=== PATIENT | male | born 1945 | race Caucasian/White ===

== ENCOUNTER 2016-07-28 17:03 | Inpatient (IN) | payer MEDICARE ==
[~2016-07-28] VITALS: Ht 193 cm; Wt 73.4 kg
[~2016-07-28 17:03] MED LIST: ALFU10TA3 PO; APIX5TAB PO; ARIP1TAB12 PO; CALCCHW9 CHEW; CYAN1000P SQ; FINA1TAB16 PO; MEGE40TA PO; TAMS5CAP PO; TRAZ50TA12 PO; ZOLO100T PO
[2016-07-28 17:34] VITALS: BP 136/70; PULSE 100; RESP 20; TEMP 97.6; O2SAT 97
[2016-07-28 22:20] VITALS: BP 127/81; PULSE 94; RESP 18; O2SAT 99
--- NOTE | 2016-07-28 23:01 | RADRPT ---
EXAM DATE/TIME: 07/28/2016 22:39 [facility] COMPARISON: No previous studies available for comparison. INDICATIONS : Right hip pain post fall 4 days ago MEDICAL HISTORY : Right proximal femur fracture SURGICAL HISTORY : ORIF right femur ENCOUNTER: Initial ACUITY: 4 - 6 days PAIN SCORE: 6/10 LOCATION: Right hip FINDINGS: No fractures are seen. There is degenerative disc disease of the lower lumbar spine and decreased bon e density. Postsurgical changes to the right proximal femur are noted with intramedullary femoral nec k pin and plate and screw fixation. CONCLUSION: No acute disease. Tej Stafford MD on July 28, 2016 at 22:59 Board Certified Radiologist. This report was verified electronically.
--- NOTE | 2016-07-28 23:09 | PD ---
HPI Chief Complaint: Back/ Neck Pain or Injury Time Seen by Provider: 22:59 Travel History International Travel<30 days: No Contact w/Intl Traveler<30days: No Traveled to known affect area: No History of Present Illness HPI 71-year-old male presents to the emergency room via ambulance for evaluation of low back pain and right hip pain after reportedly falling in the hospital. Patient has poor historian and cannot give exact date of fall. States he believes it was yesterday or the day before. Patient states he fell while admitted to the psychiatric unit at this hospital's. States he slipped on water in the bathroom and fell backwards landing on his buttocks. Denies hitting his head or loss of consciousness. He did not report the fall. States he had no pain at the time of fall but woke up the next day feeling "crippled." He had difficulty even standing. Denies saddle anesthesia, loss of bowel or bladder control, and lower extremity paresthesias. Patient lives with his daughter who takes care of him. States she has been giving him medication for pain but he does not know what it is. Pain is localized to the lower lumbar spine with some radiation to the right hip. No radiation down the right lower extremity. Pain is severely worsened with range of motion and ambulation. Improves when he is lying still or sitting. PFSH Past Medical History Anxiety: Yes Depression: Yes Diminished Hearing: Yes (bilateral hearing aids) Genitourinary: Yes (BPH, CHRONIC INCONTINENCE UNABLE TO CONTROL BLADDER MUSCLES ) Neurologic: Yes (Multiple Sclerosis) Psychiatric: Yes (mood disorder) Immunizations Current: Yes Tetanus Vaccination: Unknown Influenza Vaccination: No Past Surgical History Other Surgery: Yes (hx of back surgery) Social History Alcohol Use: No Tobacco Use: Yes (1/2 ppd) Substance Use: No Allergies-Medications (Allergen,Severity, Reaction): Coded Allergies: No Known Allergies (Unverified , 07/20/16) Reported Meds & Prescriptions Reported Meds & Active Scripts Active Trazodone (Trazodone HCl) 50 Mg Tab 50 Mg PO HS Flomax (Tamsulosin HCl) 0.4 Mg Cap 0.4 Mg PO DAILY Zoloft (Sertraline HCl) 100 Mg Tab 100 Mg PO DAILY Megestrol (Megestrol Acetate) 40 Mg Tab 20 Mg PO 1/2 PO BID Aripiprazole 10 Mg Tab 10 Mg PO DAILY Eliquis (Apixaban) 5 Mg Tab 5 Mg PO BID Eliquis (Apixaban) 5 Mg Tab 5 Mg PO BID follow up with PCP for refill and duration Reported Finasteride (Finasteride (Alopecia)) 1 Mg Tab 5 Mg PO DAILY Alfuzosin HCl ER (Alfuzosin HCl) 10 Mg Tab 10 Mg PO DAILY Calcium 1200 (Calcium Carbonate-Vitamin D W/Minerals) 1,200-1,000 Mg-Unit Chew 1 Tab CHEW DAILY Cyanocobalamin Inj (Cyanocobalamin) 1,000 Mcg/Ml Inj 1,000 Mcg SQ Q30D Review of Systems Except as stated in HPI: all other systems reviewed are Neg Physical Exam Narrative GENERAL: Well-nourished, well-developed male in no acute distress. Afebrile. SKIN: Warm and dry. No obvious erythema or ecchymosis. HEAD: Normocephalic. EYES: No scleral icterus. No injection or drainage. NECK: Supple, trachea midline. No JVD or lymphadenopathy. CARDIOVASCULAR: Regular rate and rhythm without murmurs, gallops, or rubs. RESPIRATORY: Breath sounds equal bilaterally. No accessory muscle use. BACK: No CVA tenderness. No rash. Mild to moderate tenderness on palpation of the lumbar spine. Data Data Last Documented VS Vital Signs Date Time Temp Pulse Resp B/P Pulse Ox O2 Delivery O2 Flow Rate FiO2 07/28/16 23:43 81 18 164/77 93 07/28/16 22:20 Room Air 07/28/16 17:[address] Lumb Spine W/O Contrast (07/28/16 ) Hip, Uni(Ap&Lat) W Ap Pelvis (07/28/16 ) Iv Access Insert/Monitor (07/28/16 23:35) Ecg Monitoring (07/28/16 23:35) Oximetry (07/28/16 23:35) Ondansetron Inj (Zofran Inj) (07/28/16 23:45) Hydromorphone Pf Inj (Dilaudid Pf Inj) (07/28/16 23:45) Consult Neurosurgery (07/28/16 ) Admit Order (Ed Use Only) (07/29/16 00:03) Ct Brain W/O Iv Contrast(Rout) (07/29/16 ) Place In Observation (07/29/16 ) Vital Signs (Adult) Q4H (07/29/16 00:01) Neuro Checks Q4H (07/29/16 00:01) Activity Bed Rest (07/29/16 00:01) ^ Network Technology Instructor / Telemetry .CONTINUOUS (07/29/16 00:01) Diet Heart Healthy (07/29/16 Breakfast) Sodium Chloride 0.9% Flush (Ns Flush) (07/29/16 00:15) Sodium Chloride 0.9% Flush (Ns Flush) (07/29/16 09:00) Basic Metabolic Panel (Bmp) (07/30/16 06:00) Complete Blood Count With Diff (07/30/16 06:00) Prothrombin Time / Inr (Pt) (07/30/16 06:00) Pt Request For Service (07/29/16 00:01) Case Management Consult (07/29/16 00:01) Naloxone Inj (Narcan Inj) (07/29/16 00:15) Complete Blood Count With Diff (07/29/16 00:01) Comprehensive Metabolic Panel (07/29/16 00:01) Act Partial Throm Time (Ptt) (07/29/16 00:01) Prothrombin Time / Inr (Pt) (07/29/16 00:01) Mri L Spine W&W/O Contrast (07/29/16 23:35) MDM Medical Decision Making Medical Screen Exam Complete: Yes Emergency Medical Condition: Yes Medical Record Reviewed: Yes Differential Diagnosis Fracture versus sciatica versus degenerative disc disease Narrative Course 71-year-old male presents to the emergency room for evaluation of low back pain for the past several days. Patient states he slipped on water in the hospital bathroom after showering but cannot give a specific date of injury. He denies hitting his head or loss of consciousness. Fell straight back and landed on his buttocks. Since then he has had progressively worsening pain. No focal neurological deficits. There is midline tenderness in the lumbar spine with radiation to the right hip. Vital signs stable. Lumbar spine CT and right hip x-ray ordered and pending. Patient signed out to the nighttime physician, Dr. López, for further evaluation and disposition. Condition: Stable Marina Joya Jul 28, 2016 23:08
--- NOTE | 2016-07-28 23:19 | RADRPT ---
EXAM DATE/TIME: 07/28/2016 22:48 [facility] COMPARISON: No previous studies available for comparison. INDICATIONS : Fall with back pain and trauma. RADIATION DOSE: 36.18 CTDIvol (mGy) MEDICAL HISTORY : Hypertension. SURGICAL HISTORY : Back surgery. ENCOUNTER: Initial ACUITY: 1 day PAIN SCALE: 6/10 LOCATION: [facility] TECHNIQUE: Volumetric scanning of the lumbar spine was performed. Multiplanar reconstructions in the sagittal, coronal and oblique axial planes were performed. Using automated exposure control and adjustment of the mA and/or kV according to patient size, radiation dose was kept as low as reasonably achievable t o obtain optimal diagnostic quality images. FINDINGS: There is a moderate to severe compression fracture of the L4 vertebral body with invagination of the superior and inferior endplates. Centrally there is loss of approximately 70% of the vertical height. There is sclerosis and irregularity. There are subtle fracture lines through the anterior upper kym ex. There is mild retropulsion of the posterior superior aspect of the vertebral body on the sagittal images measuring up to approximately 3 mm. There are mild compression fracture deformities of the T1 2 and L1 vertebral body which appear chronic. Degenerative joint changes are present at the L5-S1 le candace with disc space narrowing and hypertrophic change as well as vacuum disc phenomena. Vacuum phenom kathleen is also noted at the L3-4 level. The axial images demonstrate mild scoliosis. The compression fracture from the L3 vertebral body is a gain noted with mild retropulsion of the posterior superior aspect of the vertebral body measuring up to 3-4 mm with mass effect on the anterior thecal sac. There is an annular disc bulge at L3-4 with flattening of the anterior thecal sac and narrowing of th e neural foramina. There are degenerative change involving the facet joints with moderate to severe c entral canal stenosis. There is an annular disc bulge with flattening of the anterior thecal sac at L4-5 with narrowing of t he neural foramina bilaterally. Degenerative changes are noted involving the facet joints with hypert rophy of the ligamentum flavum. There is moderate to severe central canal stenosis at this level as w ell. There is lateral recess stenosis as well. At the L5-S1 level there is a mild annular disc bulge with flattening of the anterior thecal sac and narrowing of the neural foramina bilaterally. There are apparent remote postsurgical changes. Degener ative changes are noted involving the facet joints. CONCLUSION: 1. Moderate to severe compression fracture deformity L4 vertebral body which is of indeterminate age secondary to sclerosis however there are apparent fracture lines on the anterior superior aspect jodi cating that at least a portion of this is acute. There is mild retropulsion of the posterior superior aspect of the vertebral body. 2. Mild chronic compression fracture deformities of the T12 and L1 vertebral bodies. 3. Moderate to severe central canal stenosis at the L3-4 and L4-5 levels. This is secondary to disc b ulges and degenerative changes involving the facets. Anatoliy Nava MD on July 28, 2016 at 23:09 Board Certified Radiologist. This report was verified electronically.
--- NOTE | 2016-07-28 23:40 | PD ---
Data Data Last Documented VS Vital Signs Date Time Temp Pulse Resp B/P Pulse Ox O2 Delivery O2 Flow Rate FiO2 07/28/16 22:20 94 18 127/81 99 Room Air 07/28/16 17:[address] Lumb Spine W/O Contrast (07/28/16 ) Hip, Uni(Ap&Lat) W Ap Pelvis (07/28/16 ) Iv Access Insert/Monitor (07/28/16 23:35) Ecg Monitoring (07/28/16 23:35) Oximetry (07/28/16 23:35) Ondansetron Inj (Zofran Inj) (07/28/16 23:45) Sodium Chloride 0.9% Flush (Ns Flush) (07/28/16 23:45) Hydromorphone Pf Inj (Dilaudid Pf Inj) (07/28/16 23:45) Mri L Spine W/O Contrast (07/28/16 23:35) Consult Neurosurgery (07/28/16 ) MDM Medical Record Reviewed: Yes Supervised Visit with ARNOLDO: Yes Narrative Course I, Dr. Das, have reviewed the advance practice practitioner's documentation and am in agreement, met with the patient face to face, made the diagnosis, and the medical decision making was done by me. *My assessment and Findings: This patient experienced a fall while in the [facility] according to him. Evidently he slipped on some water in the bathroom. He fell backwards landing in the region of the lower lumbar back and sacral back. Since then he has had increasing difficulty with ambulation. Multiple assistance are required for him to ambulate. He describes a constant severe pain in the lower midline back as well as in the region of the hips. Workup here included a CT of the lumbar spine. Possible acute fracture of the L4 vertebral body was discussed with Dr. Oconnor for neurosurgery. Observation for pain control and MRI of the lumbar spine is recommended. Last [address] 07/28/16 0000 Signed Impressions: Service Date/Time: Thursday, July 28, 2016 22:48 - CONCLUSION: 1. Moderate to severe compression fracture deformity L4 vertebral body which is of indeterminate age secondary to sclerosis however there are apparent fracture lines on the anterior superior aspect indicating that at least a portion of this is acute. There is mild retropulsion of the posterior superior aspect of the vertebral body. 2. Mild chronic compression fracture deformities of the T12 and L1 vertebral bodies. 3. Moderate to severe central canal stenosis at the L3-4 and L4-5 levels. This is secondary to disc bulges and degenerative changes involving the facets. Anatoliy Nava MD Hip and Pelvis X-Ray 07/28/16 0000 Signed Impressions: Service Date/Time: Thursday, July 28, 2016 22:39 - CONCLUSION: No acute disease. Tej Stafford MD Diagnosis Primary Impression: Fall Qualified Code: W19.XXXA - Fall, initial encounter Additional Impression: Compression fracture of L4 lumbar vertebra Qualified Code: S32.040A - Compression fracture of L4 lumbar vertebra, closed , initial encounter Admitting Information Admitting Physician Requests: Observation Condition: Stable Avery Das MD Jul 28, 2016 23:40
[2016-07-28 23:43] VITALS: BP 164/77; PULSE 81; RESP 18; O2SAT 93
[2016-07-28] MEDS ORDERED: HYDROmorphone HCL PF 1 MG/ML VIAL IVS ONE (23:45)
[2016-07-28] MEDS ORDERED: SODIUM CHLORIDE 0.9% FLUSH 5 ML FLUSH IVF PRN (23:45)
[2016-07-28] MEDS ORDERED: ONDANSETRON HCL 4 MG/2 ML VIAL IVP ONE (23:45)
[2016-07-29] VITALS (11 sets, daily range): BP systolic 108–162; BP diastolic 55–104; PULSE 70–104; RESP 14–20; TEMP 96.2–98.4; O2SAT 93–97
[2016-07-29] MEDS: SODIUM CHLOR 0.9% 1000 ML INJ 1,000 ML IV SCH (00:01)
[2016-07-29] MEDS ORDERED: NALOXONE HCL 0.4 MG/ML AMP IV PRN (00:15)
[2016-07-29] MEDS ORDERED: SODIUM CHLORIDE 0.9% FLUSH 5 ML FLUSH FLUSH PRN (00:15)
[2016-07-29 00:37] LABS: AUTOMATED NEUTROPHIL # 10.9 TH/MM3 (1.8-7.7); BASOPHIL # 0.1 TH/MM3 (0-0.2); BASOPHIL % 0.6 % (0.0-2.0); EOSINOPHIL # 0.5 TH/MM3 (0-0.4); EOSINOPHIL % 3.3 % (0.0-4.0); HEMATOCRIT 40.8 % (39.0-51.0); HEMO FLAGS DIFF FINAL; LYMPH % 9.9 % (9.0-44.0); LYMPHOCYTE # 1.4 TH/MM3 (1.0-4.8); MEAN CORPUSCULAR HEMOGLOBIN 33.4 PG (27.0-34.0); MEAN CORPUSCULAR HGB CONC 34.5 % (32.0-36.0); MONO % 11.2 % (0.0-8.0); PLATELET COUNT 239 TH/MM3 (150-450); RED BLOOD COUNT 4.21 MIL/MM3 (4.50-5.90); RED CELL DISTRIBUTION WIDTH 13.4 % (11.6-17.2); WHITE BLOOD COUNT 14.5 TH/MM3 (4.0-11.0)
[2016-07-29 00:47] LABS: APTT (PATIENT) 24.5 SEC (24.3-30.1); PROTHROMBIN TIME - PATIENT 11.4 SEC (9.8-11.6)
[2016-07-29 00:51] LABS: ALT (GPT) 31 U/L (12-78); ANION GAP 8 MEQ/L (5-15); AST (GOT) 14 U/L (15-37); BICARBONATE 25.4 MEQ/L (21.0-32.0); BLOOD UREA NITROGEN 16 MG/DL (7-18); CHLORIDE 104 MEQ/L (98-107); GLOMERULAR FILTRATION RATE 97 ML/MIN (>89); POTASSIUM 3.9 MEQ/L (3.5-5.1); SODIUM (NA) 137 MEQ/L (136-145)
[2016-07-29 00:53] LABS: ALKALINE PHOSPHATASE 64 U/L (45-117); TOTAL BILIRUBIN ADULT 0.4 MG/DL (0.2-1.0)
--- NOTE | 2016-07-29 00:57 | RADRPT ---
EXAM DATE/TIME: 07/29/2016 00:41 [facility] COMPARISON: No previous studies available for comparison. INDICATIONS : Status post fall a few days ago. RADIATION DOSE: 48.20 CTDIvol (mGy) MEDICAL HISTORY : Multiple sclerosis SURGICAL HISTORY : None. ENCOUNTER: Initial ACUITY: 2 days PAIN SCALE: 0/10 LOCATION: cranial TECHNIQUE: Multiple contiguous axial images were obtained of the head. Using automated exposure control and adj ustment of the mA and/or kV according to patient size, radiation dose was kept as low as reasonably a chievable to obtain optimal diagnostic quality images. FINDINGS: CEREBRUM: The ventricles are normal for age with moderate atrophic change with sulcal and ventricular prominenc e. Periventricular white matter lucencies are noted consistent with chronic small vessel ischemic lucy nge. No evidence of midline shift, mass lesion, hemorrhage or acute infarction. No extra-axial fluid collections are seen. POSTERIOR FOSSA: The cerebellum and brainstem are intact. The 4th ventricle is midline. The cerebellopontine angle i s unremarkable. EXTRACRANIAL: The visualized portion of the orbits is intact. SKULL: The calvaria is intact. No evidence of skull fracture. CONCLUSION: 1. No acute hemorrhage, mass or infarction. 2. Moderate atrophic change and chronic small vessel ischemic changes. Anatoliy Nava MD on July 29, 2016 at 0:54 Board Certified Radiologist. This report was verified electronically.
--- NOTE | 2016-07-29 08:20 | PD.CONS ---
[facility] Service Neurosurg Consult Requested By Sujatha Reason for Consult Fracture Primary Care Physician [facility] History of Present Illness This is a 71-year-old male brought to the emergency room via ambulance for evaluation of low back pain and right hip pain after reportedly falling in the hospital. He is a very poor historian and cannot give exact date of fall. He states he fell while admitted to the psychiatric unit at this hospital 1 or 2 days ago. Apparently he slipped on the water in the bathroom and fell backwards , landing on his buttocks. He denies hitting his head or loss of consciousness. He did not report the fall. No sezire activity. No tongue bitting. No incontinence of stool or urine. He had no pain at the time of fall, but woke up the next morning on pain. He had difficulty even standing. Denies saddle anesthesia, loss of bowel or bladder control, and lower extremity paresthesias. He denies focal weakness. Patient lives with his daughter who takes care of him. States she has been giving him medication for pain but he does not know what it is. Pain is localized to the lower lumbar spine with some radiation to the right hip. No radiation down the right lower extremity. Pain is severely worsened with motion and ambulation. The pain is so severe that he reports inability to ambulate. Rates the pain as 10/10. Pain Improves to 8/10 when he is lying still or sitting. His CT showed a L4 fracture. Neurosurgical consultation was requested. Physical Exam Physical Exam Narrative GENERAL: Well-nourished, well-developed male in no acute distress. Afebrile. SKIN: Warm and dry. No obvious erythema or ecchymosis. HEAD: Normocephalic. EYES: No scleral icterus. No injection or drainage. NECK: Supple, trachea midline. No JVD or lymphadenopathy. CARDIOVASCULAR: Regular rate and rhythm without murmurs, gallops, or rubs. RESPIRATORY: Breath sounds equal bilaterally. No accessory muscle use. BACK: No CVA tenderness. No rash. Mild to moderate tenderness on palpation of the lumbar spine. Review of Systems Constitutional: COMPLAINS OF: Diaphoretic episodes, Fatigue, Fever, Weight gain , Weight loss, Chills, Dizziness, Change in appetite, Night Sweats Endocrine: DENIES: Heat/cold intolerance, Polydipsia, Polyuria, Polyphagia Ears, nose, mouth, throat: COMPLAINS OF: Hearing loss, DENIES: Tinnitus, Vertigo, Nasal discharge, Oral lesions, Throat pain, Hoarseness, Ear Pain, Running Nose, Epistaxis, Sinus Pain, Toothache, Odynophagia Respiratory: DENIES: Apneas, Cough, Snoring, Wheezing, Hemoptysis, Sputum production, Shortness of breath Cardiovascular: DENIES: Chest pain, Palpitations, Syncope, Dyspnea on Exertion , PND, Lower Extremity Edema, Orthopnea, Claudication Gastrointestinal: DENIES: Abdominal pain, Black stools, Bloody stools, Constipation, Diarrhea, Nausea, Vomiting, Difficulty Swallowing, Anorexia Genitourinary: COMPLAINS OF: Urinary frequency, Urinary incontinence, Dysuria, Nocturia, DENIES: Sexual dysfunction, Urgency, Hematuria, Penile Discharge, Testicular Pain, Testicular Swelling Musculoskeletal: COMPLAINS OF: Back pain, DENIES: Joint pain, Muscle aches, Stiffness, Joint Swelling, Neck pain Integumentary: DENIES: Abnormal pigmentation, Nail changes, Pruritus, Rash Hematologic/lymphatic: COMPLAINS OF: Bruising, DENIES: Lymphadenopathy Immunologic/allergic: DENIES: Eczema, Urticaria Neurologic: DENIES: Abnormal gait, Headache, Localized weakness, Paresthesias, Seizures, Speech Problems, Tremor, Poor Balance Psychiatric: COMPLAINS OF: Anxiety, Mood changes, Depression, DENIES: Confusion, Hallucinations, Agitation, Suicidal Ideation, Homicidal Ideation, Delusions Past Family Social History Allergies: Coded Allergies: No Known Allergies (Unverified , 07/20/16) Past Medical History Anxiety: Yes Depression: Yes Diminished Hearing: Yes (bilateral hearing aids) BPH, CHRONIC INCONTINENCE Neurologic: Yes (Multiple Sclerosis) Psychiatric: Yes (mood disorder) Immunizations Current: Yes Past Surgical History Lumbar laminectomy Reported Medications Finasteride (Finasteride (Alopecia)) 1 Mg Tab 5 Mg PO DAILY Alfuzosin HCl ER (Alfuzosin HCl) 10 Mg Tab 10 Mg PO DAILY Calcium 1200 (Calcium Carbonate-Vitamin D W/Minerals) 1,200-1,000 Mg-Unit Chew 1 Tab CHEW DAILY Cyanocobalamin Inj (Cyanocobalamin) 1,000 Mcg/Ml Inj 1,000 Mcg SQ Q30D Active Ordered Medications Current Medications Ondansetron HCl (Zofran Inj) 4 mg ONCE ONCE IVP Last administered on at 00:25; Start 07/28/16 at 23:45; Stop 07/28/16 at 23:46; Status DC IV Flush (NS Flush) 2 ml UNSCH PRN IVF FLUSH AFTER USING IV ACCESS; Start at 23:45; Status Cancel Hydromorphone HCl (Dilaudid Pf Inj) 0.5 mg ONCE ONCE IVS Last administered on 07/29/16at 00:26; Start 07/28/16 at 23:45; Stop 07/28/16 at 23:46; Status DC IV Flush (NS Flush) 2 ml UNSCH PRN FLUSH FLUSH AFTER USING IV ACCESS; Start at 00:15 IV Flush (NS Flush) 2 ml BID FLUSH ; Start 07/29/16 at 09:00 Naloxone HCl (Narcan Inj) 0.4 mg UNSCH PRN IV SEE LABEL COMMENTS; Start at 00:15 Influenza Virus Vaccine (Flu (Quadrivalent) Vaccine Inj) 0.5 ml ONCE ONCE IM ; Start 07/30/16 at 09:00; Stop 07/30/16 at 09:01 Aripiprazole (Abilify) 10 mg DAILY PO ; Start 07/29/16 at 09:00 Sertraline HCl (Zoloft) 100 mg DAILY PO ; Start 07/29/16 at 09:00 Trazodone HCl (Desyrel) 50 mg HS PO ; Start 07/29/16 at 21:00 Finasteride (Proscar) 5 mg DAILY PO ; Start 07/29/16 at 09:00 Family History Non contributory Social History Alcohol Use: No Tobacco Use: Yes (1/2 ppd) Substance Use: No Physical Exam Vital Signs Vital Signs Date Time Temp Pulse Resp B/P Pulse Ox O2 Delivery O2 Flow Rate FiO2 07/29/16 07:30 98.4 104 20 155/72 93 07/29/16 04:27 98.4 86 14 133/68 95 07/29/16 01:54 98.1 83 18 139/78 96 07/29/16 01:05 80 16 128/58 94 07/28/16 23:43 81 18 164/77 93 07/28/16 22:20 94 18 127/81 99 Room Air 07/28/16 17:34 97.6 100 20 136/70 97 Room Air Physical Exam The patient is alert, awake and oriented to time, place and person. Speech is fluent. Higher cognitive functions are normal. Cranial nerve examination demonstrates the pupils to be equal, round, and reactive to light. Extra-ocular movements are intact. Facial motor and sensory function are normal and symmetrical. Gross hearing is intact, bilaterally. The uvula is midline and elevates symmetrically with the soft palate. Sternocleidomastoid and trapezius muscles have normal and symmetrical strength. Other cranial nerves are intact. Neck is soft and supple. Cervical spine has a full range of motion in anterior flexion, extension, lateral bending, and rotation without pain. There is no tenderness to palpation to the spinous processes or paraspinal muscles. Muscle testing reveals normal bulk and tone overall without rigidity, spasticity , fasciculations, or atrophy. Muscle strength is 5/5 in all muscle groups of both upper extremities including deltoid, biceps, triceps, brachioradialis, wrist extension and secure software assessor. In the lower extremities, strength is 3/5 in both iliopsoas, quadriceps, 4/5 hamstrings, plantar flexion, dorsiflexion, and extensor hallicus longus. Sensory examination is intact to light touch and sharp/dull discrimination in both the upper extremities, and decreased diffusely in his lower extremities Deep tendon reflexes are 2+ and symmetrical in the biceps, triceps, and brachioradialis, bilaterally, in the upper extremities. In the lower extremities , the patellar and Achilles are trace, bilaterally. There is a bilateral plantar flexion response. Hoffmanns sign is negative. There is no clonus or other abnormal reflexes noted. Cerebellar examination is intact to [id number] test, rapid rhythmic alternating motion. There is no dysmetria, dysdiadochokinesia, truncal ataxia, or tremor. Laboratory Laboratory Tests Test 07/29/16 00:24 White Blood Count 14.5 Red Blood Count 4.21 Hemoglobin 14.1 Hematocrit 40.8 Mean Corpuscular Volume 97.0 Mean Corpuscular Hemoglobin 33.4 Mean Corpuscular Hemoglobin 34.5 Concent Red Cell Distribution Width 13.4 Platelet Count 239 Mean Platelet Volume 8.1 Neutrophils (%) (Auto) 75.0 Lymphocytes (%) (Auto) 9.9 Monocytes (%) (Auto) 11.2 Eosinophils (%) (Auto) 3.3 Basophils (%) (Auto) 0.6 Neutrophils # (Auto) 10.9 Lymphocytes # (Auto) 1.4 Monocytes # (Auto) 1.6 Eosinophils # (Auto) 0.5 Basophils # (Auto) 0.1 CBC Comment DIFF FINAL Differential Comment Prothrombin Time 11.4 Prothromb Time International 1.0 Ratio Activated Partial 24.5 Thromboplast Time Sodium Level 137 Potassium Level 3.9 Chloride Level 104 Carbon Dioxide Level 25.4 Anion Gap 8 Blood Urea Nitrogen 16 Creatinine 0.79 Estimat Glomerular Filtration 97 Rate Random Glucose 107 Calcium Level 8.7 Total Bilirubin 0.4 Aspartate Amino Transf 14 (AST/SGOT) Alanine Aminotransferase 31 (ALT/SGPT) Alkaline Phosphatase 64 Total Protein 7.6 Albumin 3.6 Result Diagram: 07/29/16 0024 07/29/16 0024 Imaging Last Impressions Head CT 07/29/16 0000 Signed Impressions: Service Date/Time: July 00:41 - CONCLUSION: 1. No acute hemorrhage, mass or infarction. 2. Moderate atrophic change and chronic small vessel ischemic changes. Anatoliy Nava MD Lumbar Spine CT 07/28/16 0000 Signed Impressions: Service Date/Time: Thursday, July 28, 2016 22:48 - CONCLUSION: 1. Moderate to severe compression fracture deformity L4 vertebral body which is of indeterminate age secondary to sclerosis however there are apparent fracture lines on the anterior superior aspect indicating that at least a portion of this is acute. There is mild retropulsion of the posterior superior aspect of the vertebral body. 2. Mild chronic compression fracture deformities of the T12 and L1 vertebral bodies. 3. Moderate to severe central canal stenosis at the L3-4 and L4-5 levels. This is secondary to disc bulges and degenerative changes involving the facets. Anatoliy Nava MD Hip and Pelvis X-Ray 07/28/16 0000 Signed Impressions: Service Date/Time: Thursday, July 28, 2016 22:39 - CONCLUSION: No acute disease. Tej Stafford MD Attending Statement Neuro. I have reviewed his clinical and radiological findings. Start neuro checks in a serial fashion. Recommend MRI L spine TLSO brace Respiratory. Aggressive pulmonary toilette, nasotracheal suction, and breathing treatments with nebulizers. PT and OT evaluation Nutrition. NPO Renal. monitor closely urine output, BUN and creatinine Endocrine. Monitor serial Acu checks and SSI as needed in detail ID monitor for signs of infection Protonix for stress ulcer prophylaxis Mookie montez and SCD's for DVT prophylaxis Addendum: I reviewed his MRI of the lumbar spine. July 08:32 - CONCLUSION: 1. There is an acute compression fracture of the L4 vertebral body with approximately 70%% height loss centrally. Secondary to posterior convexity of the L4 vertebral body cortex and facet hypertrophy there is moderate to severe canal stenosis at L3-L4. 2. There is an acute mild superior endplate fracture at L3 with less than 10%% height loss. 3. There are old compression fractures of the superior endplates of T12 and L1. 4. There is also moderate spinal canal stenosis at L4-L5 secondary to disc bulge and facet and ligamentum flavum hypertrophy. He suffers from intractable pain, with moderate to severe spinal stenosis and 70 % compression of L4. I have discussed his condition, radiological findings, and alternative treatment with the patient and his including the possibility of continuing conservative treatment with physical therapy, exercises, antiinflammatories and muscle relaxants, epidural steroid injections by an interventional pain specialist, versus a surgical procedure with an open reduction and internal fixation of the L4 fracture, L2 to S1 instrumented fixation with transpedicular screws, rods and a posterolateral fusion. Mr Price understands that a surgical procedure should be considered as a last resort. Unfortunately, her symptoms are getting worse and continue to affect her activities of daily living. He is not interested on 8 temporarily fix such as pain management. He understands that given his age and friable condition is at increased surgical risk. I have discussed the details of the surgical procedure including the step-by- step procedure, its indications, alternatives, risks, and potential complications. Risks and potential complications include, but are not limited to , infection, blood loss, CSF leak, partial or complete loss of sight in one or both eyes, paresis, paralysis, permanent pain, hoarseness or difficulty swallowing, loss of bowel or bladder function, complications from anesthesia, blood clot, stroke, myocardial infarction, or even . I adviced Mr Price that before reaching a decision in regards to surgery, he should consider the alternatives, including the possibility of no treatment. he and his daughter fully understand. All questions have been answered, no guaranties were given. Dennis Oconnor MD Jul 29, 2016 08:20
[2016-07-29] MEDS ORDERED: GADODIAMIDE PF 287 MG/ML 5 ML VIAL (for RAD MRI) IV ONE (08:57)
--- NOTE | 2016-07-29 10:03 | RADRPT ---
EXAM DATE/TIME: 07/29/2016 08:32 [facility] COMPARISON: CT LUMBAR SPINE W/O CONTRAST, July 28, 2016, 22:48. INDICATIONS : Back pain with inability to ambulate. CONTRAST: 14 cc Omniscan (gadodiamide) IV MEDICAL HISTORY : Multiple sclerosis. SURGICAL HISTORY : Lumbar surgery. ENCOUNTER: Subsequent ACUITY: 2 day PAIN SCORE: 5/10 LOCATION: Left back TECHNIQUE: Multiplanar multisequence MRI of the lumbar spine was performed with and without contrast. FINDINGS: The most caudal appearing lumbar vertebra is numbered as L5. VERTEBRAE: There is a compression fracture of the L4 vertebral body with approximately 70% height loss centrally . There is edema within the vertebral body indicating that it is acute. There is also a right superio r endplate edema at the L5 endplate no associated height loss. At the superior endplate of L3 there i s linearly oriented bone marrow edema indicating acute compression fracture with less than 10% height loss. There are old compression fractures involving the superior endplates of T12 and L1. No anterol isthesis or retrolisthesis is present. CONUS: Normal level and configuration. POST CONTRAST: No abnormal areas of contrast enhancement are seen. T12-L1: There is mild posterior convexity of the posterior superior cortex of L1. No disc herniation, canal s tenosis, or neural foraminal stenosis is present. L1-L2: There is facet hypertrophy. No disc herniation, canal stenosis, or neural foraminal stenosis is prese nt. L2-L3: There is moderate facet and ligamentum flavum hypertrophy. Lateral recesses are mildly effaced. There is no spinal canal stenosis or significant neural foraminal narrowing. L3-L4: There is posterior convexity at the posterior superior margin of L4 secondary to the compression frac ture. This protrudes into the spinal canal by a few millimeters. There is also moderate to severe fac et and ligamentum flavum hypertrophy. Collectively these changes cause moderate to severe spinal michel l stenosis with near complete loss of CSF signal around the nerve roots. AP thecal sac diameter is 6 mm. There is mild narrowing of the neural foramina. L4-L5: There is a moderate diffuse disc bulge with severe facet and ligamentum flavum hypertrophy. There is edema in the right facet joint. These changes cause moderate spinal canal stenosis with near complete loss of CSF signal around the nerve roots. There is also moderate right neural foraminal narrowing. L5-S1: There has been laminectomy previously at this level and there is facet hypertrophy. No disc herniatio n is present and there is no canal stenosis. There is mild neural foraminal narrowing bilaterally. CONCLUSION: 1. There is an acute compression fracture of the L4 vertebral body with approximately 70% height loss centrally. Secondary to posterior convexity of the L4 vertebral body cortex and facet hypertrophy th ere is moderate to severe canal stenosis at L3-L4. 2. There is an acute mild superior endplate fracture at L3 with less than 10% height loss. 3. There are old compression fractures of the superior endplates of T12 and L1. 4. There is also moderate spinal canal stenosis at L4-L5 secondary to disc bulge and facet and ligame ntum flavum hypertrophy. Moe Galvan MD on July 29, 2016 at 9:52 Board Certified Radiologist. This report was verified electronically.
[2016-07-29] MEDS: SODIUM CHLORIDE 0.9% FLUSH 5 ML FLUSH FLUSH SCH ×2 (10:05→22:08)
[2016-07-29] MEDS: ARIPiprazole 10 MG TAB PO SCH (10:05)
[2016-07-29] MEDS: SERTRALINE HCL 100 MG TAB PO SCH (10:05)
[2016-07-29] MEDS: FINASTERIDE 5 MG TAB PO SCH (10:05)
--- NOTE | 2016-07-29 18:24 | HHI.HP ---
[facility] Primary Care Physician [facility] Admission Diagnosis Poss L4 Fx, Fall Diagnoses: Travel History International Travel<30 Days: No Contact w/Intl Traveler <30 Da: No Traveled to Known Affected Are: No History of Present Illness Patient seen this morning around 11 AM. 71-year-old male with a history of depression, mood disorder, BPH, osteoporosis, DVT left lower extremity diagnosed approximately 3 months ago, multiple sclerosis. Recent admission to inpatient psychiatric center. He was discharged on 07/27. He does report a mechanical fall during admission to inpatient psychiatry, with injury to his lower back. He reports constant stabbing pain to the lower back since a fall during recent admission. He denies any change in bowel or bladder habits. Denies any chest pain, shortness of breath, nausea, vomiting. Review of Systems Other performed and negative except for history of present illness and past medical history. Past Family Social History Past Medical History Depression Mood disorder Benign prostatic hyperplasia Osteoporosis DVT left lower extremity diagnosed approximately 3 months ago. Multiple sclerosis diagnosed in his late 20s Urinary and stool incontinence. Chronic. Past Surgical History History of back surgery Reported Medications Reported Meds & Active Scripts Active Trazodone (Trazodone HCl) 50 Mg Tab 50 Mg PO HS Flomax (Tamsulosin HCl) 0.4 Mg Cap 0.4 Mg PO DAILY Zoloft (Sertraline HCl) 100 Mg Tab 100 Mg PO DAILY Megestrol (Megestrol Acetate) 40 Mg Tab 20 Mg PO 1/2 PO BID Aripiprazole 10 Mg Tab 10 Mg PO DAILY Eliquis (Apixaban) 5 Mg Tab 5 Mg PO BID Eliquis (Apixaban) 5 Mg Tab 5 Mg PO BID follow up with PCP for refill and duration Reported Finasteride (Finasteride (Alopecia)) 1 Mg Tab 5 Mg PO DAILY Alfuzosin HCl ER (Alfuzosin HCl) 10 Mg Tab 10 Mg PO DAILY Calcium 1200 (Calcium Carbonate-Vitamin D W/Minerals) 1,200-1,000 Mg-Unit Chew 1 Tab CHEW DAILY Cyanocobalamin Inj (Cyanocobalamin) 1,000 Mcg/Ml Inj 1,000 Mcg SQ Q30D Allergies: Coded Allergies: No Known Allergies (Unverified , 07/20/16) Family History Mother with diabetes. Father secondary to unknown cancer. Social History Tobacco use. Smokes one half to 2 packs per day for many years Physical Exam Vital Signs Vital Signs Date Time Temp Pulse Resp B/P Pulse Ox O2 Delivery O2 Flow Rate FiO2 07/29/16 15:56 96.6 84 20 162/80 95 07/29/16 14:45 81 07/29/16 11:41 96.2 77 17 152/70 96 07/29/16 07:30 98.4 104 20 155/72 93 07/29/16 04:27 98.4 86 14 133/68 95 07/29/16 01:54 98.1 83 18 139/78 96 07/29/16 01:05 80 16 128/58 94 07/28/16 23:43 81 18 164/77 93 07/28/16 22:20 94 18 127/81 99 Room Air Physical Exam GENERAL: This is a well-nourished, well-developed patient, who appears in pain. SKIN: No rashes, ecchymoses or lesions. Cool and dry. HEAD: Atraumatic. Normocephalic. No temporal or scalp tenderness. EYES: Pupils equal round and reactive. Extraocular motions intact. No scleral icterus. No injection or drainage. ENT: Nose without bleeding, purulent drainage or septal hematoma. Throat without erythema, tonsillar hypertrophy or exudate. Uvula midline. Airway patent. NECK: Trachea midline. No JVD or lymphadenopathy. Supple, nontender, no meningeal signs. CARDIOVASCULAR: Regular rate and rhythm without murmurs, gallops, or rubs. RESPIRATORY: Clear to auscultation. Breath sounds equal bilaterally. No wheezes , rales, or rhonchi. GASTROINTESTINAL: Abdomen soft, non-tender, nondistended. No hepato-splenomegaly , or palpable masses. No guarding. MUSCULOSKELETAL: Extremities without clubbing, cyanosis, or edema. No joint tenderness, effusion, or edema noted. No calf tenderness. Negative Homans sign bilaterally. NEUROLOGICAL: Awake and alert. Cranial nerves II through XII intact. Motor and sensory grossly within normal limits. Five out of 5 muscle strength in all muscle groups. Normal speech. Laboratory Laboratory Tests Test 07/29/16 00:24 White Blood Count 14.5 Red Blood Count 4.21 Hemoglobin 14.1 Hematocrit 40.8 Mean Corpuscular Volume 97.0 Mean Corpuscular Hemoglobin 33.4 Mean Corpuscular Hemoglobin 34.5 Concent Red Cell Distribution Width 13.4 Platelet Count 239 Mean Platelet Volume 8.1 Neutrophils (%) (Auto) 75.0 Lymphocytes (%) (Auto) 9.9 Monocytes (%) (Auto) 11.2 Eosinophils (%) (Auto) 3.3 Basophils (%) (Auto) 0.6 Neutrophils # (Auto) 10.9 Lymphocytes # (Auto) 1.4 Monocytes # (Auto) 1.6 Eosinophils # (Auto) 0.5 Basophils # (Auto) 0.1 CBC Comment DIFF FINAL Differential Comment Prothrombin Time 11.4 Prothromb Time International 1.0 Ratio Activated Partial 24.5 Thromboplast Time Sodium Level 137 Potassium Level 3.9 Chloride Level 104 Carbon Dioxide Level 25.4 Anion Gap 8 Blood Urea Nitrogen 16 Creatinine 0.79 Estimat Glomerular Filtration 97 Rate Random Glucose 107 Calcium Level 8.7 Total Bilirubin 0.4 Aspartate Amino Transf 14 (AST/SGOT) Alanine Aminotransferase 31 (ALT/SGPT) Alkaline Phosphatase 64 Total Protein 7.6 Albumin 3.6 Result Diagram: 07/29/16 0024 07/29/16 0024 Imaging Last Impressions Lumbar Spine MRI 07/29/16 2335 Signed Impressions: Service Date/Time: July 08:32 - CONCLUSION: 1. There is an acute compression fracture of the L4 vertebral body with approximately 70%% height loss centrally. Secondary to posterior convexity of the L4 vertebral body cortex and facet hypertrophy there is moderate to severe canal stenosis at L3-L4. 2. There is an acute mild superior endplate fracture at L3 with less than 10%% height loss. 3. There are old compression fractures of the superior endplates of T12 and L1. 4. There is also moderate spinal canal stenosis at L4-L5 secondary to disc bulge and facet and ligamentum flavum hypertrophy. Moe Galvan MD Head CT 07/29/16 0000 Signed Impressions: Service Date/Time: July 00:41 - CONCLUSION: 1. No acute hemorrhage, mass or infarction. 2. Moderate atrophic change and chronic small vessel ischemic changes. Anatoliy Nava MD Lumbar Spine CT 07/28/16 0000 Signed Impressions: Service Date/Time: Thursday, July 28, 2016 22:48 - CONCLUSION: 1. Moderate to severe compression fracture deformity L4 vertebral body which is of indeterminate age secondary to sclerosis however there are apparent fracture lines on the anterior superior aspect indicating that at least a portion of this is acute. There is mild retropulsion of the posterior superior aspect of the vertebral body. 2. Mild chronic compression fracture deformities of the T12 and L1 vertebral bodies. 3. Moderate to severe central canal stenosis at the L3-4 and L4-5 levels. This is secondary to disc bulges and degenerative changes involving the facets. Anatoliy Nava MD Hip and Pelvis X-Ray 07/28/16 0000 Signed Impressions: Service Date/Time: Thursday, July 28, 2016 22:39 - CONCLUSION: No acute disease. Tej Stafford MD Assessment and Plan Assessment and Plan //L4 compression fracture -As seen on imaging. Neurosurgery consulted and following. Appreciate assistance. -We'll need to decide on anticoagulation for DVT. If going to surgery will need heparin drip for bridging, if not can go back on Eliquis. //DVT left lower extremity. Diagnosed 3 months ago. Will need 6 months total treatment. Repeat Doppler on most recent admission continues positive. - Less than 24 hours off of Eliquis. Will hold on anticoagulation for today pending neurosurgery evaluation. Can restart on Eliquis pending neurosurgery evaluation. if Neurosurgery is considering possible surgical intervention, may need to place on heparin drip for bridging.. //Depression. Chronic. //Mood disorder. Chronic. -Continue antidepressants and antipsychotics. //BPH. Continue Flomax. As blood pressure has been a little low, will hold on the alfuzosin for now. //Chronic urinary and stool incontinence. No change from baseline. Continue monitor. //Tobacco abuse. Cessation advised. Counseling provided. //leukocytosis. Likely secondary to stress. No signs of infection. Continue monitor. DVT prophylaxis. Patient will need to be started back on Eliquis, or heparin drip for bridging if surgery will be considered. Discussed Condition With patient, nurse, KIERRA Fischer Jeffrey D MD Jul 29, 2016 18:24
[2016-07-29] MEDS ORDERED: ceFAZolin 2 GM PREMIX 50 ML IV ONE (20:45)
[2016-07-29] MEDS ORDERED: VANCOMYCIN INJ 1,000 MG in SODIUM CHLOR 0.9% 250 ML INJ 250 ML IV ONE (20:45)
[2016-07-29] MEDS: CHLORHEXIDINE GLUCONATE 4% SOLN 120 ML BTL TOP SCH (21:00)
[2016-07-29] MEDS: traZODone HCL 50 MG TAB PO SCH (22:08)
[2016-07-30 03:39] VITALS: BP 116/61; PULSE 79; RESP 16; TEMP 98.2; O2SAT 94
[2016-07-30 06:42] LABS: AUTOMATED NEUTROPHIL # 5.8 TH/MM3 (1.8-7.7); BASOPHIL % 0.5 % (0.0-2.0); EOSINOPHIL # 0.4 TH/MM3 (0-0.4); HEMATOCRIT 36.4 % (39.0-51.0); HEMO FLAGS DIFF FINAL; LYMPH % 19.8 % (9.0-44.0); LYMPHOCYTE # 1.8 TH/MM3 (1.0-4.8); MEAN CELL VOLUME 96.5 FL (80.0-100.0); MEAN CORPUSCULAR HEMOGLOBIN 34.5 PG (27.0-34.0); MEAN CORPUSCULAR HGB CONC 35.7 % (32.0-36.0); MONO % 11.6 % (0.0-8.0); NEUT % 64.1 % (16.0-70.0); PLATELET COUNT 227 TH/MM3 (150-450); RED BLOOD COUNT 3.77 MIL/MM3 (4.50-5.90); RED CELL DISTRIBUTION WIDTH 13.5 % (11.6-17.2)
[2016-07-30 06:49] LABS: PROTHROMBIN TIME - PATIENT 11.4 SEC (9.8-11.6)
[2016-07-30 07:09] LABS: POTASSIUM 3.9 MEQ/L (3.5-5.1)
[2016-07-30 08:29] VITALS: BP 137/64; PULSE 82; RESP 18; TEMP 98.2; O2SAT 95
[2016-07-30] MEDS: SODIUM CHLORIDE 0.9% FLUSH 5 ML FLUSH FLUSH SCH ×2 (09:00→21:00)
[2016-07-30] MEDS ORDERED: INFLUENZA VIRUS VACCINE (QUADRIVALENT) 0.5 ML SYR IM ONE (09:00)
[2016-07-30] MEDS: FINASTERIDE 5 MG TAB PO SCH (09:19)
[2016-07-30] MEDS: TAMSULOSIN HCL 0.4 MG CAP PO SCH (09:19)
[2016-07-30] MEDS: ARIPiprazole 10 MG TAB PO SCH (09:19)
[2016-07-30] MEDS: SERTRALINE HCL 100 MG TAB PO SCH (09:19)
[2016-07-30] MEDS: SODIUM CHLOR 0.9% 1000 ML INJ 1,000 ML IV SCH ×2 (09:24→19:00)
--- NOTE | 2016-07-30 09:55 | HHI.PR ---
Subjective Remarks Follow-up for lumbar fracture. The patient is alert and oriented 3. He denies any chest pains, shortness of breath, nausea, vomiting. He reports his back pain is unchanged. Going for OR today. Objective Vitals Vital Signs Date Time Temp Pulse Resp B/P Pulse Ox O2 Delivery O2 Flow Rate FiO2 07/30/16 08:29 98.2 82 18 137/64 95 07/30/16 03:39 98.2 79 16 116/61 94 07/29/16 23:53 98.3 70 14 108/55 96 07/29/16 20:47 07/29/16 20:16 83 07/29/16 19:58 98.0 89 16 133/72 95 07/29/16 15:56 96.6 84 20 162/80 95 07/29/16 14:45 81 07/29/16 11:41 96.2 77 17 152/70 96 I/O 07/29/16 07/29/16 07/29/16 07/30/16 07/30/16 07/30/16 06:59 14:59 22:59 06:59 14:59 22:59 Intake Total 200 ml 800 ml Output Total 200 ml Balance 0 ml 800 ml Intake Oral 200 ml 800 ml Output Urine Total 200 ml # Voids 5 Result Diagram: 07/30/16 0610 07/30/16 0610 Imaging Last Impressions Lumbar Spine MRI 07/29/16 2335 Signed Impressions: Service Date/Time: July 08:32 - CONCLUSION: 1. There is an acute compression fracture of the L4 vertebral body with approximately 70%% height loss centrally. Secondary to posterior convexity of the L4 vertebral body cortex and facet hypertrophy there is moderate to severe canal stenosis at L3-L4. 2. There is an acute mild superior endplate fracture at L3 with less than 10%% height loss. 3. There are old compression fractures of the superior endplates of T12 and L1. 4. There is also moderate spinal canal stenosis at L4-L5 secondary to disc bulge and facet and ligamentum flavum hypertrophy. Moe Galvan MD Head CT 07/29/16 0000 Signed Impressions: Service Date/Time: July 00:41 - CONCLUSION: 1. No acute hemorrhage, mass or infarction. 2. Moderate atrophic change and chronic small vessel ischemic changes. Anatoliy Nava MD Lumbar Spine CT 07/28/16 0000 Signed Impressions: Service Date/Time: Thursday, July 28, 2016 22:48 - CONCLUSION: 1. Moderate to severe compression fracture deformity L4 vertebral body which is of indeterminate age secondary to sclerosis however there are apparent fracture lines on the anterior superior aspect indicating that at least a portion of this is acute. There is mild retropulsion of the posterior superior aspect of the vertebral body. 2. Mild chronic compression fracture deformities of the T12 and L1 vertebral bodies. 3. Moderate to severe central canal stenosis at the L3-4 and L4-5 levels. This is secondary to disc bulges and degenerative changes involving the facets. Anatoliy Nava MD Hip and Pelvis X-Ray 07/28/16 0000 Signed Impressions: Service Date/Time: Thursday, July 28, 2016 22:39 - CONCLUSION: No acute disease. Tej Stafford MD Objective Remarks GENERAL: Well-developed well-nourished. In no acute distress. Oriented 3. SKIN: Warm and dry. No lesions noted. HEENT: Normocephalic. Pupils equal and round. Mucous membranes pink and moist. CARDIOVASCULAR: Regular rate and rhythm. No murmur appreciated. RESPIRATORY: No accessory muscle use. Clear to auscultation. Breath sounds equal bilaterally. GASTROINTESTINAL: Abdomen soft, non-tender, nondistended. Bowel sounds x4. MUSCULOSKELETAL: No obvious deformities. No clubbing or cyanosis. No edema. NEUROLOGICAL: Awake and alert. No focal neurological deficits. Moves upper and lower extremities spontaneously. Normal speech. PSYCHIATRIC: Appropriate mood and affect; insight and judgment normal. A/P Problem List: (1) Compression fracture of L4 lumbar vertebra ICD Code: S32.040A Status: Acute Assessment and Plan //L4 compression fracture -As seen on imaging. Neurosurgery consulted and planning on operative intervention today. -Resume anticoagulation for DVT when okay with surgery. //DVT left lower extremity. Diagnosed 3 months ago. Will need 6 months total treatment. Repeat Doppler on most recent admission continues to be positive. - Less than ~48 hours off of Eliquis. We asked the RN to inform the OR/ surgeon. Can restart on Eliquis pending neurosurgery clearance. //Depression. Chronic. //Mood disorder. Chronic. -Continue antidepressants and antipsychotics. //BPH. Continue Flomax. As blood pressure has been a little low, will hold on the alfuzosin for now. //Chronic urinary and stool incontinence. No change from baseline. Continue monitor. //Tobacco abuse. Cessation advised. Counseling provided. //leukocytosis. Likely secondary to stress. No signs of infection. Continue monitor. DVT prophylaxis. Patient will need to be started back on Eliquis Written by Akin Stauffer, acting as scribe for Dr. Montes on 07/30/16 at 09:55. Discharge Planning Follow-up neurosurgery recommendations. Admit to inpatient for intractable back pain with fracture requiring operative intervention. Attending Statement The documentation accurately reflects the work performed [id number] by me, Dr. Montes on 07/30/16 at 09:55. Problem Qualifiers (1) Compression fracture of L4 lumbar vertebra: Qualified Code: S32.040A - Compression fracture of L4 lumbar vertebra, closed, initial encounter Akin Stauffer Jul 30, 2016 09:55 Sanchez Montes MD Jul 31, 2016 23:43
[2016-07-30 10:10] VITALS: PULSE 73
[2016-07-30] MEDS ORDERED: NEOSTIGMINE 3 MG/3 ML SYR IV ONE (10:22)
[2016-07-30] MEDS ORDERED: LACTATED RINGER'S 1000 ML INJ 2,000 ML IV ONE (10:22)
[2016-07-30] MEDS ORDERED: PROPOFOL 200 MG/20 ML AMP IV ONE (10:22)
[2016-07-30] MEDS ORDERED: PHENYLEPH/NS 1000 MCG/10 ML SYR IV ONE (10:22)
[2016-07-30] MEDS ORDERED: ePHEDrine/NS 50 MG/5 ML SYR IV ONE (10:22)
[2016-07-30] MEDS ORDERED: NORMOSOL R INJ 2,000 ML IV ONE (10:22)
[2016-07-30] MEDS ORDERED: SODIUM CHLORID 0.9% 500 ML INJ 500 ML IV ONE (10:22)
[2016-07-30] MEDS ORDERED: ONDANSETRON HCL 4 MG/2 ML VIAL IV PUSH ONE (10:22)
[2016-07-30] MEDS ORDERED: HEPARIN SODIUM - IV 10,000 UNITS/10 ML VIAL ONE (10:26)
[2016-07-30] MEDS ORDERED: LIDOCAINE HCL 1% 30 ML VIAL ONE (10:26)
[2016-07-30] MEDS ORDERED: HEPARIN SODIUM - SQ 10,000 UNITS/ML VIAL ONE (10:27)
[2016-07-30] MEDS ORDERED: ceFAZolin 2 GM PREMIX 50 ML ONE ×2 (10:42→11:43)
[2016-07-30] MEDS ORDERED: SODIUM CHLOR 0.9% 250 ML INJ 250 ML ONE ×2 (10:46→11:44)
[2016-07-30] MEDS ORDERED: VANCOMYCIN HCL 1000 MG VIAL ONE ×2 (10:46→11:43)
[2016-07-30] MEDS ORDERED: ACETAMINOPHEN 1000 MG/100 ML VIAL IV ONE (11:38)
[2016-07-30] MEDS ORDERED: THROMBIN (TOPICAL) 5,000 UNIT VIAL ONE (11:43)
[2016-07-30] MEDS ORDERED: GELFOAM SIZE 100 ONE (11:44)
[2016-07-30] MEDS ORDERED: GENTAMICIN SULFATE 80 MG/2 ML VIAL ONE (11:44)
[2016-07-30] MEDS ORDERED: BUPIVACAINE HCL PF 0.5% 30 ML VIAL ONE (12:39)
--- NOTE | 2016-07-30 13:10 | EKG ---
Date Performed: 07/30/2016 Time Performed: 03:33:39 PTAGE: 71 years EKG: Sinus rhythm POSSIBLE LEFT ATRIAL ENLARGEMENT MARKED LEFT AXIS DEVIATION POSSIBLE RIGHT VENTRICULAR CONDUCTION DE LAY SEPTAL MYOCARDIAL INFARCTION ABNORMAL ECG NO PREVIOUS TRACING DOCTOR: Korey Calle Interpretating Date/Time 07/30/2016 13:07:36
[2016-07-30] MEDS ORDERED: ceFAZolin INJ 1,000 MG VIAL IV ONE (14:49)
[2016-07-30] MEDS ORDERED: fentaNYL CITRATE 250 MCG/5 ML AMP ONE (16:50)
[2016-07-30] MEDS ORDERED: diphenhydrAMINE HCL 50 MG/ML VIAL IV PRN (17:00)
[2016-07-30] MEDS ORDERED: MORPHINE SULFATE 4 MG/ML INJ IV PUSH PRN ×2 (17:00)
[2016-07-30] MEDS ORDERED: SODIUM CHLORIDE 0.9% FLUSH 5 ML FLUSH IVF PRN (17:00)
[2016-07-30] MEDS ORDERED: NALOXONE HCL 0.4 MG/ML AMP IV PRN (17:00)
[2016-07-30] MEDS ORDERED: DO NOT ADM ANY ANTICOAGULANT DRUGS XX PRN (17:00)
[2016-07-30] MEDS ORDERED: ACETAMINOPHEN 325 MG TAB PO PRN (17:00)
--- NOTE | 2016-07-30 17:14 | RADRPT ---
EXAM DATE/TIME: 07/30/2016 16:56 [facility] COMPARISON: No previous studies available for comparison. INDICATIONS : Post left sided central line placement in OR. Evaluate for placement. MEDICAL HISTORY : None. SURGICAL HISTORY : None. ENCOUNTER: Subsequent ACUITY: 1 day PAIN SCORE: 10/10 LOCATION: chest FINDINGS: The bony structures are intact scoliosis of thoracic spine to the right and degenerative changes of t he left glenohumeral joint. Left subclavian venous catheter is in place terminating superior cava wit h no pneumothorax. Atherosclerotic changes are noted in the aorta with interstitial changes in the linda ng melton slightly more prominent in the upper lobes and blunted or parenchymal density near the left costophrenic angle. CONCLUSION: Left subclavian venous catheter terminates in superior vena cava. No evidence of pneumothorax. James Galeano MD on July 30, 2016 at 17:10 Board Certified Radiologist. This report was verified electronically.
--- NOTE | 2016-07-30 17:59 | PD.OP ---
Operative Report Date of Surgery: Jul 30, 2016 Preoperative Diagnosis: L4 fracture Postoperative Diagnosis: L4 fracture Procedure: Open reduction of L4 fracture, L2-S1 segmental instrumental fixation using transpedicular screws and rods, L3-4 decompressive laminectomy, mesiofacetectomy , foraminotomy, L2-S1 posterolateral fusion using autologous bone graft with stem cells, microsurgical dissection Anesthesia: general Surgeon: Dennis Oconnor Pulmonology Technician(s): Lilian Bright Operation and Findings: INDICATIONS FOR THE SURGICAL PROCEDURE Mr Price is a 71 year-old male who presented with severe, intracrtable mechanical back pain related to a spinal fracture following a fall. He had over 70% compression of L4 and a mild fracure of L3, with great deal of difficulty due to his severe pain. He failed medical nonsurgical management. A surgical decompression with reduction of the fracture and arthrodhesis were indicated as the most appropriate treatment. The [id number] details of the procedure, indications, alternatives, risks and potential complications were fully discussed with the patient. The patient fully understood. All questions were answered. No guarantees were given. The patient voiced requesting the procedure and provided informed consents. The patient had been offered the alternative of delaying the procedure and continuing with nonsurgical management and pain management by a pain specialist. DETAILS OF THE SURGICAL PROCEDURE Prior to the procedure,the surgical incision was marked in the preoperative surgical holding room, and the procedure, risks, and potential complications revisited with the patient. Placement of electrodes for intraoperative neurophysiological monitoring was completed. The patient was taken to the operative room, and following induction of general anesthesia, endotracheal intubation was performed. A Espinoza catheter was placed and kept throughout the procedure. The patient was carefully rolled into the prone position over a Zana table with a gel rolls. All pressure points were carefully padded with eggcrate mattress. The eyes were tapped shut after ointment was applied by the anesthesiologist to prevent corneal abrasion. A Lauren hugger was placed over the expossed lower body to maintain control of the core body temperature. The electrophysiological team placed the needles and electrodes in their proper location and baseline SSEP's and motor evoked potentials were registered. The thoracic lumbar region was prepped and draped in the usual sterile fashion. A localizing X-ray was performed with the C-arm and the fracture was localized. A medial incision was outlined from the spinous process of L2 to S1 SURGICAL APPROACH Once the patient was positioned, a localizing cross-table lateral and AP x-ray was performed with a C-arm. Two paramedian small incisions were outlined on the skin approximately 3cm from the midline. The skin incisions were made with a # 10 blade. Small bleeders were controlled with the cautery. The dissection was then carried out into deeper planes and through the thoracolumbar fascia with a Bovie. The intermuscular septum was identified and the muscles were blunted dissected along the septum. The facets and transverse process of L2, L3, L4,L5, and S1 were exposed and the proper anatomical landmarks were identified. A microsurgical self-retaining retractor was placed on the incision, and a localizing lateralizing cross-table x-ray was performed with an instrument underneath a lamina of the lumbar spine. INSTRUMENTAL FIXATION At this point in the procedure, placement of bilateral transpedicular screws was necessary for stabilization of the spine. Initially, the entry point for the screw was selected anatomically at the junction of the facet, with the transverse process, and the pars interarticularis at L3-4, L4,5. This was started with a Giamshetti needle, followed by the use of K wire. A tap was used to create the threads for the screws. Finally bilateral transpedicular screws were carefully placed bilaterally at L2, L3, right L4, and L5 under fluoroscopic visualization. An appropriate purchase was achieved with all screws. The position of each screw was assessed anatomically with an AP, lateral , oblique Xrays. An intraoperative scan view of the spine was then performed using the iso-centric c-arm. Each screw was then assessed electrophysiologically stimulating each screw with a nerve stimulator. Open reduction of the fracture Once all screws were in position, the operative microscope was draped in the usual sterile fashion and brought to the field. The rest of the surgical procedure was performed using microdissection technique with the exception of the closure. Under the operative microscope, a laminectomy was performed at L3 - L4. The superior free border of the ligamentum flavum was elevated with a ligament dissector and the ligamentum flavum was removed with a 3 and 4 mm Kerrison forceps. At the level of the prior surgery, the ligament was very adherent to the dural sac and during the dissection, a small dural tear was noted. This was closed in a water tight fashion usinf 6-0 Prolene suture. The closure was reinforced at the end of the procedure using Tisseal fibrin glue. Epidural veins were coagulated with the bipolar and incised with the microscissors. The retropulsed bones were assessed with an nerve hook. A shoe impactor was placed on the anterior epidural space and the bone fragments were impacted back into the vertebral body Posterolateral fusion Then, the lateral gutters of the spine, facets and transverse processes were carefully decorticated with a TPS drill in preparation for the posterior lateral fusion. The incision was thoroughly irrigated with antibiotic solution. The posterolateral fusion was performed at L2-S1 by carefully packing the gutters of the spine with a autologous iliac crest bone graft combined with demineralized bone matrix. Completion of the Procedure The rods were brought to the field. Sequential application of the cap was achieved. Final tightening of all screws was achieved with a torque wrench. The incision was thoroughly irrigated with several liters of antibiotic solution. The decompression was reassessed with an nerve hook and found to be appropriate. The incision was then closed in layers. 0 Vicryl with interrupted sutures were used to close the thoracolumbar fascia. The superficial fascia was closed with 0 Vicryl sutures. Three-0 Vicryl was used to close the subcutaneous tissue. The skin was closed with 2-0 running Ethylon At the end of the procedure the sponges, needles, and instrument counts were all correct. Estimated blood loss was 400 cc's or less. No complications occurred. The patient received prophylactic antibiotics. The patient was then extubated and transferred to the recovery room in stable condition. The entire procedure was performed using electrophysiological monitor of the electromyogram, evoked potential and sphincters. No intraoperative abnormalities were detected. Dennis Oconnor MD Jul 30, 2016 17:59
[2016-07-30] MEDS: NS + KCL 20 MEQ INJ 1,000 ML IV SCH (18:00)
[2016-07-30] MEDS: HYDROmorphone HCL PCA 6 MG/30 ML IV SCH (18:01)
[2016-07-30 21:00] VITALS: BP 138/68; PULSE 80; RESP 14; TEMP 97.7; O2SAT 96
[2016-07-30] MEDS: CHLORHEXIDINE GLUCONATE 4% SOLN 120 ML BTL TOP SCH (21:00)
[2016-07-30] MEDS: SODIUM CHLORIDE 0.9% FLUSH 5 ML FLUSH IVF SCH (21:00)
[2016-07-30 22:00] VITALS: PULSE 80
[2016-07-30] MEDS: PCA - TOTAL MG DILAUDID DELIVERED PER SHIFT SCH (22:00)
--- NOTE | 2016-07-30 22:20 | RADRPT ---
EXAM DATE/TIME: 07/30/2016 09:54 [facility] COMPARISON: No previous studies available for comparison. INDICATIONS : Lumbar spine L2-S1 fusion. MEDICAL HISTORY : None. SURGICAL HISTORY : None. ENCOUNTER: Initial ACUITY: 1 day PAIN SCORE: Non-responsive. LOCATION: Lumbar spine L2-S1 CONCLUSION: Fluoroscopic images during placement of fusion rods from L2-S1. Carlin cMgarry MD on July 30, 2016 at 22:18 Board Certified Radiologist. This report was verified electronically.
[2016-07-30] MEDS: traZODone HCL 50 MG TAB PO SCH (22:36)
[2016-07-30] MEDS: ceFAZolin 2 GM PREMIX 50 ML IV SCH (22:37)
[2016-07-31] VITALS (13 sets, daily range): BP systolic 110–141; BP diastolic 48–63; PULSE 77–105; RESP 14–20; TEMP 97.8–98.3; O2SAT 92–100
[2016-07-31] MEDS: NS + KCL 20 MEQ INJ 1,000 ML IV SCH ×3 (02:57→21:30)
[2016-07-31 04:21] LABS: BASOPHIL % 0.2 % (0.0-2.0); EOSINOPHIL % 0.2 % (0.0-4.0); HEMATOCRIT 29.4 % (39.0-51.0); HEMO FLAGS DIFF FINAL; LYMPH % 8.3 % (9.0-44.0); LYMPHOCYTE # 1.1 TH/MM3 (1.0-4.8); MEAN CORPUSCULAR HEMOGLOBIN 33.3 PG (27.0-34.0); MEAN CORPUSCULAR HGB CONC 34.4 % (32.0-36.0); MONO % 9.6 % (0.0-8.0); NEUT % 81.7 % (16.0-70.0); PLATELET COUNT 204 TH/MM3 (150-450); RED BLOOD COUNT 3.03 MIL/MM3 (4.50-5.90); RED CELL DISTRIBUTION WIDTH 12.9 % (11.6-17.2); WHITE BLOOD COUNT 13.4 TH/MM3 (4.0-11.0)
[2016-07-31 04:53] LABS: BICARBONATE 27.9 MEQ/L (21.0-32.0); POTASSIUM 4.4 MEQ/L (3.5-5.1)
[2016-07-31] MEDS: SODIUM CHLOR 0.9% 1000 ML INJ 1,000 ML IV SCH ×2 (05:00→19:18)
[2016-07-31] MEDS: ceFAZolin 2 GM PREMIX 50 ML IV SCH ×2 (05:20→14:00)
[2016-07-31] MEDS: PCA - TOTAL MG DILAUDID DELIVERED PER SHIFT SCH ×3 (05:31→21:25)
[2016-07-31] MEDS: SODIUM CHLORIDE 0.9% FLUSH 5 ML FLUSH IVF SCH ×2 (09:00→21:25)
--- NOTE | 2016-07-31 10:45 | HHI.NSPN ---
Subjective History POD1 after ORIF L2 to S1, stable neurologically. The wound had some drainage post op but it is dry this am. Vitals . Vital Signs Date Time Temp Pulse Resp B/P Pulse Ox O2 Delivery O2 Flow Rate FiO2 07/31/16 08:01 92 21 07/31/16 08:00 83 07/31/16 08:00 97.8 83 16 110/48 94 07/31/16 06:00 82 07/31/16 05:31 16 07/31/16 04:00 98.3 78 14 141/63 94 07/31/16 04:00 78 07/31/16 02:00 77 07/31/16 00:00 90 07/31/16 00:00 97.9 90 20 130/63 93 07/30/16 22:00 80 07/30/16 22:00 14 07/30/16 21:00 97.7 80 14 138/68 96 07/30/16 20:55 98.3 82 4 143/68 96 Nasal Cannula 2 07/30/16 20:30 82 4 143/68 96 Nasal Cannula 2 07/30/16 19:30 93 14 143/63 95 Nasal Cannula 2 07/30/16 18:30 76 14 151/82 95 Nasal Cannula 2 07/30/16 18:01 12 07/30/16 17:45 98.5 81 14 147/83 96 Nasal Cannula 2 07/30/16 17:30 93 12 151/72 95 Nasal Cannula 2 07/30/16 17:15 96 14 141/76 95 Nasal Cannula 2 07/30/16 17:00 96 10 145/71 94 Nasal Cannula 2 07/30/16 16:45 89 12 170/81 96 Nasal Cannula 2 07/30/16 16:42 98.3 94 14 165/82 97 Nasal Cannula 2 07/30/16 07/30/16 07/31/16 15:00 23:00 07:00 Intake Total 3460 ml 1240 ml Output Total 1735 ml 700 ml Balance 1725 ml 540 ml Physical Exam Eyes Eyes: Pupils Equal Neuro Mental Status: Awake, Alert, Oriented x 3 Pupils: Reactive Bilaterally [place] Coma Scale Best Eye Openin - Spontaneous Best Verbal: 5 - Oriented Best Motor: 6 - Obeys Total [place] Coma Scale (GCS): 15 Sensation: Intact Cardiac Cardiac: Regular Rate & Rhythm Respiratory Respiratory: CTA Gastrointestinal Gastrointestinal: Soft Bowel Sounds: Present Genitourinary Genitourinary: Espinoza Catheter In Place Musculoskeletal Extremities Upper Extremities Deltoid Bicep Tricep HI W. Ext Right Left Lower Extremeties Ilio Quad Plantar Dorsi EHL Right Left Musculoskeletal Remarks Moves both quads, gastroc and anterior tibialis well. Dermatologic Dermatologic: Skin Intact Extremities Edema: SCDs Extremities Remarks wound dressed dry Objective Infectious Disease Antibiotics (indicate IV PO) Laboratory Tests Test 07/30/16 07/30/16 07/30/16 07/31/16 12:36 13:13 21:15 04:00 Blood Type A POSITIVE A POSITIVE Antibody Screen NEGATIVE Crossmatch Leukocyte-Reduced Red Blood Cells Blood Bank Comment Nasal Screen MRSA (PCR) NEGATIVE White Blood Count 13.4 TH/MM3 Red Blood Count 3.03 MIL/MM3 Hemoglobin 10.1 GM/DL Hematocrit 29.4 % Mean Corpuscular Volume 97.0 FL Mean Corpuscular Hemoglobin 33.3 PG Mean Corpuscular Hemoglobin 34.4 % Concent Red Cell Distribution Width 12.9 % Platelet Count 204 TH/MM3 Mean Platelet Volume 8.2 FL Neutrophils (%) (Auto) 81.7 % Lymphocytes (%) (Auto) 8.3 % Monocytes (%) (Auto) 9.6 % Eosinophils (%) (Auto) 0.2 % Basophils (%) (Auto) 0.2 % Neutrophils # (Auto) 11.0 TH/MM3 Lymphocytes # (Auto) 1.1 TH/MM3 Monocytes # (Auto) 1.3 TH/MM3 Eosinophils # (Auto) 0.0 TH/MM3 Basophils # (Auto) 0.0 TH/MM3 CBC Comment DIFF FINAL Differential Comment Sodium Level 140 MEQ/L Potassium Level 4.4 MEQ/L Chloride Level 105 MEQ/L Carbon Dioxide Level 27.9 MEQ/L Anion Gap 7 MEQ/L Blood Urea Nitrogen 13 MG/DL Creatinine 0.72 MG/DL Estimat Glomerular Filtration 108 ML/MIN Rate Random Glucose 154 MG/DL Calcium Level 8.0 MG/DL Labs Laboratory Tests 07/31/16 04:00 Laboratory Tests Test 07/31/16 04:00 Sodium Level 140 MEQ/L Potassium Level 4.4 MEQ/L Chloride Level 105 MEQ/L Carbon Dioxide Level 27.9 MEQ/L Anion Gap 7 MEQ/L Blood Urea Nitrogen 13 MG/DL Creatinine 0.72 MG/DL Estimat Glomerular Filtration 108 ML/MIN Rate Random Glucose 154 MG/DL Calcium Level 8.0 MG/DL Assessment & Plan Diagnosis: (1) Compression fracture of L4 lumbar vertebra Plan: Stable neurologically after ORIF, on bedrest for CSF leak until Tuesday. DVT prophylaxis and pain management as well as rehab in bed ordered. Critical Care Time (minutes): 10 Level of Visit: Post Op Jony Jean Jul 31, 2016 10:45
[2016-07-31] MEDS: FINASTERIDE 5 MG TAB PO SCH (10:46)
[2016-07-31] MEDS: PANTOPRAZOLE SODIUM 40 MG VIAL IVP SCH (10:46)
[2016-07-31] MEDS: TAMSULOSIN HCL 0.4 MG CAP PO SCH (10:46)
[2016-07-31] MEDS: SERTRALINE HCL 100 MG TAB PO SCH (10:46)
[2016-07-31] MEDS: SODIUM CHLORIDE 0.9% FLUSH 5 ML FLUSH FLUSH SCH ×2 (10:47→21:25)
[2016-07-31] MEDS: ARIPiprazole 10 MG TAB PO SCH (10:47)
[2016-07-31] MEDS: METHOCARBAMOL 500 MG TAB PO SCH ×2 (14:00→21:24)
[2016-07-31] MEDS: ENOXAPARIN SODIUM 40 MG/0.4 ML SYRINGE SQ SCH (15:44)
[2016-07-31] MEDS: HYDROmorphone HCL PCA 6 MG/30 ML IV SCH (17:42)
[2016-07-31] MEDS ORDERED: DOCUSATE SODIUM 50 MG/SENNA 8.6 MG TAB PO ONE (18:30)
--- NOTE | 2016-07-31 18:35 | HHI.PR ---
Subjective Remarks patient seen today around 1 PM. He says that back pain is tolerable on [employer]. He denies any chest pain, shortness breath, nausea, vomiting. No bowel movement yet. Objective Vital Signs Date Time Temp Pulse Resp B/P Pulse Ox O2 Delivery O2 Flow Rate FiO2 07/31/16 17:42 19 07/31/16 14:00 83 07/31/16 14:00 18 07/31/16 12:00 83 07/31/16 12:00 98.2 94 19 110/56 94 07/31/16 10:00 83 07/31/16 08:01 92 21 07/31/16 08:00 83 07/31/16 08:00 97.8 83 16 110/48 94 07/31/16 06:00 82 07/31/16 05:31 16 07/31/16 04:00 98.3 78 14 141/63 94 07/31/16 04:00 78 07/31/16 02:00 77 07/31/16 00:00 90 07/31/16 00:00 97.9 90 20 130/63 93 07/30/16 22:00 80 07/30/16 22:00 14 07/30/16 21:00 97.7 80 14 138/68 96 07/30/16 20:55 98.3 82 4 143/68 96 Nasal Cannula 2 07/30/16 20:30 82 4 143/68 96 Nasal Cannula 2 07/30/16 19:30 93 14 143/63 95 Nasal Cannula 2 I/O 07/30/16 07/30/16 07/30/16 07/31/16 07/31/16 07/31/16 06:59 14:59 22:59 06:59 14:59 22:59 Intake Total 3460 ml 1240 ml 1150 ml Output Total 1735 ml 700 ml 750 ml Balance 1725 ml 540 ml 400 ml Intake Oral 0 ml 240 ml 500 ml IV Total 360 ml 1000 ml 650 ml Other 3100 ml Output Urine Total 1335 ml 700 ml 750 ml Estimated Blood Loss 400 ml # Bowel Movements 0 0 0 Result Diagram: 07/31/1639907/31/16399 Objective Remarks GENERAL: patient lying on right side in bed. Appears comfortable. He is alert and oriented x3. SKIN: Warm and dry. HEAD: Normocephalic. EYES: No scleral icterus. No injection or drainage. NECK: Supple, trachea midline. No JVD or lymphadenopathy. CARDIOVASCULAR: Regular rate and rhythm without murmurs, gallops, or rubs. RESPIRATORY: Breath sounds equal bilaterally. No accessory muscle use. GASTROINTESTINAL: Abdomen soft, non-tender, nondistended. MUSCULOSKELETAL: No cyanosis, or edema. lumbar incision dressed, not examined.peripheral perfusion and sensation grossly intact. BACK: Nontender without obvious deformity. No CVA tenderness. A/P Assessment and Plan //Postoperative day one after ORIF lumbar spine L4 compression fracture. Continues on bedrest until Tuesday. - Patient has history of DVT-Patient is on prophylactic dose of Lovenox per surgery. Recommend increased to treatment dose as soon as possible. Wait return of bowel function. //DVT left lower extremity. Diagnosed 3 months ago. Will need 6 months total treatment. Repeat Doppler on most recent admission continues to be positive. - Patient on prophylactic Lovenox. Recommend increase to full at recommendation for treatment of DVT as soon as possible. //Depression. Chronic. //Mood disorder. Chronic. -Continue antidepressants and antipsychotics. //BPH. Continue Flomax. As blood pressure has been a little low, will continue to hold on the alfuzosin for now. //Chronic urinary and stool incontinence. No change from baseline. Continue monitor. //Tobacco abuse. Cessation advised. Counseling provided. //leukocytosis. 14.5 on admission, improved to 9.0 on 07/30, however 13.4 postoperatively. No postoperative fever. Likely secondary to stress. Continue to monitor. DVT prophylaxis. As per surgical service. Patient will need to be started back on therapeutic consideration for DVT as soon as possible. Discharge Planning physical therapy assistance appreciated. Depending on clinical course, may benefit from rehabilitation placement. Sanchez Monets MD Jul 31, 2016 18:35
[2016-07-31] MEDS: traZODone HCL 50 MG TAB PO SCH (21:24)
[2016-08-01] VITALS (12 sets, daily range): BP systolic 98–141; BP diastolic 47–63; PULSE 77–96; RESP 14–22; TEMP 98.2–99.1; O2SAT 93–99
[2016-08-01 03:47] LABS: AUTOMATED NEUTROPHIL # 10.6 TH/MM3 (1.8-7.7); BASOPHIL % 0.3 % (0.0-2.0); EOSINOPHIL # 0.6 TH/MM3 (0-0.4); EOSINOPHIL % 4.2 % (0.0-4.0); HEMATOCRIT 27.4 % (39.0-51.0); HEMO FLAGS DIFF FINAL; LYMPH % 7.2 % (9.0-44.0); MEAN CELL VOLUME 97.5 FL (80.0-100.0); MEAN CORPUSCULAR HEMOGLOBIN 33.3 PG (27.0-34.0); MEAN CORPUSCULAR HGB CONC 34.2 % (32.0-36.0); NEUT % 77.3 % (16.0-70.0); PLATELET COUNT 194 TH/MM3 (150-450); RED BLOOD COUNT 2.81 MIL/MM3 (4.50-5.90); RED CELL DISTRIBUTION WIDTH 13.3 % (11.6-17.2); WHITE BLOOD COUNT 13.8 TH/MM3 (4.0-11.0)
[2016-08-01 03:56] LABS: BICARBONATE 28.5 MEQ/L (21.0-32.0)
[2016-08-01 03:57] LABS: POTASSIUM 4.9 MEQ/L (3.5-5.1)
[2016-08-01] MEDS: PCA - TOTAL MG DILAUDID DELIVERED PER SHIFT SCH ×3 (06:00→21:07)
[2016-08-01] MEDS: METHOCARBAMOL 500 MG TAB PO SCH ×3 (06:29→21:07)
[2016-08-01] MEDS: SODIUM CHLORIDE 0.9% FLUSH 5 ML FLUSH FLUSH SCH ×2 (09:00→21:08)
[2016-08-01] MEDS: SODIUM CHLORIDE 0.9% FLUSH 5 ML FLUSH IVF SCH (09:00)
[2016-08-01] MEDS: ARIPiprazole 10 MG TAB PO SCH (11:29)
[2016-08-01] MEDS: TAMSULOSIN HCL 0.4 MG CAP PO SCH (11:29)
[2016-08-01] MEDS: SERTRALINE HCL 100 MG TAB PO SCH (11:29)
[2016-08-01] MEDS: FINASTERIDE 5 MG TAB PO SCH (11:29)
[2016-08-01] MEDS: PANTOPRAZOLE SODIUM 40 MG VIAL IVP SCH (11:30)
--- NOTE | 2016-08-01 11:43 | HHI.NSPN ---
Subjective History POD1 after ORIF L2 to S1, stable neurologically. The wound had some drainage post op but it is dry this am. 08-01-16 He is doing well neurologically but the pain control is poor. He has used only 1.5 mg of Dilaudid in 24hrs. Vitals . Vital Signs Date Time Temp Pulse Resp B/P Pulse Ox O2 Delivery O2 Flow Rate FiO2 08/01/16 06:00 80 08/01/16 06:00 16 08/01/16 04:00 98.2 77 14 98/47 99 08/01/16 04:00 77 08/01/16 02:00 82 08/01/16 00:00 88 08/01/16 00:00 98.4 88 18 106/53 98 07/31/16 22:00 83 07/31/16 21:25 16 07/31/16 20:00 98.3 98 16 122/57 92 07/31/16 20:00 99 07/31/16 18:00 83 07/31/16 17:42 19 07/31/16 16:00 83 07/31/16 16:00 98.0 105 16 119/56 100 07/31/16 16:00 83 07/31/16 14:00 83 07/31/16 14:00 18 07/31/16 12:00 83 07/31/16 12:00 98.2 94 19 110/56 94 07/31/16 07/31/16 08/01/16 15:00 23:00 07:00 Intake Total 1150 ml 1610 ml 400 ml Output Total 750 ml 550 ml 425 ml Balance 400 ml 1060 ml -25 ml Physical Exam Head Head: Incision (dry, dressing changed) Eyes Eyes: Pupils Equal Neuro Mental Status: Oriented x 3 [place] Coma Scale Best Eye Openin - Spontaneous Best Verbal: 5 - Oriented Best Motor: 6 - Obeys Neuro Remarks Pain in the right knee, likely positional Gastrointestinal Gastrointestinal: Soft Genitourinary Genitourinary: Espinoza Catheter In Place Musculoskeletal Extremities Upper Extremities Deltoid Bicep Tricep HI W. Ext Right Left Lower Extremeties Ilio Quad Plantar Dorsi EHL Right Left Musculoskeletal Remarks Moves both quads, gastroc and anterior tibialis well. Extremities Extremities Remarks wound dressed dry Objective Labs Laboratory Tests 08/01/16 03:10 Laboratory Tests Test 08/01/16 03:10 Sodium Level 138 MEQ/L Potassium Level 4.9 MEQ/L Chloride Level 105 MEQ/L Carbon Dioxide Level 28.5 MEQ/L Anion Gap 5 MEQ/L Blood Urea Nitrogen 13 MG/DL Creatinine 0.67 MG/DL Estimat Glomerular Filtration 117 ML/MIN Rate Random Glucose 105 MG/DL Calcium Level 7.9 MG/DL Assessment & Plan Diagnosis: (1) Compression fracture of L4 lumbar vertebra Plan: Stable neurologically after ORIF, on bedrest for CSF leak until Tuesday. DVT prophylaxis and pain management as well as rehab in bed ordered. 08-01-16 Stable clinically, pain management changed. Critical Care Time (minutes): 10 Jony Jean Aug 01, 2016 11:43
[2016-08-01] MEDS: ACETAMINOPHEN/HYDROcodone 325 MG/7.5 MG TAB PO SCH ×2 (13:43→17:36)
--- NOTE | 2016-08-01 14:54 | HHI.PR ---
Subjective Remarks Patient seen today around noon. Sleeping, wakes up for exam. He reports pain is under control. Denies any chest pain or shortness of breath. No nausea or vomiting. Objective Vital Signs Date Time Temp Pulse Resp B/P Pulse Ox O2 Delivery O2 Flow Rate FiO2 08/01/16 06:00 80 08/01/16 06:00 16 08/01/16 04:00 98.2 77 14 98/47 99 08/01/16 04:00 77 08/01/16 02:00 82 08/01/16 00:00 88 08/01/16 00:00 98.4 88 18 106/53 98 07/31/16 22:00 83 07/31/16 21:25 16 07/31/16 20:00 98.3 98 16 122/57 92 07/31/16 20:00 99 07/31/16 18:00 83 07/31/16 17:42 19 07/31/16 16:00 83 07/31/16 16:00 98.0 105 16 119/56 100 07/31/16 16:00 83 I/O 07/31/16 07/31/16 07/31/16 08/01/16 08/01/16 08/01/16 07:00 15:00 23:00 07:00 15:00 23:00 Intake Total 1240 ml 1150 ml 1610 ml 400 ml Output Total 700 ml 750 ml 550 ml 425 ml Balance 540 ml 400 ml 1060 ml -25 ml Intake Oral 240 ml 500 ml 480 ml 0 ml IV Total 1000 ml 650 ml 1130 ml 400 ml Output Urine Total 700 ml 750 ml 550 ml 425 ml # Bowel Movements 0 0 0 0 Result Diagram: 08/01/1630908/01/16309 Objective Remarks GENERAL: patient lying on left side in bed. Sleeping, wakes up for exam. Pleasant and cooperative. SKIN: Warm and dry. HEAD: Normocephalic. EYES: No scleral icterus. No injection or drainage. NECK: Supple, trachea midline. No JVD. CARDIOVASCULAR: Regular rate and rhythm without murmurs, gallops, or rubs. RESPIRATORY: Breath sounds equal bilaterally. No accessory muscle use. GASTROINTESTINAL: Abdomen soft, non-tender, nondistended. MUSCULOSKELETAL: No cyanosis, or edema. lumbar incision dressed, not examined. peripheral perfusion and sensation grossly intact. Unchanged. BACK: Nontender without obvious deformity. No CVA tenderness. A/P Assessment and Plan //Postoperative day 2 after ORIF lumbar spine L4 compression fracture. Continues on bedrest until Tuesday. - Patient has history of DVT-Patient is on prophylactic dose of Lovenox per surgery. -Recommend increased to treatment dose of anti-coagulation for recent DVT as soon as possible. -Await return of bowel function. Scheduled Senna as per surgical team. //DVT left lower extremity. Diagnosed 3 months ago. Will need 6 months total treatment. Repeat Doppler on most recent admission continues to be positive. - Patient on prophylactic Lovenox. -Recommend increase to full anticoagulation for treatment of DVT as soon as possible. //Depression. Chronic. //Mood disorder. Chronic. -Continue antidepressants and antipsychotics. //BPH. Continue Flomax. As blood pressure has been a little low, will continue to hold on the alfuzosin for now. -Monitor for retention on pain medication. //Chronic urinary and stool incontinence. No change from baseline. Continue monitor. //Tobacco abuse. Cessation advised. Counseling provided. //leukocytosis. 14.5 on admission, improved to 9.0 on 07/30, however 13.4 postoperatively. No postoperative fever. Likely secondary to stress. -08/01. WBC 13.8. Likely secondary to stress, pain. No fevers. We'll order UA to rule out UTI Continue to monitor. DVT prophylaxis. As per surgical service. Patient will need to be started back on therapeutic consideration for DVT as soon as possible. Discharge Planning physical therapy assistance appreciated. Depending on clinical course, may benefit from rehabilitation placement. Sanchez Montes MD Aug 01, 2016 14:54
[2016-08-01] MEDS: ENOXAPARIN SODIUM 40 MG/0.4 ML SYRINGE SQ SCH (17:35)
[2016-08-01] MEDS: SODIUM CHLOR 0.9% 1000 ML INJ 1,000 ML IV SCH ×2 (18:40→18:42)
[2016-08-01] MEDS: traZODone HCL 50 MG TAB PO SCH (21:07)
[2016-08-01] MEDS: DOCUSATE SODIUM 50 MG/SENNA 8.6 MG TAB PO SCH (21:07)
[2016-08-02] VITALS (11 sets, daily range): BP systolic 108–126; BP diastolic 56–96; PULSE 80–94; RESP 13–26; TEMP 97.5–98.5; O2SAT 92–96
[2016-08-02] MEDS: ACETAMINOPHEN/HYDROcodone 325 MG/7.5 MG TAB PO SCH ×4 (00:50→18:44)
[2016-08-02 04:34] LABS: AUTOMATED NEUTROPHIL # 8.5 TH/MM3 (1.8-7.7); BASOPHIL # 0.1 TH/MM3 (0-0.2); BASOPHIL % 0.5 % (0.0-2.0); EOSINOPHIL # 0.7 TH/MM3 (0-0.4); EOSINOPHIL % 6.3 % (0.0-4.0); HEMATOCRIT 26.9 % (39.0-51.0); HEMO FLAGS DIFF FINAL; LYMPH % 9.9 % (9.0-44.0); LYMPHOCYTE # 1.2 TH/MM3 (1.0-4.8); MEAN CELL VOLUME 96.2 FL (80.0-100.0); MEAN CORPUSCULAR HEMOGLOBIN 33.3 PG (27.0-34.0); MEAN CORPUSCULAR HGB CONC 34.6 % (32.0-36.0); MONO % 10.3 % (0.0-8.0); PLATELET COUNT 201 TH/MM3 (150-450); RED CELL DISTRIBUTION WIDTH 13.3 % (11.6-17.2); WHITE BLOOD COUNT 11.6 TH/MM3 (4.0-11.0)
[2016-08-02 04:54] LABS: BICARBONATE 27.3 MEQ/L (21.0-32.0); POTASSIUM 3.7 MEQ/L (3.5-5.1)
[2016-08-02] MEDS: PCA - TOTAL MG DILAUDID DELIVERED PER SHIFT SCH ×3 (05:31→20:36)
[2016-08-02] MEDS: METHOCARBAMOL 500 MG TAB PO SCH ×3 (05:33→20:05)
--- NOTE | 2016-08-02 08:32 | HHI.NSPN ---
History Chief Complaint: [id number] back pain Interval History 71-year-old male status post ORIF with L3-S1 fusion for L4 fracture. System Review Comments No headache, dizziness, nausea or vomiting. No pain radiating to the lower extremities Exam Results Vital Signs Date Time Temp Pulse Resp B/P Pulse Ox O2 Delivery O2 Flow Rate FiO2 08/02/16 06:00 85 08/02/16 04:00 97.9 24 126/96 92 07/31/16 08:01 21 07/30/16 20:55 Nasal Cannula 2 Intake and Output 08/01/16 08/01/16 08/01/16 07:59 15:59 23:59 Intake Total 400 ml 688 ml 819 ml Output Total 425 ml 550 ml 450 ml Balance -25 ml 138 ml 369 ml Physical Examination Awake and alert Heart hearing Answers questions appropriately and follows simple commands well Speech is clear and appropriate Sensation intact by touch all extremities There is all extremities well to command Dressing dry No sign CSF leak Lab, Micro, Other Results Laboratory Tests Test 08/02/16 04:12 White Blood Count 11.6 TH/MM3 Red Blood Count 2.80 MIL/MM3 Hemoglobin 9.3 GM/DL Hematocrit 26.9 % Mean Corpuscular Volume 96.2 FL Mean Corpuscular Hemoglobin 33.3 PG Mean Corpuscular Hemoglobin 34.6 % Concent Red Cell Distribution Width 13.3 % Platelet Count 201 TH/MM3 Mean Platelet Volume 7.8 FL Neutrophils (%) (Auto) 73.0 % Lymphocytes (%) (Auto) 9.9 % Monocytes (%) (Auto) 10.3 % Eosinophils (%) (Auto) 6.3 % Basophils (%) (Auto) 0.5 % Neutrophils # (Auto) 8.5 TH/MM3 Lymphocytes # (Auto) 1.2 TH/MM3 Monocytes # (Auto) 1.2 TH/MM3 Eosinophils # (Auto) 0.7 TH/MM3 Basophils # (Auto) 0.1 TH/MM3 CBC Comment DIFF FINAL Differential Comment Sodium Level 139 MEQ/L Potassium Level 3.7 MEQ/L Chloride Level 104 MEQ/L Carbon Dioxide Level 27.3 MEQ/L Anion Gap 8 MEQ/L Blood Urea Nitrogen 15 MG/DL Creatinine 0.62 MG/DL Estimat Glomerular Filtration 128 ML/MIN Rate Random Glucose 98 MG/DL Calcium Level 8.2 MG/DL Medical Decision Making Impression and Plan Impression: 1. Stable neurologic function following ORIF for fracture. No evidence CSF leak. Plan: Findings discussed with patient Out of bed today with physical therapy Continue TLSO brace Home versus rehabilitation. Vinnie Doty MD Aug 02, 2016 08:32
[2016-08-02] MEDS: SODIUM CHLORIDE 0.9% FLUSH 5 ML FLUSH FLUSH SCH ×2 (09:56→20:05)
[2016-08-02] MEDS: TAMSULOSIN HCL 0.4 MG CAP PO SCH (09:56)
[2016-08-02] MEDS: DOCUSATE SODIUM 50 MG/SENNA 8.6 MG TAB PO SCH ×2 (09:56→20:03)
[2016-08-02] MEDS: FINASTERIDE 5 MG TAB PO SCH (09:56)
[2016-08-02] MEDS: SERTRALINE HCL 100 MG TAB PO SCH (09:56)
[2016-08-02] MEDS: ARIPiprazole 10 MG TAB PO SCH (09:57)
[2016-08-02] MEDS: SODIUM CHLOR 0.9% 1000 ML INJ 1,000 ML IV SCH (11:18)
[2016-08-02] MEDS ORDERED: MAGNESIUM HYDROXIDE SUSP 30 ML CUP PO ONE (15:30)
--- NOTE | 2016-08-02 15:30 | HHI.PR ---
Subjective Remarks Patient seen today around 1:30 PM. Patient says he is feeling well. Denies any chest pain or shortness of breath. Denies any nausea or vomiting. Says he is eating. Still no bowel movement. Objective Vital Signs Date Time Temp Pulse Resp B/P Pulse Ox O2 Delivery O2 Flow Rate FiO2 08/02/16 10:00 93 08/02/16 08:00 88 08/02/16 08:00 98.2 94 13 113/60 96 08/02/16 06:00 85 08/02/16 04:00 97.9 82 24 126/96 92 08/02/16 04:00 82 08/02/16 02:00 83 08/02/16 00:00 80 08/02/16 00:00 98.1 80 26 119/56 92 08/01/16 22:00 85 08/01/16 20:00 80 08/01/16 20:00 98.2 84 17 135/60 94 08/01/16 18:00 84 08/01/16 16:00 99.1 89 22 114/56 93 08/01/16 16:00 89 I/O 08/01/16 08/01/16 08/01/16 08/02/16 08/02/16 08/02/16 06:59 14:59 22:59 06:59 14:59 22:59 Intake Total 400 ml 688 ml 819 ml 619 ml Output Total 425 ml 550 ml 450 ml 275 ml Balance -25 ml 138 ml 369 ml 344 ml Intake Oral 0 ml 240 ml 480 ml 240 ml IV Total 400 ml 448 ml 339 ml 379 ml Output Urine Total 425 ml 550 ml 450 ml 275 ml # Bowel Movements 0 0 0 0 Result Diagram: 08/02/1641108/02/16411 Objective Remarks GENERAL: patient lying on left side in bed. Awake, alert and oriented 3.. Pleasant and cooperative. SKIN: Warm and dry. HEAD: Normocephalic. EYES: No scleral icterus. No injection or drainage. NECK: Supple, trachea midline. No JVD. CARDIOVASCULAR: Regular rate and rhythm without murmurs, gallops, or rubs. RESPIRATORY: Breath sounds equal bilaterally. No accessory muscle use. GASTROINTESTINAL: Abdomen soft, non-tender, nondistended. MUSCULOSKELETAL: No cyanosis, or edema. lumbar incision dressed, not examined. peripheral perfusion and sensation grossly intact. Again, Unchanged. BACK: Nontender without obvious deformity. No CVA tenderness. A/P Assessment and Plan ===== 08/02/16 Still with constipation. Continue scheduled senna as per surgical service. Extra MOM ordered. Rehabilitation consult, occupational therapy consult ordered. Patient will likely need rehabilitation. //Postoperative day 4 after ORIF lumbar spine L4 compression fracture. Continues on bedrest until Tuesday. - Patient has history of DVT-Patient is on prophylactic dose of Lovenox per surgery. -Recommend increased to treatment dose of anti-coagulation for recent DVT as soon as possible. =Await return of bowel function. Scheduled Senna as per surgical team. //DVT left lower extremity. Diagnosed 3 months ago. Will need 6 months total treatment. Repeat Doppler on most recent admission continues to be positive. - Patient on prophylactic Lovenox. =Recommend increase to full anticoagulation for treatment of DVT as soon as possible. //Depression. Chronic. //Mood disorder. Chronic. -Continue antidepressants and antipsychotics. //BPH. Continue Flomax. As blood pressure has been a little low, will continue to hold on the alfuzosin for now. -08/02- ordered Espinoza removal. -Monitor for retention on pain medication. //Chronic urinary and stool incontinence. No change from baseline. Continue monitor. //Tobacco abuse. Cessation advised. Counseling provided. //leukocytosis. 14.5 on admission, improved to 9.0 on 07/30, however 13.4 postoperatively. No postoperative fever. Likely secondary to stress. -08/01. WBC 13.8. Likely secondary to stress, pain. No fevers. We'll order UA to rule out UTI Continue to monitor. -08/02. Improved to 11.6. No fevers. Continue to monitor. DVT prophylaxis. As per surgical service. Patient will need to be started back on therapeutic consideration for DVT as soon as possible. Discharge Planning physical therapy assistance appreciated. -Occupational therapy ordered. Will likely benefit from rehabilitation placement. Sanchez Montes MD Aug 02, 2016 15:30
[2016-08-02] MEDS: ENOXAPARIN SODIUM 40 MG/0.4 ML SYRINGE SQ SCH (18:39)
[2016-08-02] MEDS: traZODone HCL 50 MG TAB PO SCH (20:03)
[2016-08-03] VITALS (7 sets, daily range): BP systolic 106–141; BP diastolic 54–69; PULSE 75–94; RESP 14–22; TEMP 97.8–98.2; O2SAT 94–96
[2016-08-03] MEDS: ACETAMINOPHEN/HYDROcodone 325 MG/7.5 MG TAB PO SCH ×4 (00:13→18:19)
[2016-08-03] MEDS: PCA - TOTAL MG DILAUDID DELIVERED PER SHIFT SCH (06:00)
[2016-08-03] MEDS: METHOCARBAMOL 500 MG TAB PO SCH ×3 (07:13→21:41)
[2016-08-03] MEDS: DOCUSATE SODIUM 50 MG/SENNA 8.6 MG TAB PO SCH ×2 (09:00→21:41)
[2016-08-03] MEDS: TAMSULOSIN HCL 0.4 MG CAP PO SCH (09:22)
[2016-08-03] MEDS: ARIPiprazole 10 MG TAB PO SCH (09:22)
[2016-08-03] MEDS: FINASTERIDE 5 MG TAB PO SCH (09:22)
[2016-08-03] MEDS: SODIUM CHLORIDE 0.9% FLUSH 5 ML FLUSH FLUSH SCH ×2 (09:23→21:41)
[2016-08-03] MEDS: SERTRALINE HCL 100 MG TAB PO SCH (09:34)
--- NOTE | 2016-08-03 11:57 | HHI.NSPN ---
Note Status Status: Progress Note Interval History Interval History Mr. Price is a 71 y/o male s/p ORIF L4 compression fracture, L2 to S1 posterolateral fixation on 07/30/16 1/3: reports minimal to moderate surgical pain when he moves, however has not been using [employer]. wanting to get out of bed. denies changes to sensorimotor function in LEs. On 30 bid sq lovenox. Hx recent DVT 3 months ago, medical requesting clearance for full anticoagulation. Labs, Micro, & Vital Signs Results Date Time Temp Pulse Resp B/P Pulse Ox O2 Delivery O2 Flow Rate FiO2 08/03/16 08:00 98.1 76 14 135/64 94 08/03/16 04:00 98.2 92 20 109/69 95 08/03/16 01:13 20 08/03/16 00:00 97.9 78 19 126/60 96 08/02/16 20:00 88 08/02/16 20:00 97.5 81 16 108/56 95 08/02/16 18:00 81 08/02/16 16:00 98.3 81 22 119/57 94 08/02/16 16:00 81 08/02/16 14:00 87 08/02/16 12:00 90 08/02/16 12:00 98.5 90 13 126/56 96 08/03/16 06:59 Intake Total 1943 ml Output Total 1200 ml Balance 743 ml Constitutional Vital Signs Date Time Temp Pulse Resp B/P Pulse Ox O2 Delivery O2 Flow Rate FiO2 08/03/16 08:00 98.1 76 14 135/64 94 08/03/16 04:00 98.2 92 20 109/69 95 08/03/16 01:13 20 08/03/16 00:00 97.9 78 19 126/60 96 08/02/16 20:00 88 08/02/16 20:00 97.5 81 16 108/56 95 08/02/16 18:00 81 08/02/16 16:00 98.3 81 22 119/57 94 08/02/16 16:00 81 08/02/16 14:00 87 08/02/16 12:00 90 08/02/16 12:00 98.5 90 13 126/56 96 08/03/16 06:59 Intake Total 1943 ml Output Total 1200 ml Balance 743 ml Review of Systems/Exam Exam Awake, alert, no apparent distress. Speech is fluent. Following commands. Wound is dry, sutures intact. No drainage or signs of CSF leak seen. CN: pupils equal, facial motor symmetric Motor: moves upper extremities well, in lower extremities 5-/5 bilat iliopsoas, quads, hamstrings, plantarflexion, right dorsiflexion, 3 to 4-/5 left dorsiflexion. Sensory: intact to light touch Medications Current Medications Current Medications Medications (Trade) Dose Ordered Sig/Tia Route PRN Reason Start Time Stop Time Status Last Admin Dose Admin IV Flush (NS Flush) 2 ml UNSCH PRN FLUSH FLUSH AFTER USING IV ACCESS 07/29/16 00:15 IV Flush (NS Flush) 2 ml BID FLUSH 07/29/16 09:00 08/03/16 09:23 Aripiprazole (Abilify) 10 mg DAILY PO 07/29/16 09:00 08/03/16 09:22 Sertraline HCl (Zoloft) 100 mg DAILY PO 07/29/16 09:00 08/03/16 09:34 Trazodone HCl (Desyrel) 50 mg HS PO 07/29/16 21:00 08/02/16 20:03 Finasteride (Proscar) 5 mg DAILY PO 07/29/16 09:00 08/03/16 09:22 Tamsulosin HCl (Flomax) 0.4 mg DAILY PO 07/30/16 09:00 08/03/16 09:22 Naloxone HCl (Narcan Inj) 0.4 mg UNSCH PRN IV RESPIRATORY RATE LESS THAN 10 07/30/16 17:00 Diphenhydramine HCl (Benadryl Inj) 25 mg Q6H PRN IV ITCHING 07/30/16 17:00 [employer] Dosage Infused (Pha) 1 Q8HR .XX 07/30/16 22:00 08/01/16 14:00 Enoxaparin Sodium (Lovenox Inj) 40 mg Q24H SQ 07/31/16 15:44 08/02/16 18:39 Methocarbamol (Robaxin) 500 mg Q8HR PO 07/31/16 14:00 08/03/16 07:13 Acetaminophen/ Hydrocodone Bitart ([place] 7.5-325 Mg) 1 tab Q6H PO 08/01/16 12:00 08/03/16 07:13 Senna/Docusate Sodium (Arlene-Colace) 1 tab BID PO 08/01/16 21:00 08/03/16 09:00 Medical Decision Making MDM Remarks 71 y/o s/p ORIF L4 compression fracture, L2 to S1 posterolateral fixation on , POD 4, improving surgical pain Plan Plan Remarks dc [employer] pump, cont oral pain medication as needed encourage mobilization, PT, OOB with TLSO sutures dc 08/13/16 Goldie Cheng Aug 03, 2016 11:57
[2016-08-03] MEDS: ENOXAPARIN SODIUM 40 MG/0.4 ML SYRINGE SQ SCH ×2 (15:44→21:41)
--- NOTE | 2016-08-03 19:12 | HHI.PR ---
Subjective Remarks patient seen today around 1 PM. Sleeping, wakes up for exam. Reports pain is controlled. Denies nausea. Denies chest pain shortness of breath Objective Vital Signs Date Time Temp Pulse Resp B/P Pulse Ox O2 Delivery O2 Flow Rate FiO2 08/03/16 16:00 98.1 75 17 106/54 94 08/03/16 12:00 97.9 94 22 138/62 94 08/03/16 08:00 98.1 76 14 135/64 94 08/03/16 04:00 98.2 92 20 109/69 95 08/03/16 01:13 20 08/03/16 00:00 97.9 78 19 126/60 96 08/02/16 20:00 88 08/02/16 20:00 97.5 81 16 108/56 95 I/O 08/02/16 08/02/16 08/02/16 08/03/16 08/03/16 08/03/16 06:59 14:59 22:59 06:59 14:59 22:59 Intake Total 619 ml 465 ml 861 ml 617 ml 1000 ml Output Total 275 ml 425 ml 325 ml 450 ml 900 ml Balance 344 ml 40 ml 536 ml 167 ml 100 ml Intake Oral 240 ml 240 ml 480 ml 240 ml 600 ml IV Total 379 ml 225 ml 381 ml 377 ml 400 ml Output Urine Total 275 ml 425 ml 325 ml 450 ml 900 ml # Bowel Movements 0 0 0 0 0 Result Diagram: 08/02/1641108/02/16411 Objective Remarks GENERAL: patient lying on right side in bed. Sleeping, wakes up for exam. Awake , alert and oriented 3.. Pleasant and cooperative. SKIN: Warm and dry. HEAD: Normocephalic. EYES: No scleral icterus. No injection or drainage. NECK: Supple, trachea midline. No JVD. CARDIOVASCULAR: Regular rate and rhythm without murmurs, gallops, or rubs. RESPIRATORY: Breath sounds equal bilaterally. No accessory muscle use. GASTROINTESTINAL: Abdomen soft, non-tender, nondistended. MUSCULOSKELETAL: No cyanosis, or edema. lumbar incision dressed, not examined. peripheral perfusion and sensation grossly intact. Unchanged. BACK: Nontender without obvious deformity. No CVA tenderness. A/P Assessment and Plan ===== 08/02/16 Afebrile and vital signs stable. Still with constipation. Continues on scheduled senna. Fleet enema ordered DVT. Lovenox increased to 30 mg subcutaneous twice daily as per surgical team. //Postoperative day 4 after ORIF lumbar spine L4 compression fracture. Continues on bedrest until Tuesday. - Patient has history of DVT-Patient is on prophylactic dose of Lovenox per surgery. -Recommend increased to treatment dose of anti-coagulation for recent DVT as soon as possible. =Await return of bowel function. Scheduled Senna as per surgical team. //DVT left lower extremity. Diagnosed 3 months ago. Will need 6 months total treatment. Repeat Doppler on most recent admission continues to be positive. - Patient on prophylactic Lovenox. = On Lovenox 30 mg subcutaneous twice daily. Recommend increase to full anticoagulation for treatment of DVT as soon as possible. Patient previously on Apixaban 5 mg twice daily at home. //Depression. Chronic. //Mood disorder. Chronic. -Continue antidepressants and antipsychotics. //BPH. Continue Flomax. As blood pressure has been a little low, will continue to hold on the alfuzosin for now. -08/02- ordered Espinoza removal. -Monitor for retention on pain medication. //Chronic urinary and stool incontinence. No change from baseline. Continue monitor. //Tobacco abuse. Cessation advised. Counseling provided. //leukocytosis. 14.5 on admission, improved to 9.0 on 07/30, however 13.4 postoperatively. No postoperative fever. Likely secondary to stress. -08/01. WBC 13.8. Likely secondary to stress, pain. No fevers. We'll order UA to rule out UTI Continue to monitor. -1/2. Improved to 11.6. No fevers. Continue to monitor. - 08/03. No fevers. Recheck tomorrow DVT prophylaxis. As per surgical service. Patient will need to be started back on therapeutic consideration for DVT as soon as possible. Discharge Planning physical therapy assistance appreciated. -Occupational therapy ordered. Will likely benefit from rehabilitation placement. Sanchez Montes MD Aug 03, 2016 19:12
[2016-08-03] MEDS: traZODone HCL 50 MG TAB PO SCH (21:41)
[2016-08-04] VITALS (12 sets, daily range): BP systolic 114–150; BP diastolic 57–100; PULSE 71–95; RESP 14–25; TEMP 97.4–98.4; O2SAT 92–95
[2016-08-04] MEDS: ACETAMINOPHEN/HYDROcodone 325 MG/7.5 MG TAB PO SCH ×2 (00:10→05:33)
[2016-08-04] MEDS: METHOCARBAMOL 500 MG TAB PO SCH ×3 (05:33→20:37)
[2016-08-04 06:27] LABS: AUTOMATED NEUTROPHIL # 4.7 TH/MM3 (1.8-7.7); BASOPHIL % 0.6 % (0.0-2.0); EOSINOPHIL # 0.7 TH/MM3 (0-0.4); EOSINOPHIL % 8.3 % (0.0-4.0); HEMATOCRIT 26.5 % (39.0-51.0); HEMO FLAGS DIFF FINAL; LYMPH % 18.9 % (9.0-44.0); LYMPHOCYTE # 1.5 TH/MM3 (1.0-4.8); MEAN CELL VOLUME 96.4 FL (80.0-100.0); MEAN CORPUSCULAR HEMOGLOBIN 33.9 PG (27.0-34.0); MEAN CORPUSCULAR HGB CONC 35.1 % (32.0-36.0); NEUT % 60.2 % (16.0-70.0); PLATELET COUNT 268 TH/MM3 (150-450); RED BLOOD COUNT 2.75 MIL/MM3 (4.50-5.90); RED CELL DISTRIBUTION WIDTH 13.1 % (11.6-17.2); WHITE BLOOD COUNT 7.9 TH/MM3 (4.0-11.0)
[2016-08-04 06:58] LABS: BICARBONATE 28.9 MEQ/L (21.0-32.0); POTASSIUM 3.8 MEQ/L (3.5-5.1)
[2016-08-04] MEDS: SERTRALINE HCL 100 MG TAB PO SCH (08:25)
[2016-08-04] MEDS: TAMSULOSIN HCL 0.4 MG CAP PO SCH (08:25)
[2016-08-04] MEDS: DOCUSATE SODIUM 50 MG/SENNA 8.6 MG TAB PO SCH ×2 (08:25→20:37)
[2016-08-04] MEDS: ARIPiprazole 10 MG TAB PO SCH (08:25)
[2016-08-04] MEDS: FINASTERIDE 5 MG TAB PO SCH (08:26)
[2016-08-04] MEDS: ENOXAPARIN SODIUM 40 MG/0.4 ML SYRINGE SQ SCH (08:26)
[2016-08-04] MEDS: SODIUM CHLORIDE 0.9% FLUSH 5 ML FLUSH FLUSH SCH ×2 (08:26→20:37)
[2016-08-04] MEDS ORDERED: MAGNESIUM CITRATE SOLN 300 ML BTL PO ONE (10:15)
--- NOTE | 2016-08-04 10:37 | HHI.NSPN ---
Note Status Status: Progress Note Interval History Interval History Mr. Price is a 71 y/o male s/p ORIF L4 compression fracture, L2 to S1 posterolateral fixation on 07/30/16 1/3: reports minimal surgical pain, has not been using BUNDLE WRAPPER. wanting to get out of bed. denies changes to sensorimotor function in LEs. On lovenox. Hx recent DVT 3 months ago, medical requesting clearance for full anticoagulation. 08/04: sitting up in chair with TLSO eating breakfast, c/o 8/10 pain across the upper lumbar. denies headaches, chest pain, or difficulty breathing. Labs, Micro, & Vital Signs Results Date Time Temp Pulse Resp B/P Pulse Ox O2 Delivery O2 Flow Rate FiO2 08/04/16 08:00 71 08/04/16 08:00 98.1 74 18 135/100 92 08/04/16 06:00 77 08/04/16 04:00 76 08/04/16 04:00 97.4 76 20 118/59 94 08/04/16 02:00 90 08/04/16 00:00 98.0 95 20 150/69 93 08/04/16 00:00 95 08/03/16 22:00 92 08/03/16 20:00 87 08/03/16 20:00 97.8 89 18 141/66 96 08/03/16 16:00 98.1 75 17 106/54 94 08/03/16 12:00 97.9 94 22 138/62 94 08/04/16 07:00 Intake Total 2397 ml Output Total 3300 ml Balance -903 ml Constitutional Vital Signs Date Time Temp Pulse Resp B/P Pulse Ox O2 Delivery O2 Flow Rate FiO2 08/04/16 08:00 71 08/04/16 08:00 98.1 74 18 135/100 92 08/04/16 06:00 77 08/04/16 04:00 76 08/04/16 04:00 97.4 76 20 118/59 94 08/04/16 02:00 90 08/04/16 00:00 98.0 95 20 150/69 93 08/04/16 00:00 95 08/03/16 22:00 92 08/03/16 20:00 87 08/03/16 20:00 97.8 89 18 141/66 96 08/03/16 16:00 98.1 75 17 106/54 94 08/03/16 12:00 97.9 94 22 138/62 94 08/04/16 07:00 Intake Total 2397 ml Output Total 3300 ml Balance -903 ml Review of Systems/Exam Exam Alert and oriented to name, place. Sitting up in chair eating breakfast. Speech is fluent. Following commands. both surgical incisions are dry and healing well, sutures intact. No drainage or signs of CSF leak seen. CN: pupils 4 mm equal, facial motor symmetric Motor: moves upper extremities well, in lower extremities 5-/5 bilat iliopsoas, quads, hamstrings, plantarflexion, right dorsiflexion, 4-/5 left dorsiflexion. slight increase in tone in LE's, c/o of spasms in legs Extremities: no erythema, warmth, swelling or calf pain Sensory: intact to light touch Medications Current Medications Current Medications Medications (Trade) Dose Ordered Sig/Tia Route PRN Reason Start Time Stop Time Status Last Admin Dose Admin IV Flush (NS Flush) 2 ml UNSCH PRN FLUSH FLUSH AFTER USING IV ACCESS 07/29/16 00:15 IV Flush (NS Flush) 2 ml BID FLUSH 07/29/16 09:00 08/04/16 08:26 Aripiprazole (Abilify) 10 mg DAILY PO 07/29/16 09:00 08/04/16 08:25 Sertraline HCl (Zoloft) 100 mg DAILY PO 07/29/16 09:00 08/04/16 08:25 Trazodone HCl (Desyrel) 50 mg HS PO 07/29/16 21:00 08/03/16 21:41 Finasteride (Proscar) 5 mg DAILY PO 07/29/16 09:00 08/04/16 08:26 Tamsulosin HCl (Flomax) 0.4 mg DAILY PO 07/30/16 09:00 08/04/16 08:25 Naloxone HCl (Narcan Inj) 0.4 mg UNSCH PRN IV RESPIRATORY RATE LESS THAN 10 07/30/16 17:00 Diphenhydramine HCl (Benadryl Inj) 25 mg Q6H PRN IV ITCHING 07/30/16 17:00 Methocarbamol (Robaxin) 500 mg Q8HR PO 07/31/16 14:00 08/04/16 05:33 Acetaminophen/ Hydrocodone Bitart ([place] 7.5-325 Mg) 1 tab Q6H PO 08/01/16 12:00 08/04/16 05:33 Senna/Docusate Sodium (Alrene-Colace) 1 tab BID PO 08/01/16 21:00 08/04/16 08:25 Enoxaparin Sodium (Lovenox Inj) 30 mg BID SQ 08/03/16 21:00 08/04/16 08:26 Medical Decision Making MDM Remarks 71 y/o s/p ORIF L4 compression fracture, L2 to S1 posterolateral fixation on , POD 5, moderate 8/10 surgical pain today recent dx of DVT 3 months ago, he was on Eloquis at home history of multiple sclerosis Plan Plan Remarks treatment plan per Dr. Jean covering for Dr. Oconnor today increase Gal[place] to 10 mg q 6 hours encourage mobilization, PT, OOB with TLSO obtain doppler US of LE's, increase lovenox to 80mg sq bid due to recent DVT if patient tolerates lovenox the next few days, clear to restart Eloquis clear to transfer out of unit to 6N clear to dc central line, dc ward start on Baclofen for spasms due to Goldie Petit Aug 04, 2016 10:37
[2016-08-04] MEDS ORDERED: PILL SPLITTER OTHER PRN (11:00)
[2016-08-04] MEDS ORDERED: ACETAMINOPHEN/HYDROcodone 325 MG/10 MG TAB PO SCH (11:00)
[2016-08-04 11:01] LABS: HEMATOCRIT 30.1 % (39.0-51.0); MEAN CELL VOLUME 96.4 FL (80.0-100.0); MEAN CORPUSCULAR HEMOGLOBIN 33.3 PG (27.0-34.0); MEAN CORPUSCULAR HGB CONC 34.6 % (32.0-36.0); PLATELET COUNT 308 TH/MM3 (150-450); RED BLOOD COUNT 3.12 MIL/MM3 (4.50-5.90); RED CELL DISTRIBUTION WIDTH 13.2 % (11.6-17.2); REVIEW FLAG FINAL; WHITE BLOOD COUNT 8.4 TH/MM3 (4.0-11.0)
[2016-08-04 11:08] LABS: PROTHROMBIN TIME - PATIENT 11.4 SEC (9.8-11.6)
--- NOTE | 2016-08-04 13:05 | RADRPT ---
EXAM DATE/TIME: 08/04/2016 11:43 [facility] COMPARISON: No previous studies available for comparison. INDICATIONS : Emboli. MEDICAL HISTORY : Multiple sclerosis. Benign prostatic hyperplasia, (BPH) Osteoporosis. Chronic i ncontinence. Dysuria. Urinary frequency. Excessive sweating. DVT left lower extremity. SURGICAL HISTORY : Back surgery. ENCOUNTER: Subsequent ACUITY: 1 week PAIN SCORE: 0/10 LOCATION: Bilateral leg. TECHNIQUE: Venous ultrasound of the left and right leg was performed from the inguinal ligament t o the proximal calf. Real-time, color Doppler and spectral tracing, compression and augmentation genesis hniques were used. FINDINGS: RIGHT LEG: Venous Doppler remains positive on the right for deep venous thrombosis extending to t he common femoral vein. LEFT LEG: There is normal compressibility of the deep venous system from the inguinal region to t he proximal calf. No echogenic clot is seen in the lumen of the common femoral, femoral, popliteal, and posterior tibial veins. There is a normal response of the venous system to proximal and distal a ugmentation and respiration. CONCLUSION: Venous Doppler remains positive on the right. There is no evidence of thrombosis on the left. Ruben Horvath MD FACR on August 04, 2016 at 13:01 Board Certified Radiologist. This report was verified electronically.
[2016-08-04] MEDS: BACLOFEN 10 MG TAB PO SCH ×2 (14:05→20:37)
[2016-08-04] MEDS: ACETAMINOPHEN/HYDROcodone 325 MG/10 MG TAB PO SCH (17:47)
[2016-08-04] MEDS: traZODone HCL 50 MG TAB PO SCH (20:37)
[2016-08-04] MEDS: ENOXAPARIN SODIUM 80 MG/0.8 ML SYRINGE SQ SCH (20:37)
[2016-08-04] MEDS ORDERED: HEPARIN SODIUM - IV 10,000 UNITS/10 ML VIAL IV SCH (21:00)
--- NOTE | 2016-08-04 23:26 | HHI.PR ---
Subjective Remarks pt seen around 2pm. sitting up in bed. pain controlled. no cp or sob. no bm dw nursing, laxatives given. Objective Vital Signs Date Time Temp Pulse Resp B/P Pulse Ox O2 Delivery O2 Flow Rate FiO2 08/04/16 20:00 90 08/04/16 20:00 98.4 88 21 115/68 95 08/04/16 18:47 18 08/04/16 18:00 78 08/04/16 16:00 79 08/04/16 16:00 97.4 74 25 114/65 94 08/04/16 14:00 78 08/04/16 12:00 98.2 72 14 115/57 93 08/04/16 12:00 78 08/04/16 10:00 78 08/04/16 08:00 71 08/04/16 08:00 98.1 74 18 135/100 92 08/04/16 06:00 77 08/04/16 04:00 76 08/04/16 04:00 97.4 76 20 118/59 94 08/04/16 02:00 90 08/04/16 00:00 98.0 95 20 150/69 93 08/04/16 00:00 95 I/O 08/03/16 08/03/16 08/03/16 08/04/16 08/04/16 08/04/16 07:00 15:00 23:00 07:00 15:00 23:00 Intake Total 617 ml 1000 ml 788 ml 609 ml 853 ml 250 ml Output Total 450 ml 900 ml 1000 ml 1400 ml 875 ml 650 ml Balance 167 ml 100 ml -212 ml -791 ml -22 ml -400 ml Intake Oral 240 ml 600 ml 360 ml 240 ml 720 ml 250 ml IV Total 377 ml 400 ml 428 ml 369 ml 133 ml Output Urine Total 450 ml 900 ml 1000 ml 1400 ml 875 ml 650 ml # Bowel Movements 0 0 0 0 0 Result Diagram: 08/04/16 1040 08/04/16 0545 Objective Remarks GENERAL: pt sitting up in bed. Awake, alert and oriented 3.. Pleasant and cooperative. SKIN: Warm and dry. HEAD: Normocephalic. EYES: No scleral icterus. No injection or drainage. NECK: Supple, trachea midline. No JVD. CARDIOVASCULAR: Regular rate and rhythm without murmurs, gallops, or rubs. RESPIRATORY: Breath sounds equal bilaterally. No accessory muscle use. GASTROINTESTINAL: Abdomen soft, non-tender, nondistended. MUSCULOSKELETAL: No cyanosis, or edema. lumbar incision dressed, not examined. peripheral perfusion and sensation grossly intact. Unchanged. BACK: Nontender without obvious deformity. No CVA tenderness. A/P Assessment and Plan ===== 08/04/16 Afebrile and vital signs stable. Still with constipation. dulcolax supp daily, pt refused enema DVT. Lovenox increased to80mg bid as per surgery - if stable for a few days, can do eliquis. //Postoperative day 4 after ORIF lumbar spine L4 compression fracture. Continues on bedrest until Tuesday. - Patient has history of DVT-Patient is on prophylactic dose of Lovenox per surgery. -Recommend increased to treatment dose of anti-coagulation for recent DVT as soon as possible. =Await return of bowel function. Scheduled Senna as per surgical team. //DVT left lower extremity. Diagnosed 3 months ago. Will need 6 months total treatment. Repeat Doppler on most recent admission continues to be positive. - Patient on prophylactic Lovenox. = On Lovenox 30 mg subcutaneous twice daily. Recommend increase to full anticoagulation for treatment of DVT as soon as possible. Patient previously on Apixaban 5 mg twice daily at home. //Depression. Chronic. //Mood disorder. Chronic. -Continue antidepressants and antipsychotics. //BPH. Continue Flomax. As blood pressure has been a little low, will continue to hold on the alfuzosin for now. -08/02- ordered Espinoza removal. -Monitor for retention on pain medication. //Chronic urinary and stool incontinence. No change from baseline. Continue monitor. //Tobacco abuse. Cessation advised. Counseling provided. //leukocytosis. 14.5 on admission, improved to 9.0 on 07/30, however 13.4 postoperatively. No postoperative fever. Likely secondary to stress. -08/01. WBC 13.8. Likely secondary to stress, pain. No fevers. We'll order UA to rule out UTI Continue to monitor. -1/2. Improved to 11.6. No fevers. Continue to monitor. - 08/03. No fevers. Recheck tomorrow DVT prophylaxis. As per surgical service. Patient will need to be started back on therapeutic consideration for DVT as soon as possible. Discharge Planning physical therapy assistance appreciated. -Occupational therapy ordered. Will likely benefit from rehabilitation placement. Sanchez Montes MD Aug 04, 2016 23:26
[2016-08-05 04:00] VITALS: BP 116/65; PULSE 81; RESP 18; TEMP 96.2; O2SAT 94
[2016-08-05 04:01] LABS: APTT (PATIENT) 26.9 SEC (24.3-30.1)
[2016-08-05] MEDS: BACLOFEN 10 MG TAB PO SCH ×3 (06:38→22:00)
[2016-08-05] MEDS: METHOCARBAMOL 500 MG TAB PO SCH ×3 (06:38→22:00)
[2016-08-05] MEDS: ACETAMINOPHEN/HYDROcodone 325 MG/10 MG TAB PO SCH ×4 (06:40→20:31)
[2016-08-05 07:49] VITALS: BP 118/57; PULSE 83; RESP 18; TEMP 97.4; O2SAT 94
[2016-08-05] MEDS: DOCUSATE SODIUM 50 MG/SENNA 8.6 MG TAB PO SCH ×2 (09:04→20:30)
[2016-08-05] MEDS: TAMSULOSIN HCL 0.4 MG CAP PO SCH (09:04)
[2016-08-05] MEDS: BISACODYL 10 MG SUPP RECTAL SCH (09:04)
[2016-08-05] MEDS: ARIPiprazole 10 MG TAB PO SCH (09:04)
[2016-08-05] MEDS: FINASTERIDE 5 MG TAB PO SCH (09:04)
[2016-08-05] MEDS: SODIUM CHLORIDE 0.9% FLUSH 5 ML FLUSH FLUSH SCH ×2 (09:04→20:32)
[2016-08-05] MEDS: SERTRALINE HCL 100 MG TAB PO SCH (09:04)
[2016-08-05] MEDS: ENOXAPARIN SODIUM 80 MG/0.8 ML SYRINGE SQ SCH (09:04)
--- NOTE | 2016-08-05 09:41 | HHI.NSPN ---
Note Status Status: Progress Note Interval History Interval History Mr. Price is a 71 y/o male s/p ORIF L4 compression fracture, L2 to S1 posterolateral fixation on 07/30/16 1/3: reports minimal surgical pain, has not been using [employer]EDGE [employer]NER. wanting to get out of bed. denies changes to sensorimotor function in LEs. On lovenox. Hx recent DVT 3 months ago, medical requesting clearance for full anticoagulation. 08/04: sitting up in chair with TLSO eating breakfast, c/o 8/10 pain across the upper lumbar. denies headaches, chest pain, or difficulty breathing. 08/05: lumbar pain better today, eager to be discharge from hospital, denies chest pain, SOB, wound dry, denies sensorimotor changes in LE's Labs, Micro, & Vital Signs Results Date Time Temp Pulse Resp B/P Pulse Ox O2 Delivery O2 Flow Rate FiO2 08/05/16 07:49 97.4 83 18 118/57 94 08/05/16 04:00 96.2 81 18 116/65 94 08/04/16 22:00 97.8 72 18 146/65 95 08/04/16 20:00 90 08/04/16 20:00 98.4 88 21 115/68 95 08/04/16 18:47 18 08/04/16 18:00 78 08/04/16 16:00 79 08/04/16 16:00 97.4 74 25 114/65 94 08/04/16 14:00 78 08/04/16 12:00 98.2 72 14 115/57 93 08/04/16 12:00 78 08/04/16 10:00 78 08/05/16 07:00 Intake Total 1343 ml Output Total 1525 ml Balance -182 ml Constitutional Vital Signs Date Time Temp Pulse Resp B/P Pulse Ox O2 Delivery O2 Flow Rate FiO2 08/05/16 07:49 97.4 83 18 118/57 94 08/05/16 04:00 96.2 81 18 116/65 94 08/04/16 22:00 97.8 72 18 146/65 95 08/04/16 20:00 90 1/4/17 20:00 98.4 88 21 115/68 95 08/04/16 18:47 18 08/04/16 18:00 78 08/04/16 16:00 79 08/04/16 16:00 97.4 74 25 114/65 94 08/04/16 14:00 78 08/04/16 12:00 98.2 72 14 115/57 93 08/04/16 12:00 78 08/04/16 10:00 78 08/05/16 07:00 Intake Total 1343 ml Output Total 1525 ml Balance -182 ml Review of Systems/Exam Exam Alert and oriented to name, place. Sitting up in chair eating breakfast. Speech is fluent. Following commands. both surgical incisions are dry and healing well, sutures intact. CN: pupils 4 mm equal, facial motor symmetric, hard of hearing Motor: moves upper extremities well, in lower extremities 5-/5 bilat iliopsoas, quads, hamstrings, plantarflexion, right dorsiflexion, 4-/5 left dorsiflexion. Extremities: no erythema, warmth, swelling or calf pain Sensory: intact to light touch Respiratory: clear b/l Medications Current Medications Current Medications Medications (Trade) Dose Ordered Sig/Tia Route PRN Reason Start Time Stop Time Status Last Admin Dose Admin IV Flush (NS Flush) 2 ml UNSCH PRN FLUSH FLUSH AFTER USING IV ACCESS 07/29/16 00:15 IV Flush (NS Flush) 2 ml BID FLUSH 07/29/16 09:00 08/05/16 09:04 Aripiprazole (Abilify) 10 mg DAILY PO 07/29/16 09:00 08/05/16 09:04 Sertraline HCl (Zoloft) 100 mg DAILY PO 07/29/16 09:00 08/05/16 09:04 Trazodone HCl (Desyrel) 50 mg HS PO 07/29/16 21:00 08/04/16 20:37 Finasteride (Proscar) 5 mg DAILY PO 07/29/16 09:00 08/05/16 09:04 Tamsulosin HCl (Flomax) 0.4 mg DAILY PO 07/30/16 09:00 08/05/16 09:04 Naloxone HCl (Narcan Inj) 0.4 mg UNSCH PRN IV RESPIRATORY RATE LESS THAN 10 07/30/16 17:00 Diphenhydramine HCl (Benadryl Inj) 25 mg Q6H PRN IV ITCHING 07/30/16 17:00 Methocarbamol (Robaxin) 500 mg Q8HR PO 07/31/16 14:00 08/05/16 06:38 Senna/Docusate Sodium (Arlene-Colace) 1 tab BID PO 08/01/16 21:00 08/05/16 09:04 Baclofen (Lioresal) 5 mg Q8HR PO 08/04/16 14:00 08/05/16 06:38 Enoxaparin Sodium (Lovenox Inj) 80 mg BID SQ 08/04/16 21:00 08/05/16 09:04 Miscellaneous (Pill Splitter) 1 ea UNSCH PRN OTHER SEE LABEL COMMENTS 08/04/16 11:00 Acetaminophen/ Hydrocodone Bitart ([place]ly[place] 10-325 Mg) 1 tab Q6HR PO 08/04/16 18:00 08/05/16 06:40 Bisacodyl (Dulcolax Supp) 10 mg DAILY RECTAL 08/05/16 09:00 08/05/16 09:04 Medical Decision Making MDM Remarks 71 y/o s/p ORIF L4 compression fracture, L2 to S1 posterolateral fixation on , POD 6, moderate 8/10 surgical pain today recent dx of DVT 3 months ago, he was on Eloquis at home history of multiple sclerosis Plan Plan Remarks cont current pain regimen cont PT, OOB with TLSO doppler still positive for DVT, on lovenox 80mg sq bid consult case mgt to start discharge planning to rehab dc sutures 08/13/16 Dr. Sampson to review Goldie Cheng Aug 05, 2016 09:41 Goldie Cheng Aug 05, 2016 09:41
--- NOTE | 2016-08-05 13:00 | HHI.PR ---
Subjective Remarks Patient reports that he is sore at the surgical site but has no other complaints. Discussed with his daughter at bedside. He requested to go down on a wheelchair for cigarette. He intermittently will get confused. Objective Vitals Vital Signs Date Time Temp Pulse Resp B/P Pulse Ox O2 Delivery O2 Flow Rate FiO2 08/05/16 07:49 97.4 83 18 118/57 94 08/05/16 04:00 96.2 81 18 116/65 94 08/04/16 22:00 97.8 72 18 146/65 95 08/04/16 20:00 90 08/04/16 20:00 98.4 88 21 115/68 95 08/04/16 18:47 18 08/04/16 18:00 78 08/04/16 16:00 79 08/04/16 16:00 97.4 74 25 114/65 94 08/04/16 14:00 78 I/O 08/04/16 08/04/16 08/04/16 08/05/16 08/05/16 08/05/16 07:00 15:00 23:00 07:00 15:00 23:00 Intake Total 609 ml 853 ml 250 ml 240 ml Output Total 1400 ml 875 ml 650 ml Balance -791 ml -22 ml -400 ml 240 ml Intake Oral 240 ml 720 ml 250 ml 240 ml IV Total 369 ml 133 ml Output Urine Total 1400 ml 875 ml 650 ml # Voids 2 # Bowel Movements 0 0 0 Result Diagram: 08/04/16 1040 08/04/16 0545 Imaging Last Impressions Lower Extremity Ultrasound 08/04/16 0000 Signed Impressions: Service Date/Time: Thursday, August 04, 2016 11:43 - CONCLUSION: Venous Doppler remains positive on the right. There is no evidence of thrombosis on the left. Ruben Horvath MD FACR Lumbar Spine X-Ray 07/30/16 0000 Signed Impressions: Service Date/Time: Saturday, July 30, 2016 09:54 - CONCLUSION: Fluoroscopic images during placement of fusion rods from L2-S1. Carlin Mcgarry MD Chest X-Ray 07/30/16 0000 Signed Impressions: Service Date/Time: Saturday, July 30, 2016 16:56 - CONCLUSION: Left subclavian venous catheter terminates in superior vena cava. No evidence of pneumothorax. James Galeano MD Lumbar Spine MRI 07/29/16 2335 Signed Impressions: Service Date/Time: July 08:32 - CONCLUSION: 1. There is an acute compression fracture of the L4 vertebral body with approximately 70%% height loss centrally. Secondary to posterior convexity of the L4 vertebral body cortex and facet hypertrophy there is moderate to severe canal stenosis at L3-L4. 2. There is an acute mild superior endplate fracture at L3 with less than 10%% height loss. 3. There are old compression fractures of the superior endplates of T12 and L1. 4. There is also moderate spinal canal stenosis at L4-L5 secondary to disc bulge and facet and ligamentum flavum hypertrophy. Moe Galvan MD Head CT 07/29/16 0000 Signed Impressions: Service Date/Time: July 00:41 - CONCLUSION: 1. No acute hemorrhage, mass or infarction. 2. Moderate atrophic change and chronic small vessel ischemic changes. Anatoliy Nava MD Lumbar Spine CT 07/28/16 0000 Signed Impressions: Service Date/Time: Thursday, July 28, 2016 22:48 - CONCLUSION: 1. Moderate to severe compression fracture deformity L4 vertebral body which is of indeterminate age secondary to sclerosis however there are apparent fracture lines on the anterior superior aspect indicating that at least a portion of this is acute. There is mild retropulsion of the posterior superior aspect of the vertebral body. 2. Mild chronic compression fracture deformities of the T12 and L1 vertebral bodies. 3. Moderate to severe central canal stenosis at the L3-4 and L4-5 levels. This is secondary to disc bulges and degenerative changes involving the facets. Anatoliy Nava MD Hip and Pelvis X-Ray 07/28/16 0000 Signed Impressions: Service Date/Time: Thursday, July 28, 2016 22:39 - CONCLUSION: No acute disease. Tej Stafford MD A/P Problem List: (1) Compression fracture of L4 lumbar vertebra ICD Code: S32.040A Status: Acute Assessment and Plan 71-year-old male admitted with: Compression fracture at L4. Patient is postop day #5 ORIF lumbar spine L4 compression fracture. -Routine postop care per neurosurgery. dc sutures 08/13/16 - PT, OOB with TLSO DVT left lower extremity. Diagnosed 3 months ago. Will need 6 months total treatment. Repeat Doppler on most recent admission continues to be positive. - Patient was on prophylactic Lovenox. Stop Lovenox and Switch to home dose Eliquis 5 mg twice a day Depression. Chronic. Mood disorder. Chronic. -Continue antidepressants and antipsychotics. BPH. Continue Flomax. Continue to hold on the alfuzosin for now. Chronic urinary and stool incontinence. No change from baseline. Continue monitor. Tobacco abuse. Cessation advised. Counseling provided. Patient is advised that he cannot smoke on hospital property and should really consider quitting. Discharge Planning Plan for discharge to acute rehabilitation tomorrow if all stable and arrangements are made. Problem Qualifiers (1) Compression fracture of L4 lumbar vertebra: Qualified Code: S32.040A - Compression fracture of L4 lumbar vertebra, closed, initial encounter Yenifer Hernandez MD Aug 05, 2016 13:00
[2016-08-05 16:00] VITALS: BP 114/61; PULSE 85; RESP 18; TEMP 96.6; O2SAT 94
[2016-08-05 17:41] VITALS: BP 139/60; PULSE 89; RESP 18; TEMP 96.8; O2SAT 92
[2016-08-05 20:00] VITALS: BP 123/70; PULSE 86; RESP 18; TEMP 98.7; O2SAT 95
[2016-08-05] MEDS: traZODone HCL 50 MG TAB PO SCH (20:31)
[2016-08-06] VITALS: BP 131/63; PULSE 79; RESP 18; TEMP 97.8; O2SAT 93
[2016-08-06] MEDS: BACLOFEN 10 MG TAB PO SCH ×3 (06:21→22:45)
[2016-08-06] MEDS: ACETAMINOPHEN/HYDROcodone 325 MG/10 MG TAB PO SCH ×5 (06:22→22:45)
[2016-08-06] MEDS: METHOCARBAMOL 500 MG TAB PO SCH ×3 (06:22→22:45)
[2016-08-06 07:44] VITALS: BP 108/59; PULSE 84; RESP 18; TEMP 97.2; O2SAT 97
[2016-08-06] MEDS: ARIPiprazole 10 MG TAB PO SCH (08:28)
[2016-08-06] MEDS: SODIUM CHLORIDE 0.9% FLUSH 5 ML FLUSH FLUSH SCH ×2 (08:28→19:44)
[2016-08-06] MEDS: DOCUSATE SODIUM 50 MG/SENNA 8.6 MG TAB PO SCH ×2 (08:28→19:44)
[2016-08-06] MEDS: SERTRALINE HCL 100 MG TAB PO SCH (08:28)
[2016-08-06] MEDS: FINASTERIDE 5 MG TAB PO SCH (08:28)
[2016-08-06] MEDS: TAMSULOSIN HCL 0.4 MG CAP PO SCH (08:28)
[2016-08-06] MEDS: APIXABAN 5 MG TABLET PO SCH ×2 (08:28→19:44)
[2016-08-06] MEDS: BISACODYL 10 MG SUPP RECTAL SCH (08:29)
[2016-08-06 11:39] VITALS: BP 140/63; PULSE 87; RESP 18; TEMP 96.6; O2SAT 94
[2016-08-06] MEDS ORDERED: HYDR-3583 PO (14:15)
[2016-08-06] MEDS ORDERED: BACL10TA PO (14:15)
[2016-08-06] MEDS ORDERED: SENN1TAB PO (14:15)
[2016-08-06] MEDS ORDERED: METH500T3 PO (14:15)
--- NOTE | 2016-08-06 14:15 | HHI.DS ---
Discharge Summary Admission Date Jul 30, 2016 at 10:25 Discharge Date: Aug 06, 2016 Admitting Diagnosis Poss L4 Fx, Fall (1) Compression fracture of L4 lumbar vertebra ICD Code: S32.040A Procedures ORIF for L4 compression fracture Brief History - From Admission 71-year-old male with a history of depression, mood disorder, BPH, osteoporosis , DVT left lower extremity diagnosed approximately 3 months ago, multiple sclerosis. Recent admission to inpatient psychiatric center. He was discharged on 07/27. He does report a mechanical fall during admission to inpatient psychiatry, with injury to his lower back. He reports constant stabbing pain to the lower back since a fall during recent admission. He denies any change in bowel or bladder habits. Denies any chest pain, shortness of breath, nausea, vomiting. CBC/BMP: 08/04/16 1040 08/04/16 0545 Significant Findings Laboratory Tests Test 08/04/16 08/04/16 05:45 10:40 Red Blood Count 2.75 MIL/MM3 3.12 MIL/MM3 (4.50-5.90) (4.50-5.90) Hemoglobin 9.3 GM/DL 10.4 GM/DL (13.0-17.0) (13.0-17.0) Hematocrit 26.5 % 30.1 % (39.0-51.0) (39.0-51.0) Monocytes (%) (Auto) 12.0 % (0.0-8.0) Eosinophils (%) (Auto) 8.3 % (0.0-4.0) Monocytes # (Auto) 1.0 TH/MM3 (0-0.9) Eosinophils # (Auto) 0.7 TH/MM3 (0-0.4) Calcium Level 8.0 MG/DL (8.5-10.1) Imaging Last Impressions Lower Extremity Ultrasound 08/04/16 0000 Signed Impressions: Service Date/Time: Thursday, August 04, 2016 11:43 - CONCLUSION: Venous Doppler remains positive on the right. There is no evidence of thrombosis on the left. Ruben Horvath MD FACR Lumbar Spine X-Ray 07/30/16 0000 Signed Impressions: Service Date/Time: Saturday, July 30, 2016 09:54 - CONCLUSION: Fluoroscopic images during placement of fusion rods from L2-S1. Carlin Mcgarry MD Chest X-Ray 07/30/16 0000 Signed Impressions: Service Date/Time: Saturday, July 30, 2016 16:56 - CONCLUSION: Left subclavian venous catheter terminates in superior vena cava. No evidence of pneumothorax. James Galeano MD Lumbar Spine MRI 07/29/16 2335 Signed Impressions: Service Date/Time: July 08:32 - CONCLUSION: 1. There is an acute compression fracture of the L4 vertebral body with approximately 70%% height loss centrally. Secondary to posterior convexity of the L4 vertebral body cortex and facet hypertrophy there is moderate to severe canal stenosis at L3-L4. 2. There is an acute mild superior endplate fracture at L3 with less than 10%% height loss. 3. There are old compression fractures of the superior endplates of T12 and L1. 4. There is also moderate spinal canal stenosis at L4-L5 secondary to disc bulge and facet and ligamentum flavum hypertrophy. Moe Galvan MD Head CT 07/29/16 0000 Signed Impressions: Service Date/Time: July 00:41 - CONCLUSION: 1. No acute hemorrhage, mass or infarction. 2. Moderate atrophic change and chronic small vessel ischemic changes. Anatoliy Nava MD Lumbar Spine CT 07/28/16 0000 Signed Impressions: Service Date/Time: Thursday, July 28, 2016 22:48 - CONCLUSION: 1. Moderate to severe compression fracture deformity L4 vertebral body which is of indeterminate age secondary to sclerosis however there are apparent fracture lines on the anterior superior aspect indicating that at least a portion of this is acute. There is mild retropulsion of the posterior superior aspect of the vertebral body. 2. Mild chronic compression fracture deformities of the T12 and L1 vertebral bodies. 3. Moderate to severe central canal stenosis at the L3-4 and L4-5 levels. This is secondary to disc bulges and degenerative changes involving the facets. Anatoliy Nava MD Hip and Pelvis X-Ray 07/28/16 0000 Signed Impressions: Service Date/Time: Thursday, July 28, 2016 22:39 - CONCLUSION: No acute disease. Tej Stafford MD PE at Discharge GENERAL: Well-developed well-nourished. In no acute distress. Oriented 3. SKIN: Warm and dry. No lesions noted. HEENT: Normocephalic. Pupils equal and round. Mucous membranes pink and moist. CARDIOVASCULAR: Regular rate and rhythm. No murmur appreciated. RESPIRATORY: No accessory muscle use. Clear to auscultation. Breath sounds equal bilaterally. GASTROINTESTINAL: Abdomen soft, non-tender, nondistended. Bowel sounds x4. MUSCULOSKELETAL: No obvious deformities. No clubbing or cyanosis. No edema. NEUROLOGICAL: Awake and alert. No focal neurological deficits. Moves upper and lower extremities spontaneously. Normal speech. PSYCHIATRIC: Appropriate mood and affect; insight and judgment normal. Pt update on day of discharge Patient reports pain at the surgical site that is controlled with medications. He is anxious to be discharged for rehabilitation. Hospital Course 71-year-old male admitted with compression fracture at L4. Evaluation and treatment course detailed below: Compression fracture at L4. Patient underwent ORIF lumbar spine L4 compression fracture by neurosurgery. He is to continue PT, OOB with TLSO per neurosurgery. dc sutures 08/13/16 per neurosurgery. Pain control with baclofen, Lortab, and Robaxin. DVT left lower extremity. Diagnosed 3 months ago. Will need 6 months total treatment. Repeat Doppler on most recent admission continues to be positive. - Patient was on prophylactic Lovenox. He was Switch to home dose Eliquis 5 mg twice a day Depression. Chronic. Mood disorder. Chronic. -Continue antidepressants and antipsychotics. BPH. Continue Flomax. Alfuzosin was held due to borderline hypotension. Chronic urinary and stool incontinence. No change from baseline. Continue monitor. Tobacco abuse. Cessation advised. Counseling provided. Patient is discharged to rehab. Pt Condition on Discharge: Good Discharge Disposition: Rehab Inpatient Discharge Time: > 30 minutes Discharge Instructions DIET: Follow Instructions for: Heart Healthy Diet Activities you can perform: See Additionl Instruction Other Activity Instructions: Per physical therapy instruction Follow up Referrals: Neurosurgery New Medications: Baclofen (Baclofen) 10 Mg Tab 5 MG PO Q8HR PRN MUSCLE SPASM #20 TAB Hydrocodone-Acetaminophen (Hydrocodone-Acetaminophen) 10-325 mg Tab 1 TAB PO Q6HR #20 TAB Methocarbamol (Methocarbamol) 500 Mg Tab 500 MG PO Q8HR #12 TAB Sennosides-Docusate Sodium (Senna Plus 8.6-50 mg) 1 Tab Tab 1 TAB PO BID #20 TAB Continued Medications: Apixaban (Eliquis) 5 Mg Tab 5 MG PO BID follow up with PCP for refill and duration Blood Clot Prevention # 60 Ref 0 TAB Aripiprazole (Aripiprazole) 10 Mg Tab 10 MG PO DAILY health #30 Ref 0 TAB Calcium Carbonate-Vitamin D W/Minerals (Calcium 1200) 1,200-1,000 Mg-Unit Chew 1 TAB CHEW DAILY Nutritional Supplement Ref 0 TAB Cyanocobalamin Inj (Cyanocobalamin Inj) 1,000 Mcg/Ml Inj 1000 MCG SQ Q30D #1 Ref 0 VIAL Finasteride (Alopecia) (Finasteride) 1 Mg Tab 5 MG PO DAILY Megestrol (Megestrol) 40 Mg Tab 20 MG PO 1/2 po bid health #30 Ref 0 TAB Sertraline (Zoloft) 100 Mg Tab 100 MG PO DAILY health #30 Ref 0 TAB Tamsulosin (Flomax) 0.4 Mg Cap 0.4 MG PO DAILY health #30 Ref 0 CAP Trazodone (Trazodone) 50 Mg Tab 50 MG PO HS health #30 Ref 0 TAB Discontinued Medications: Alfuzosin HCl (Alfuzosin HCl ER) 10 Mg Tab 10 MG PO DAILY Apixaban (Eliquis) 5 Mg Tab 5 MG PO BID health #60 Ref 0 TAB Yenifer Hernandez MD Aug 06, 2016 14:15
[2016-08-06 16:00] VITALS: BP 102/58; PULSE 82; RESP 18; TEMP 97.2; O2SAT 95
[2016-08-06] MEDS: traZODone HCL 50 MG TAB PO SCH (19:44)
[2016-08-06 19:45] VITALS: PULSE 71
[2016-08-06 20:00] VITALS: BP 111/58; PULSE 78; RESP 16; TEMP 97.3; O2SAT 94
--- NOTE | 2016-08-06 23:56 | HHI.NSPN ---
History Chief Complaint: [id number] back pain Interval History 71-year-old male status post ORIF with L3-S1 fusion for L4 fracture. Exam Results Vital Signs Date Time Temp Pulse Resp B/P Pulse Ox O2 Delivery O2 Flow Rate FiO2 08/06/16 20:00 97.3 78 16 111/58 94 Intake and Output 08/05/16 08/05/16 08/05/16 07:59 15:59 23:59 Intake Total 240 ml 600 ml 480 ml Balance 240 ml 600 ml 480 ml Physical Examination Awake, alert, no apparent distress. Speech is fluent. Following commands. Wound is dry, sutures intact. No drainage or signs of CSF leak seen. CN: pupils equal, facial motor symmetric Motor: moves upper extremities well, in lower extremities 5-/5 bilat iliopsoas, quads, hamstrings, plantarflexion, right dorsiflexion, 3 to 4-/5 left dorsiflexion. Sensory: intact to light touch Medical Decision Making Impression and Plan Impression: 1. Stable neurologic function following ORIF for fracture. No evidence CSF leak. Plan: Findings discussed with patient Out of bed today with physical therapy Continue TLSO brace Home versus rehabilitation. Vinnie Doty MD Aug 06, 2016 23:56
[2016-08-07] VITALS: BP 98/50; PULSE 71; RESP 16; TEMP 96.3; O2SAT 93
[2016-08-07 04:00] VITALS: BP 132/58; PULSE 75; RESP 16; TEMP 96.4; O2SAT 94
[2016-08-07] MEDS: METHOCARBAMOL 500 MG TAB PO SCH ×3 (05:15→20:47)
[2016-08-07] MEDS: ACETAMINOPHEN/HYDROcodone 325 MG/10 MG TAB PO SCH ×4 (05:15→23:39)
[2016-08-07] MEDS: BACLOFEN 10 MG TAB PO SCH ×3 (05:16→20:47)
[2016-08-07 07:18] LABS: HEMATOCRIT 30.4 % (39.0-51.0); MEAN CELL VOLUME 97.1 FL (80.0-100.0); MEAN CORPUSCULAR HEMOGLOBIN 32.8 PG (27.0-34.0); MEAN CORPUSCULAR HGB CONC 33.8 % (32.0-36.0); PLATELET COUNT 460 TH/MM3 (150-450); RED BLOOD COUNT 3.13 MIL/MM3 (4.50-5.90); RED CELL DISTRIBUTION WIDTH 12.9 % (11.6-17.2); REVIEW FLAG FINAL; WHITE BLOOD COUNT 11.9 TH/MM3 (4.0-11.0)
[2016-08-07 08:00] VITALS: BP 115/78; PULSE 76; RESP 16; TEMP 97.4; O2SAT 93
[2016-08-07] MEDS: ARIPiprazole 10 MG TAB PO SCH (08:52)
[2016-08-07] MEDS: FINASTERIDE 5 MG TAB PO SCH (08:53)
[2016-08-07] MEDS: TAMSULOSIN HCL 0.4 MG CAP PO SCH (08:53)
[2016-08-07] MEDS: BISACODYL 10 MG SUPP RECTAL SCH (08:53)
[2016-08-07] MEDS: APIXABAN 5 MG TABLET PO SCH ×2 (08:53→20:47)
[2016-08-07] MEDS: SODIUM CHLORIDE 0.9% FLUSH 5 ML FLUSH FLUSH SCH ×2 (08:53→20:47)
[2016-08-07] MEDS: SERTRALINE HCL 100 MG TAB PO SCH (08:53)
[2016-08-07] MEDS: DOCUSATE SODIUM 50 MG/SENNA 8.6 MG TAB PO SCH ×2 (08:53→20:47)
--- NOTE | 2016-08-07 09:51 | HHI.PR ---
Subjective Remarks Patient discharge yesterday. Awaiting insurance authorization for rehab placement. He has no new complaints. Pain at the surgical site that is controlled with medications. Objective Vitals Vital Signs Date Time Temp Pulse Resp B/P Pulse Ox O2 Delivery O2 Flow Rate FiO2 08/07/16 04:00 96.4 75 16 132/58 94 08/07/16 00:00 96.3 71 16 98/50 93 08/06/16 20:00 97.3 78 16 111/58 94 08/06/16 19:45 71 08/06/16 16:00 97.2 82 18 102/58 95 08/06/16 11:39 96.6 87 18 140/63 94 I/O 08/06/16 08/06/16 08/06/16 08/07/16 08/07/16 08/07/16 07:00 15:00 23:00 07:00 15:00 23:00 Intake Total 240 ml 600 ml 240 ml 240 ml Output Total 100 ml Balance 240 ml 600 ml 240 ml 140 ml Intake Oral 240 ml 600 ml 240 ml 240 ml IV Total 0 ml Output Urine Total 100 ml # Voids 2 3 1 3 # Bowel Movements 1 1 0 0 Result Diagram: 08/07/16 0520 08/04/16 0545 Objective Remarks GENERAL: Well-developed well-nourished. In no acute distress. Oriented 3. SKIN: Warm and dry. No lesions noted. HEENT: Normocephalic. Pupils equal and round. Mucous membranes pink and moist. CARDIOVASCULAR: Regular rate and rhythm. No murmur appreciated. RESPIRATORY: No accessory muscle use. Clear to auscultation. Breath sounds equal bilaterally. GASTROINTESTINAL: Abdomen soft, non-tender, nondistended. Bowel sounds x4. MUSCULOSKELETAL: No obvious deformities. TTP in the lumbar region. POst surgical dressing intact. NEUROLOGICAL: Awake and alert. Normal speech. Procedures ORIF for L4 compression fracture A/P Problem List: (1) Compression fracture of L4 lumbar vertebra ICD Code: S32.040A Status: Acute Assessment and Plan 71-year-old male admitted with: Compression fracture at L4. Patient is postop day #7 ORIF lumbar spine L4 compression fracture. -Routine postop care per neurosurgery. dc sutures 08/13/16 - PT, OOB with TLSO DVT left lower extremity. Diagnosed 3 months ago. Will need 6 months total treatment. Repeat Doppler on most recent admission continues to be positive. - Patient was on prophylactic Lovenox. He was switched to home dose Eliquis 5 mg twice a day Depression. Chronic. Mood disorder. Chronic. -Continue antidepressants and antipsychotics. BPH. Continue Flomax. Continue to hold on the alfuzosin for now. Chronic urinary and stool incontinence. No change from baseline. Continue monitor. Tobacco abuse. Cessation advised. Counseling provided. Discharge Planning Patient is discharged. Awaiting insurance authorization. Problem Qualifiers (1) Compression fracture of L4 lumbar vertebra: Qualified Code: S32.040A - Compression fracture of L4 lumbar vertebra, closed, initial encounter Yenifer Hernandez MD Aug 07, 2016 09:51
[2016-08-07 12:00] VITALS: BP 125/66; PULSE 75; RESP 16; TEMP 97.7; O2SAT 94
[2016-08-07 16:00] VITALS: BP 151/69; PULSE 75; RESP 16; TEMP 97; O2SAT 96
[2016-08-07] MEDS: traZODone HCL 50 MG TAB PO SCH (20:47)
[2016-08-07 22:34] VITALS: BP 105/46; PULSE 69; RESP 17; TEMP 97.2; O2SAT 94
--- NOTE | 2016-08-07 23:24 | HHI.NSPN ---
History Chief Complaint: [id number] back pain Interval History 71-year-old male status post ORIF with L3-S1 fusion for L4 fracture. Exam Results Vital Signs Date Time Temp Pulse Resp B/P Pulse Ox O2 Delivery O2 Flow Rate FiO2 08/07/16 22:34 97.2 69 17 105/46 94 Intake and Output 08/06/16 08/06/16 08/07/16 08:00 16:00 00:00 Intake Total 240 ml 600 ml 240 ml Balance 240 ml 600 ml 240 ml Physical Examination Awake, alert, no apparent distress. Speech is fluent. Following commands. Wound is dry, sutures intact. No drainage or signs of CSF leak seen. CN: pupils equal, facial motor symmetric Lower extremity motor function 5/5 in all major flexion and extension groups Sensory: intact to light touch Lab, Micro, Other Results Laboratory Tests Test 08/07/16 05:20 White Blood Count 11.9 TH/MM3 Red Blood Count 3.13 MIL/MM3 Hemoglobin 10.3 GM/DL Hematocrit 30.4 % Mean Corpuscular Volume 97.1 FL Mean Corpuscular Hemoglobin 32.8 PG Mean Corpuscular Hemoglobin 33.8 % Concent Red Cell Distribution Width 12.9 % Platelet Count 460 TH/MM3 Mean Platelet Volume 7.6 FL Medical Decision Making Impression and Plan Impression: 1. Stable neurologic function following ORIF for fracture. No evidence CSF leak. Plan: Findings discussed with patient Continue physical therapy Continue TLSO brace Plan discharge to rehabilitation on 08/09/16 Vinnie Doty MD Aug 07, 2016 23:24
[2016-08-08 00:06] VITALS: BP 121/62; PULSE 69; RESP 18; TEMP 96; O2SAT 97
[2016-08-08 04:04] VITALS: BP 107/62; PULSE 79; RESP 17; TEMP 96; O2SAT 95
[2016-08-08] MEDS: BACLOFEN 10 MG TAB PO SCH ×3 (05:16→21:43)
[2016-08-08] MEDS: METHOCARBAMOL 500 MG TAB PO SCH ×3 (05:16→21:43)
[2016-08-08] MEDS: ACETAMINOPHEN/HYDROcodone 325 MG/10 MG TAB PO SCH ×3 (05:17→17:37)
[2016-08-08 08:00] VITALS: BP 101/52; PULSE 67; RESP 18; TEMP 97.6; O2SAT 95
[2016-08-08] MEDS: BISACODYL 10 MG SUPP RECTAL SCH (09:00)
[2016-08-08] MEDS: SODIUM CHLORIDE 0.9% FLUSH 5 ML FLUSH FLUSH SCH ×2 (09:00→21:00)
[2016-08-08] MEDS: ARIPiprazole 10 MG TAB PO SCH (09:35)
[2016-08-08] MEDS: SERTRALINE HCL 100 MG TAB PO SCH (09:35)
[2016-08-08] MEDS: TAMSULOSIN HCL 0.4 MG CAP PO SCH (09:35)
[2016-08-08] MEDS: APIXABAN 5 MG TABLET PO SCH ×2 (09:35→21:43)
[2016-08-08] MEDS: DOCUSATE SODIUM 50 MG/SENNA 8.6 MG TAB PO SCH ×2 (09:35→21:43)
[2016-08-08] MEDS: FINASTERIDE 5 MG TAB PO SCH (09:35)
--- NOTE | 2016-08-08 10:53 | HHI.PR ---
Subjective Remarks Patient discharged 08/06/16. Awaiting insurance authorization for rehab placement. No new complaints. Same pain at the surgical site and some abdominal muscle discomfort. Controlled with pain medications. Objective Vitals Vital Signs Date Time Temp Pulse Resp B/P Pulse Ox O2 Delivery O2 Flow Rate FiO2 08/08/16 04:04 96.0 79 17 107/62 95 08/08/16 00:06 96.0 69 18 121/62 97 08/07/16 22:34 97.2 69 17 105/46 94 08/07/16 16:00 97.0 75 16 151/69 96 08/07/16 12:00 97.7 75 16 125/66 94 I/O 08/07/16 08/07/16 08/07/16 08/08/16 08/08/16 08/08/16 07:00 15:00 23:00 07:00 15:00 23:00 Intake Total 240 ml 480 ml 240 ml 240 ml Output Total 100 ml 150 ml 100 ml Balance 140 ml 330 ml 140 ml 240 ml Intake Oral 240 ml 480 ml 240 ml 240 ml Output Urine Total 100 ml 150 ml 100 ml # Voids 3 3 1 1 # Bowel Movements 0 0 0 0 Result Diagram: 08/07/16 0520 08/04/16 0545 Objective Remarks GENERAL: Well-developed well-nourished. In no acute distress. Oriented 3. SKIN: Warm and dry. No lesions noted. HEENT: Normocephalic. Pupils equal and round. Mucous membranes pink and moist. CARDIOVASCULAR: Regular rate and rhythm. No murmur appreciated. RESPIRATORY: No accessory muscle use. Clear to auscultation. Breath sounds equal bilaterally. GASTROINTESTINAL: Abdomen soft, non-tender, nondistended. Bowel sounds x4. MUSCULOSKELETAL: No obvious deformities. TTP in the lumbar region. Post surgical dressing intact. NEUROLOGICAL: Awake and alert. Normal speech. Procedures ORIF for L4 compression fracture A/P Problem List: (1) Compression fracture of L4 lumbar vertebra ICD Code: S32.040A Status: Acute Assessment and Plan 71-year-old male admitted with: Compression fracture at L4. Patient is postop day #7 ORIF lumbar spine L4 compression fracture. -Routine postop care per neurosurgery. dc sutures 08/13/16 - PT, OOB with TLSO DVT left lower extremity. Diagnosed 3 months ago. Will need 6 months total treatment. Repeat Doppler on most recent admission continues to be positive. - Patient was on prophylactic Lovenox. He was switched to home dose Eliquis 5 mg twice a day Depression. Chronic. Mood disorder. Chronic. -Continue antidepressants and antipsychotics. BPH. Continue Flomax. Continue to hold on the alfuzosin for now. Chronic urinary and stool incontinence. No change from baseline. Continue monitor. Tobacco abuse. Cessation advised. Counseling provided. Discharge Planning Patient is discharged. Awaiting insurance authorization. Problem Qualifiers (1) Compression fracture of L4 lumbar vertebra: Qualified Code: S32.040A - Compression fracture of L4 lumbar vertebra, closed, initial encounter Yenifer Hernandez MD Aug 08, 2016 10:53
[2016-08-08 12:00] VITALS: BP 99/61; PULSE 73; RESP 16; TEMP 97.6; O2SAT 95
[2016-08-08 16:00] VITALS: BP 129/65; PULSE 69; RESP 16; TEMP 97.9; O2SAT 98
[2016-08-08 20:14] VITALS: BP 138/69; PULSE 79; RESP 18; TEMP 97.9; O2SAT 96
[2016-08-08] MEDS: traZODone HCL 50 MG TAB PO SCH (21:43)
--- NOTE | 2016-08-08 22:37 | HHI.NSPN ---
History Chief Complaint: [id number] back pain Interval History 71-year-old male status post ORIF with L3-S1 fusion for L4 fracture. Exam Results Vital Signs Date Time Temp Pulse Resp B/P Pulse Ox O2 Delivery O2 Flow Rate FiO2 08/08/16 16:00 97.9 69 16 129/65 98 Intake and Output 08/07/16 08/07/16 08/08/16 08:00 16:00 00:00 Intake Total 240 ml 480 ml 240 ml Output Total 100 ml 150 ml 100 ml Balance 140 ml 330 ml 140 ml Physical Examination Awake, alert, no apparent distress. Speech is fluent. Following commands. Wound is dry, sutures intact. No drainage or signs of CSF leak seen. CN: pupils equal, facial motor symmetric Lower extremity motor function 5/5 in all major flexion and extension groups Sensory: intact to light touch Medical Decision Making Impression and Plan Impression: 1. Stable neurologic function following ORIF for fracture. Plan: Continue physical therapy Continue TLSO brace Plan discharge to rehabilitation on 08/09/16 Vinnie Doty MD Aug 08, 2016 22:37
[2016-08-09 00:15] VITALS: BP 112/56; PULSE 71; RESP 16; TEMP 97.1; O2SAT 94
[2016-08-09] MEDS: ACETAMINOPHEN/HYDROcodone 325 MG/10 MG TAB PO SCH ×5 (00:21→23:54)
[2016-08-09 04:08] VITALS: BP 135/68; PULSE 70; RESP 17; TEMP 97.1; O2SAT 95
[2016-08-09] MEDS: BACLOFEN 10 MG TAB PO SCH ×3 (05:48→21:44)
[2016-08-09] MEDS: METHOCARBAMOL 500 MG TAB PO SCH ×3 (05:48→21:44)
[2016-08-09 08:00] VITALS: BP 116/65; PULSE 74; RESP 18; TEMP 97.1; O2SAT 93
[2016-08-09] MEDS: SERTRALINE HCL 100 MG TAB PO SCH (08:42)
[2016-08-09] MEDS: FINASTERIDE 5 MG TAB PO SCH (08:42)
[2016-08-09] MEDS: ARIPiprazole 10 MG TAB PO SCH (08:42)
[2016-08-09] MEDS: TAMSULOSIN HCL 0.4 MG CAP PO SCH (08:42)
[2016-08-09] MEDS: APIXABAN 5 MG TABLET PO SCH ×2 (08:42→21:44)
[2016-08-09] MEDS: DOCUSATE SODIUM 50 MG/SENNA 8.6 MG TAB PO SCH ×2 (08:42→21:44)
[2016-08-09] MEDS: SODIUM CHLORIDE 0.9% FLUSH 5 ML FLUSH FLUSH SCH ×2 (08:43→21:00)
[2016-08-09] MEDS: BISACODYL 10 MG SUPP RECTAL SCH (09:00)
[2016-08-09 11:50] VITALS: BP 135/66; PULSE 74; RESP 19; TEMP 95.5; O2SAT 94
--- NOTE | 2016-08-09 14:33 | HHI.PR ---
Subjective Remarks Patient discharged 08/06/16. Awaiting insurance authorization for rehab placement. No new complaints. Pain controlled with medications. Frustrated that he is still waiting to go to rehab. Objective Vitals Vital Signs Date Time Temp Pulse Resp B/P Pulse Ox O2 Delivery O2 Flow Rate FiO2 08/09/16 11:50 95.5 74 19 135/66 94 08/09/16 08:00 97.1 74 18 116/65 93 08/09/16 04:08 97.1 70 17 135/68 95 08/09/16 00:15 97.1 71 16 112/56 94 08/08/16 20:14 97.9 79 18 138/69 96 08/08/16 16:00 97.9 69 16 129/65 98 I/O 08/08/16 08/08/16 08/08/16 08/09/16 08/09/16 08/09/16 07:00 15:00 23:00 07:00 15:00 23:00 Intake Total 240 ml 480 ml 240 ml 240 ml Output Total 350 ml 1 ml Balance 240 ml 130 ml 239 ml 240 ml Intake Oral 240 ml 480 ml 240 ml 240 ml Output Urine Total 350 ml 1 ml # Voids 1 4 1 # Bowel Movements 0 0 0 0 Result Diagram: 08/07/16 0520 Objective Remarks GENERAL: Well-developed well-nourished. In no acute distress. Oriented 3. SKIN: Warm and dry. No lesions noted. HEENT: Normocephalic. Pupils equal and round. Mucous membranes pink and moist. CARDIOVASCULAR: Regular rate and rhythm. No murmur appreciated. RESPIRATORY: No accessory muscle use. Clear to auscultation. Breath sounds equal bilaterally. GASTROINTESTINAL: Abdomen soft, non-tender, nondistended. Bowel sounds x4. MUSCULOSKELETAL: No obvious deformities. TTP in the lumbar region. Post surgical dressing intact. NEUROLOGICAL: Awake and alert. Normal speech. Procedures ORIF for L4 compression fracture A/P Problem List: (1) Compression fracture of L4 lumbar vertebra ICD Code: S32.040A Status: Acute Assessment and Plan 71-year-old male admitted with: Compression fracture at L4. Patient is postop day #7 ORIF lumbar spine L4 compression fracture. -Routine postop care per neurosurgery. dc sutures 08/13/16 - PT, OOB with TLSO DVT left lower extremity. Diagnosed 3 months ago. Will need 6 months total treatment. Repeat Doppler on most recent admission continues to be positive. - Patient was on prophylactic Lovenox. He was switched to home dose Eliquis 5 mg twice a day Depression. Chronic. Mood disorder. Chronic. -Continue antidepressants and antipsychotics. BPH. Continue Flomax. Continue to hold on the alfuzosin for now. Chronic urinary and stool incontinence. No change from baseline. Continue monitor. Tobacco abuse. Cessation advised. Counseling provided. Discharge Planning Patient is discharged. Awaiting insurance authorization. Problem Qualifiers (1) Compression fracture of L4 lumbar vertebra: Qualified Code: S32.040A - Compression fracture of L4 lumbar vertebra, closed, initial encounter Yenifer Hernandez MD Aug 09, 2016 14:33
[2016-08-09 16:00] VITALS: BP 119/70; PULSE 75; RESP 19; TEMP 97.2; O2SAT 94
[2016-08-09 20:00] VITALS: BP 104/57; PULSE 82; RESP 18; TEMP 96.4; O2SAT 94
[2016-08-09] MEDS: traZODone HCL 50 MG TAB PO SCH (21:44)
[2016-08-10] VITALS: BP 152/69; PULSE 70; RESP 18; TEMP 96.7; O2SAT 93
[2016-08-10 04:00] VITALS: BP 134/62; PULSE 71; RESP 18; TEMP 97.2; O2SAT 95
[2016-08-10 06:06] LABS: HEMATOCRIT 33.1 % (39.0-51.0); MEAN CORPUSCULAR HEMOGLOBIN 33.2 PG (27.0-34.0); MEAN CORPUSCULAR HGB CONC 34.5 % (32.0-36.0); PLATELET COUNT 628 TH/MM3 (150-450); RED BLOOD COUNT 3.45 MIL/MM3 (4.50-5.90); RED CELL DISTRIBUTION WIDTH 13.1 % (11.6-17.2); REVIEW FLAG FINAL; WHITE BLOOD COUNT 12.3 TH/MM3 (4.0-11.0)
[2016-08-10] MEDS: ACETAMINOPHEN/HYDROcodone 325 MG/10 MG TAB PO SCH ×2 (06:31→12:58)
[2016-08-10] MEDS: METHOCARBAMOL 500 MG TAB PO SCH ×2 (06:31→12:58)
[2016-08-10] MEDS: BACLOFEN 10 MG TAB PO SCH ×2 (06:31→12:59)
[2016-08-10 08:06] VITALS: BP 116/53; PULSE 72; RESP 16; TEMP 96.3; O2SAT 96
[2016-08-10] MEDS ORDERED: MAGNESIUM HYDROXIDE SUSP 30 ML CUP PO PRN (08:15)
[2016-08-10] MEDS: TAMSULOSIN HCL 0.4 MG CAP PO SCH (08:44)
[2016-08-10] MEDS: DOCUSATE SODIUM 50 MG/SENNA 8.6 MG TAB PO SCH (08:44)
[2016-08-10] MEDS: SODIUM CHLORIDE 0.9% FLUSH 5 ML FLUSH FLUSH SCH (08:44)
[2016-08-10] MEDS: FINASTERIDE 5 MG TAB PO SCH (08:44)
[2016-08-10] MEDS: SERTRALINE HCL 100 MG TAB PO SCH (08:44)
[2016-08-10] MEDS: APIXABAN 5 MG TABLET PO SCH (08:44)
[2016-08-10] MEDS: ARIPiprazole 10 MG TAB PO SCH (08:44)
[2016-08-10] MEDS: BISACODYL 10 MG SUPP RECTAL SCH (08:46)
--- NOTE | 2016-08-10 10:42 | HHI.PR ---
Subjective Remarks Patient discharged 08/06/16 to patient rehabilitation. Has been waiting for insurance authorization. We learned that the insurance declined them today. He will be discharged to shelter facility. Patient reports that he is feeling okay except for frustration of waiting to go to rehabilitation. His back is sore. Objective Vitals Vital Signs Date Time Temp Pulse Resp B/P Pulse Ox O2 Delivery O2 Flow Rate FiO2 08/10/16 08:06 96.3 72 16 116/53 96 08/10/16 04:00 97.2 71 18 134/62 95 08/10/16 00:00 96.7 70 18 152/69 93 08/09/16 20:00 96.4 82 18 104/57 94 08/09/16 16:00 97.2 75 19 119/70 94 08/09/16 11:50 95.5 74 19 135/66 94 I/O 08/09/16 08/09/16 08/09/16 08/10/16 08/10/16 08/10/16 07:00 15:00 23:00 07:00 15:00 23:00 Intake Total 240 ml 600 ml 480 ml Balance 240 ml 600 ml 480 ml Intake Oral 240 ml 600 ml 480 ml # Voids 1 3 1 2 # Bowel Movements 0 Result Diagram: 08/10/16 0538 Objective Remarks GENERAL: Well-developed well-nourished. In no acute distress. Oriented 3. SKIN: Warm and dry. No lesions noted. HEENT: Normocephalic. Pupils equal and round. Mucous membranes pink and moist. CARDIOVASCULAR: Regular rate and rhythm. No murmur appreciated. RESPIRATORY: No accessory muscle use. Clear to auscultation. Breath sounds equal bilaterally. GASTROINTESTINAL: Abdomen soft, non-tender, nondistended. Bowel sounds x4. MUSCULOSKELETAL: No obvious deformities. TTP in the lumbar region. Post surgical dressing intact. NEUROLOGICAL: Awake and alert. Normal speech. Procedures ORIF for L4 compression fracture A/P Problem List: (1) Compression fracture of L4 lumbar vertebra ICD Code: S32.040A Status: Acute Assessment and Plan 71-year-old male admitted with: Compression fracture at L4. Patient is postop day #7 ORIF lumbar spine L4 compression fracture. -Routine postop care per neurosurgery. dc sutures 08/13/16 - PT, OOB with TLSO DVT left lower extremity. Diagnosed 3 months ago. Will need 6 months total treatment. Repeat Doppler on most recent admission continues to be positive. - Patient was on prophylactic Lovenox. He was switched to home dose Eliquis 5 mg twice a day Depression. Chronic. Mood disorder. Chronic. -Continue antidepressants and antipsychotics. BPH. Continue Flomax. Continue to hold on the alfuzosin for now. Chronic urinary and stool incontinence. No change from baseline. Continue monitor. Tobacco abuse. Cessation advised. Counseling provided. Discharge Planning Patient is discharged. Been waiting for insurance authorization for inpatient rehabilitation. Insurance declined him. He will be discharged to shelter facility. Problem Qualifiers (1) Compression fracture of L4 lumbar vertebra: Qualified Code: S32.040A - Compression fracture of L4 lumbar vertebra, closed, initial encounter Yenifer Hernandez MD Aug 10, 2016 10:42
[2016-08-10] MEDS ORDERED: HYDR-3583 PO (10:44)
[2016-08-10] MEDS ORDERED: TRAZ50TA12 PO (10:44)
[2016-08-10] MEDS ORDERED: METH500T3 PO (10:44)
[2016-08-10] MEDS ORDERED: BACL10TA PO (10:44)
[2016-08-10 12:22] VITALS: BP 126/64; PULSE 74; RESP 18; TEMP 97.1; O2SAT 97
== END 2016-08-10 17:30 | DRG 460 ==
LOC: NEPE 17:03 → NEDA 07-29 00:04 → NEPHCDU 07-29 01:44 → N06B 07-30 10:16 → OBSVTOIN 07-30 10:25 → N03B 07-30 17:32 → N06B 08-04 22:05
PROVIDERS: ADMIT Family Medicine; ATTEND Family Medicine
PROC: 0SG1071 Fusion of 2 or more Lumbar Vertebral Joints with Autologous Tissue Substitute, Posterior Approach, Posterior Column, Open Approach (ICD-10-PCS; 2016-07-30)
PROC: 0QS004Z Reposition Lumbar Vertebra with Internal Fixation Device, Open Approach (ICD-10-PCS; 2016-07-30)
PROC: 0SG3071 Fusion of Lumbosacral Joint with Autologous Tissue Substitute, Posterior Approach, Posterior Column, Open Approach (ICD-10-PCS; principal; 2016-07-30 11:53)
DX: S32.040A Wedge compression fracture of fourth lumbar vertebra, initial encounter for closed fracture (principal); I82.501 Chronic embolism and thrombosis of unspecified deep veins of right lower extremity; G35 Multiple sclerosis; W01.0XXA Fall on same level from slipping, tripping and stumbling without subsequent striking against object, initial encounter; Y93.E1 Activity, personal bathing and showering; Y92.231 Patient bathroom in hospital as the place of occurrence of the external cause; F32.9 Major depressive disorder, single episode, unspecified; N40.0 Benign prostatic hyperplasia without lower urinary tract symptoms; M81.0 Age-related osteoporosis without current pathological fracture; R15.9 Full incontinence of feces; R32 Unspecified urinary incontinence; F17.210 Nicotine dependence, cigarettes, uncomplicated; H91.93 Unspecified hearing loss, bilateral; S22.089D Unspecified fracture of T11-T12 vertebra, subsequent encounter for fracture with routine healing; S32.019D Unspecified fracture of first lumbar vertebra, subsequent encounter for fracture with routine healing; K59.00 Constipation, unspecified
CPT/HCPCS: 36430; 70450; 71010; 72100; 72131; 72158; 73502; 76000; 80048; 80053; 85025; 85027; 85610; 85730; 86850; 86900; 86901; 86920; 87641; 93005; 93970; 94150; A9579; C1713; C9113; G0378; G8987-GP; G8988-GP; J0131; J0690; J1170; J1580; J1644; J1650; J2370; J2405; J2710; J3010; J3370; J3480; J7030; J7040; J7050; J7120; L0200; L0484; P9016

== ENCOUNTER 2016-08-13 12:46 | Inpatient (IN) | payer MEDICARE ==
[~2016-08-13] VITALS: Ht 193 cm; Wt 75.6 kg
[~2016-08-13 12:46] MED LIST changes: -ALFU10TA3 PO; +BACL10TA PO; +HYDR-3583 PO; +METH500T3 PO; +SENN1TAB PO
[2016-08-13 13:20] VITALS: BP 136/64; PULSE 73; RESP 18; TEMP 96.8; O2SAT 98
[2016-08-13] MEDS ORDERED: BISACODYL 10 MG SUPP RECTAL PRN (13:45)
[2016-08-13] MEDS ORDERED: ONDANSETRON HCL 4 MG/2 ML VIAL IV PUSH PRN (13:45)
[2016-08-13] MEDS ORDERED: ACETAMINOPHEN/HYDROcodone 325 MG/10 MG TAB PO PRN (13:45)
[2016-08-13] MEDS ORDERED: MORPHINE SULFATE 4 MG/ML INJ IV PRN ×2 (13:45)
[2016-08-13] MEDS ORDERED: ACETAMINOPHEN 650 MG SUPP RECTAL PRN (13:45)
[2016-08-13] MEDS ORDERED: ACETAMINOPHEN 325 MG TAB NG PRN (13:45)
[2016-08-13] MEDS ORDERED: RESP: ALBUTEROL 2.5 MG/3 ML NEB (PRN) INH (13:45)
--- NOTE | 2016-08-13 14:26 | HHI.HP ---
(Goldie Cheng) [facility] Service Neurosurgery Primary Care Physician Unknown Chief Complaint: wound opening and draining, low back pain History of Present Illness Mr. Price is a 71 year old male who underwent an open reduction internal fixation of L4 fracture with L2 to S1 posterolateral fusion using transpedicular screws and rods on 07/30/16. He was discharged to inpatient rehab. He presented to Dr. Oconnor office today for a wound check. He was accompanied by senior living aid. The aid reports Mr. Price started to develop yellow drainage a few days ago which turned into greenish/yellow. His dressing was changed in the morning and she reports was saturated with green/yellow drainage. He denies chills, fevers. He is complaining of severe low back pain. He has chronic weakness and spasticity in his legs due to Multiple Sclerosis to which he says is unchanged. He also admits to smoking cigarettes while in the senior living. His suture removed at Dr. Oconnor office. He is on Eloquis for DVT. (Goldie Cheng) Review of Systems Constitutional: DENIES: Fever, Chills Eyes: DENIES: Double Vision Ears, nose, mouth, throat: COMPLAINS OF: Hearing loss Respiratory: DENIES: Cough, Hemoptysis, Shortness of breath Cardiovascular: DENIES: Chest pain Gastrointestinal: DENIES: Nausea, Vomiting Genitourinary: COMPLAINS OF: Urinary incontinence Musculoskeletal: COMPLAINS OF: Joint pain, Stiffness, Back pain Neurologic: COMPLAINS OF: Abnormal gait, Localized weakness, Poor Balance Psychiatric: DENIES: Hallucinations (Goldie Cheng) Past Family Social History Allergies: Coded Allergies: No Known Allergies (Unverified , 07/20/16) Past Medical History Multiple Sclerosis DVT LLE diagnosed 3 months ago Depression Mood disorder Benign prostatic hyperplasia Osteoporosis Chronic urinary and stool incontinence L4 fracture, s/p ORIF 07/30/16 Past Surgical History ORIF L4 fracture with L2-S1 fusion 07/30/16 Reported Medications reviewed in EMR Active Ordered Medications Current Medications Medications (Trade) Dose Ordered Sig/Tia Route PRN Reason Start Time Stop Time Status Last Admin Dose Admin Acetaminophen (Tylenol) 650 mg Q4H PRN NG TEMP > 101.5 08/13/16 13:45 Acetaminophen (Tylenol Supp) 650 mg Q4H PRN RECTAL TEMP > 101.5 08/13/16 13:45 Bisacodyl 10 mg 10 mg DAILY PRN RECTAL CONSTIPATION 08/13/16 13:45 Metronidazole 100 ml @ 100 mls/hr Q8H IV 08/13/16 14:00 Vancomycin HCl 1000 mg/Sodium Chloride 250 ml @ 250 mls/hr Q8H IV 08/13/16 15:00 Ceftazidime/ Sodium Chloride (Fortaz Inj/NS Inj) 100 ml @ 200 mls/hr Q8H IV 08/13/16 16:00 Acetaminophen/ Hydrocodone Bitart ([place] 10-325 Mg) 1 tab Q4H PRN PO PAIN 1-5 08/13/16 13:45 Acetaminophen/ Hydrocodone Bitart ([place] 10-325 Mg) 2 tab Q4H PRN PO PAIN 6-10 08/13/16 13:45 Nicotine (Habitrol 14 Mg Patch.24 Hr) 1 patch DAILY TD 08/14/16 09:00 Morphine Sulfate (Morphine Inj) 2 mg Q30M PRN IV PAIN 1-6 08/13/16 13:45 Morphine Sulfate (Morphine Inj) 4 mg Q1H PRN IV PAIN 7-10 08/13/16 13:45 Ondansetron HCl (Zofran Inj) 4 mg Q8H PRN IV PUSH NAUSEA OR VOMITING 08/13/16 13:45 Pantoprazole Sodium (Protonix Inj) 40 mg DAILY IV PUSH 08/14/16 09:00 Pantoprazole Sodium (Protonix) 40 mg DAILY PO 08/14/16 09:00 Miscellaneous Information 1 DAILY TD 08/14/16 09:00 Family History noncontributory Social History smokes cigarettes (Goldie Cheng) Physical Exam Vital Signs Vital Signs Date Time Temp Pulse Resp B/P Pulse Ox O2 Delivery O2 Flow Rate FiO2 08/13/16 13:20 96.8 73 18 136/64 98 Physical Exam Mr. Price is alert, awake and oriented to time, place and person. Speech is fluent. Higher cognitive functions are normal. Wound: there is a 4 cm wound dehiscence in the left inferior incision. The skin is erythematous and inflamed and warm to touch, the skin within the opening appears yellow/white. There is no active drainage seen. Cranial nerve examination: pupils to be equal, round, and reactive to light. Extra-ocular movements are intact. Facial motor and sensory function are normal and symmetrical. He is hard of hearing and wears hearing aids. The uvula is midline and elevates symmetrically with the soft palate. Sternocleidomastoid and trapezius muscles have normal and symmetrical strength. Other cranial nerves are intact. Neck is soft and supple. Muscle testing reveals normal bulk and tone overall without rigidity, spasticity , fasciculations, or atrophy. Muscle strength is 5/5 in all muscle groups of both upper extremities including deltoid, biceps, triceps, brachioradialis, human capital consultant. In the lower extremities, strength is 5-/5 bilat iliopsoas, quads, hamstrings, plantarflexion, right dorsiflexion, 4-/5 left dorsiflexion. Sensory examination is intact to light touch in both the upper and lower extremities, symmetrically. Deep tendon reflexes are 1+ and symmetrical in the biceps, triceps, and brachioradialis, bilaterally, in the upper extremities. In the lower extremities , the patellar and Achilles are 1+, bilaterally. There is a bilateral plantar flexion response. Hoffmanns sign is negative. There is no clonus or other abnormal reflexes noted. Cerebellar examination is intact to [id number] test Respiratory: clear b/l Heart: NSR Abdomen: soft, nontender Laboratory Date/Time Procedure Status Source Growth 08/13/16 13:38 Gram Stain Received Wound Back Pending 08/13/16 13:38 Wound Culture Received Wound Back Pending 08/13/16 13:38 Fungal Smear Received Wound Back Pending 08/13/16 13:38 Fungal Culture Received Wound Back Pending (Goldie Cheng) Assessment and Plan Assessment and Plan Mr. Price is a 71 year old male who developed wound dehiscence with drainage. Obtain wound cultures and follow up. He will be started on Vancomycin 1 gm q 8 hours, Ceftazidime 2 gm q 8 hours and Flagyl 500 mg q8 hours prophylactically. I have irrigated his wound very well with normal saline solution. We will start wound care with packing of wet to dry with NU gauze three times a day. An MRI Lumbar spine will be obtained to assess for abscess. Medical management consulted for assistance. Back Pain continue supportive care with analgesics and muscle relaxants as needed. Protonix for GI prophylaxis. DVT: Start Lovenox 30 sq bid for DVTs. Will hold Eloquis for now. Respiratory: IS every hour, breathing treatments with nebulizers prn PT, TLSO when out of bed Nutrition: Heart Healthy Diet Renal: BUN and creatinine Start Nicotine patch daily (Goldie Cheng) Attending Statement The exam, history, and the medical decision-making described in the above note were completed with the assistance of the mid-level provider. I reviewed and agree with the findings presented. I attest that I had a [id number]-utnt encounter with the patient on the same day, and personally performed and documented my assessment and findings in the medical record. (Dennis Oconnor MD) Goldie Cheng Aug 13, 2016 14:26 Dennis Oconnor MD Aug 15, 2016 18:13
[2016-08-13] MEDS ORDERED: BACLOFEN 10 MG TAB PO PRN (14:30)
[2016-08-13 15:08] LABS: AUTOMATED NEUTROPHIL # 13.2 TH/MM3 (1.8-7.7); BASOPHIL % 0.1 % (0.0-2.0); EOSINOPHIL # 1.1 TH/MM3 (0-0.4); EOSINOPHIL % 6.5 % (0.0-4.0); HEMATOCRIT 33.2 % (39.0-51.0); LYMPHOCYTE # 1.5 TH/MM3 (1.0-4.8); MEAN CELL VOLUME 96.9 FL (80.0-100.0); MEAN CORPUSCULAR HEMOGLOBIN 32.9 PG (27.0-34.0); MONO % 4.8 % (0.0-8.0); NEUT % 79.6 % (16.0-70.0); PLATELET COUNT 591 TH/MM3 (150-450); RED BLOOD COUNT 3.42 MIL/MM3 (4.50-5.90); RED CELL DISTRIBUTION WIDTH 13.9 % (11.6-17.2); WHITE BLOOD COUNT 16.6 TH/MM3 (4.0-11.0)
[2016-08-13 15:14] LABS: HEMO FLAGS AUTO DIFF
[2016-08-13 15:21] LABS: BICARBONATE 28.1 MEQ/L (21.0-32.0)
[2016-08-13] MEDS ORDERED: CYANOCOBALAMIN 1000 MCG/ML VIAL SQ SCH (16:00)
[2016-08-13 17:21] LABS: SCAN/DIFF AUTO DIFF CONFIRMED
[2016-08-13] MEDS: METRONIDAZOLE 500 MG/100 ML ISONTONIC SOLN IV SCH ×2 (17:36→22:49)
[2016-08-13] MEDS: METHOCARBAMOL 500 MG TAB PO SCH ×2 (17:58→22:49)
[2016-08-13] MEDS: VANCOMYCIN 1,000 MG/NS 250 ML IV SCH ×4 (18:40→22:50)
[2016-08-13] MEDS: ENOXAPARIN SODIUM 30 MG/0.3 ML SYRINGE SQ SCH (18:41)
[2016-08-13] MEDS: cefTAZidime 2,000 MG/NS 100 ML MINIBAG IV SCH ×2 (19:00)
[2016-08-13 20:00] VITALS: BP 129/66; PULSE 87; RESP 22; TEMP 98.8; O2SAT 97
[2016-08-13] MEDS ORDERED: APIXABAN 5 MG TABLET PO SCH (21:00)
[2016-08-13] MEDS: traZODone HCL 50 MG TAB PO SCH (22:49)
[2016-08-13] MEDS: DOCUSATE SODIUM 50 MG/SENNA 8.6 MG TAB PO SCH (22:49)
[2016-08-14] VITALS (8 sets, daily range): BP systolic 105–133; BP diastolic 56–81; PULSE 69–83; RESP 18–20; TEMP 96.9–97.8; O2SAT 95–99
[2016-08-14] MEDS: cefTAZidime 2,000 MG/NS 100 ML MINIBAG IV SCH ×8 (00:37→23:07)
[2016-08-14] MEDS: VANCOMYCIN 1,000 MG/NS 250 ML IV SCH ×6 (06:24→23:06)
[2016-08-14] MEDS: ENOXAPARIN SODIUM 30 MG/0.3 ML SYRINGE SQ SCH ×2 (06:24→18:14)
[2016-08-14] MEDS: METHOCARBAMOL 500 MG TAB PO SCH ×3 (06:25→21:43)
[2016-08-14] MEDS: METRONIDAZOLE 500 MG/100 ML ISONTONIC SOLN IV SCH ×3 (06:25→21:45)
[2016-08-14] MEDS: REMOVE OLD NICODERM (NICOTINE) PATCH TD SCH (09:00)
[2016-08-14 09:35] LABS: BICARBONATE 27.9 MEQ/L (21.0-32.0)
[2016-08-14] MEDS: NICOTINE 14 MG/24 HR PATCH TD SCH (09:52)
[2016-08-14] MEDS: PANTOPRAZOLE SODIUM 40 MG VIAL IV PUSH SCH (09:53)
[2016-08-14] MEDS: DOCUSATE SODIUM 50 MG/SENNA 8.6 MG TAB PO SCH ×2 (09:53→21:42)
[2016-08-14] MEDS: TAMSULOSIN HCL 0.4 MG CAP PO SCH (09:53)
[2016-08-14] MEDS: CALCIUM/VITAMIN D 250 MG/125 U TAB PO SCH (09:53)
[2016-08-14] MEDS: ARIPiprazole 10 MG TAB PO SCH (09:53)
[2016-08-14] MEDS: FINASTERIDE 5 MG TAB PO SCH (09:53)
[2016-08-14] MEDS: SERTRALINE HCL 100 MG TAB PO SCH (09:53)
[2016-08-14] MEDS: PANTOPRAZOLE SOD 40 MG DELAYED RELEASE TAB PO SCH (09:53)
[2016-08-14] MEDS ORDERED: GADODIAMIDE PF 287 MG/ML 20 ML VIAL (for RAD MRI) IV ONE (12:16)
--- NOTE | 2016-08-14 12:56 | RADRPT ---
EXAM DATE/TIME: 08/14/2016 11:51 [place] COMPARISON: Prior study 07/29/2016 available for comparison. INDICATIONS : Abscess. CONTRAST: 14 cc Omniscan (gadodiamide) IV MEDICAL HISTORY : Multiple sclerosis. SURGICAL HISTORY : Fusion, lumbar. ENCOUNTER: Initial ACUITY: 1 day PAIN SCORE: 4/10 LOCATION: Low back TECHNIQUE: Multiplanar multisequence MRI of the lumbar spine was performed with and without contr ast. FINDINGS: In the interval, the patient has had fusion with intrapedicular screws at L2, L3, L5 and S1. The com pression fracture of L4 is stable. The posterior endplate of L4 remains slightly bowed posteriorly i nto the thecal sac. Axial T2 images demonstrate abnormal fluid collection ion the left posterolatera l epidural space posterior to the L3-L4 level. It appears to be narrowing the thecal sac significant ly. I don't see any surrounding enhancement. On the sagittal images, the collection is approximatel y 2.6 cm in height. L5-S1 is unremarkable. Visualized SI joints are unremarkable. CONCLUSION: The patient has had fusion from L2 to S1 for an L4 compression fracture. There is a small collection in the left posterolateral epidural space posterior to the L3-L4 level measuring approximately 1.3 x 1.3 cm across. It is 2.6 cm in height. It could be a small epidural collection. Please see above. Clyde Manley MD on August 14, 2016 at 12:50 Board Certified Radiologist. This report was verified electronically.
--- NOTE | 2016-08-14 13:15 | HHI.NSPN ---
History Chief Complaint: Incisional pain. Interval History Mr. Price is a 71 year old male who underwent an open reduction internal fixation of L4 fracture with L2 to S1 posterolateral fusion using transpedicular screws and rods on 07/30/16. He was discharged to inpatient rehab. He presented to Dr. Oconnor office today for a wound check. He was accompanied by [facility] aid. The aid reports Mr. Price started to develop yellow drainage a few days ago which turned into greenish/yellow. His dressing was changed in the morning and she reports was saturated with green/yellow drainage. He denies chills, fevers. He is complaining of severe low back pain. He has chronic weakness and spasticity in his legs due to Multiple Sclerosis to which he says is unchanged. He also admits to smoking cigarettes while in the [facility]. His suture removed at Dr. Oconnor office. He is on Eloquis for DVT. 08/14/16: Pt awake and alert. Incisional pain. No radiculopathy in LEs. Review of Systems General: Negative for: fever, chills, insomnia Respiratory: Negative for: shortness of breath, cough, sputum Cardiovascular: Negative for: chest pain Gastrointestinal: Negative for: nausea, vomitting, diarrhea, constipation Exam Results Vital Signs Date Time Temp Pulse Resp B/P Pulse Ox O2 Delivery O2 Flow Rate FiO2 08/14/16 08:00 97.3 74 18 128/61 96 Intake and Output 08/13/16 08/13/16 08/14/16 08:00 16:00 00:00 Intake Total 180 ml Output Total 200 ml Balance -20 ml Physical Examination Resp: CTA bilaterally Heart: NSR no murmurs Abd: Soft positive bs Skin: There is a 4 cm wound dehiscence in the left inferior incision. The skin is erythematous and inflamed and warm to touch, the skin within the opening appears yellow/white. There is no active drainage seen. Muscle: Moves LEs with left EHL0/5 right 2/5 Plantar and dorsiflexion 3-/5, iliopsoas 4+/5. Neuro: Pt awake and alert. Follows commands well. Speech clear and appropriate. Lab, Micro, Other Results Laboratory Tests Test 08/13/16 08/14/16 14:49 08:22 White Blood Count 16.6 TH/MM3 Red Blood Count 3.42 MIL/MM3 Hemoglobin 11.3 GM/DL Hematocrit 33.2 % Mean Corpuscular Volume 96.9 FL Mean Corpuscular Hemoglobin 32.9 PG Mean Corpuscular Hemoglobin 34.0 % Concent Red Cell Distribution Width 13.9 % Platelet Count 591 TH/MM3 Mean Platelet Volume 7.3 FL Neutrophils (%) (Auto) 79.6 % Lymphocytes (%) (Auto) 9.0 % Monocytes (%) (Auto) 4.8 % Eosinophils (%) (Auto) 6.5 % Basophils (%) (Auto) 0.1 % Neutrophils # (Auto) 13.2 TH/MM3 Lymphocytes # (Auto) 1.5 TH/MM3 Monocytes # (Auto) 0.8 TH/MM3 Eosinophils # (Auto) 1.1 TH/MM3 Basophils # (Auto) 0.0 TH/MM3 CBC Comment AUTO DIFF Differential Comment AUTO DIFF CONFIRMED Sodium Level 138 MEQ/L 140 MEQ/L Potassium Level 4.0 MEQ/L 4.0 MEQ/L Chloride Level 103 MEQ/L 105 MEQ/L Carbon Dioxide Level 28.1 MEQ/L 27.9 MEQ/L Anion Gap 7 MEQ/L 7 MEQ/L Blood Urea Nitrogen 18 MG/DL 18 MG/DL Creatinine 0.65 MG/DL 0.62 MG/DL Estimat Glomerular Filtration 121 ML/MIN 128 ML/MIN Rate Random Glucose 100 MG/DL 90 MG/DL Calcium Level 8.9 MG/DL 8.2 MG/DL 08/13/16 08/13/16 08/14/16 15:00 23:00 07:00 Intake Total 120 ml 120 ml Output Total 200 ml 300 ml Balance -80 ml -180 ml Intake Oral 120 ml 120 ml Output Urine Total 200 ml 300 ml # Voids 1 # Bowel Movements 0 1 Medical Decision Making Impression and Plan A: 71 y/o M s/p lumbar wound dehiscence with drainage P: Continue to monitor Continue with antibiotics Continue with rehab MRI pending. Carlin Mclain Aug 14, 2016 13:15
[2016-08-14 16:10] LABS: BASOPHIL # 0.3 TH/MM3 (0-0.2); BASOPHIL % 1.9 % (0.0-2.0); EOSINOPHIL # 0.9 TH/MM3 (0-0.4); EOSINOPHIL % 6.6 % (0.0-4.0); HEMATOCRIT 31.6 % (39.0-51.0); HEMO FLAGS DIFF FINAL; LYMPH % 15.9 % (9.0-44.0); LYMPHOCYTE # 2.1 TH/MM3 (1.0-4.8); MEAN CORPUSCULAR HEMOGLOBIN 33.6 PG (27.0-34.0); MEAN CORPUSCULAR HGB CONC 34.3 % (32.0-36.0); MONO % 7.5 % (0.0-8.0); NEUT % 68.1 % (16.0-70.0); PLATELET COUNT 506 TH/MM3 (150-450); RED BLOOD COUNT 3.23 MIL/MM3 (4.50-5.90); RED CELL DISTRIBUTION WIDTH 13.8 % (11.6-17.2); WHITE BLOOD COUNT 13.2 TH/MM3 (4.0-11.0)
[2016-08-14] MEDS: traZODone HCL 50 MG TAB PO SCH (21:43)
--- NOTE | 2016-08-14 23:20 | PD.CONS ---
HPI [facility] patient seen on 08/14/16 around 11 AM. Consult Requested By Primary Care Physician Unknown Diagnoses: History of Present Illness 71-year-old male with a history of depression, mood disorder, BPH, osteoporosis , DVT of the left lower extremity diagnosed approximately 4 months ago, multiple sclerosis, who suffered a compression fracture status post fall in late July, supposedly during psychiatric admission. He presented to the hospital for intractable pain, underwent ORIF lumbar spine L4 compression fracture by neurosurgery., And was discharged to rehabilitation. At postoperative wound check with Dr. Oconnor, he was found to have wound dehiscence , suspected infection, and was admitted to the [facility] on 08/13, at which time surgical cultures were obtained. Patient reports that back pain continues unchanged. He denies any chest pain, shortness of breath, nausea, vomiting. He denies any fevers or chills. He did have multiple formed bowel movements today. Review of Systems Other performed and negative except for HPI and past medical history. Past Family Social History Allergies: Coded Allergies: No Known Allergies (Unverified , 07/20/16) Past Medical History Depression Mood disorder Benign prostatic hyperplasia Osteoporosis DVT left lower extremity diagnosed approximately 4 months ago. Multiple sclerosis diagnosed in his late 20s Urinary and stool incontinence. Chronic. Past Surgical History L4 fracture, s/p ORIF 07/30/16 Reported Medications reviewed in electronic medical record at the time of examination. Family History Mother with diabetes, in her 60s.. Father in his 60s secondary to unknown cancer. Social History Patient reports smoking 1 pack per day for 55 years. Denies alcohol. Denies illicit drugs. Physical Exam Vital Signs Vital Signs Date Time Temp Pulse Resp B/P Pulse Ox O2 Delivery O2 Flow Rate FiO2 08/14/16 21:00 97.8 69 18 133/70 96 08/14/16 16:00 96.9 69 18 111/56 99 08/14/16 12:00 97.2 83 18 105/58 95 08/14/16 08:00 97.3 74 18 128/61 96 08/14/16 04:00 97.6 77 20 133/63 96 08/14/16 00:00 97.1 73 20 131/62 95 Physical Exam GENERAL: This is a well-nourished, well-developed patient, in no apparent distress. SKIN: No rashes, ecchymoses or lesions. Cool and dry. HEAD: Atraumatic. Normocephalic. No temporal or scalp tenderness. EYES: Pupils equal round and reactive. Extraocular motions intact. No scleral icterus. No injection or drainage. ENT: Nose without bleeding, purulent drainage or septal hematoma. Throat without erythema, tonsillar hypertrophy or exudate. Uvula midline. Airway patent. NECK: Trachea midline. No JVD or lymphadenopathy. Supple, nontender, no meningeal signs. CARDIOVASCULAR: Regular rate and rhythm without murmurs, gallops, or rubs. RESPIRATORY: Clear to auscultation. Breath sounds equal bilaterally. No wheezes , rales, or rhonchi. GASTROINTESTINAL: Abdomen soft, non-tender, nondistended. No hepato-splenomegaly , or palpable masses. No guarding. MUSCULOSKELETAL: Extremities without clubbing, cyanosis, or edema. No joint tenderness, effusion, or edema noted. No calf tenderness. Negative Homans sign bilaterally. NEUROLOGICAL: Awake and alert. Cranial nerves II through XII intact. Motor and sensory grossly within normal limits. Five out of 5 muscle strength in all muscle groups. Normal speech. Laboratory Laboratory Tests Test 08/14/16 08/14/16 08:22 15:53 Sodium Level 140 Potassium Level 4.0 Chloride Level 105 Carbon Dioxide Level 27.9 Anion Gap 7 Blood Urea Nitrogen 18 Creatinine 0.62 Estimat Glomerular Filtration 128 Rate Random Glucose 90 Calcium Level 8.2 White Blood Count 13.2 Red Blood Count 3.23 Hemoglobin 10.8 Hematocrit 31.6 Mean Corpuscular Volume 98.0 Mean Corpuscular Hemoglobin 33.6 Mean Corpuscular Hemoglobin 34.3 Concent Red Cell Distribution Width 13.8 Platelet Count 506 Mean Platelet Volume 7.4 Neutrophils (%) (Auto) 68.1 Lymphocytes (%) (Auto) 15.9 Monocytes (%) (Auto) 7.5 Eosinophils (%) (Auto) 6.6 Basophils (%) (Auto) 1.9 Neutrophils # (Auto) 9.0 Lymphocytes # (Auto) 2.1 Monocytes # (Auto) 1.0 Eosinophils # (Auto) 0.9 Basophils # (Auto) 0.3 CBC Comment DIFF FINAL Differential Comment Date/Time Procedure Status Source Growth 08/13/16 20:00 Urine Culture Received Urine Other Pending 08/13/16 13:38 Gram Stain - Final Resulted Wound Back 08/13/16 13:38 Wound Culture - Preliminary Resulted Gram Negative Marbin 08/13/16 13:38 Fungal Smear - Final Resulted Wound Back NO FUNGAL ELEMENTS SEEN. 08/13/16 13:38 Fungal Culture Resulted Wound Back Pending Result Diagram: 08/14/16 1553 08/14/16 0822 Assessment and Plan Assessment and Plan //Lumbar wound dehiscence status post drainage. //Suspected postoperative wound infection //Leukocytosis. Continue antibiotics as per neurosurgery. -Ceftaz, vancomycin and metronidazole. -Negative marbin on wound culture. Speciation and sensitivities pending. -Continue PT. -MRI pending. -Anticoagulation as per neurosurgery. -Pain management as per neurosurgery. //Constipation. Multiple bowel movements. Decrease scheduled Arlene-Colace to once daily.. //BPH. Continue finasteride. continue Flomax. //Depression. //History of psychosis. Chronic. Continue antipsychotic and antidepressant. //Tobaccoism. Cessation advised. Continue nicotine patch. //History of DVT left lower extremity. Diagnosed about 4 months ago. With recent ultrasound positive on recent psychiatric admission. Prophylaxis. Continue PPI. Adequate hydration as per surgical service. Discussed Condition With patient, nurse. Sanchez Montes MD Aug 14, 2016 23:20
[2016-08-15] MEDS: METRONIDAZOLE 500 MG/100 ML ISONTONIC SOLN IV SCH ×3 (06:02→21:16)
[2016-08-15] MEDS: ENOXAPARIN SODIUM 30 MG/0.3 ML SYRINGE SQ SCH ×2 (06:05→17:29)
[2016-08-15] MEDS: METHOCARBAMOL 500 MG TAB PO SCH ×3 (06:05→21:14)
[2016-08-15] MEDS: VANCOMYCIN 1,000 MG/NS 250 ML IV SCH ×6 (06:07→22:37)
[2016-08-15 07:47] LABS: AUTOMATED NEUTROPHIL # 7.6 TH/MM3 (1.8-7.7); BASOPHIL # 0.1 TH/MM3 (0-0.2); EOSINOPHIL # 1.3 TH/MM3 (0-0.4); EOSINOPHIL % 11.3 % (0.0-4.0); HEMATOCRIT 34.6 % (39.0-51.0); HEMO FLAGS DIFF FINAL; LYMPH % 14.7 % (9.0-44.0); LYMPHOCYTE # 1.7 TH/MM3 (1.0-4.8); MEAN CELL VOLUME 96.2 FL (80.0-100.0); MEAN CORPUSCULAR HEMOGLOBIN 32.8 PG (27.0-34.0); MONO % 7.2 % (0.0-8.0); NEUT % 65.8 % (16.0-70.0); PLATELET COUNT 535 TH/MM3 (150-450); RED BLOOD COUNT 3.59 MIL/MM3 (4.50-5.90); RED CELL DISTRIBUTION WIDTH 13.9 % (11.6-17.2); WHITE BLOOD COUNT 11.5 TH/MM3 (4.0-11.0)
[2016-08-15] MEDS: cefTAZidime 2,000 MG/NS 100 ML MINIBAG IV SCH ×6 (08:00→17:29)
[2016-08-15 08:04] LABS: BICARBONATE 27.1 MEQ/L (21.0-32.0); POTASSIUM 4.2 MEQ/L (3.5-5.1)
[2016-08-15 08:05] VITALS: BP_SYST 129; BP_SYST 137; BP_DIAS 61; BP_DIAS 79; PULSE 74; PULSE 83; RESP 17; RESP 18; TEMP 96.4; TEMP 98.2; O2SAT 95; O2SAT 98
[2016-08-15] MEDS: FINASTERIDE 5 MG TAB PO SCH (08:58)
[2016-08-15] MEDS: SERTRALINE HCL 100 MG TAB PO SCH (08:58)
[2016-08-15] MEDS: DOCUSATE SODIUM 50 MG/SENNA 8.6 MG TAB PO SCH (08:58)
[2016-08-15] MEDS: TAMSULOSIN HCL 0.4 MG CAP PO SCH (08:58)
[2016-08-15] MEDS: ARIPiprazole 10 MG TAB PO SCH (08:58)
[2016-08-15] MEDS: PANTOPRAZOLE SOD 40 MG DELAYED RELEASE TAB PO SCH (08:58)
[2016-08-15] MEDS: CALCIUM/VITAMIN D 250 MG/125 U TAB PO SCH (08:58)
[2016-08-15] MEDS: NICOTINE 14 MG/24 HR PATCH TD SCH (08:59)
[2016-08-15] MEDS: REMOVE OLD NICODERM (NICOTINE) PATCH TD SCH (08:59)
[2016-08-15] MEDS: PANTOPRAZOLE SODIUM 40 MG VIAL IV PUSH SCH (08:59)
--- NOTE | 2016-08-15 11:25 | HHI.NSPN ---
History Chief Complaint: Incisional pain. Interval History Mr. Price is a 71 year old male who underwent an open reduction internal fixation of L4 fracture with L2 to S1 posterolateral fusion using transpedicular screws and rods on 07/30/16. He was discharged to inpatient rehab. He presented to Dr. Oconnor office today for a wound check. He was accompanied by [facility] aid. The aid reports Mr. Price started to develop yellow drainage a few days ago which turned into greenish/yellow. His dressing was changed in the morning and she reports was saturated with green/yellow drainage. He denies chills, fevers. He is complaining of severe low back pain. He has chronic weakness and spasticity in his legs due to Multiple Sclerosis to which he says is unchanged. He also admits to smoking cigarettes while in the [facility]. His suture removed at Dr. Oconnor office. He is on Eloquis for DVT. 08/14/16: Pt awake and alert. Incisional pain. No radiculopathy in LEs. 08/15/16: Pt awake and alert. Complains of low back pain. No radiculopathy into LEs. No paresthesias in LEs. No fever or chills. Review of Systems General: Negative for: fever, chills, insomnia Respiratory: Negative for: shortness of breath, cough, sputum Cardiovascular: Negative for: chest pain Gastrointestinal: Negative for: nausea, vomitting, diarrhea, constipation Exam Results Vital Signs Date Time Temp Pulse Resp B/P Pulse Ox O2 Delivery O2 Flow Rate FiO2 08/15/16 08:05 96.4 83 18 137/61 95 Intake and Output 08/14/16 08/14/16 08/15/16 08:00 16:00 00:00 Intake Total 60 ml 600 ml Output Total 300 ml 650 ml Balance -240 ml -50 ml Physical Examination Resp: CTA bilaterally Heart: NSR no murmurs Abd: Soft positive bs Skin: There is a 4 cm wound dehiscence in the left inferior incision. The skin is erythematous and inflamed and warm to touch, the skin within the opening appears yellow/white. There is no active drainage seen. Muscle: Moves LEs with left EHL0/5 right 2/5 Plantar and dorsiflexion 3-/5, iliopsoas 4+/5. Neuro: Pt awake and alert. Follows commands well. Speech clear and appropriate. Lab, Micro, Other Results Last Impressions Lumbar Spine MRI 08/14/16 0000 Signed Impressions: Service Date/Time: Sunday, August 14, 2016 11:51 - CONCLUSION: The patient has had fusion from L2 to S1 for an L4 compression fracture. There is a small collection in the left posterolateral epidural space posterior to the L3-L4 level measuring approximately 1.3 x 1.3 cm across. It is 2.6 cm in height. It could be a small epidural collection. Please see above. Clyde Manley MD Laboratory Tests Test 08/14/16 08/15/16 15:53 07:14 White Blood Count 13.2 TH/MM3 11.5 TH/MM3 Red Blood Count 3.23 MIL/MM3 3.59 MIL/MM3 Hemoglobin 10.8 GM/DL 11.8 GM/DL Hematocrit 31.6 % 34.6 % Mean Corpuscular Volume 98.0 FL 96.2 FL Mean Corpuscular Hemoglobin 33.6 PG 32.8 PG Mean Corpuscular Hemoglobin 34.3 % 34.0 % Concent Red Cell Distribution Width 13.8 % 13.9 % Platelet Count 506 TH/MM3 535 TH/MM3 Mean Platelet Volume 7.4 FL 7.5 FL Neutrophils (%) (Auto) 68.1 % 65.8 % Lymphocytes (%) (Auto) 15.9 % 14.7 % Monocytes (%) (Auto) 7.5 % 7.2 % Eosinophils (%) (Auto) 6.6 % 11.3 % Basophils (%) (Auto) 1.9 % 1.0 % Neutrophils # (Auto) 9.0 TH/MM3 7.6 TH/MM3 Lymphocytes # (Auto) 2.1 TH/MM3 1.7 TH/MM3 Monocytes # (Auto) 1.0 TH/MM3 0.8 TH/MM3 Eosinophils # (Auto) 0.9 TH/MM3 1.3 TH/MM3 Basophils # (Auto) 0.3 TH/MM3 0.1 TH/MM3 CBC Comment DIFF FINAL DIFF FINAL Differential Comment Sodium Level 139 MEQ/L Potassium Level 4.2 MEQ/L Chloride Level 103 MEQ/L Carbon Dioxide Level 27.1 MEQ/L Anion Gap 9 MEQ/L Blood Urea Nitrogen 11 MG/DL Creatinine 0.71 MG/DL Estimat Glomerular Filtration 110 ML/MIN Rate Random Glucose 89 MG/DL Calcium Level 8.5 MG/DL 08/14/16 08/14/16 08/15/16 15:00 23:00 07:00 Intake Total 600 ml Output Total 650 ml Balance -50 ml Intake Oral 600 ml Output Urine Total 650 ml # Bowel Movements 4 Medical Decision Making Impression and Plan A: 71 y/o M s/p lumbar wound dehiscence with drainage P: Continue to monitor Continue with antibiotics Continue with rehab Discussed with Dr. Sampson. Pt may need further surgical intervention for MRI findings but Eloquis was discontinued recently. Will Discuss with Dr. Oconnor and PA on Tuesday. Carlin Mclain Aug 15, 2016 11:25
[2016-08-15 12:00] VITALS: BP 112/61; PULSE 85; RESP 18; TEMP 96.9; O2SAT 95
[2016-08-15 16:00] VITALS: BP 105/60; PULSE 95; RESP 20; TEMP 96.7; O2SAT 95
[2016-08-15 20:00] VITALS: BP 156/71; PULSE 75; RESP 20; TEMP 97; O2SAT 96
[2016-08-15] MEDS: traZODone HCL 50 MG TAB PO SCH (21:14)
--- NOTE | 2016-08-15 23:38 | HHI.PR ---
Subjective Remarks patient seen today around 11 AM. Patient says he feels all right. Denies any chest pain or shortness of breath. Objective Vital Signs Date Time Temp Pulse Resp B/P Pulse Ox O2 Delivery O2 Flow Rate FiO2 08/15/16 20:00 97.0 75 20 156/71 96 08/15/16 16:00 96.7 95 20 105/60 95 08/15/16 12:00 96.9 85 18 112/61 95 08/15/16 08:05 96.4 83 18 137/61 95 I/O 08/14/16 08/14/16 08/14/16 08/15/16 08/15/16 08/15/16 07:00 15:00 23:00 07:00 15:00 23:00 Intake Total 120 ml 600 ml 1130 ml Output Total 300 ml 650 ml 2000 ml Balance -180 ml -50 ml -870 ml Intake Oral 120 ml 600 ml 1130 ml Output Urine Total 300 ml 650 ml 2000 ml # Voids 5 1 # Bowel Movements 2 4 0 Result Diagram: 08/15/1671308/15/16713 Objective Remarks GENERAL: patient lying in bed. Awake. Alert and oriented 3. SKIN: Warm and dry. HEAD: Normocephalic. EYES: No scleral icterus. No injection or drainage. NECK: Supple, trachea midline. No JVD or lymphadenopathy. CARDIOVASCULAR: Regular rate and rhythm without murmurs, gallops, or rubs. RESPIRATORY: Breath sounds equal bilaterally. No accessory muscle use. GASTROINTESTINAL: Abdomen soft, non-tender, nondistended. MUSCULOSKELETAL: No cyanosis, or edema. BACK: Nontender without obvious deformity. No CVA tenderness. A/P Assessment and Plan //Lumbar wound dehiscence status post drainage. //Suspected postoperative wound infection //Leukocytosis. Continue antibiotics as per neurosurgery. -Ceftaz, vancomycin and metronidazole. -gramNegative jason on wound culture. Speciation and sensitivities pending. -Continue PT. -MRI with small epidural collection as above -Anticoagulation as per neurosurgery. -Pain management as per neurosurgery. //Constipation. Multiple bowel movements. Decrease scheduled Arlene-Colace to once daily.. //BPH. Continue finasteride. continue Flomax. //Depression. //History of psychosis. Chronic. Continue antipsychotic and antidepressant. //Tobaccoism. Cessation advised. Continue nicotine patch. //History of DVT left lower extremity. Diagnosed about 4 months ago. With recent ultrasound positive on recent psychiatric admission. Prophylaxis. Continue PPI. AC as per surgical service. Sanchez Montes MD Aug 15, 2016 23:38
[2016-08-16] VITALS: BP 130/68; PULSE 77; RESP 20; TEMP 97.3; O2SAT 97
[2016-08-16] MEDS: cefTAZidime 2,000 MG/NS 100 ML MINIBAG IV SCH ×4 (00:07→08:36)
[2016-08-16 04:00] VITALS: BP 129/58; PULSE 82; RESP 20; TEMP 97.3; O2SAT 96
[2016-08-16] MEDS: ENOXAPARIN SODIUM 30 MG/0.3 ML SYRINGE SQ SCH ×2 (05:48→16:36)
[2016-08-16] MEDS: METRONIDAZOLE 500 MG/100 ML ISONTONIC SOLN IV SCH (05:50)
[2016-08-16] MEDS: METHOCARBAMOL 500 MG TAB PO SCH ×3 (05:53→22:08)
[2016-08-16] MEDS: VANCOMYCIN 1,000 MG/NS 250 ML IV SCH ×4 (05:56→13:20)
[2016-08-16] MEDS: ACETAMINOPHEN/HYDROcodone 325 MG/10 MG TAB PO PRN (06:11)
[2016-08-16 08:00] VITALS: BP 130/63; PULSE 78; RESP 18; TEMP 97; O2SAT 99
[2016-08-16] MEDS: NICOTINE 14 MG/24 HR PATCH TD SCH (08:36)
[2016-08-16] MEDS: REMOVE OLD NICODERM (NICOTINE) PATCH TD SCH (08:36)
[2016-08-16] MEDS: PANTOPRAZOLE SODIUM 40 MG VIAL IV PUSH SCH (08:37)
[2016-08-16] MEDS: CALCIUM/VITAMIN D 250 MG/125 U TAB PO SCH (08:37)
[2016-08-16] MEDS: DOCUSATE SODIUM 50 MG/SENNA 8.6 MG TAB PO SCH (08:37)
[2016-08-16] MEDS: ARIPiprazole 10 MG TAB PO SCH (08:37)
[2016-08-16] MEDS: TAMSULOSIN HCL 0.4 MG CAP PO SCH (08:37)
[2016-08-16] MEDS: PANTOPRAZOLE SOD 40 MG DELAYED RELEASE TAB PO SCH (08:37)
[2016-08-16] MEDS: FINASTERIDE 5 MG TAB PO SCH (08:37)
[2016-08-16] MEDS: SERTRALINE HCL 100 MG TAB PO SCH (08:37)
[2016-08-16] MEDS ORDERED: cefTAZidime INJ 2,000 MG in SODIUM CHLORIDE 0.9% INJ 100 ML IV SCH (09:45)
--- NOTE | 2016-08-16 10:38 | PD.CONS ---
History of Present Illness Service Infectious disease Consult Requested By Dr Eladio Montes Reason for Consult Evaluate patient with one infection Primary Care Physician Unknown Diagnoses: History of Present Illness Patient seen and examined. Records reviewed. Patient is a 71-year-old male, brought into the hospital for further evaluation of his wound. He had undergone open reduction internal fixation for L4 fracture , and he was discharged to rehabilitation facility on August 10, 2016. Currently went to the surgeon on the day of admission for a wound check, and he was found to have wound dehiscence with drainage. There has been no mention of any fever or chills or sweats. He has intermittent back pain. He denies any urinary complaint or any diarrhea. Denies any abdominal pain, or any respiratory complaint. The sensation he had a mildly elevated WBC. MRI of the lumbar spine is showing a small area of fluid collection at L3-L4. Wound culture grew Citrobacter, Raoultella and skin elva. There is been no fever in the hospital. Neurosurgery is evaluating the patient, and looking at possible surgery for the fluid collection seen on the MRI. Infectious disease consultation requested to evaluate the patient. Patient is currently on Fortaz, Flagyl, and vancomycin. Review of Systems Constitutional: DENIES: Fever, Chills, Night Sweats Eyes: DENIES: Eye pain Ears, nose, mouth, throat: COMPLAINS OF: Hearing loss, DENIES: Nasal discharge , Oral lesions, Throat pain, Ear Pain, Running Nose, Sinus Pain Respiratory: DENIES: Cough, Shortness of breath Cardiovascular: DENIES: Chest pain, Palpitations, Syncope, Dyspnea on Exertion Gastrointestinal: DENIES: Abdominal pain, Diarrhea, Nausea, Vomiting, Difficulty Swallowing Genitourinary: COMPLAINS OF: Sexual dysfunction, DENIES: Urinary frequency, Urgency, Dysuria Musculoskeletal: COMPLAINS OF: Back pain, DENIES: Joint pain, Joint Swelling Integumentary: DENIES: Rash Hematologic/lymphatic: DENIES: Lymphadenopathy Neurologic: DENIES: Headache Psychiatric: COMPLAINS OF: Confusion Past Family Social History Allergies: Coded Allergies: No Known Allergies (Unverified , 07/20/16) Past Medical History Multiple Sclerosis DVT LLE diagnosed 3 months ago Depression Mood disorder Benign prostatic hyperplasia Osteoporosis Chronic urinary and stool incontinence L4 fracture, s/p ORIF 07/30/16 Hearing loss, has hearing aids [place] Hernia, ?incisional RLQ Past Surgical History ORIF L4 fracture with L2-S1 fusion 07/30/16 Previous surgery for ED, developed infection, and implants/pump removed Active Ordered Medications Tylenol [place] Albuterol Abilify Baclofen Dulcolax All skull Fortaz Vitamin B12 Lovenox Proscar Robaxin Flagyl Morphine Nicotine patch Zofran Protonix Flomax Desyrel Vancomycin Social History Patient reports smoking 1 pack per day for 55 years. Denies alcohol. Denies illicit drugs. Physical Exam Vital Signs Vital Signs Date Time Temp Pulse Resp B/P Pulse Ox O2 Delivery O2 Flow Rate FiO2 08/16/16 08:00 97.0 78 18 130/63 99 08/16/16 04:00 97.3 82 20 129/58 96 08/16/16 00:00 97.3 77 20 130/68 97 08/15/16 20:00 97.0 75 20 156/71 96 08/15/16 16:00 96.7 95 20 105/60 95 08/15/16 12:00 96.9 85 18 112/61 95 Physical Exam GENERAL: This is a well-nourished, well-developed male, awake and alert, [place], in no apparent distress. SKIN: Cool and dry. No generalized rash or ecchymosis. HEAD: Atraumatic. Normocephalic. No temporal or scalp tenderness. EYES: Kyle conjunctivae, no petechia or hemorrhage. Pupils equal round and reactive. Extraocular motions intact. No scleral icterus. No injection or drainage. ENT: Nose without bleeding, or purulent drainage. Moist oral mucosa, he is edentulous. Throat without erythema, or exudate. Uvula midline. Airway patent. NECK: Trachea midline. No JVD or lymphadenopathy. Supple, nontender, no meningeal signs. CARDIOVASCULAR: Regular rate and rhythm without murmurs, gallops, or rubs. RESPIRATORY: Clear to auscultation. Breath sounds equal bilaterally. No wheezes , rales, or rhonchi. GASTROINTESTINAL: Abdomen soft, non-tender, nondistended. Bowel sounds are present and normoactive. He has healed incision in the suprapubic region and there is a reducible hernia on the R. No hepato-splenomegaly. MUSCULOSKELETAL: Extremities without clubbing, cyanosis, or edema. No joint effusion, or edema noted. No calf tenderness. NEUROLOGICAL: Awake and alert. Cranial nerves II through XII intact. Motor and sensory grossly within normal limits. Five out of 5 muscle strength in all muscle groups. Normal speech. BACK: He has 2 long incisions - one lateral to midline, and this is well healed. Midline lumbar incision ahs bra[place] area of dehiscence that is about 1.5 inch long, with yellow fibrous exudate or slough and small amount of light yellow discharge and there is periwound erythema, not tender on palpation LINE: PIV with no evidence of infection PSYCH: Calm and cooperative Laboratory Date/Time Procedure Status Source Growth 08/13/16 20:00 Urine Culture - Final Complete Urine Other 10-50,000 CFU/ML MIXED ELVA... 08/13/16 13:38 Gram Stain - Final Complete Wound Back 08/13/16 13:38 Wound Culture - Final Complete Citrobacter Koseri Raoultella Ornithinolytica 08/13/16 13:38 Fungal Smear - Final Resulted Wound Back NO FUNGAL ELEMENTS SEEN. 08/13/16 13:38 Fungal Culture Resulted Wound Back Pending Result Diagram: 08/15/16 0714 08/15/16 0714 Imaging RADIOLOGY STUDIES/FILMS REVIEWED Lumbar Spine MRI 08/14/16 0000 Signed Impressions: Service Date/Time: Sunday, August 14, 2016 11:51 - CONCLUSION: The patient has had fusion from L2 to S1 for an L4 compression fracture. There is a small collection in the left posterolateral epidural space posterior to the L3-L4 level measuring approximately 1.3 x 1.3 cm across. It is 2.6 cm in height. It could be a small epidural collection. Please see above. Clyde Manley MD Assessment and Plan Assessment and Plan IMPRESSION Post-op wound infection, S/P fusion L2-S1, has transpedicular screws in place , has small fluid collection L3-L4 seen on MRI - C/S of wound with Citrobacter and Raoultella, and skin elva Prior L4 fracture requiring surgery RECOMMENDATION Continue Fortaz Stop Flagyl Continue vancomycin, and will ask pharmacy to do the dosing Get baseline sedimentation rate and C-reactive protein as well as LFTs Neurosurgery evaluating the patient for possible debridement I will follow along with you, and make further recommendation regarding antibiotic once workup and decision on surgical intervention is made Thank you for this consultation Shani Salmeron MD Aug 16, 2016 10:38
[2016-08-16] MEDS ORDERED: Vancomycin Consult Pharmacy 1 EA OTHER SCH (10:45)
[2016-08-16 12:00] VITALS: BP 134/67; PULSE 74; RESP 20; TEMP 96.9; O2SAT 100
--- NOTE | 2016-08-16 12:50 | HHI.NSPN ---
(Goldie Cheng) Note Status Status: Progress Note (Goldie Cheng) Interval History Interval History Mr. Price is a 71 year old male who underwent an open reduction internal fixation of L4 fracture with L2 to S1 posterolateral fusion using transpedicular screws and rods on 07/30/16. He was discharged to inpatient rehab. He presented to Dr. Oconnor office today for a wound check. He was accompanied by skilled nursing aid. The aid reports Mr. Price started to develop yellow drainage a few days ago which turned into greenish/yellow. His dressing was changed in the morning and she reports was saturated with green/yellow drainage. He denies chills, fevers. He is complaining of severe low back pain. He has chronic weakness and spasticity in his legs due to Multiple Sclerosis to which he says is unchanged. He also admits to smoking cigarettes while in the skilled nursing. His suture removed at Dr. Oconnor office. He is on Eloquis for DVT. 08/16: some back pain but not too bad, denies any changes to his LE motor function. (Goldie Cheng) Labs, Micro, & Vital Signs Results Date Time Temp Pulse Resp B/P Pulse Ox O2 Delivery O2 Flow Rate FiO2 08/16/16 12:00 96.9 74 20 134/67 100 08/16/16 08:00 97.0 78 18 130/63 99 08/16/16 04:00 97.3 82 20 129/58 96 08/16/16 00:00 97.3 77 20 130/68 97 08/15/16 20:00 97.0 75 20 156/71 96 08/15/16 16:00 96.7 95 20 105/60 95 08/16/16 07:00 Intake Total 1250 ml Output Total 2800 ml Balance -1550 ml Constitutional Vital Signs Date Time Temp Pulse Resp B/P Pulse Ox O2 Delivery O2 Flow Rate FiO2 08/16/16 12:00 96.9 74 20 134/67 100 08/16/16 08:00 97.0 78 18 130/63 99 08/16/16 04:00 97.3 82 20 129/58 96 08/16/16 00:00 97.3 77 20 130/68 97 08/15/16 20:00 97.0 75 20 156/71 96 08/15/16 16:00 96.7 95 20 105/60 95 08/16/16 07:00 Intake Total 1250 ml Output Total 2800 ml Balance -1550 ml (Goldie Cheng) Review of Systems/Exam Exam Alert, converses. No apparent distress. CN: pupils equal, facial motor symmetric. He is very hard of hearing. Skin: There is a 4 cm wound dehiscence in the left inferior incision. The skin within the opening appears white. There is no active drainage seen. Wound covered with dry [place] Neck: soft, supple Muscle: 4/5 bilat iliopsoas, quads, hamstrings, plantarflexion, right dorsiflexion, 4-/5 left dorsiflexion (Goldie Cheng) Medications Current Medications Current Medications Medications (Trade) Dose Ordered Sig/Tia Route PRN Reason Start Time Stop Time Status Last Admin Dose Admin Acetaminophen (Tylenol) 650 mg Q4H PRN NG TEMP > 101.5 08/13/16 13:45 Acetaminophen (Tylenol Supp) 650 mg Q4H PRN RECTAL TEMP > 101.5 08/13/16 13:45 Bisacodyl 10 mg 10 mg DAILY PRN RECTAL CONSTIPATION 08/13/16 13:45 Vancomycin HCl/ Sodium Chloride (Vancomycin Inj/ NS 250 ml Inj) 250 ml @ 250 mls/hr Q8H IV 08/13/16 15:00 08/16/16 05:56 Acetaminophen/ Hydrocodone Bitart ([place] 10-325 Mg) 1 tab Q4H PRN PO PAIN 1-5 08/13/16 13:45 Acetaminophen/ Hydrocodone Bitart ([place] 10-325 Mg) 2 tab Q4H PRN PO PAIN 6-10 08/13/16 13:45 08/16/16 06:11 Nicotine (Habitrol 14 Mg Patch.24 Hr) 1 patch DAILY TD 08/14/16 09:00 08/16/16 08:36 Morphine Sulfate (Morphine Inj) 2 mg Q30M PRN IV PAIN 1-6 08/13/16 13:45 Morphine Sulfate (Morphine Inj) 4 mg Q1H PRN IV PAIN 7-10 08/13/16 13:45 Ondansetron HCl (Zofran Inj) 4 mg Q8H PRN IV PUSH NAUSEA OR VOMITING 08/13/16 13:45 Pantoprazole Sodium (Protonix) 40 mg DAILY PO 08/14/16 09:00 08/16/16 08:37 Miscellaneous Information 1 DAILY TD 08/14/16 09:00 08/14/16 09:00 Aripiprazole (Abilify) 10 mg DAILY PO 08/14/16 09:00 08/16/16 08:37 Baclofen (Lioresal) 5 mg Q8H PRN PO MUSCLE SPASM 08/13/16 14:30 Cyanocobalamin (Vitamin B12 Inj) 1,000 mcg Q30D SQ 08/13/16 16:00 08/13/16 17:37 Methocarbamol (Robaxin) 500 mg Q8HR PO 08/13/16 14:30 08/16/16 05:53 Sertraline HCl (Zoloft) 100 mg DAILY PO 08/14/16 09:00 08/16/16 08:37 Tamsulosin HCl (Flomax) 0.4 mg DAILY PO 08/14/16 09:00 08/16/16 08:37 Trazodone HCl (Desyrel) 50 mg HS PO 08/13/16 21:00 08/15/16 21:14 Calcium/Vitamin D (Oscal-D 250-125) 250 mg DAILY PO 08/14/16 09:00 08/16/16 08:37 Finasteride (Proscar) 5 mg DAILY PO 08/14/16 09:00 08/16/16 08:37 Enoxaparin Sodium (Lovenox Inj) 30 mg Q12H SQ 08/13/16 18:00 08/16/16 05:48 Senna/Docusate Sodium 1 tab 1 tab DAILY PO 08/15/16 09:00 08/16/16 08:37 Ceftazidime 2000 mg/Sodium Chloride 100 ml @ 200 mls/hr Q8H IV 08/17/16 00:00 Pharmacy Profile Note (Vancomycin Consult Pharmacy) 0 ml @ 0 mls/hr UNSCH OTHER 08/16/16 10:45 (Goldie Cheng) Medical Decision Making MDM Remarks 71 y/o male with lumbar wound dehiscence with drainage ORIF L4 fracture on 07/30 history of multiple sclerosis DVT (Goldie Cheng) Plan Plan Remarks MRI L spine reviewed by Dr. Oconnor, nonop mgt of fluid collection cont antibiotics, cont wound packing with NU gauze tid, dw nursing cont PT, TLSO when out of bed cont lovenox medical mgt following, appreciate assistance (Goldie Cheng) Attending Statement The exam, history, and the medical decision-making described in the above note were completed with the assistance of the mid-level provider. I reviewed and agree with the findings presented. I attest that I had a [id number] encounter with the patient on the same day, and personally performed and documented my assessment and findings in the medical record. (Dennis Oconnor MD) Goldie Cheng Aug 16, 2016 12:50 Dennis Oconnor MD Aug 18, 2016 17:08
[2016-08-16 13:31] LABS: BLOOD, URINE NEG (NEG); COMMENT (UR) CULT NOT INDICATED; CULTURE IF INDICATED CULT NOT INDICATED; GLUCOSE,URINE NEG (NEG); KETONE, URINE NEG (NEG); MUCUS URINE FEW /lpf (OCC); NITRITE,URINE NEG (NEG); PH, URINE 6.5 (5.0-8.5); URINE COLOR YELLOW (YELLW/STRAW)
[2016-08-16 13:51] LABS: INDIRECT BILIRUBIN 0.2 MG/DL (0.0-0.8); TOTAL BILIRUBIN ADULT 0.3 MG/DL (0.2-1.0)
[2016-08-16 16:00] VITALS: BP 130/62; PULSE 78; RESP 20; TEMP 97.1; O2SAT 100
[2016-08-16 21:18] VITALS: BP 109/57; PULSE 76; RESP 20; TEMP 95.7; O2SAT 95
[2016-08-16] MEDS: traZODone HCL 50 MG TAB PO SCH (22:08)
[2016-08-16] MEDS ORDERED: PHARMACY ORDERED LAB XX ONE (22:45)
--- NOTE | 2016-08-16 23:59 | HHI.PR ---
Subjective Remarks patient seems afternoon around 5 PM. Patient says that pain is controlled. He denies any chest pain or shortness of breath. Have ordered infectious disease consultation. Appreciate assistance. Objective Vital Signs Date Time Temp Pulse Resp B/P Pulse Ox O2 Delivery O2 Flow Rate FiO2 08/16/16 21:18 95.7 76 20 109/57 95 08/16/16 16:00 97.1 78 20 130/62 100 08/16/16 12:00 96.9 74 20 134/67 100 08/16/16 08:00 97.0 78 18 130/63 99 08/16/16 04:00 97.3 82 20 129/58 96 08/16/16 00:00 97.3 77 20 130/68 97 I/O 08/15/16 08/15/16 08/15/16 08/16/16 08/16/16 08/16/16 07:00 15:00 23:00 07:00 15:00 23:00 Intake Total 1130 ml 120 ml Output Total 2000 ml 800 ml Balance -870 ml -680 ml Intake Oral 1130 ml 120 ml Output Urine Total 2000 ml 800 ml # Voids 1 # Bowel Movements 0 0 Result Diagram: 08/15/1671308/15/1614 Objective Remarks GENERAL: patient lying in bed. Awake. Alert and oriented 3.exam overall unchanged. SKIN: Warm and dry. HEAD: Normocephalic. EYES: No scleral icterus. No injection or drainage. NECK: Supple, trachea midline. No JVD. CARDIOVASCULAR: Regular rate and rhythm without murmurs, gallops, or rubs. RESPIRATORY: Breath sounds equal bilaterally. No accessory muscle use. GASTROINTESTINAL: Abdomen soft, non-tender, nondistended. MUSCULOSKELETAL: No cyanosis, or edema. BACK: Nontender without obvious deformity. No CVA tenderness. A/P Assessment and Plan //Lumbar wound dehiscence status post drainage. //Suspected postoperative wound infection //Leukocytosis. Continue antibiotics as per neurosurgery. -Ceftaz, vancomycin and metronidazole. -gramNegative jason on wound culture. Speciation and sensitivities pending. -Continue PT. -MRI with small epidural collection as above -Anticoagulation as per neurosurgery. -Pain management as per neurosurgery. //Constipation. Multiple bowel movements. cont scheduled Arlene-Colace once daily.. //BPH. Continue finasteride. continue Flomax. //Depression. //History of psychosis. Chronic. Continue antipsychotic and antidepressant. //Tobaccoism. Cessation advised. Continue nicotine patch. //History of DVT left lower extremity. Diagnosed about 4 months ago. With recent ultrasound positive on recent psychiatric admission. -Anticoagulation as per surgical service Prophylaxis. Continue PPI. AC as per surgical service. Discharge Planning As per surgical service We'll need ID antibiotic recommendations prior to discharge Sanchez Montes MD Aug 16, 2016 23:59
[2016-08-17] VITALS: BP 117/57; PULSE 72; RESP 20; TEMP 98; O2SAT 97
[2016-08-17] MEDS: VANCOMYCIN 1,000 MG/NS 250 ML IV SCH ×4 (01:05→06:19)
[2016-08-17] MEDS: cefTAZidime INJ 2,000 MG in SODIUM CHLORIDE 0.9% INJ 100 ML IV SCH ×2 (01:05→08:13)
[2016-08-17 04:00] VITALS: BP 117/56; PULSE 73; RESP 20; TEMP 97.9; O2SAT 97
[2016-08-17] MEDS: ENOXAPARIN SODIUM 30 MG/0.3 ML SYRINGE SQ SCH ×2 (06:19→18:30)
[2016-08-17] MEDS: METHOCARBAMOL 500 MG TAB PO SCH ×3 (06:19→20:43)
[2016-08-17 07:59] LABS: AUTOMATED NEUTROPHIL # 5.5 TH/MM3 (1.8-7.7); BASOPHIL # 0.1 TH/MM3 (0-0.2); BASOPHIL % 0.9 % (0.0-2.0); EOSINOPHIL # 1.1 TH/MM3 (0-0.4); EOSINOPHIL % 11.6 % (0.0-4.0); HEMO FLAGS DIFF FINAL; LYMPH % 21.7 % (9.0-44.0); LYMPHOCYTE # 2.1 TH/MM3 (1.0-4.8); MEAN CELL VOLUME 96.5 FL (80.0-100.0); MEAN CORPUSCULAR HEMOGLOBIN 34.4 PG (27.0-34.0); MEAN CORPUSCULAR HGB CONC 35.6 % (32.0-36.0); MONO % 7.6 % (0.0-8.0); NEUT % 58.2 % (16.0-70.0); PLATELET COUNT 452 TH/MM3 (150-450); RED BLOOD COUNT 3.31 MIL/MM3 (4.50-5.90); RED CELL DISTRIBUTION WIDTH 13.7 % (11.6-17.2); WHITE BLOOD COUNT 9.5 TH/MM3 (4.0-11.0)
[2016-08-17 08:00] VITALS: BP 149/80; PULSE 77; RESP 19; TEMP 97.5; O2SAT 96
[2016-08-17] MEDS: TAMSULOSIN HCL 0.4 MG CAP PO SCH (08:13)
[2016-08-17] MEDS: ARIPiprazole 10 MG TAB PO SCH (08:13)
[2016-08-17] MEDS: FINASTERIDE 5 MG TAB PO SCH (08:13)
[2016-08-17] MEDS: CALCIUM/VITAMIN D 250 MG/125 U TAB PO SCH (08:13)
[2016-08-17] MEDS: PANTOPRAZOLE SOD 40 MG DELAYED RELEASE TAB PO SCH (08:13)
[2016-08-17] MEDS: DOCUSATE SODIUM 50 MG/SENNA 8.6 MG TAB PO SCH (08:13)
[2016-08-17] MEDS: SERTRALINE HCL 100 MG TAB PO SCH (08:13)
[2016-08-17] MEDS: NICOTINE 14 MG/24 HR PATCH TD SCH (08:14)
[2016-08-17 08:27] LABS: BICARBONATE 26.1 MEQ/L (21.0-32.0); POTASSIUM 3.7 MEQ/L (3.5-5.1)
[2016-08-17] MEDS: ACETAMINOPHEN/HYDROcodone 325 MG/10 MG TAB PO PRN ×2 (08:55→18:37)
[2016-08-17] MEDS: REMOVE OLD NICODERM (NICOTINE) PATCH TD SCH (09:00)
--- NOTE | 2016-08-17 09:13 | HHI.NSPN ---
(Goldie Cheng) Note Status Status: Progress Note (Goldie Cheng) Interval History Interval History Mr. Price is a 71 year old male who underwent an open reduction internal fixation of L4 fracture with L2 to S1 posterolateral fusion using transpedicular screws and rods on 07/30/16. He was discharged to inpatient rehab. He presented to Dr. Oconnor office today for a wound check. He was accompanied by [facility] aid. The aid reports Mr. Price started to develop yellow drainage a few days ago which turned into greenish/yellow. His dressing was changed in the morning and she reports was saturated with green/yellow drainage. He denies chills, fevers. He is complaining of severe low back pain. He has chronic weakness and spasticity in his legs due to Multiple Sclerosis to which he says is unchanged. He also admits to smoking cigarettes while in the [facility]. His suture removed at Dr. Oconnor office. He is on Eloquis for DVT. 08/16: some back pain but not too bad, denies any changes to his LE motor function. 08/17: c/o of right lumbar pain and pain radiating down right thigh anteriorly, stable motor in legs. reports his wound being changed three times a day. No wound drainage. Afebrile. Wound cultures positive. (Goldie Cheng) Labs, Micro, & Vital Signs Results Date Time Temp Pulse Resp B/P Pulse Ox O2 Delivery O2 Flow Rate FiO2 08/17/16 08:00 97.5 77 19 149/80 96 08/17/16 04:00 97.9 73 20 117/56 97 08/17/16 00:00 98.0 72 20 117/57 97 08/16/16 21:18 95.7 76 20 109/57 95 08/16/16 16:00 97.1 78 20 130/62 100 08/16/16 12:00 96.9 74 20 134/67 100 08/17/16 07:00 Output Total 250 ml Balance -250 ml Constitutional Vital Signs Date Time Temp Pulse Resp B/P Pulse Ox O2 Delivery O2 Flow Rate FiO2 08/17/16 08:00 97.5 77 19 149/80 96 08/17/16 04:00 97.9 73 20 117/56 97 08/17/16 00:00 98.0 72 20 117/57 97 08/16/16 21:18 95.7 76 20 109/57 95 08/16/16 16:00 97.1 78 20 130/62 100 08/16/16 12:00 96.9 74 20 134/67 100 08/17/16 07:00 Output Total 250 ml Balance -250 ml (Goldie Cheng) Review of Systems/Exam Exam Alert, converses well. No apparent distress. Follows commands without difficulties. CN: pupils equal, facial motor symmetric. He is very hard of hearing. Skin: There is a 4 cm wound dehiscence in the left inferior incision. The skin within the opening appears white. There is no active drainage seen. Wound covered with dry [place] Neck: soft, supple Muscle: 5-/5 bilat iliopsoas, quads, hamstrings, plantarflexion, dorsiflexion, 4+/5 left dorsiflexion, 0/5 left EHL which is chronic Abdomen: soft, nontender Lungs: Clear Heart: NSR (Goldie Cheng) Medications Current Medications Current Medications Medications (Trade) Dose Ordered Sig/Tia Route PRN Reason Start Time Stop Time Status Last Admin Dose Admin Acetaminophen (Tylenol) 650 mg Q4H PRN NG TEMP > 101.5 08/13/16 13:45 Acetaminophen (Tylenol Supp) 650 mg Q4H PRN RECTAL TEMP > 101.5 08/13/16 13:45 Bisacodyl (Dulcolax Supp) 10 mg DAILY PRN RECTAL CONSTIPATION 08/13/16 13:45 Acetaminophen/ Hydrocodone Bitart ([place] 10-325 Mg) 1 tab Q4H PRN PO PAIN 1-5 08/13/16 13:45 Acetaminophen/ Hydrocodone Bitart ([place] 10-325 Mg) 2 tab Q4H PRN PO PAIN 6-10 08/13/16 13:45 08/17/16 08:55 Nicotine (Habitrol 14 Mg Patch.24 Hr) 1 patch DAILY TD 08/14/16 09:00 08/17/16 08:14 Morphine Sulfate (Morphine Inj) 2 mg Q30M PRN IV PAIN 1-6 08/13/16 13:45 Morphine Sulfate (Morphine Inj) 4 mg Q1H PRN IV PAIN 7-10 08/13/16 13:45 Ondansetron HCl (Zofran Inj) 4 mg Q8H PRN IV PUSH NAUSEA OR VOMITING 08/13/16 13:45 Pantoprazole Sodium (Protonix) 40 mg DAILY PO 08/14/16 09:00 08/17/16 08:13 Miscellaneous Information 1 DAILY TD 08/14/16 09:00 08/14/16 09:00 Aripiprazole (Abilify) 10 mg DAILY PO 08/14/16 09:00 08/17/16 08:13 Baclofen (Lioresal) 5 mg Q8H PRN PO MUSCLE SPASM 08/13/16 14:30 Cyanocobalamin (Vitamin B12 Inj) 1,000 mcg Q30D SQ 08/13/16 16:00 08/13/16 17:37 Methocarbamol (Robaxin) 500 mg Q8HR PO 08/13/16 14:30 08/17/16 06:19 Sertraline HCl (Zoloft) 100 mg DAILY PO 08/14/16 09:00 08/17/16 08:13 Tamsulosin HCl (Flomax) 0.4 mg DAILY PO 08/14/16 09:00 08/17/16 08:13 Trazodone HCl (Desyrel) 50 mg HS PO 08/13/16 21:00 08/16/16 22:08 Calcium/Vitamin D (Oscal-D 250-125) 250 mg DAILY PO 08/14/16 09:00 08/17/16 08:13 Finasteride (Proscar) 5 mg DAILY PO 08/14/16 09:00 08/17/16 08:13 Enoxaparin Sodium (Lovenox Inj) 30 mg Q12H SQ 08/13/16 18:00 08/17/16 06:19 Senna/Docusate Sodium 1 tab 1 tab DAILY PO 08/15/16 09:00 08/17/16 08:13 Ceftazidime 2000 mg/Sodium Chloride 100 ml @ 200 mls/hr Q8H IV 08/17/16 00:00 08/17/16 08:13 Pharmacy Profile Note (Vancomycin Consult Pharmacy) 0 ml @ 0 mls/hr UNSCH OTHER 08/16/16 10:45 (Goldie Cheng) Medical Decision Making MDM Remarks 71 y/o male with lumbar wound dehiscence with drainage ORIF L4 fracture on 07/30 history of multiple sclerosis DVT wound culture with Citrobacter and Raoultella, and skin elva (Goldie Cheng) Plan Plan Remarks MRI L spine reviewed by Dr. Oconnor, cont antibiotics Fortaz and Vanco per ID recs, WBCs improved cont wound packing with NU gauze tid, dw nursing cont PT, TLSO when out of bed cont lovenox medical mgt following, appreciate assistance start trial Neurontin 300 bid for neuropathic pain, cont pain medications prn (Goldie Cheng) Attending Statement The exam, history, and the medical decision-making described in the above note were completed with the assistance of the mid-level provider. I reviewed and agree with the findings presented. I attest that I had a [id number] encounter with the patient on the same day, and personally performed and documented my assessment and findings in the medical record. (Dennis Oconnor MD) Goldie Cheng Aug 17, 2016 09:13 Dennis Oconnor MD Aug 18, 2016 17:11
[2016-08-17] MEDS: GABAPENTIN 300 MG CAP PO SCH ×2 (10:05→20:43)
[2016-08-17 12:00] VITALS: BP 121/76; PULSE 76; RESP 16; TEMP 97.1; O2SAT 96
--- NOTE | 2016-08-17 12:30 | HHI.IDPN ---
Subjective Subjective Remarks Notes reviewed Temps ok C/O pain in thigh ESR 32 D/W Dr Oconnor Antibiotics Fortaz Vancomycin Past Medical History Multiple Sclerosis DVT LLE diagnosed 3 months ago Depression Mood disorder Benign prostatic hyperplasia Osteoporosis Chronic urinary and stool incontinence L4 fracture, s/p ORIF 07/30/16 Hearing loss, has hearing aids [place] Hernia, ?incisional RLQ Past Surgical History ORIF L4 fracture with L2-S1 fusion 07/30/16 Previous surgery for ED, developed infection, and implants/pump removed Allergies: Coded Allergies: No Known Allergies (Unverified , 07/20/16) Objective . Vital Signs Date Time Temp Pulse Resp B/P Pulse Ox O2 Delivery O2 Flow Rate FiO2 08/17/16 12:00 97.1 76 16 121/76 96 08/17/16 08:00 97.5 77 19 149/80 96 08/17/16 04:00 97.9 73 20 117/56 97 08/17/16 00:00 98.0 72 20 117/57 97 08/16/16 21:18 95.7 76 20 109/57 95 08/16/16 16:00 97.1 78 20 130/62 100 08/16/16 08/16/16 08/17/16 15:00 23:00 07:00 Output Total 250 ml Balance -250 ml Output Urine Total 250 ml # Voids 0 . Laboratory Tests Test 08/16/16 08/17/16 13:00 07:36 Erythrocyte Sedimentation Rate 32 mm/hr White Blood Count 9.5 TH/MM3 Red Blood Count 3.31 MIL/MM3 Hemoglobin 11.4 GM/DL Hematocrit 32.0 % Mean Corpuscular Volume 96.5 FL Mean Corpuscular Hemoglobin 34.4 PG Mean Corpuscular Hemoglobin 35.6 % Concent Red Cell Distribution Width 13.7 % Platelet Count 452 TH/MM3 Mean Platelet Volume 7.4 FL Neutrophils (%) (Auto) 58.2 % Lymphocytes (%) (Auto) 21.7 % Monocytes (%) (Auto) 7.6 % Eosinophils (%) (Auto) 11.6 % Basophils (%) (Auto) 0.9 % Neutrophils # (Auto) 5.5 TH/MM3 Lymphocytes # (Auto) 2.1 TH/MM3 Monocytes # (Auto) 0.7 TH/MM3 Eosinophils # (Auto) 1.1 TH/MM3 Basophils # (Auto) 0.1 TH/MM3 CBC Comment DIFF FINAL Differential Comment Laboratory Tests Test 08/16/16 08/17/16 13:00 07:36 Total Bilirubin 0.3 MG/DL Direct Bilirubin 0.1 MG/DL Indirect Bilirubin 0.2 MG/DL Aspartate Amino Transf 12 U/L (AST/SGOT) Alanine Aminotransferase 18 U/L (ALT/SGPT) Alkaline Phosphatase 131 U/L C-Reactive Protein 1.60 MG/DL Total Protein 6.7 GM/DL Albumin 2.8 GM/DL Sodium Level 139 MEQ/L Potassium Level 3.7 MEQ/L Chloride Level 103 MEQ/L Carbon Dioxide Level 26.1 MEQ/L Anion Gap 10 MEQ/L Blood Urea Nitrogen 9 MG/DL Creatinine 0.57 MG/DL Estimat Glomerular Filtration 141 ML/MIN Rate Random Glucose 82 MG/DL Calcium Level 8.0 MG/DL Imaging Lumbar Spine MRI 08/14/16 0000 Signed Impressions: Service Date/Time: Sunday, August 14, 2016 11:51 - CONCLUSION: The patient has had fusion from L2 to S1 for an L4 compression fracture. There is a small collection in the left posterolateral epidural space posterior to the L3-L4 level measuring approximately 1.3 x 1.3 cm across. It is 2.6 cm in height. It could be a small epidural collection. Please see above. Clyde Manley MD Physical Exam GENERAL: awake and alert, [place], in no apparent distress. SKIN: Cool and dry. No generalized rash or ecchymosis. HEAD: Atraumatic. Normocephalic. No temporal or scalp tenderness. EYES: Diamond conjunctivae, no petechia or hemorrhage. No scleral icterus. Moist oral mucosa, he is edentulous. NECK: Trachea midline. No JVD or lymphadenopathy. Supple, nontender, no meningeal signs. CARDIOVASCULAR: Regular rate and rhythm without murmurs, gallops, or rubs. RESPIRATORY: Clear to auscultation. Breath sounds equal bilaterally. No wheezes , rales, or rhonchi. GASTROINTESTINAL: Abdomen soft, non-tender, nondistended. Bowel sounds are present and normoactive. He has healed incision in the suprapubic region and there is a reducible hernia on the R. No hepato-splenomegaly. MUSCULOSKELETAL: Extremities without clubbing, cyanosis, or edema. No joint effusion, or edema noted. No calf tenderness. NEUROLOGICAL: Awake and alert. Cranial nerves II through XII intact. Motor and sensory grossly within normal limits. Five out of 5 muscle strength in all muscle groups. Normal speech. BACK: He has 2 long incisions - one lateral to midline, and this is well healed. Midline lumbar incision has an area of dehiscence that is about 1.5 inch long, with yellow fibrous exudate or slough and small amount of light yellow discharge and there is periwound erythema, not tender on palpation LINE: PIV with no evidence of infection PSYCH: Calm and cooperative Assessment & Plan Remarks IMPRESSION Post-op wound infection, S/P fusion L2-S1, has transpedicular screws in place , has small fluid collection L3-L4 seen on MRI - C/S of wound with Citrobacter and Raoultella, and skin elva Prior L4 fracture requiring surgery RECOMMENDATION Change Abx to Rocephin Monitor wound Monitor progress Will determine course of Abx Rx Shani Salmeron MD Aug 17, 2016 12:30
[2016-08-17] MEDS: cefTRIAXone INJ 2,000 MG in SODIUM CHLORIDE 0.9% INJ 100 ML IV SCH (13:45)
[2016-08-17 16:00] VITALS: BP 136/79; PULSE 71; RESP 16; TEMP 97.1; O2SAT 98
[2016-08-17] MEDS ORDERED: VANCOMYCIN INJ 1,250 MG in SODIUM CHLOR 0.9% 250 ML INJ 250 ML IV SCH (18:00)
[2016-08-17] MEDS: traZODone HCL 50 MG TAB PO SCH (20:44)
[2016-08-17 20:57] VITALS: BP 110/59; PULSE 78; RESP 20; TEMP 96.9; O2SAT 95
[2016-08-18 00:20] VITALS: BP 129/58; PULSE 68; RESP 20; TEMP 99.3; O2SAT 97
[2016-08-18 04:00] VITALS: BP 111/53; PULSE 75; RESP 20; TEMP 97.9; O2SAT 94
[2016-08-18] MEDS: ENOXAPARIN SODIUM 30 MG/0.3 ML SYRINGE SQ SCH (05:37)
[2016-08-18] MEDS: METHOCARBAMOL 500 MG TAB PO SCH ×2 (05:37→13:58)
[2016-08-18 08:00] VITALS: BP 130/68; PULSE 80; RESP 18; TEMP 97.6; O2SAT 97
[2016-08-18] MEDS: REMOVE OLD NICODERM (NICOTINE) PATCH TD SCH (09:00)
[2016-08-18] MEDS: ACETAMINOPHEN/HYDROcodone 325 MG/10 MG TAB PO PRN ×2 (09:06→15:54)
[2016-08-18] MEDS: GABAPENTIN 300 MG CAP PO SCH (09:07)
[2016-08-18] MEDS: DOCUSATE SODIUM 50 MG/SENNA 8.6 MG TAB PO SCH (09:07)
[2016-08-18] MEDS: NICOTINE 14 MG/24 HR PATCH TD SCH (09:07)
[2016-08-18] MEDS: TAMSULOSIN HCL 0.4 MG CAP PO SCH (09:07)
[2016-08-18] MEDS: PANTOPRAZOLE SOD 40 MG DELAYED RELEASE TAB PO SCH (09:07)
[2016-08-18] MEDS: CALCIUM/VITAMIN D 250 MG/125 U TAB PO SCH (09:07)
[2016-08-18] MEDS: ARIPiprazole 10 MG TAB PO SCH (09:07)
[2016-08-18] MEDS: FINASTERIDE 5 MG TAB PO SCH (09:07)
[2016-08-18] MEDS: SERTRALINE HCL 100 MG TAB PO SCH (09:07)
--- NOTE | 2016-08-18 10:11 | HHI.NSPN ---
(Goldie Cheng) Note Status Status: Progress Note (Goldie Cheng) Interval History Interval History Mr. Price is a 71 year old male who underwent an open reduction internal fixation of L4 fracture with L2 to S1 posterolateral fusion using transpedicular screws and rods on 07/30/16. He was discharged to inpatient rehab. He presented to Dr. Oconnor office today for a wound check. He was accompanied by [facility] aid. The aid reports Mr. Price started to develop yellow drainage a few days ago which turned into greenish/yellow. His dressing was changed in the morning and she reports was saturated with green/yellow drainage. He denies chills, fevers. He is complaining of severe low back pain. He has chronic weakness and spasticity in his legs due to Multiple Sclerosis to which he says is unchanged. He also admits to smoking cigarettes while in the [facility]. His suture removed at Dr. Oconnor office. He is on Eloquis for DVT. 08/16: some back pain but not too bad, denies any changes to his LE motor function. 08/17: c/o of right lumbar pain and pain radiating down right thigh anteriorly, stable motor in legs. reports his wound being changed three times a day. No wound drainage. Afebrile. Wound cultures positive. 08/18: denies fevers, chills. eager to return back to his rehab facility. abx switched to IV Rocephin per ID. (Goldie Cheng) Labs, Micro, & Vital Signs Results Date Time Temp Pulse Resp B/P Pulse Ox O2 Delivery O2 Flow Rate FiO2 08/18/16 08:00 97.6 80 18 130/68 97 08/18/16 04:00 97.9 75 20 111/53 94 08/18/16 00:20 99.3 68 20 129/58 97 08/17/16 20:57 96.9 78 20 110/59 95 08/17/16 16:00 97.1 71 16 136/79 98 08/17/16 12:00 97.1 76 16 121/76 96 08/18/16 07:00 Intake Total 0 ml Output Total 250 ml Balance -250 ml Constitutional Vital Signs Date Time Temp Pulse Resp B/P Pulse Ox O2 Delivery O2 Flow Rate FiO2 08/18/16 08:00 97.6 80 18 130/68 97 08/18/16 04:00 97.9 75 20 111/53 94 08/18/16 00:20 99.3 68 20 129/58 97 08/17/16 20:57 96.9 78 20 110/59 95 08/17/16 16:00 97.1 71 16 136/79 98 08/17/16 12:00 97.1 76 16 121/76 96 08/18/16 07:00 Intake Total 0 ml Output Total 250 ml Balance -250 ml (Goldie Cheng) Review of Systems/Exam Exam Alert, resting in bed in no apparent distress, converses well. Follows commands without difficulties. CN: pupils equal, facial motor symmetric. He is very hard of hearing. Tongue grossly midline. Skin: There is a 4 cm wound dehiscence in the left inferior incision, wound packed with Nu gauze. No active drainage seen. Neck: soft, supple Muscle: 5-/5 bilat iliopsoas, quads, hamstrings, plantarflexion, dorsiflexion, 4+/5 left dorsiflexion, 0/5 left EHL which is chronic Abdomen: soft, nontender Lungs: Clear Heart: NSR (Goldie Cheng) Medications Current Medications Current Medications Medications (Trade) Dose Ordered Sig/Tia Route PRN Reason Start Time Stop Time Status Last Admin Dose Admin Acetaminophen (Tylenol) 650 mg Q4H PRN NG TEMP > 101.5 08/13/16 13:45 Acetaminophen (Tylenol Supp) 650 mg Q4H PRN RECTAL TEMP > 101.5 08/13/16 13:45 Bisacodyl (Dulcolax Supp) 10 mg DAILY PRN RECTAL CONSTIPATION 08/13/16 13:45 Acetaminophen/ Hydrocodone Bitart ([place] 10-325 Mg) 1 tab Q4H PRN PO PAIN 1-5 08/13/16 13:45 Acetaminophen/ Hydrocodone Bitart ([place] 10-325 Mg) 2 tab Q4H PRN PO PAIN 6-10 08/13/16 13:45 08/18/16 09:06 Nicotine (Habitrol 14 Mg Patch.24 Hr) 1 patch DAILY TD 08/14/16 09:00 08/18/16 09:07 Morphine Sulfate (Morphine Inj) 2 mg Q30M PRN IV PAIN 1-6 08/13/16 13:45 Morphine Sulfate (Morphine Inj) 4 mg Q1H PRN IV PAIN 7-10 08/13/16 13:45 Ondansetron HCl (Zofran Inj) 4 mg Q8H PRN IV PUSH NAUSEA OR VOMITING 08/13/16 13:45 Pantoprazole Sodium (Protonix) 40 mg DAILY PO 08/14/16 09:00 08/18/16 09:07 Miscellaneous Information 1 DAILY TD 08/14/16 09:00 08/18/16 09:00 Aripiprazole (Abilify) 10 mg DAILY PO 08/14/16 09:00 08/18/16 09:07 Baclofen (Lioresal) 5 mg Q8H PRN PO MUSCLE SPASM 08/13/16 14:30 Cyanocobalamin (Vitamin B12 Inj) 1,000 mcg Q30D SQ 08/13/16 16:00 08/13/16 17:37 Methocarbamol (Robaxin) 500 mg Q8HR PO 08/13/16 14:30 08/18/16 05:37 Sertraline HCl (Zoloft) 100 mg DAILY PO 08/14/16 09:00 08/18/16 09:07 Tamsulosin HCl (Flomax) 0.4 mg DAILY PO 08/14/16 09:00 08/18/16 09:07 Trazodone HCl (Desyrel) 50 mg HS PO 08/13/16 21:00 08/17/16 20:44 Calcium/Vitamin D (Oscal-D 250-125) 250 mg DAILY PO 08/14/16 09:00 08/18/16 09:07 Finasteride (Proscar) 5 mg DAILY PO 08/14/16 09:00 08/18/16 09:07 Enoxaparin Sodium (Lovenox Inj) 30 mg Q12H SQ 08/13/16 18:00 08/18/16 05:37 Senna/Docusate Sodium (Arlene-Colace) 1 tab DAILY PO 08/15/16 09:00 08/18/16 09:07 Gabapentin 300 mg 300 mg BID PO 08/17/16 09:15 08/18/16 09:07 Ceftriaxone Sodium/Sodium Chloride (Rocephin Inj/NS Inj) 100 ml @ 200 mls/hr Q24H IV 08/17/16 13:00 08/17/16 13:45 (Goldie Cheng) Medical Decision Making MDM Remarks 71 y/o male with lumbar wound dehiscence with drainage, MRI shows fluid collection, unlikely infectious following evaluation by Dr. Oconnor, nonop mgt of wound dehiscence/infection ORIF L4 fracture on 07/30 history of multiple sclerosis DVT wound culture with Citrobacter and Raoultella, and skin elva (Goldie Cheng) Plan Plan Remarks cont PT, TLSO when out of bed dc lovenox, restart his Eloquis 5 mg bid for DVT, cont trial of Neurontin 300 bid for neuropathic pain abx changed to IV rocephin per ID, will f/u regarding abx regimen/length for discharge back to rehab, cont wound care with packing with nu gaze three times a day, cont current wound care when dc to rehab appreciate assistance of consultants start dc planning back to rehab per ID recs pt will be discharged on PO Cipro x 28 days (Goldie Cheng) Attending Statement The exam, history, and the medical decision-making described in the above note were completed with the assistance of the mid-level provider. I reviewed and agree with the findings presented. I attest that I had a [id number] encounter with the patient on the same day, and personally performed and documented my assessment and findings in the medical record. (Dennis Oconnor MD) Goldie Cheng Aug 18, 2016 10:11 Dennis Oconnor MD Aug 18, 2016 17:12
--- NOTE | 2016-08-18 11:33 | HHI.PR ---
Subjective Remarks Late entry. Date of service 08/17/16. Patient seen the morning of 08/1716 Patient says he is feeling well. Denies any chest pain or shortness of breath. Denies any nausea or vomiting. Says he is eating well. Reports pain is controlled Objective Vital Signs Date Time Temp Pulse Resp B/P Pulse Ox O2 Delivery O2 Flow Rate FiO2 08/18/16 08:00 97.6 80 18 130/68 97 08/18/16 04:00 97.9 75 20 111/53 94 08/18/16 00:20 99.3 68 20 129/58 97 08/17/16 20:57 96.9 78 20 110/59 95 08/17/16 16:00 97.1 71 16 136/79 98 08/17/16 12:00 97.1 76 16 121/76 96 I/O 08/17/16 08/17/16 08/17/16 08/18/16 08/18/16 08/18/16 07:00 15:00 23:00 07:00 15:00 23:00 Intake Total 0 ml Output Total 100 ml 150 ml Balance -100 ml -150 ml IV Total 0 ml Output Urine Total 100 ml 150 ml # Voids 0 Result Diagram: 08/17/16 0736 08/17/16 0736 Objective Remarks GENERAL: patient lying in bed. Awake. Alert and oriented 3 years comfortable. Exam unchanged. SKIN: Warm and dry. HEAD: Normocephalic. EYES: No scleral icterus. No injection or drainage. NECK: Supple, trachea midline. No JVD. CARDIOVASCULAR: Regular rate and rhythm without murmurs, gallops, or rubs. RESPIRATORY: Breath sounds equal bilaterally. No accessory muscle use. GASTROINTESTINAL: Abdomen soft, non-tender, nondistended. MUSCULOSKELETAL: No cyanosis, or edema. BACK: Nontender without obvious deformity. No CVA tenderness. A/P Assessment and Plan //Lumbar wound dehiscence status post drainage. //Suspected postoperative wound infection //Leukocytosis. Continue antibiotics as per infectious disease. -Enterobacter and Raoultella, ornothonolytica -Continue PT. -MRI with small epidural collection as above -Anticoagulation as per neurosurgery. -Pain management as per neurosurgery. //Constipation. Multiple bowel movements. cont scheduled Arlene-Colace once daily.. //BPH. Continue finasteride. continue Flomax. //Depression. //History of psychosis. Chronic. Continue antipsychotic and antidepressant. //Tobaccoism. Cessation advised. Continue nicotine patch. //History of DVT left lower extremity. Diagnosed about 4 months ago. With recent ultrasound positive on recent psychiatric admission. -Anticoagulation as per surgical service Prophylaxis. Continue PPI. AC as per surgical service. Discharge Planning As per surgical service We'll need ID antibiotic recommendations prior to discharge Sanchez Montes MD Aug 18, 2016 11:33
--- NOTE | 2016-08-18 11:35 | HHI.PR ---
Subjective Remarks Patient seen this morning. Vision says he is feeling well. Denies any chest pain or shortness of breath. Reports pain is controlled. Eating well. Objective Vital Signs Date Time Temp Pulse Resp B/P Pulse Ox O2 Delivery O2 Flow Rate FiO2 08/18/16 08:00 97.6 80 18 130/68 97 08/18/16 04:00 97.9 75 20 111/53 94 08/18/16 00:20 99.3 68 20 129/58 97 08/17/16 20:57 96.9 78 20 110/59 95 08/17/16 16:00 97.1 71 16 136/79 98 08/17/16 12:00 97.1 76 16 121/76 96 I/O 08/17/16 08/17/16 08/17/16 08/18/16 08/18/16 08/18/16 07:00 15:00 23:00 07:00 15:00 23:00 Intake Total 0 ml Output Total 100 ml 150 ml Balance -100 ml -150 ml IV Total 0 ml Output Urine Total 100 ml 150 ml # Voids 0 Result Diagram: 08/17/1636 08/17/16 0736 Objective Remarks GENERAL: patient lying in bed. Awake. Alert and oriented 3. Again, appears comfortable SKIN: Warm and dry. HEAD: Normocephalic. EYES: No scleral icterus. No injection or drainage. NECK: Supple, trachea midline. No JVD. CARDIOVASCULAR: Regular rate and rhythm without murmurs, gallops, or rubs. RESPIRATORY: Breath sounds equal bilaterally. No accessory muscle use. GASTROINTESTINAL: Abdomen soft, non-tender, nondistended. MUSCULOSKELETAL: No cyanosis, or edema. BACK: Nontender without obvious deformity. No CVA tenderness. A/P Assessment and Plan //Lumbar wound dehiscence status post drainage. //Suspected postoperative wound infection //Leukocytosis. Continue antibiotics as per infectious disease. -Enterobacter and Raoultella, ornothonolytica -Continue PT. -MRI with small epidural collection as above -Anticoagulation as per neurosurgery. -cont ceftriaxone as per infectious disease. -Pain management as per neurosurgery. //Constipation. Multiple bowel movements. cont scheduled Arlene-Colace once daily.. //BPH. Continue finasteride. continue Flomax. //Depression. //History of psychosis. Chronic. Continue antipsychotic and antidepressant. //Tobaccoism. Cessation advised. Continue nicotine patch. //History of DVT left lower extremity. Diagnosed about 4 months ago. With recent ultrasound positive on recent psychiatric admission. -Anticoagulation as per surgical service Prophylaxis. Continue PPI. AC as per surgical service. Discharge Planning As per surgical service We'll need ID antibiotic recommendations prior to discharge Sanchez Montes MD Aug 18, 2016 11:35
[2016-08-18 12:00] VITALS: BP 122/64; PULSE 80; RESP 18; TEMP 96.6; O2SAT 96
[2016-08-18] MEDS: cefTRIAXone INJ 2,000 MG in SODIUM CHLORIDE 0.9% INJ 100 ML IV SCH (13:58)
--- NOTE | 2016-08-18 14:15 | HHI.IDPN ---
Subjective Subjective Remarks Notes reviewed Temps ok D/W Dr Bynum Has been cleared for D/C by NS Wound is superficial ESR 32 C/S reviewed Antibiotics Rocephin Past Medical History Multiple Sclerosis DVT LLE diagnosed 3 months ago Depression Mood disorder Benign prostatic hyperplasia Osteoporosis Chronic urinary and stool incontinence L4 fracture, s/p ORIF 07/30/16 Hearing loss, has hearing aids [place] Hernia, ?incisional RLQ Past Surgical History ORIF L4 fracture with L2-S1 fusion 07/30/16 Previous surgery for ED, developed infection, and implants/pump removed Allergies: Coded Allergies: No Known Allergies (Unverified , 07/20/16) Objective . Vital Signs Date Time Temp Pulse Resp B/P Pulse Ox O2 Delivery O2 Flow Rate FiO2 08/18/16 12:00 96.6 80 18 122/64 96 08/18/16 08:00 97.6 80 18 130/68 97 08/18/16 04:00 97.9 75 20 111/53 94 08/18/16 00:20 99.3 68 20 129/58 97 08/17/16 20:57 96.9 78 20 110/59 95 08/17/16 16:00 97.1 71 16 136/79 98 08/17/16 08/17/16 08/18/16 15:00 23:00 07:00 Intake Total 0 ml Output Total 100 ml 150 ml Balance -100 ml -150 ml IV Total 0 ml Output Urine Total 100 ml 150 ml . Laboratory Tests Test 08/17/16 07:36 White Blood Count 9.5 TH/MM3 Red Blood Count 3.31 MIL/MM3 Hemoglobin 11.4 GM/DL Hematocrit 32.0 % Mean Corpuscular Volume 96.5 FL Mean Corpuscular Hemoglobin 34.4 PG Mean Corpuscular Hemoglobin 35.6 % Concent Red Cell Distribution Width 13.7 % Platelet Count 452 TH/MM3 Mean Platelet Volume 7.4 FL Neutrophils (%) (Auto) 58.2 % Lymphocytes (%) (Auto) 21.7 % Monocytes (%) (Auto) 7.6 % Eosinophils (%) (Auto) 11.6 % Basophils (%) (Auto) 0.9 % Neutrophils # (Auto) 5.5 TH/MM3 Lymphocytes # (Auto) 2.1 TH/MM3 Monocytes # (Auto) 0.7 TH/MM3 Eosinophils # (Auto) 1.1 TH/MM3 Basophils # (Auto) 0.1 TH/MM3 CBC Comment DIFF FINAL Differential Comment Laboratory Tests Test 08/17/16 07:36 Sodium Level 139 MEQ/L Potassium Level 3.7 MEQ/L Chloride Level 103 MEQ/L Carbon Dioxide Level 26.1 MEQ/L Anion Gap 10 MEQ/L Blood Urea Nitrogen 9 MG/DL Creatinine 0.57 MG/DL Estimat Glomerular Filtration 141 ML/MIN Rate Random Glucose 82 MG/DL Calcium Level 8.0 MG/DL Imaging Lumbar Spine MRI 08/14/16 0000 Signed Impressions: Service Date/Time: Sunday, August 14, 2016 11:51 - CONCLUSION: The patient has had fusion from L2 to S1 for an L4 compression fracture. There is a small collection in the left posterolateral epidural space posterior to the L3-L4 level measuring approximately 1.3 x 1.3 cm across. It is 2.6 cm in height. It could be a small epidural collection. Please see above. Clyde Manley MD Physical Exam GENERAL: awake and alert,NAD SKIN: Cool and dry. No generalized rash or ecchymosis. HEENT: ic. No temporal or scalp tenderness. EYES: [place] conjunctivae, no petechia or hemorrhage. No scleral icterus. Moist oral mucosa, he is edentulous. NECK: Trachea midline. No JVD or lymphadenopathy. Supple, nontender, no meningeal signs. CARDIOVASCULAR: Regular rate and rhythm without murmurs, gallops, or rubs. RESPIRATORY: Clear to auscultation. Breath sounds equal bilaterally. No wheezes , rales, or rhonchi. GASTROINTESTINAL: Abdomen soft, non-tender, nondistended. Bowel sounds are present and normoactive. He has healed incision in the suprapubic region and there is a reducible hernia on the R. No hepato-splenomegaly. MUSCULOSKELETAL: Extremities without clubbing, cyanosis, or edema. No joint effusion, or edema noted. No calf tenderness. NEUROLOGICAL: Awake and alert. Cranial nerves II through XII intact. Motor and sensory grossly within normal limits. Five out of 5 muscle strength in all muscle groups. Normal speech. BACK: wound with packing, min redness, still with some fibrous tissue at edges of the wound, min drainage LINE: PIV with no evidence of infection PSYCH: Calm and cooperative Assessment & Plan Remarks IMPRESSION Post-op wound infection, S/P fusion L2-S1, has transpedicular screws in place , has small fluid collection L3-L4 seen on MRI - C/S of wound with Citrobacter and Raoultella, and skin elva - per neurosurgery wound is superficial Prior L4 fracture requiring surgery RECOMMENDATION D/W Dr Misa BUNN Cipro x 28 days Wound care per surgery OK to D/C from ID standpoint D/W RN Explained plan to patient Shani Salmeron MD Aug 18, 2016 14:15
[2016-08-18] MEDS ORDERED: CIPROFLOXACIN 750 MG TAB PO SCH (15:00)
[2016-08-18] MEDS ORDERED: CIPR750T2 PO (15:02)
[2016-08-18] MEDS ORDERED: NEUR300C PO (15:02)
--- NOTE | 2016-08-18 15:44 | HHI.DCPOC ---
Discharge Care Plan Diagnosis: (1) Wound infection (2) Compression fracture of L4 lumbar vertebra (3) Wound dehiscence (4) DVT (deep venous thrombosis) Goals to Promote Your Health * To prevent worsening of your condition and complications * To maintain your health at the optimal level Directions to Meet Your Goals Take your medications as prescribed Follow your dietary instruction Follow activity as directed Keep your appointments as scheduled Take your immunizations and boosters as scheduled If your symptoms worsen call your PCP, if no PCP go to Urgent Care Center or Emergency Room Smoking is Dangerous to Your Health. Avoid second hand smoke Call the 24-hour hour crisis hotline for domestic abuse at Goldie Cheng Aug 18, 2016 15:44
[2016-08-18 16:00] VITALS: BP 141/72; PULSE 71; RESP 20; TEMP 96.9; O2SAT 97
[2016-08-18] MEDS ORDERED: APIXABAN 5 MG TABLET PO SCH (21:00)
[2016-08-19] MEDS ORDERED: PHARMACY ORDERED LAB XX ONE (05:45)
--- NOTE | 2016-09-06 15:14 | HHI.DS ---
Discharge Summary Admission Date Aug 13, 2016 at 12:46 Discharge Date: Aug 18, 2016 Admitting Diagnosis wound dehiscence, infection (1) Wound infection ICD Code: T14.8 (2) Wound dehiscence ICD Code: T81.30XA (3) Compression fracture of L4 lumbar vertebra ICD Code: S32.040A Brief History Mr. Price is a 71 year old male who underwent an open reduction internal fixation of L4 fracture with L2 to S1 posterolateral fusion using transpedicular screws and rods on 07/30/16. He was discharged to inpatient rehab. He presented to Dr. Oconnor office today for a wound check. He was accompanied by halfway aid. The aid reports Mr. Price started to develop yellow drainage a few days ago which turned into greenish/yellow. His dressing was changed in the morning and she reports was saturated with green/yellow drainage. He denies chills, fevers. He is complaining of severe low back pain. He has chronic weakness and spasticity in his legs due to Multiple Sclerosis to which he says is unchanged. He also admits to smoking cigarettes while in the halfway. His suture removed at Dr. Oconnor office. He is on Eloquis for DVT. Imaging Last Impressions Lumbar Spine MRI 08/14/16 0000 Signed Impressions: Service Date/Time: Sunday, August 14, 2016 11:51 - CONCLUSION: The patient has had fusion from L2 to S1 for an L4 compression fracture. There is a small collection in the left posterolateral epidural space posterior to the L3-L4 level measuring approximately 1.3 x 1.3 cm across. It is 2.6 cm in height. It could be a small epidural collection. Please see above. Clyde Manley MD Hospital Course Mr. Price underwent MRI lumbar spine which showed fluid collection which was unlikely infectious following evaluation by Dr. Oconnor. His wound was irrigated very well with saline and he was started on wound care with nu gauze packing tid. He was also started on empiric IV antibiotics pending wound cultures. Wound cultures showed growth of Citrobacter, Raoultella and skin elva. He was evaluated by Infectious Disease and cleared for discharge on oral Cipro x 28 days. He was restarted on Eloquis for history of DVT. He was also placed on nicotine patches and counseled regarding his tobacco use and it's risk of poor wound healing as well as failed fusion. He was discharged back to rehab in stable conditions. Pt Condition on Discharge: Stable Discharge Disposition: Rehab Inpatient Discharge Instructions DIET: Follow Instructions for: Heart Healthy Diet ACTIVITIES You can perform: Weight Bearing As Bob ADDITIONAL Activity Instructio: Avoid falls, strenuous activities, bending, twisting, heavy lifting. Wear TLSO when out of bed. Use assistance or assistive devices when transferring or ambulating. Follow up Referrals: Infectious Disease - 1 Week Neurosurgery - 2 Weeks PCP Follow-up New Medications: Ciprofloxacin (Ciprofloxacin) 750 Mg Tab 750 MG PO Q12HR infection #56 TAB Gabapentin (Neurontin) 300 Mg Cap 300 MG PO BID Pain Management Days 30 CAP Continued Medications: Apixaban (Eliquis) 5 Mg Tab 5 MG PO BID follow up with PCP for refill and duration Blood Clot Prevention # 60 Ref 0 TAB Aripiprazole (Aripiprazole) 10 Mg Tab 10 MG PO DAILY health #30 Ref 0 TAB Baclofen (Baclofen) 10 Mg Tab 5 MG PO Q8HR PRN MUSCLE SPASM #20 TAB Calcium Carbonate-Vitamin D W/Minerals (Calcium 1200) 1,200-1,000 Mg-Unit Chew 1 TAB CHEW DAILY Nutritional Supplement Ref 0 TAB Finasteride (Alopecia) (Finasteride) 1 Mg Tab 5 MG PO DAILY Hydrocodone-Acetaminophen (Hydrocodone-Acetaminophen) 10-325 mg Tab 1 TAB PO Q6HR #30 TAB Methocarbamol (Methocarbamol) 500 Mg Tab 500 MG PO Q8HR #15 TAB Sennosides-Docusate Sodium (Senna Plus 8.6-50 mg) 1 Tab Tab 1 TAB PO BID #20 TAB Sertraline (Zoloft) 100 Mg Tab 100 MG PO DAILY health #30 Ref 0 TAB Tamsulosin (Flomax) 0.4 Mg Cap 0.4 MG PO DAILY health #30 Ref 0 CAP Trazodone (Trazodone) 50 Mg Tab 50 MG PO HS health #30 Ref 0 TAB Discontinued Medications: Megestrol (Megestrol) 40 Mg Tab 20 MG PO 1/2 po bid health #30 Ref 0 TAB Goldie Cheng Sep 06, 2016 15:14
== END 2016-08-18 17:52 | DRG 920 ==
LOC: N05A 12:46
PROVIDERS: ADMIT Neurological Surgery; ATTEND Neurological Surgery
DX: T81.32XA Disruption of internal operation (surgical) wound, not elsewhere classified, initial encounter (principal); T81.4XXA Infection following a procedure, initial encounter; G35 Multiple sclerosis; D72.829 Elevated white blood cell count, unspecified; B99.8 Other infectious disease; F32.9 Major depressive disorder, single episode, unspecified; F17.210 Nicotine dependence, cigarettes, uncomplicated; H91.90 Unspecified hearing loss, unspecified ear; K59.00 Constipation, unspecified; N40.0 Benign prostatic hyperplasia without lower urinary tract symptoms; M81.0 Age-related osteoporosis without current pathological fracture; Z98.1 Arthrodesis status; Z86.718 Personal history of other venous thrombosis and embolism
CPT/HCPCS: 72158; 76937; 80048; 80076; 80202; 81001; 85025; 85652; 86140; 87070; 87077; 87086; 87102; 87186; 87205; 87206; A9579; C9113; J0696; J0713; J1650; J3370; J3420; J7050

== ENCOUNTER 2016-09-05 17:14 | Observation (INO) | payer MEDICARE ==
[~2016-09-05] VITALS: Ht 193 cm; Wt 72.6 kg
[~2016-09-05 17:14] MED LIST changes: +CIPR750T2 PO; -CYAN1000P SQ; -MEGE40TA PO; +NEUR300C PO
[2016-09-05 17:20] VITALS: BP 141/77; TEMP 98; O2SAT 100
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
[2016-09-05] MEDS ORDERED: LIDOCAINE 1%/EPINEPHrine 1:100,000 SOLN 20 ML VIAL INFIL ONE (18:15)
[2016-09-05 18:24] VITALS: BP 157/75; PULSE 74; RESP 16; O2SAT 99
--- NOTE | 2016-09-05 18:40 | RADHPO ---
EXAM DATE/TIME: 09/05/2016 17:49 [facility] COMPARISON: No previous studies available for comparison. INDICATIONS : Fall today, laceration to chin and left parietal head. RADIATION DOSE: 70.44 CTDIvol (mGy) MEDICAL HISTORY : Multple sclerosis. SURGICAL HISTORY : None. ENCOUNTER: Initial ACUITY: 1 day PAIN SCALE: 7/10 LOCATION: Bilateral head TECHNIQUE: Multiple contiguous axial images were obtained of the head. Using automated exposure control and adj ustment of the mA and/or kV according to patient size, radiation dose was kept as low as reasonably a chievable to obtain optimal diagnostic quality images. FINDINGS: CEREBRUM: The ventricles are normal for age. No evidence of midline shift, mass lesion, hemorrhage or acute in farction. No extra-axial fluid collections are seen. POSTERIOR FOSSA: The cerebellum and brainstem are intact. The 4th ventricle is midline. The cerebellopontine angle i s unremarkable. EXTRACRANIAL: The visualized portion of the orbits is intact. SKULL: The calvaria is intact. No evidence of skull fracture. CONCLUSION: Normal examination for a patient of this age. No significant change has occurred. Gonzalo Juan MD on September 05, 2016 at 18:36 Board Certified Radiologist. This report was verified electronically.
[2016-09-05 19:20] VITALS: BP 131/66; PULSE 80; RESP 16; TEMP 98.4; O2SAT 98
--- NOTE | 2016-09-05 19:27 | RADHPO ---
EXAM DATE/TIME: 09/05/2016 17:49 [facility] COMPARISON: No previous studies available for comparison. INDICATIONS : Fall today, laceration to chin andleft parietal head. RADIATION DOSE: 26.21 CTDIvol (mGy) MEDICAL HISTORY : Multple sclerosis. SURGICAL HISTORY : None. ENCOUNTER: Initial ACUITY: 1 day PAIN SCALE: 8/10 LOCATION: Bilateral neck TECHNIQUE: Volumetric scanning of the cervical spine was performed. Multiplanar reconstructions in the sagittal, coronal and oblique axial planes were performed. Using automated exposure control and adjustment o f the mA and/or kV according to patient size, radiation dose was kept as low as reasonably achievable to obtain optimal diagnostic quality images. FINDINGS: No acute fracture or spondylolisthesis. No significant prevertebral soft tissue swelling. Bones are o steopenic. Moderate degenerative disc disease. No significant bony canal stenosis. CONCLUSION: 1. No acute fracture. Moderate degenerative change. Gonzalo Juan MD on September 05, 2016 at 19:24 Board Certified Radiologist. This report was verified electronically.
--- NOTE | 2016-09-05 19:28 | RADHPO ---
EXAM DATE/TIME: 09/05/2016 17:49 [facility] COMPARISON: No previous studies available for comparison. INDICATIONS : Fall today, laceration to chin and left parietal head. RADIATION DOSE: 25.66 CTDIvol (mGy) MEDICAL HISTORY : Multple sclerosis. SURGICAL HISTORY : None. ENCOUNTER: Initial ACUITY: 1 day PAIN SCORE: 7/10 LOCATION: Bilateral chin TECHNIQUE: Volumetric scanning of the facial bones was performed. Using automated exposure control and adjustme nt of the mA and/or kV according to patient size, radiation dose was kept as low as reasonably achiev able to obtain optimal diagnostic quality images. FINDINGS: ORBITS: The orbital and infraorbital osseous structures are intact. The retroconal structures have a normal configuration. No radiopaque foreign bodies are seen. NASAL BONE: The nasal bone and maxillary spine are intact ZYGOMATIC ARCHES: Symmetric without evidence of fracture. SINUSES: The maxillary, ethmoid and frontal sinuses are intact. No air-fluid levels seen. NASAL CAVITY: The nasal septum is intact and midline. The lacrimal ducts are intact. SOFT TISSUES: No radiopaque foreign bodies seen. No soft-tissue swelling is seen. INTRACRANIAL: No intracranial air seen. CRIBIFORM PLATE: Grossly intact. CONCLUSION: 1. No acute facial bone fractures identified. Gonzalo Juan MD on September 05, 2016 at 19:26 Board Certified Radiologist. This report was verified electronically.
--- NOTE | 2016-09-05 19:32 | RADHPO ---
EXAM DATE/TIME: 09/05/2016 17:57 [facility] COMPARISON: CT LUMBAR SPINE W/O CONTRAST, July 28, 2016, 22:48. INDICATIONS : Fall today, lower back pain. RADIATION DOSE: 23.40 CTDIvol (mGy) MEDICAL HISTORY : Multple sclerosis. SURGICAL HISTORY : Fusion, lumbar. ENCOUNTER: Initial ACUITY: 1 day PAIN SCALE: 9/10 LOCATION: Bilateral lower back TECHNIQUE: Volumetric scanning of the lumbar spine was performed. Multiplanar reconstructions in the sagittal, coronal and oblique axial planes were performed. Using automated exposure control and adjustment of the mA and/or kV according to patient size, radiation dose was kept as low as reasonably achievable t o obtain optimal diagnostic quality images. FINDINGS: There is previous screw and jason fixation from L2-S1 with screws present in L2 and L3 and L5 and S1 as well as in L4 on the right side. There is a severe compression deformity of L4 and a mild compressio n deformity of L3. There are moderate compression deformities of T12 and L1. Canal stenosis remains at L3-4-5. CONCLUSION: 1. Compared with July 2016, acute finding is a mild compression fracture of the L3 vertebral body superiorly. Severe compression deformity of L4 is relatively stable and moderate compression deformi ties of L1 and T12 are also relatively stable. Spine fixation is a new finding since the prior study. There is a left-sided laminectomy at L4. Gonzalo Juan MD on September 05, 2016 at 19:27 Board Certified Radiologist. This report was verified electronically.
[2016-09-05 19:48] LABS: AUTOMATED NEUTROPHIL # 7.7 TH/MM3 (1.8-7.7); BASOPHIL % 0.3 % (0.0-2.0); EOSINOPHIL # 0.5 TH/MM3 (0-0.4); EOSINOPHIL % 5.3 % (0.0-4.0); HEMATOCRIT 37.6 % (39.0-51.0); HEMO FLAGS DIFF FINAL; LYMPHOCYTE # 1.1 TH/MM3 (1.0-4.8); MEAN CELL VOLUME 97.8 FL (80.0-100.0); MEAN CORPUSCULAR HEMOGLOBIN 34.2 PG (27.0-34.0); MEAN CORPUSCULAR HGB CONC 34.9 % (32.0-36.0); MONO % 7.4 % (0.0-8.0); PLATELET COUNT 393 TH/MM3 (150-450); RED BLOOD COUNT 3.85 MIL/MM3 (4.50-5.90); RED CELL DISTRIBUTION WIDTH 13.7 % (11.6-17.2)
[2016-09-05 19:49] LABS: POTASSIUM 3.6 MEQ/L (3.5-5.1)
[2016-09-05 19:55] LABS: BICARBONATE 29.6 MEQ/L (21.0-32.0)
[2016-09-05] MEDS ORDERED: SODIUM CHLORIDE 0.9% FLUSH 5 ML FLUSH FLUSH PRN (21:00)
[2016-09-05] MEDS ORDERED: BISACODYL 10 MG SUPP PR PRN (21:00)
[2016-09-05] MEDS ORDERED: ACETAMINOPHEN 325 MG TAB PO PRN (21:00)
[2016-09-05] MEDS ORDERED: ONDANSETRON HCL 4 MG/2 ML VIAL IVP PRN (21:00)
[2016-09-05] MEDS: SODIUM CHLORIDE 0.9% FLUSH 5 ML FLUSH FLUSH SCH (21:00)
[2016-09-05] MEDS ORDERED: BACLOFEN 10 MG TAB PO PRN (21:00)
[2016-09-05] MEDS ORDERED: MORPHINE SULFATE 4 MG/ML INJ IV PRN (21:00)
--- NOTE | 2016-09-05 21:26 | PD ---
Physical Exam Time Seen by Provider: 21:[address] Moore left this patient with me to call Dr. Doty. Data Data Last Documented VS Vital Signs Date Time Temp Pulse Resp B/P Pulse Ox O2 Delivery O2 Flow Rate FiO2 09/05/16 19:20 80 98 Room Air 09/05/16 19:20 98.4 16 131/[address] Brain W/O Iv Contrast(Rout) (09/05/16 ) Ct Cerv Spine W/O Contrast (09/05/16 ) Ct Facial Bones W/O Iv Cont (09/05/16 ) Ct Lumb Spine W/O Contrast (09/05/16 ) Lidocai-Epi 1%-1:100,000 Inj (Xylocaine- (09/05/16 18:15) Complete Blood Count With Diff (09/05/16 19:00) Basic Metabolic Panel (Bmp) (09/05/16 19:00) Consult Neurosurgery (09/05/16 ) Place In Observation (09/05/16 ) Vital Signs (Adult) Q4H (09/05/16 20:55) Activity Oob With Assistance (09/05/16 20:55) Diet Regular Basic (09/06/16 Breakfast) Sodium Chloride 0.9% Flush (Ns Flush) (09/05/16 21:00) Sodium Chloride 0.9% Flush (Ns Flush) (09/05/16 21:00) Ondansetron Inj (Zofran Inj) (09/05/16 21:00) Bisacodyl Supp (Dulcolax Supp) (09/05/16 21:00) Comprehensive Metabolic Panel (09/06/16 06:00) Complete Blood Count With Diff (09/06/16 06:00) Pt Request For Service (09/05/16 20:55) Pharmacologic Contraindication (09/05/16 20:55) Acetaminophen (Tylenol) (09/05/16 21:00) Acetamin-Hydrocod 325-5 Mg ([place] 5-325 (09/05/16 21:00) Morphine Inj (Morphine Inj) (09/05/16 21:00) Apixaban (Eliquis) (09/05/16 21:00) Aripiprazole (Abilify) (09/06/16 09:00) Baclofen (Lioresal) (09/05/16 21:00) Gabapentin (Neurontin) (09/05/16 21:00) Methocarbamol (Robaxin) (09/05/16 22:00) Docusate Sodium-Senna (Arlene-Colace) (09/05/16 21:00) Sertraline (Zoloft) (09/06/16 09:00) Tamsulosin (Flomax) (09/06/16 09:00) Trazodone (Desyrel) (09/05/16 21:00) Patient Own Medication (09/06/16 09:00) Labs Laboratory Tests Test 09/05/16 19:30 White Blood Count 10.0 TH/MM3 Red Blood Count 3.85 MIL/MM3 Hemoglobin 13.1 GM/DL Hematocrit 37.6 % Mean Corpuscular Volume 97.8 FL Mean Corpuscular Hemoglobin 34.2 PG Mean Corpuscular Hemoglobin 34.9 % Concent Red Cell Distribution Width 13.7 % Platelet Count 393 TH/MM3 Mean Platelet Volume 7.4 FL Neutrophils (%) (Auto) 76.0 % Lymphocytes (%) (Auto) 11.0 % Monocytes (%) (Auto) 7.4 % Eosinophils (%) (Auto) 5.3 % Basophils (%) (Auto) 0.3 % Neutrophils # (Auto) 7.7 TH/MM3 Lymphocytes # (Auto) 1.1 TH/MM3 Monocytes # (Auto) 0.7 TH/MM3 Eosinophils # (Auto) 0.5 TH/MM3 Basophils # (Auto) 0.0 TH/MM3 CBC Comment DIFF FINAL Differential Comment Sodium Level 142 MEQ/L Potassium Level 3.6 MEQ/L Chloride Level 106 MEQ/L Carbon Dioxide Level 29.6 MEQ/L Anion Gap 6 MEQ/L Blood Urea Nitrogen 15 MG/DL Creatinine 0.61 MG/DL Estimat Glomerular Filtration 131 ML/MIN Rate Random Glucose 147 MG/DL Calcium Level 8.3 MG/DL [facility] Medical Record Reviewed: Yes Supervised Visit with ARNOLDO: Yes Differential Diagnosis Fall with inability to ambulate safely, halfway placement compression fracture L3 Narrative Course The patient had a fall and cannot ambulate safely. Dr. Moore spoke with DEJ[facility] for admission but they wanted us to speak to Dr. hicks in about the mild L3 compression fracture. This compression fracture is stable. I discussed this with Dr. Doty. The patient has had a fusion across L3 previously. Physician Communication Physician Communication I discussed the patient with Drs. Doty and Oscar. Diagnosis Primary Impression: Fall Additional Impression: Inability to ambulate due to multiple joints Admitting Information Admitting Physician Requests: Observation Jose Kowalski MD Sep 05, 2016 21:26
[2016-09-05] MEDS: GABAPENTIN 300 MG CAP PO SCH (21:33)
[2016-09-05] MEDS: traZODone HCL 50 MG TAB PO SCH (21:33)
[2016-09-05] MEDS: APIXABAN 5 MG TABLET PO SCH (21:33)
[2016-09-05] MEDS: DOCUSATE SODIUM 50 MG/SENNA 8.6 MG TAB PO SCH (21:34)
[2016-09-05 22:23] VITALS: BP 148/73
[2016-09-05 22:25] VITALS: BP 145/82; PULSE 78; RESP 16; TEMP 97; O2SAT 97
[2016-09-05] MEDS: METHOCARBAMOL 500 MG TAB PO SCH (22:54)
[2016-09-06] VITALS: BP 139/63; PULSE 71; RESP 16; TEMP 97.1; O2SAT 97
[2016-09-06 04:00] VITALS: BP 136/70; PULSE 85; RESP 18; TEMP 97.5; O2SAT 96
[2016-09-06] MEDS: ACETAMINOPHEN/HYDROcodone 325 MG/5 MG TAB PO PRN ×2 (06:19→10:09)
[2016-09-06] MEDS: METHOCARBAMOL 500 MG TAB PO SCH ×3 (06:19→20:57)
[2016-09-06 06:27] LABS: AUTOMATED NEUTROPHIL # 5.5 TH/MM3 (1.8-7.7); BASOPHIL % 0.3 % (0.0-2.0); EOSINOPHIL # 0.8 TH/MM3 (0-0.4); EOSINOPHIL % 9.2 % (0.0-4.0); HEMATOCRIT 35.7 % (39.0-51.0); HEMO FLAGS DIFF FINAL; LYMPH % 17.9 % (9.0-44.0); LYMPHOCYTE # 1.5 TH/MM3 (1.0-4.8); MEAN CELL VOLUME 97.9 FL (80.0-100.0); MEAN CORPUSCULAR HEMOGLOBIN 32.8 PG (27.0-34.0); MEAN CORPUSCULAR HGB CONC 33.4 % (32.0-36.0); MONO % 7.3 % (0.0-8.0); NEUT % 65.3 % (16.0-70.0); PLATELET COUNT 399 TH/MM3 (150-450); RED BLOOD COUNT 3.64 MIL/MM3 (4.50-5.90); RED CELL DISTRIBUTION WIDTH 14.2 % (11.6-17.2); WHITE BLOOD COUNT 8.4 TH/MM3 (4.0-11.0)
[2016-09-06 06:31] LABS: CHLORIDE 107 MEQ/L (98-107); POTASSIUM 3.5 MEQ/L (3.5-5.1); SODIUM (NA) 143 MEQ/L (136-145)
[2016-09-06 06:37] LABS: ANION GAP 8 MEQ/L (5-15); BICARBONATE 28.5 MEQ/L (21.0-32.0); BLOOD UREA NITROGEN 13 MG/DL (7-18)
[2016-09-06 06:40] LABS: ALT (GPT) 15 U/L (12-78); AST (GOT) 11 U/L (15-37); GLOMERULAR FILTRATION RATE 157 ML/MIN (>89)
[2016-09-06 06:41] LABS: TOTAL BILIRUBIN ADULT 0.4 MG/DL (0.2-1.0)
[2016-09-06 06:43] LABS: ALKALINE PHOSPHATASE 94 U/L (45-117)
[2016-09-06 08:13] VITALS: BP 117/68; PULSE 82; RESP 18; TEMP 98.6; O2SAT 95
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
[2016-09-06] MEDS: SODIUM CHLORIDE 0.9% FLUSH 5 ML FLUSH FLUSH SCH ×2 (09:00→20:16)
[2016-09-06] MEDS: [UNRECOGNIZED DRUG - OTHER] PO SCH (09:00)
[2016-09-06] MEDS: ARIPiprazole 5 MG TAB PO SCH (09:00)
[2016-09-06] MEDS: TAMSULOSIN HCL 0.4 MG CAP PO SCH (10:04)
[2016-09-06] MEDS: SERTRALINE HCL 100 MG TAB PO SCH (10:04)
[2016-09-06] MEDS: DOCUSATE SODIUM 50 MG/SENNA 8.6 MG TAB PO SCH ×2 (10:04→20:57)
[2016-09-06] MEDS: GABAPENTIN 300 MG CAP PO SCH ×2 (10:04→20:57)
[2016-09-06] MEDS: APIXABAN 5 MG TABLET PO SCH ×2 (10:04→20:57)
[2016-09-06] MEDS ORDERED: WALKER WHEELS/F1 MIS (10:06)
--- NOTE | 2016-09-06 10:32 | HHI.HP ---
[facility] Primary [facility] Physician No Primary Care Physician Admission Diagnosis inability to ambulate safely, L3 compression fracture Diagnoses: (1) Fall Travel History International Travel<30 Days: No Contact w/Intl Traveler <30 Da: No Traveled to Known Affected Are: No History of Present Illness This is a 71 year-old female with past medical history of high blood pressure who tripped while using his walker yesterday and fell hitting his chin on a car as he fell. He suffered a chin laceration which was repaired in the emergency department. The emergency department physician requested observation for the patient. The patient also underwent a ORIF of L4 vertebral body fracture, L3 to L4 decompressive laminectomy, L2 to S1 posterolateral fusion with Dr. Oconnor on 07/30/16. The patient states that he has a sore lower back but this is unchanged. In the emergency department last night and lumbar CT was performed showing the postsurgical changes as well as an L3 compression fracture. I discussed this with Dr. Doty neurosurgery this morning and he stated that the L3 compression fracture was there previously and this is not new. Dr. Doty also states that the patient has a follow-up appointment with Dr. Oconnor already established. Currently the patient states that he feels well. He states that he is currently living out of a motel with his daughter who is trying to get disability. They have had difficulty sitting up enough money to come up with the deposit for a house rental. Review of Systems Constitutional: DENIES: Fever, Chills Respiratory: DENIES: Cough, Shortness of breath Cardiovascular: DENIES: Chest pain, Palpitations Gastrointestinal: DENIES: Diarrhea, Vomiting Genitourinary: DENIES: Hematuria, Dysuria Musculoskeletal: COMPLAINS OF: Back pain, DENIES: Neck pain Integumentary: DENIES: Pruritus, Rash Neurologic: DENIES: Abnormal gait, Headache, Localized weakness Psychiatric: DENIES: Anxiety, Confusion Past Family Social History Past Medical History Depression Mood disorder Benign prostatic hyperplasia Osteoporosis DVT left lower extremity diagnosed last year Multiple sclerosis diagnosed in his late 20s Urinary and stool incontinence. Allergies: Coded Allergies: No Known Allergies (Unverified , 09/05/16) Family History Reviewed and noncontributory Social History Positive use of tobacco Physical Exam Vital Signs Vital Signs Date Time Temp Pulse Resp B/P Pulse Ox O2 Delivery O2 Flow Rate FiO2 09/06/16 08:13 98.6 82 18 117/68 95 09/06/16 04:00 97.5 85 18 136/70 96 09/06/16 00:00 97.1 71 16 139/63 97 09/05/16 22:25 97.0 78 16 145/82 97 09/05/16 22:23 76 16 148/73 96 09/05/16 19:20 80 98 Room Air 09/05/16 19:20 98.4 80 16 131/66 98 Room Air 09/05/16 18:24 74 16 157/75 99 Room Air 09/05/16 17:37 16 100 Room Air 09/05/16 17:20 98.0 93 16 141/77 100 Physical Exam GENERAL: Well-nourished, well-developed pleasant elderly male patient. SKIN: Warm and dry. He has a clean dry and intact laceration of the chin which is well approximated closed with sutures. HEAD: Normocephalic. EYES: No scleral icterus. No injection or drainage. NECK: Supple, trachea midline. No JVD or lymphadenopathy. CARDIOVASCULAR: Regular rate and rhythm without murmurs, gallops, or rubs. RESPIRATORY: Breath sounds equal bilaterally. No accessory muscle use. GASTROINTESTINAL: Abdomen soft, non-tender, nondistended. EXTREMITIES: No cyanosis, or edema. NEUROLOGICAL: Awake, alert, and oriented x 3. Non-focal. Laboratory Laboratory Tests Test 09/05/16 09/06/16 19:30 05:30 White Blood Count 10.0 8.4 Red Blood Count 3.85 3.64 Hemoglobin 13.1 11.9 Hematocrit 37.6 35.7 Mean Corpuscular Volume 97.8 97.9 Mean Corpuscular Hemoglobin 34.2 32.8 Mean Corpuscular Hemoglobin 34.9 33.4 Concent Red Cell Distribution Width 13.7 14.2 Platelet Count 393 399 Mean Platelet Volume 7.4 7.8 Neutrophils (%) (Auto) 76.0 65.3 Lymphocytes (%) (Auto) 11.0 17.9 Monocytes (%) (Auto) 7.4 7.3 Eosinophils (%) (Auto) 5.3 9.2 Basophils (%) (Auto) 0.3 0.3 Neutrophils # (Auto) 7.7 5.5 Lymphocytes # (Auto) 1.1 1.5 Monocytes # (Auto) 0.7 0.6 Eosinophils # (Auto) 0.5 0.8 Basophils # (Auto) 0.0 0.0 CBC Comment DIFF FINAL DIFF FINAL Differential Comment Sodium Level 142 143 Potassium Level 3.6 3.5 Chloride Level 106 107 Carbon Dioxide Level 29.6 28.5 Anion Gap 6 8 Blood Urea Nitrogen 15 13 Creatinine 0.61 0.52 Estimat Glomerular Filtration 131 157 Rate Random Glucose 147 88 Calcium Level 8.3 8.1 Total Bilirubin 0.4 Aspartate Amino Transf 11 (AST/SGOT) Alanine Aminotransferase 15 (ALT/SGPT) Alkaline Phosphatase 94 Total Protein 6.4 Albumin 2.8 Result Diagram: 09/06/1652909/06/16 0530 Imaging Last Impressions Maxillofacial CT 09/05/16 0000 Signed Impressions: Service Date/Time: Monday, September 05, 2016 17:49 - CONCLUSION: 1. No acute facial bone fractures identified. Gonzalo Juan MD Lumbar Spine CT 09/05/16 0000 Signed Impressions: Service Date/Time: Monday, September 05, 2016 17:57 - CONCLUSION: 1. Compared with July 2016, acute finding is a mild compression fracture of the L3 vertebral body superiorly. Severe compression deformity of L4 is relatively stable and moderate compression deformities of L1 and T12 are also relatively stable. Spine fixation is a new finding since the prior study. There is a left-sided laminectomy at L4. Gonzalo Juan MD Head CT 09/05/16 0000 Signed Impressions: Service Date/Time: Monday, September 05, 2016 17:49 - CONCLUSION: Normal examination for a patient of this age. No significant change has occurred. Gonzalo Juan MD Cervical Spine CT 09/05/16 0000 Signed Impressions: Service Date/Time: Monday, September 05, 2016 17:49 - CONCLUSION: 1. No acute fracture. Moderate degenerative change. Gonzalo Juan MD Assessment and Plan Assessment and Plan -Fall with chin laceration. Supposedly a mechanical fall with his walker. L3 fracture is not new as per Dr. Doty. We'll consult physical therapy to evaluate his gait. We'll arrange home health care with home PT. We'll attempt to get him a new walker as he thinks this one is not working well for him. If he does well with physical therapy he may be discharged home. Follow-up with PCP for suture removals. Follow-up with Dr. Oconnor as previously established. Dorita Aldana MD Sep 06, 2016 09:59
--- NOTE | 2016-09-06 10:33 | HHI.FF ---
Face to Face Verification Diagnosis: (1) Compression fracture of L4 lumbar vertebra (2) Fall Physical Therapy Order: Evaluate and Treat Home Health Nursing Order: Medical education Nursing assessment with vital signs I have seen patient Moe Price on 09/06/16. My clinical findings support the need for the requested home health care services because: Ltd mobility - disease progression Deconditioned w/ increased weakness I certify that my clinical findings support that this patient is homebound because: Post-op weakness Unsteady gait/balance Dorita Aldana MD Sep 06, 2016 10:04
[2016-09-06 12:35] VITALS: BP 112/61; PULSE 77; RESP 18; TEMP 97.6; O2SAT 97
[2016-09-06 17:37] VITALS: BP 135/69; PULSE 83; RESP 16; TEMP 98.9; O2SAT 97
[2016-09-06 20:00] VITALS: BP 125/63; PULSE 68; RESP 18; TEMP 97.5; O2SAT 96
[2016-09-06] MEDS: traZODone HCL 50 MG TAB PO SCH (20:57)
[2016-09-07] VITALS: BP 135/72; PULSE 70; RESP 16; TEMP 97; O2SAT 95
[2016-09-07] MEDS: METHOCARBAMOL 500 MG TAB PO SCH ×3 (05:59→21:14)
[2016-09-07] MEDS: ACETAMINOPHEN/HYDROcodone 325 MG/5 MG TAB PO PRN ×3 (06:01→19:18)
[2016-09-07 08:00] VITALS: BP 124/67; PULSE 72; RESP 18; TEMP 96.7; O2SAT 97
[2016-09-07] MEDS: TAMSULOSIN HCL 0.4 MG CAP PO SCH (08:47)
[2016-09-07] MEDS: SODIUM CHLORIDE 0.9% FLUSH 5 ML FLUSH FLUSH SCH ×2 (08:47→20:05)
[2016-09-07] MEDS: ARIPiprazole 5 MG TAB PO SCH (08:47)
[2016-09-07] MEDS: DOCUSATE SODIUM 50 MG/SENNA 8.6 MG TAB PO SCH ×2 (08:47→21:14)
[2016-09-07] MEDS: GABAPENTIN 300 MG CAP PO SCH ×2 (08:47→21:14)
[2016-09-07] MEDS: SERTRALINE HCL 100 MG TAB PO SCH (08:47)
[2016-09-07] MEDS: [UNRECOGNIZED DRUG - OTHER] PO SCH (08:47)
[2016-09-07] MEDS: APIXABAN 5 MG TABLET PO SCH ×2 (08:47→21:14)
[2016-09-07 12:00] VITALS: BP 126/70; PULSE 80; RESP 18; TEMP 97; O2SAT 96
--- NOTE | 2016-09-07 12:29 | HHI.PR ---
Subjective Remarks Patient states his low back is sore but pain is controlled. Objective Vitals Vital Signs Date Time Temp Pulse Resp B/P Pulse Ox O2 Delivery O2 Flow Rate FiO2 09/07/16 08:00 96.7 72 18 124/67 97 09/07/16 00:00 97.0 70 16 135/72 95 09/06/16 20:00 97.5 68 18 125/63 96 09/06/16 17:37 98.9 83 16 135/69 97 09/06/16 12:35 97.6 77 18 112/61 97 I/O 09/06/16 09/06/16 09/06/16 09/07/16 09/07/16 09/07/16 07:00 15:00 23:00 07:00 15:00 23:00 Intake Total 200 ml 300 ml Output Total 150 ml 150 ml Balance 50 ml 150 ml Intake Oral 200 ml 300 ml Output Urine Total 150 ml 150 ml # Voids 1 # Bowel Movements 2 0 0 Result Diagram: 09/06/1630 09/06/16 0530 Objective Remarks GENERAL: Well-nourished, well-developed pleasant elderly male patient. SKIN: Warm and dry. He has a clean dry and intact laceration of the chin which is well approximated closed with sutures. HEAD: Normocephalic. EYES: No scleral icterus. No injection or drainage. NECK: Supple, trachea midline. No JVD or lymphadenopathy. CARDIOVASCULAR: Regular rate and rhythm without murmurs, gallops, or rubs. RESPIRATORY: Breath sounds equal bilaterally. No accessory muscle use. GASTROINTESTINAL: Abdomen soft, non-tender, nondistended. EXTREMITIES: No cyanosis, or edema. NEUROLOGICAL: Awake, alert, and oriented x 3. Non-focal. A/P Problem List: (1) Fall ICD Code: W19.XXXA Status: Acute Discharge Planning -Fall with chin laceration. Supposedly a mechanical fall with his walker. L3 fracture is not new as per Dr. Doty. Continue physical therapy, apparently his very unsteady with his gait. We are evaluating for him to go to a [facility] facility. Continue daily PT. Continue TLSO brace which his daughter has brought in from home today. Follow-up with Dr. Oconnor - he has a previously scheduled appointment. Stitches to be DC'd on September 11. -Patient also has known posterior incision dehiscence in lumbar area from his previous ORIF with Dr. Oconnor- no drainage or erythema. daily dressing changes. Depression and Mood disorder - continue Abilify and Zoloft. Benign prostatic hyperplasia - continue Flomax. Osteoporosis DVT left lower extremity diagnosed last year - continue Eliquis. Multiple sclerosis diagnosed in his late 20s Urinary and stool incontinence. DVT prophylaxis with SCDs. Dorita Aldana MD Sep 07, 2016 12:29
[2016-09-07 16:00] VITALS: BP 128/72; PULSE 78; RESP 18; TEMP 97.2; O2SAT 97
[2016-09-07 20:00] VITALS: BP 149/74; PULSE 73; RESP 20; TEMP 96; O2SAT 97
[2016-09-07] MEDS: traZODone HCL 50 MG TAB PO SCH (21:14)
[2016-09-08] VITALS: BP 140/77; PULSE 68; RESP 20; TEMP 97.4; O2SAT 96
[2016-09-08] MEDS: METHOCARBAMOL 500 MG TAB PO SCH ×3 (06:10→22:10)
[2016-09-08] MEDS: ACETAMINOPHEN/HYDROcodone 325 MG/5 MG TAB PO PRN ×2 (06:10→11:36)
[2016-09-08 08:00] VITALS: BP 130/70; PULSE 67; RESP 18; TEMP 96.9; O2SAT 95
[2016-09-08] MEDS: SODIUM CHLORIDE 0.9% FLUSH 5 ML FLUSH FLUSH SCH ×3 (09:00→21:00)
[2016-09-08] MEDS: [UNRECOGNIZED DRUG - OTHER] PO SCH (09:00)
[2016-09-08] MEDS: ARIPiprazole 5 MG TAB PO SCH (09:12)
[2016-09-08] MEDS: APIXABAN 5 MG TABLET PO SCH ×2 (09:12→22:10)
[2016-09-08] MEDS: TAMSULOSIN HCL 0.4 MG CAP PO SCH (09:12)
[2016-09-08] MEDS: DOCUSATE SODIUM 50 MG/SENNA 8.6 MG TAB PO SCH ×2 (09:12→21:00)
[2016-09-08] MEDS: SERTRALINE HCL 100 MG TAB PO SCH (09:12)
[2016-09-08] MEDS: GABAPENTIN 300 MG CAP PO SCH ×2 (09:12→22:09)
--- NOTE | 2016-09-08 10:39 | HHI.PR ---
Subjective Remarks Patient seen in follow-up for MS, gait instability with known lumbar fracture. No new complaints today. Patient discharge planning continues Objective Vitals Vital Signs Date Time Temp Pulse Resp B/P Pulse Ox O2 Delivery O2 Flow Rate FiO2 09/08/16 08:00 96.9 67 18 130/70 95 09/08/16 00:00 97.4 68 20 140/77 96 09/07/16 20:39 20 09/07/16 20:00 96.0 73 20 149/74 97 09/07/16 16:00 97.2 78 18 128/72 97 09/07/16 12:00 97.0 80 18 126/70 96 I/O 09/07/16 09/07/16 09/07/16 09/08/16 09/08/16 09/08/16 07:00 15:00 23:00 07:00 15:00 23:00 Intake Total 300 ml 600 ml 60 ml Output Total 150 ml 151 ml Balance 150 ml 449 ml 60 ml Intake Oral 300 ml 600 ml 60 ml Output Urine Total 150 ml 150 ml Stool Total 1 ml # Voids 9 0 # Bowel Movements 0 0 0 Result Diagram: 09/06/16 0530 09/06/16 0530 Objective Remarks GENERAL: This is a well-nourished, well-developed patient, in no apparent distress. CARDIOVASCULAR: Regular rate and rhythm without murmurs, gallops, or rubs. RESPIRATORY: Clear to auscultation. Breath sounds equal bilaterally. No wheezes , rales, or rhonchi. GASTROINTESTINAL: Abdomen soft, non-tender, nondistended. Normal active bowel sounds MUSCULOSKELETAL: Extremities without clubbing, cyanosis, or edema. NEURO: Alert & Oriented x4 to person, place, time, situation. weak all over A/P Problem List: (1) Fall ICD Code: W19.XXXA Status: Acute Plan: Continue with rehabilitation plans, follow-up for group home Lexus Alexandre MD Sep 08, 2016 10:39
[2016-09-08 12:00] VITALS: BP 145/73; PULSE 65; RESP 18; TEMP 97.2; O2SAT 96
[2016-09-08 16:00] VITALS: BP 144/76; PULSE 64; RESP 18; TEMP 97; O2SAT 97
[2016-09-08 20:00] VITALS: BP 151/81; PULSE 66; RESP 18; TEMP 97.3; O2SAT 100
[2016-09-08] MEDS: traZODone HCL 50 MG TAB PO SCH (22:10)
[2016-09-09] VITALS: BP 142/73; PULSE 80; RESP 17; TEMP 96.5; O2SAT 94
[2016-09-09] MEDS: ACETAMINOPHEN/HYDROcodone 325 MG/5 MG TAB PO PRN (06:15)
[2016-09-09] MEDS: METHOCARBAMOL 500 MG TAB PO SCH ×3 (06:15→21:56)
[2016-09-09 08:00] VITALS: BP 130/73; PULSE 72; RESP 18; TEMP 96.8; O2SAT 98
[2016-09-09] MEDS: APIXABAN 5 MG TABLET PO SCH ×2 (08:06→22:01)
[2016-09-09] MEDS: DOCUSATE SODIUM 50 MG/SENNA 8.6 MG TAB PO SCH ×2 (08:06→21:56)
[2016-09-09] MEDS: TAMSULOSIN HCL 0.4 MG CAP PO SCH (08:06)
[2016-09-09] MEDS: ARIPiprazole 5 MG TAB PO SCH (08:07)
[2016-09-09] MEDS: SERTRALINE HCL 100 MG TAB PO SCH (08:07)
[2016-09-09] MEDS: GABAPENTIN 300 MG CAP PO SCH ×2 (08:07→21:56)
[2016-09-09] MEDS: SODIUM CHLORIDE 0.9% FLUSH 5 ML FLUSH FLUSH SCH ×2 (08:08→21:00)
--- NOTE | 2016-09-09 10:32 | HHI.PR ---
Subjective Remarks Patient seen and evaluated in follow-up for weakness with MS Objective Vitals Vital Signs Date Time Temp Pulse Resp B/P Pulse Ox O2 Delivery O2 Flow Rate FiO2 09/09/16 08:00 96.8 72 18 130/73 98 09/09/16 00:00 96.5 80 17 142/73 94 09/08/16 20:00 97.3 66 18 151/81 100 09/08/16 16:00 97.0 64 18 144/76 97 09/08/16 12:00 97.2 65 18 145/73 96 I/O 09/08/16 09/08/16 09/08/16 09/09/16 09/09/16 09/09/16 07:00 15:00 23:00 07:00 15:00 23:00 Intake Total 60 ml 860 ml 100 ml Output Total 250 ml 700 ml Balance 60 ml 610 ml -600 ml Intake Oral 60 ml 860 ml 100 ml Output Urine Total 250 ml 700 ml # Voids 0 2 # Bowel Movements 0 4 Result Diagram: 09/06/1630 09/06/16 0530 Objective Remarks GENERAL: This is a well-nourished, well-developed patient, in no apparent distress. CARDIOVASCULAR: Regular rate and rhythm without murmurs, gallops, or rubs. RESPIRATORY: Clear to auscultation. Breath sounds equal bilaterally. No wheezes , rales, or rhonchi. GASTROINTESTINAL: Abdomen soft, non-tender, nondistended. Normal active bowel sounds MUSCULOSKELETAL: Extremities without clubbing, cyanosis, or edema. NEURO: Alert & Oriented x4 to person, place, time, situation. weak all over A/P Problem List: (1) Fall ICD Code: W19.XXXA Status: Acute Plan: Continue with rehabilitation plans, [facility] Lexus Alexandre MD Sep 09, 2016 10:32
[2016-09-09 12:00] VITALS: BP 135/70; PULSE 66; RESP 18; TEMP 97.1; O2SAT 97
[2016-09-09 20:00] VITALS: BP 139/80; PULSE 73; RESP 18; TEMP 96.8; O2SAT 96
[2016-09-09] MEDS: traZODone HCL 50 MG TAB PO SCH (21:56)
[2016-09-10] MEDS: METHOCARBAMOL 500 MG TAB PO SCH ×2 (06:09→12:04)
[2016-09-10] MEDS: ARIPiprazole 5 MG TAB PO SCH (08:47)
[2016-09-10] MEDS: APIXABAN 5 MG TABLET PO SCH (08:47)
[2016-09-10] MEDS: TAMSULOSIN HCL 0.4 MG CAP PO SCH (08:48)
[2016-09-10] MEDS: GABAPENTIN 300 MG CAP PO SCH (08:48)
[2016-09-10] MEDS: SERTRALINE HCL 100 MG TAB PO SCH (08:48)
[2016-09-10] MEDS: DOCUSATE SODIUM 50 MG/SENNA 8.6 MG TAB PO SCH (08:48)
[2016-09-10 08:49] VITALS: BP 124/65; PULSE 72; RESP 15; TEMP 96.6; O2SAT 94
[2016-09-10] MEDS: SODIUM CHLORIDE 0.9% FLUSH 5 ML FLUSH FLUSH SCH (09:00)
--- NOTE | 2016-09-10 09:23 | HHI.PR ---
Subjective Remarks Follow-up for fall. Patient has no acute complaints. Objective Vitals Vital Signs Date Time Temp Pulse Resp B/P Pulse Ox O2 Delivery O2 Flow Rate FiO2 09/10/16 08:49 96.6 72 15 124/65 94 09/09/16 20:00 96.8 73 18 139/80 96 09/09/16 12:00 97.1 66 18 135/70 97 I/O 09/09/16 09/09/16 09/09/16 09/10/16 09/10/16 09/10/16 07:00 15:00 23:00 07:00 15:00 23:00 Intake Total 100 ml 725 ml 480 ml 240 ml Output Total 700 ml 850 ml 500 ml 700 ml Balance -600 ml -125 ml -20 ml -460 ml Intake Oral 100 ml 725 ml 480 ml 240 ml Output Urine Total 700 ml 850 ml 500 ml 700 ml # Bowel Movements 0 0 0 Result Diagram: 09/06/1652909/06/16 0530 Objective Remarks GENERAL: Well-nourished, well-developed patient in no apparent distress. SKIN: Warm and dry. 7 Prolene sutures over the chin. No surrounding erythema. No dehiscence or drainage. HEAD: Normocephalic. ENT: Hard of hearing. CARDIOVASCULAR: Regular rate and rhythm. RESPIRATORY: No accessory muscle use. Clear to auscultation. GASTROINTESTINAL: Abdomen soft, non-tender, nondistended. NEUROLOGICAL: Awake and alert. Five out of 5 muscle strength in the arms and legs. Sensation grossly intact over the arms and legs. Patient witnessed to be ambulating with physical therapy using walker and back brace. Normal speech. PSYCHIATRIC: Appropriate mood and affect. Urinary Catheter: No Vascular Central Line Catheter: No A/P Problem List: (1) Fall ICD Code: W19.XXXA Status: Acute (2) Chin laceration ICD Code: S01.81XA Status: Acute Assessment and Plan 71-year-old male with: Fall: Mechanical fall with prior history of lumbar spine surgery in July of 2016 with pre-existing compression fracture. Patient wears back brace. -Patient has difficulty ambulating and requires SNF placement -Continue PT Chin laceration: Remove sutures today. DVT prevention: Patient on Eliquis. Discharge Planning 09/10: I was informed by social work case manager that patient has been accepted by [facility]. [id number] on chart. Discharge order placed. Carolynn Soriano Sep 10, 2016 09:23
[2016-09-10] MEDS ORDERED: HYDR-3516 PO (11:51)
[2016-09-10] MEDS: ACETAMINOPHEN/HYDROcodone 325 MG/5 MG TAB PO PRN (12:01)
--- NOTE | 2016-09-10 12:51 | HHI.DCPOC ---
Discharge Care Plan Diagnosis: (1) Fall (2) Chin laceration Goals to Promote Your Health * To prevent worsening of your condition and complications * To maintain your health at the optimal level Directions to Meet Your Goals Take your medications as prescribed Follow your dietary instruction Follow activity as directed Keep your appointments as scheduled Take your immunizations and boosters as scheduled If your symptoms worsen call your PCP, if no PCP go to Urgent Care Center or Emergency Room Smoking is Dangerous to Your Health. Avoid second hand smoke Call the 24-hour hour crisis hotline for domestic abuse at Carolynn Soriano Sep 10, 2016 12:51
[2016-09-10 13:31] VITALS: RESP 12
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
== END 2016-09-10 15:37 ==
LOC: PHED 17:14 → PHEDA 21:46 → PH3B 22:22 → PH5A 09-09 15:41
PROVIDERS: ADMIT Hospitalist; ATTEND Hospitalist
DX: R26.81 Unsteadiness on feet (principal); S01.81XA Laceration without foreign body of other part of head, initial encounter; G35 Multiple sclerosis; N40.0 Benign prostatic hyperplasia without lower urinary tract symptoms; N39.498 Other specified urinary incontinence; F41.8 Other specified anxiety disorders; F39 Unspecified mood [affective] disorder; I10 Essential (primary) hypertension; S32.038A Other fracture of third lumbar vertebra, initial encounter for closed fracture; T81.31XD Disruption of external operation (surgical) wound, not elsewhere classified, subsequent encounter; F17.210 Nicotine dependence, cigarettes, uncomplicated; W01.198A Fall on same level from slipping, tripping and stumbling with subsequent striking against other object, initial encounter; Z98.1 Arthrodesis status
CPT/HCPCS: 12013; 70450; 70486; 72125; 72131; 80048; 80053; 85025; 97110; 97116; 97162; 97530; 99285; G0378; G8987; G8988

== ENCOUNTER 2016-09-16 19:27 | Emergency (ER) | payer MEDICARE ==
[~2016-09-16] VITALS: Ht 193 cm; Wt 70.0 kg
[~2016-09-16 19:27] MED LIST changes: -BACL10TA PO; -CIPR750T2 PO; -FINA1TAB16 PO; +HYDR-3516 PO; -HYDR-3583 PO; +WALKER WHEELS/F1 MIS
[2016-09-16 19:29] VITALS: BP 153/72; PULSE 82; RESP 14; TEMP 97.9; O2SAT 96
[2016-09-17] MEDS ORDERED: oxyCODONE/ACETAMINOPHEN 10 MG/325 MG TAB PO ONE (00:15)
--- NOTE | 2016-09-17 01:01 | PD ---
HPI . Right hip pain Chief Complaint: Pain: Acute or Chronic Time Seen by Provider: 23:51 Travel History International Travel<30 days: No Contact w/Intl Traveler<30days: No Traveled to known affect area: No History of Present Illness HPI Patient presents complaining with right hip pain. He states he's had it for about 3 weeks since he had a fall. Patient states that he lives with his daughter and that the living situation is not good. He states that his daughter "can't keep a house." Patient reports that he takes pills in the morning for his pain but that the pills are not helping. PFSH Past Medical History Blood Disorders: No Anxiety: Yes Depression: Yes Cancer: No Cardiovascular Problems: No Diminished Hearing: Yes (bilateral hearing aids, NONE IN PLACE) Deep Vein Thrombosis: Yes Endocrine: No Genitourinary: Yes (BPH, CHRONIC INCONTINENCE UNABLE TO CONTROL BLADDER MUSCLES ) Immune Disorder: No Musculoskeletal: Yes (BACK) Neurologic: Yes (Multiple Sclerosis) Psychiatric: Yes (mood disorder) Reproductive: No Respiratory: No Immunizations Current: Yes Past Surgical History Other Surgery: Yes (hx of back surgery) Social History Alcohol Use: No Tobacco Use: Yes (1.5 PPD) Substance Use: No Allergies-Medications (Allergen,Severity, Reaction): Coded Allergies: No Known Allergies (Unverified , 09/16/16) Reported Meds & Prescriptions Reported Meds & Active Scripts Active Hydrocodone-Acetaminophen 5-325 mg Tab 1 Tab PO Q4H PRN Walker with Front Wheels (Device) 1 Mis Mis 1 Ea .ROUTE DIRECTED Neurontin (Gabapentin) 300 Mg Cap 300 Mg PO BID 30 Days Methocarbamol 500 Mg Tab 500 Mg PO Q8HR Trazodone (Trazodone HCl) 50 Mg Tab 50 Mg PO HS Senna Plus 8.6-50 mg (Sennosides-Docusate Sodium) 1 Tab Tab 1 Tab PO BID Flomax (Tamsulosin HCl) 0.4 Mg Cap 0.4 Mg PO DAILY Zoloft (Sertraline HCl) 100 Mg Tab 100 Mg PO DAILY Aripiprazole 10 Mg Tab 10 Mg PO DAILY Eliquis (Apixaban) 5 Mg Tab 5 Mg PO BID follow up with PCP for refill and duration Reported Calcium 1200 (Calcium Carbonate-Vitamin D W/Minerals) 1,200-1,000 Mg-Unit Chew 1 Tab CHEW DAILY Review of Systems Except as stated in HPI: all other systems reviewed are Neg Musculoskeletal: Positive: Arthralgias, Pain (back pain and right hip pain) Physical Exam Narrative GENERAL: This is an older man who is lying on the stretcher with a back brace in place. He does not appear to be in any acute distress. SKIN: Warm and dry. HEAD: Atraumatic. Normocephalic. EYES: Pupils equal and round. ENT: No nasal bleeding or discharge. Mucous membranes pink and moist. NECK: Trachea midline. CARDIOVASCULAR: Regular rate and rhythm. RESPIRATORY: No accessory muscle use. GASTROINTESTINAL: Abdomen soft, non-tender, nondistended. MUSCULOSKELETAL: He allows full passive range of motion of his right hip without any apparent pain. There is no groin tenderness. There is no greater trochanteric tenderness. He is distally neurovascularly intact. NEUROLOGICAL: Awake and alert. No obvious cranial nerve deficits. Motor grossly within normal limits. Normal speech. PSYCHIATRIC: Appropriate mood and affect. Data Data Last Documented VS Vital Signs Date Time Temp Pulse Resp B/P Pulse Ox O2 Delivery O2 Flow Rate FiO2 09/16/16 19:29 97.9 82 14 153/72 96 Room Air Orders Oxycodone-Acetamin 10-325 Mg (Percocet 1 (09/17/16 00:15) MDM Medical Decision Making Medical Screen Exam Complete: Yes Emergency Medical Condition: Yes Medical Record Reviewed: Yes (the patient is actually currently residing in a [facility]. He takes [place] for his pain. This fall actually occurred at the end of July. He had negative x-rays of his right hip at that time.) Differential Diagnosis Differential diagnosis of joint pain includes but is not limited to arthritis, gout, sprain/strain, fracture, dislocation Narrative Course Patient presents for treatment of right hip pain. He reports pain since a fall. The fall occurred in July. He has been evaluated for this fall and this actually been hospitalized and subsequently transferred to senior care facility. The patient believes that he lives at home with his daughter. His exam of his right hip is negative. Diagnosis Primary Impression: Right hip pain Patient Instructions: Narcotic given in the ED Disposition: 01 DISCHARGE HOME Condition: Stable Aliyah Mcmahon MD Sep 17, 2016 01:01
[2016-09-17 01:23] VITALS: BP 136/69; PULSE 70; RESP 18; TEMP 98.1; O2SAT 97
[2016-09-17 02:36] VITALS: RESP 16
[2016-09-17 06:46] VITALS: BP 124/68
== END 2016-09-17 06:47 | disposition home or self-care (01) ==
LOC: NEPE 19:27 → NEPB 09-17 06:47
DX: M25.551 Pain in right hip (principal); G35 Multiple sclerosis; F17.200 Nicotine dependence, unspecified, uncomplicated; H91.93 Unspecified hearing loss, bilateral; Z86.59 Personal history of other mental and behavioral disorders; Z86.718 Personal history of other venous thrombosis and embolism; Z87.448 Personal history of other diseases of urinary system; Z87.39 Personal history of other diseases of the musculoskeletal system and connective tissue; W19.XXXD Unspecified fall, subsequent encounter
CPT/HCPCS: 99283

== ENCOUNTER 2016-10-11 18:34 | Emergency (ER) | payer MEDICARE ==
[~2016-10-11] VITALS: Ht 193 cm; Wt 68.0 kg
[2016-10-11 18:36] VITALS: BP 137/83; PULSE 81; RESP 18; TEMP 98.3; O2SAT 97
[2016-10-11] MEDS ORDERED: METR-1 PO (19:39)
[2016-10-11] MEDS ORDERED: APIX5TAB PO (19:39)
[2016-10-11] MEDS ORDERED: HYDR-3583 PO (19:39)
[2016-10-11] MEDS ORDERED: LOPE2CAP PO (19:39)
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
[2016-10-11] MEDS ORDERED: methylPREDNISolone SOD SUCC 125 MG/2 ML VIAL IM SCH (20:00)
== END 2016-10-11 20:15 | disposition home or self-care (01) ==
LOC: PHEFT 18:34
DX: M25.551 Pain in right hip (principal); G35 Multiple sclerosis; Z86.718 Personal history of other venous thrombosis and embolism; F17.210 Nicotine dependence, cigarettes, uncomplicated
CPT/HCPCS: 96372; 99283; J2930

== ENCOUNTER 2016-11-04 15:47 | Inpatient (IN) | payer OTHER, MEDICARE ==
[~2016-11-04] VITALS: Ht 193 cm; Wt 59.8 kg
[~2016-11-04 15:47] MED LIST changes: -CALCCHW9 CHEW; -HYDR-3516 PO; +HYDR-3583 PO; +LOPE2CAP PO; +METR-1 PO; -SENN1TAB PO; -WALKER WHEELS/F1 MIS
[2016-11-04 15:52] VITALS: BP 117/68; PULSE 88; RESP 16; TEMP 98; O2SAT 97
[2016-11-04 16:29] LABS: AUTOMATED NEUTROPHIL # 6.1 TH/MM3 (1.8-7.7); BASOPHIL # 0.2 TH/MM3 (0-0.2); BASOPHIL % 2.2 % (0.0-2.0); EOSINOPHIL # 0.2 TH/MM3 (0-0.4); EOSINOPHIL % 2.2 % (0.0-4.0); HEMATOCRIT 41.9 % (39.0-51.0); HEMO FLAGS DIFF FINAL; LYMPH % 17.2 % (9.0-44.0); LYMPHOCYTE # 1.6 TH/MM3 (1.0-4.8); MEAN CELL VOLUME 95.1 FL (80.0-100.0); MEAN CORPUSCULAR HEMOGLOBIN 32.9 PG (27.0-34.0); MEAN CORPUSCULAR HGB CONC 34.6 % (32.0-36.0); MONO % 10.8 % (0.0-8.0); NEUT % 67.6 % (16.0-70.0); PLATELET COUNT 320 TH/MM3 (150-450); RED CELL DISTRIBUTION WIDTH 14.8 % (11.6-17.2); WHITE BLOOD COUNT 9.1 TH/MM3 (4.0-11.0)
[2016-11-04 16:46] LABS: ALKALINE PHOSPHATASE 102 U/L (45-117); TOTAL BILIRUBIN ADULT 0.3 MG/DL (0.2-1.0)
[2016-11-04 16:48] LABS: ALT (GPT) 22 U/L (12-78); ANION GAP 7 MEQ/L (5-15); AST (GOT) 14 U/L (15-37); BICARBONATE 24.3 MEQ/L (21.0-32.0); BLOOD UREA NITROGEN 19 MG/DL (7-18); CHLORIDE 105 MEQ/L (98-107); GLOMERULAR FILTRATION RATE 144 ML/MIN (>89); POTASSIUM 4.2 MEQ/L (3.5-5.1); SODIUM (NA) 136 MEQ/L (136-145)
--- NOTE | 2016-11-04 18:34 | PD ---
HPI Chief Complaint: Psychiatric Symptoms Time Seen by Provider: 18:30 Travel History International Travel<30 days: No Contact w/Intl Traveler<30days: No Traveled to known affect area: No History of Present Illness HPI 71-year-old male that presents to the ED for evaluation of psychiatric illness. Patient was [place] acted by police after apparently he has been stating that he wanted to kill himself and feels depressed. Apparently his been out of his depression medications. He cannot tell me what he actually takes. Patient has a chronic history of MS as well as pain in his hips with trouble ambulating and usually uses a wheelchair to get about. Patient usually gets assistance from his daughter but per [place] act apparently daughter is about to go into rehabilitation and he got more stressed and depressed because he does not know what he can do by himself. Daughter apparently contacted police and brought him here for evaluation of depression. Patient denies any homicidal ideation but states having suicidal ideations and plan. He will not tell me what the plan is. He denies any recent injuries. He denies any other medical problems. Has no allergies to medication. Symptoms seem to be moderate. Worsening for the past month. PFSH Past Medical History Blood Disorders: No Anxiety: Yes Depression: Yes Cancer: No Cardiovascular Problems: No Diminished Hearing: Yes (bilateral hearing aids, NONE IN PLACE) Deep Vein Thrombosis: Yes Endocrine: No Genitourinary: Yes (BPH, CHRONIC INCONTINENCE UNABLE TO CONTROL BLADDER MUSCLES ) Immune Disorder: No Medical other: Yes (POOR HISTORIAN) Musculoskeletal: Yes (BACK) Neurologic: Yes (Multiple Sclerosis) Psychiatric: Yes (mood disorder) Reproductive: No Respiratory: No Immunizations Current: Yes Influenza Vaccination: Yes Past Surgical History Other Surgery: Yes (hx of back surgery) Social History Alcohol Use: No Tobacco Use: Yes (1.5 PPD) Substance Use: No Allergies-Medications (Allergen,Severity, Reaction): Coded Allergies: No Known Allergies (Unverified , 10/11/16) Reported Meds & Prescriptions Reported Meds & Active Scripts Active Neurontin (Gabapentin) 300 Mg Cap 300 Mg PO BID 30 Days Methocarbamol 500 Mg Tab 500 Mg PO Q8HR Trazodone (Trazodone HCl) 50 Mg Tab 50 Mg PO HS Flomax (Tamsulosin HCl) 0.4 Mg Cap 0.4 Mg PO DAILY Zoloft (Sertraline HCl) 100 Mg Tab 100 Mg PO DAILY Aripiprazole 10 Mg Tab 10 Mg PO DAILY Reported Eliquis (Apixaban) 5 Mg Tab 5 Mg PO BID Hydrocodone-Acetaminophen 10-325 mg Tab 1 Tab PO Q6H PRN Loperamide (Loperamide HCl) 2 Mg Cap 2 Mg PO QID PRN One capsule after each loose stool. Not to exceed 8 capsules per day. Review of Systems Except as stated in HPI: all other systems reviewed are Neg Physical Exam Narrative GENERAL: SKIN: Warm and dry. HEAD: Atraumatic. Normocephalic. EYES: Pupils equal and round. No scleral icterus. No injection or drainage. ENT: No nasal bleeding or discharge. Mucous membranes pink and moist. Tongue is midline. No uvula deviation. NECK: Trachea midline. No JVD. CARDIOVASCULAR: Regular rate and rhythm. RESPIRATORY: No accessory muscle use. Clear to auscultation. Breath sounds equal bilaterally. GASTROINTESTINAL: Abdomen soft, non-tender, nondistended. Hepatic and splenic margins not palpable. MUSCULOSKELETAL: Extremities without clubbing, cyanosis, or edema. No obvious deformities. Full range of motion of the upper and lower extremities bilaterally. 2+ pulses bilaterally. Unable to assess gait. NEUROLOGICAL: Awake and alert. No obvious cranial nerve deficits. Motor grossly within normal limits. Five out of 5 muscle strength in the arms and legs. Normal speech. PSYCHIATRIC: Depressed mood and affect; insight and judgment questionable Data Data Last Documented VS Vital Signs Date Time Temp Pulse Resp B/P Pulse Ox O2 Delivery O2 Flow Rate FiO2 11/04/16 15:52 98.0 88 16 117/68 97 Orders Complete Blood Count With Diff (11/04/16 15:57) Comprehensive Metabolic Panel (11/04/16 15:57) Psych Screen (11/04/16 15:57) Drug Screen, Random Urine (11/04/16 15:57) Labs Laboratory Tests Test 11/04/16 15:52 White Blood Count 9.1 TH/MM3 Red Blood Count 4.40 MIL/MM3 Hemoglobin 14.5 GM/DL Hematocrit 41.9 % Mean Corpuscular Volume 95.1 FL Mean Corpuscular Hemoglobin 32.9 PG Mean Corpuscular Hemoglobin 34.6 % Concent Red Cell Distribution Width 14.8 % Platelet Count 320 TH/MM3 Mean Platelet Volume 8.4 FL Neutrophils (%) (Auto) 67.6 % Lymphocytes (%) (Auto) 17.2 % Monocytes (%) (Auto) 10.8 % Eosinophils (%) (Auto) 2.2 % Basophils (%) (Auto) 2.2 % Neutrophils # (Auto) 6.1 TH/MM3 Lymphocytes # (Auto) 1.6 TH/MM3 Monocytes # (Auto) 1.0 TH/MM3 Eosinophils # (Auto) 0.2 TH/MM3 Basophils # (Auto) 0.2 TH/MM3 CBC Comment DIFF FINAL Differential Comment Sodium Level 136 MEQ/L Potassium Level 4.2 MEQ/L Chloride Level 105 MEQ/L Carbon Dioxide Level 24.3 MEQ/L Anion Gap 7 MEQ/L Blood Urea Nitrogen 19 MG/DL Creatinine 0.56 MG/DL Estimat Glomerular Filtration 144 ML/MIN Rate Random Glucose 76 MG/DL Calcium Level 8.8 MG/DL Total Bilirubin 0.3 MG/DL Aspartate Amino Transf 14 U/L (AST/SGOT) Alanine Aminotransferase 22 U/L (ALT/SGPT) Alkaline Phosphatase 102 U/L Total Protein 8.0 GM/DL Albumin 3.6 GM/DL MDM Medical Decision Making Medical Screen Exam Complete: Yes Emergency Medical Condition: Yes Medical Record Reviewed: Yes Interpretation(s) CBC & BMP Diagram 11/04/16 15:52 LFTS WNL Differential Diagnosis Depression versus suicidal ideation versus anxiety versus adjustment disorder versus mood disorder versus bipolar disorder versus schizophrenia versus paranoid disorder versus psychosis versus substance abuse versus alcohol abuse versus alcohol induced psychosis versus homicidality addition versus cutting versus personality disorder Narrative Course 71-year-old male that presents to the ED for evaluation of psych. Patient was properly examined and was found to have signs and symptoms consistent appears to be psychiatric illness. Patient will have blood work. Patient was medically cleared. Okay to be seen by psych. Mental health screening was discussed with the patient. Diagnosis Primary Impression: MDD (major depressive disorder) Qualified Code: F33.1 - Moderate episode of recurrent major depressive disorder Chuck Soriano Nov 04, 2016 18:34
[2016-11-05 07:35] VITALS: BP 131/70; PULSE 87; RESP 20; O2SAT 94
[2016-11-05] MEDS ORDERED: MAGNESIUM HYDROXIDE SUSP 30 ML CUP PO PRN (09:30)
[2016-11-05] MEDS ORDERED: diphenhydrAMINE HCL 50 MG CAP PO PRN (09:30)
[2016-11-05] MEDS ORDERED: hydrOXYzine HCL 50 MG TAB PO PRN (09:30)
[2016-11-05] MEDS ORDERED: ACETAMINOPHEN 325 MG TAB PO PRN (09:30)
[2016-11-05] MEDS ORDERED: ALUMINUM/MAGNESIUM/SIMETH 30 ML CUP PO PRN (09:30)
[2016-11-05] MEDS ORDERED: LOPERAMIDE HCL 2 MG CAP PO PRN (09:45)
--- NOTE | 2016-11-05 09:54 | HHI.HP ---
Provisional Diagnosis Admission Date 11/04/16 [place] I. 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 Express and informed consent means consent voluntarily given in writing, by a competent person, after sufficient explanation and disclosure of the subject matter involved to enable the person to make a knowing and willful decision without any element of force, fraud, deceit, duress, or other form of constraint or coercion. This person is 18 years of age or older, is not now known to be incompetent to consent to treatment with a guardian advocate, and does not have a health care surrogate or proxy currently making medical treatment decisions. I have found this person to be one of the following: [] Competent to provide express and informed consent, as defined above, for voluntary admission to this facility and is competent to provide express and informed consent for treatment. He/she has the consistent capacity to make well reasoned, willful, and knowing decisions concerning his or her medical or mental health treatment. The person fully and consistently understands the purpose of the admission for examination/placement and is fully capable of personally exercising all rights assured under [place] [] Incompetent to provide express and informed consent to voluntary admission, and this is incompetent to provide express and informed consent to treatment. The person must be transferred to involuntary status and a petition for a guardian advocate filed with the Circuit Court. [x] Refusing to provide express and informed consent to voluntary admission but is competent to provide express and informed consent for treatment. The person must be discharged or transferred to involuntary status. Form shall be completed within 24 hours of a person's arrival at the receiving facility and filed in the clinical record of each person: 1. Admitted on a voluntary basis 2. Permitted to provide express and informed consent to his/her own treatment 3. Allowed to transfer from involuntary to voluntary status 4. Prior to permitting a person to consent to his or her own treatment after having been previously found incompetent to consent to treatment. History of Present Illness Capacity: Lacks Capacity (patient lacks capacity to approve for admission, has capacity to approve for medications) HPI Patient is a 8-year-old white male who comes to the emergency department under Carter act by the [place] department of public safety dated 11/04/16 at 3:45 PM Carter act reviewed essentially stating that patient was sitting outside his apartment crying saying that he was depressed and wanted to hurt himself however he did not elaborate on that with the police specialist to stating he wanted to hurt himself. It appears patient's daughter was present and she said that her father had been depressed and third harm herself or period of time. They did also run out of his medications for depression was taken and under the Carter act. Patient's daughter is Radha Lama at [phone]. Patient seen screened in the ED, no urine toxicology was done. At the present time patient laying quietly on his gurney in C pod nurse Abigail present throughout session. Patient is alert fairly well oriented thin slender somewhat irritable angry loud intrusive white male. Stating he has lived with his daughter for a number of years she is a pearl hand of him helping with hygiene cooking and activities of daily living. He also states that she is going to a "rehabilitation" facility for some reason. These uncertain what will happen to him. He states he has been depressed though he denies suicidality at this time. He denies alcohol or drugs at this time, though does acknowledge a past history of alcohol misuse. He states he is a [employer] is attempt to get services through the [place] [facility] here in [facility]. He denies any prior psychiatric contact or psychotropic medications. Of interest I did care for this patient 07/21/16 through 07/27/16 under visit [id number] at that time diagnosed major depressive disorder. The history at that time is very similar to what is being described at this time I did talk to the patient's daughter Radha Lama. She states that patient has been noncompliant with his medication becoming more and more irritable and depressed. She did verify that she has had issues with drugs in the past that she is going to the [facility] for an assessment related to her substance abuse issues and effort to gain custody of her 11-year-old child. This may or may not be done as an inpatient outpatient she does not know at this time. In any event she has made arrangements for another to come and stay and help with her father once he is better. Considering the information given by the patient's daughter at this time I feel patient does meet criteria for involuntary psychiatric hospitalization under the Carter act. Thus I'll do first opinion requests a second opinion. We'll have hospice consult with a Jason is various medical issues. We'll continue his medications per the med reconciliation form. Hopeless to be fairly short stay the daughter states she will notify us of her own disposition the possibility of pearl hand being in his home. Review of Systems ROS Limitations: Clinical Condition Constitutional: DENIES: Diaphoretic episodes, Fatigue, Fever, Weight gain, Weight loss, Chills, Dizziness, Change in appetite, Night Sweats Endocrine: DENIES: Heat/cold intolerance, Polydipsia, Polyuria, Polyphagia Eyes: DENIES: Blurred vision, Diplopia, Eye inflammation, Eye pain, Vision loss , Photosensitivity, Double Vision Ears, nose, mouth, throat: DENIES: Tinnitus, Hearing loss, Vertigo, Nasal discharge, Oral lesions, Throat pain, Hoarseness, Ear Pain, Running Nose, Epistaxis, Sinus Pain, Toothache, Odynophagia Respiratory: DENIES: Apneas, Cough, Snoring, Wheezing, Hemoptysis, Sputum production, Shortness of breath Cardiovascular: DENIES: Chest pain, Palpitations, Syncope, Dyspnea on Exertion , PND, Lower Extremity Edema, Orthopnea, Claudication Gastrointestinal: DENIES: Abdominal pain, Black stools, Bloody stools, Constipation, Diarrhea, Nausea, Vomiting, Difficulty Swallowing, Anorexia Genitourinary: DENIES: Sexual dysfunction, Urinary frequency, Urinary incontinence, Urgency, Hematuria, Dysuria, Nocturia, Penile Discharge, Testicular Pain, Testicular Swelling Musculoskeletal: DENIES: Joint pain, Muscle aches, Stiffness, Joint Swelling, Back pain, Neck pain Integumentary: DENIES: Abnormal pigmentation, Nail changes, Pruritus, Rash Hematologic/lymphatic: DENIES: Bruising, Lymphadenopathy Immunologic/allergic: DENIES: Eczema, Urticaria Neurologic: DENIES: Abnormal gait, Headache, Localized weakness, Paresthesias, Seizures, Speech Problems, Tremor, Poor Balance Psychiatric: COMPLAINS OF: Depression, Suicidal Ideation Past Psych History Psychological trauma history Denies Violence risk - others (6 mos) Low Violence risk - self (6 mos) Patient made suicidal statements Substance Abuse History Drugs/Alcohol past 12 months Denies Past Family Social History Coded Allergies: No Known Allergies (Unverified , 10/11/16) Past Medical History Multiple please see med surge assessment Active Scripts Gabapentin (Neurontin)300 Mg Flz818 Mg PO BID 30 Days Prov:Sanchez Montes MD 08/18/16 Methocarbamol 500 Mg Wrd477 Mg PO Q8HR #15 TAB Prov:Yenifer Hernandez MD 08/10/16 Trazodone 50 Mg Tab50 Mg PO HS #30 TAB Ref 0 Prov:Yenifer Hernandez MD 08/10/16 Tamsulosin (Flomax)0.4 Mg Cap0.4 Mg PO DAILY #30 CAP Ref 0 Prov:Moe Ahn MD 07/27/16 Sertraline (Zoloft)100 Mg Aqs061 Mg PO DAILY #30 TAB Ref 0 Prov:Moe Ahn MD 07/27/16 Aripiprazole 10 Mg Tab10 Mg PO DAILY #30 TAB Ref 0 Prov:Moe Ahn MD 07/27/16 Reported Medications Apixaban (Eliquis)5 Mg Tab5 Mg PO BID #60 TAB Ref 0 10/11/16 Hydrocodone-Acetaminophen 10-325 mg Tab1 Tab PO Q6H PRN (PAIN) #30 TAB Ref 0 10/11/16 Loperamide 2 Mg Cap2 Mg PO QID PRN (DIARRHEA) Ref 0 One capsule after each loose stool. Not to exceed 8 capsules per day. 10/11/16 Discontinued Reported Medications Metronidazole (Flagyl)500 Mg Pvr154 Mg PO TID Ref 0 10/11/16 Current Medications Medications (Trade) Dose Ordered Sig/Tia Route Start Time Stop Time Status Last Admin (Benadryl) 50 mg HS PRN PO 11/05/16 09:30 (Tylenol) 650 mg Q4H PRN PO 11/05/16 09:30 (Milk Of Magnesia Liq) 30 ml DAILY PRN PO 11/05/16 09:30 (Mag-Al Plus Susp Liq) 30 ml Q6H PRN PO 11/05/16 09:30 (Habitrol 14 Mg Patch.24 Hr) 1 patch DAILY T-DERMAL 11/06/16 09:00 (Atarax) 50 mg Q6H PRN PO 11/05/16 09:30 UNV Family History Patient denies history of mental illness or addictions and family Social History Patient history of alcohol abuse in the past, lives with his adult daughter Patient's Strengths (min. 2) Patient verbal irritable axis health care Physical Exam Patient seen screen in ED exam reviewed and agreed with vital signs blood pressure 131/70 pulse 87 respirations 20 Vital Signs Vital Signs Date Time Temp Pulse Resp B/P Pulse Ox O2 Delivery O2 Flow Rate FiO2 11/05/16 07:35 87 20 131/70 94 Room Air 11/04/16 15:52 98.0 Mental Status Examination Alert feel level on 2 thin slender somewhat disheveled white male lying in bed with somewhat irritable coronary attitude nurse Abigail present throughout session. He has good eye contact Appearance Somewhat disheveled Speech: Rapid, Tangential Orientation: x3 Memory: Unremarkable (fair) Thought Process: Linear Thought Content: Unremarkable (somewhat focused on patient's daughter) Language Polish Fund of Knowledge Poor Hallucination Type: None (denies) Attention and Concentration: Other (poor) Suicidal Ideation: Yes (patient made vague statements to law enforcement officers) Previous Suicide Attempts: No Homicidal Ideation: No Previous Homicide Attempts: No Insight: Poor Judgment: Poor Affect: Other (some increased range and intensity) Mood: Sad, Irritable Motor Activity: Abnormal gait-specify (patient history MS will get PT assessment) Assessment & Plan Problem List: (1) Major depressive disorder, recurrent severe without psychotic features ICD Code: F33.2 (2) MS (multiple sclerosis) ICD Code: G35 Assessment & Plan 5-7 Estimated LOS: days patient doesn't meet criteria for involuntary psychiatric hospitalization of the Carter act I'll do first opinion requests a second opinion. They do feel he has capacity to work with us with his medication. We will hospitalist consult was also Discharge Planning To be determined Request HC Surrog/Guard Advoc?: No Moe Ahn MD Nov 05, 2016 09:54
[2016-11-05 12:25] VITALS: BP 133/64; PULSE 78; RESP 16; TEMP 97.7; O2SAT 94
--- NOTE | 2016-11-05 13:01 | PD.CONS ---
Provisional Diagnosis Admission Date Nov 05, 2016 at 10:04 [place] I. major depressive disorder recurrent severe without psychosis F 33.2, MS Shad 35 History of Present Illness Service Psychiatry Consult Requested By Primary Care Physician [facility] HPI Patient is a 8-year-old white male who comes to the emergency department under Carter act by the [place] [facility] of public safety dated 11/04/16 at 3:45 PM Carter act reviewed essentially stating that patient was sitting outside his apartment crying saying that he was depressed and wanted to hurt himself however he did not elaborate on that with the custody officer to stating he wanted to hurt himself. It appears patient's daughter was present and she said that her father had been depressed and third harm herself or period of time. They did also run out of his medications for depression was taken and under the Carter act. Patient's daughter is Radha Lama at [phone]. Patient seen screened in the ED, no urine toxicology was done. At the present time patient laying quietly on his gurney in C pod nurse Abigail present throughout session. Patient is alert fairly well oriented thin slender somewhat irritable angry loud intrusive white male. Stating he has lived with his daughter for a number of years she is a [employer] weapon system operator of him helping with hygiene cooking and activities of daily living. He also states that she is going to a "rehabilitation" facility for some reason. These uncertain what will happen to him. He states he has been depressed though he denies suicidality at this time. He denies alcohol or drugs at this time, though does acknowledge a past history of alcohol misuse. He states he is a [place] is attempt to get services through the [place] [facility] here in [facility]. He denies any prior psychiatric contact or psychotropic medications. Of interest I did care for this patient 07/21/16 through 07/27/16 under visit [id number] at that time diagnosed major depressive disorder. The history at that time is very similar to what is being described at this time I did talk to the patient's daughter Radha Lama. She states that patient has been noncompliant with his medication becoming more and more irritable and depressed. She did verify that she has had issues with drugs in the past that she is going to the [facility] for an assessment related to her substance abuse issues and effort to gain custody of her 11-year-old child. This may or may not be done as an inpatient outpatient she does not know at this time. In any event she has made arrangements for another to come and stay and help with her father once he is better. Considering the information given by the patient's daughter at this time I feel patient does meet criteria for involuntary psychiatric hospitalization under the Carter act. Thus I'll do first opinion requests a second opinion. We'll have hospice consult with marcia Jason is various medical issues. We'll continue his medications per the med reconciliation form. Hopeless to be fairly short stay the daughter states she will notify us of her own disposition the possibility of tomahawk weapon system operator being in his home. Patient seen and chart reviewed. He remains markedly depressed with suicidal ideation. Review of Systems ROS Limitations: Clinical Condition Past Family Social History Coded Allergies: No Known Allergies (Unverified , 10/11/16) Active Scripts Gabapentin (Neurontin)300 Mg Ydl376 Mg PO BID 30 Days Prov:Sanchez Montes MD 08/18/16 Methocarbamol 500 Mg Rnq050 Mg PO Q8HR #15 TAB Prov:Yenifer Hernandez MD 08/10/16 Trazodone 50 Mg Tab50 Mg PO HS #30 TAB Ref 0 Prov:Yenifer Hernandez MD 08/10/16 Tamsulosin (Flomax)0.4 Mg Cap0.4 Mg PO DAILY #30 CAP Ref 0 Prov:Moe Ahn MD 07/27/16 Sertraline (Zoloft)100 Mg For135 Mg PO DAILY #30 TAB Ref 0 Prov:Moe Ahn MD 07/27/16 Aripiprazole 10 Mg Tab10 Mg PO DAILY #30 TAB Ref 0 Prov:Moe Ahn MD 07/27/16 Reported Medications Apixaban (Eliquis)5 Mg Tab5 Mg PO BID #60 TAB Ref 0 10/11/16 Hydrocodone-Acetaminophen 10-325 mg Tab1 Tab PO Q6H PRN (PAIN) #30 TAB Ref 0 10/11/16 Loperamide 2 Mg Cap2 Mg PO QID PRN (DIARRHEA) Ref 0 One capsule after each loose stool. Not to exceed 8 capsules per day. 10/11/16 Discontinued Reported Medications Metronidazole (Flagyl)500 Mg Pok813 Mg PO TID Ref 0 10/11/16 Current Medications Medications (Trade) Dose Ordered Sig/Tia Route Start Time Stop Time Status Last Admin (Benadryl) 50 mg HS PRN PO 11/05/16 09:30 (Tylenol) 650 mg Q4H PRN PO 11/05/16 09:30 (Milk Of Magnesia Liq) 30 ml DAILY PRN PO 11/05/16 09:30 (Mag-Al Plus Susp Liq) 30 ml Q6H PRN PO 11/05/16 09:30 (Habitrol 14 Mg Patch.24 Hr) 1 patch DAILY T-DERMAL 11/06/16 09:00 (Atarax) 50 mg Q6H PRN PO 11/05/16 09:30 Miscellaneous Information 1 HS T-DERMAL 11/06/16 21:00 (Eliquis) 5 mg BID PO 11/05/16 21:00 (Abilify) 10 mg DAILY PO 11/06/16 09:00 (Neurontin) 300 mg BID PO 11/05/16 21:00 (Imodium) 2 mg QID PRN PO 11/05/16 09:45 (Robaxin) 500 mg Q8HR PO 11/05/16 14:00 (Zoloft) 100 mg DAILY PO 11/06/16 09:00 (Flomax) 0.4 mg DAILY PO 11/06/16 09:00 (Desyrel) 50 mg HS PO 11/05/16 21:00 Family History Positive for mood disorder Social History Denies alcohol and drug abuse Patient's Strengths (min. 2) Patient verbal irritable axis health care Physical Exam Vital Signs Vital Signs Date Time Temp Pulse Resp B/P Pulse Ox O2 Delivery O2 Flow Rate FiO2 11/05/16 12:25 97.7 78 16 133/64 94 11/05/16 07:35 Room Air Mental Status Examination Speech: Hesitant, Tangential Orientation: x3 Memory: Unremarkable (fair) Thought Process: Linear Thought Content: Unremarkable (somewhat focused on patient's daughter) Hallucination Type: None (denies) Attention and Concentration: Other (poor) Suicidal Ideation: Yes (patient made vague statements to law enforcement officers) Previous Suicide Attempts: No Homicidal Ideation: No Previous Homicide Attempts: No Insight: Poor Judgment: Poor Affect: Anxious, Sad, Other (some increased range and intensity) Mood: Sad, Irritable Motor Activity: Abnormal gait-specify (patient history MS will get PT assessment) Assessment & Plan Problem List: (1) Major depressive disorder, recurrent severe without psychotic features ICD Code: F33.2 (2) MS (multiple sclerosis) ICD Code: G35 Assessment & Plan Estimated LOS: 7 days agree with Carter act Request HC Surrog/Guard Advoc?: No Lei Buchanan MD Nov 05, 2016 13:01
[2016-11-05] MEDS: METHOCARBAMOL 500 MG TAB PO SCH ×2 (15:11→22:40)
--- NOTE | 2016-11-05 17:11 | PD.CONS ---
HPI Service [facility] Hospitalists Consult Requested By Psychiatric service Reason for Consult Medical management [facility] Diagnoses: History of Present Illness This is a 71-year-old male with past medical history significant for depression , MS, chronic pain, DVT and BPH admitted under Carter Act for major depressive episode and suicidal ideation with a plan. We have been consulted to assist with medical management of patients MS, h/o DVT and BPH. Patient normally gets assistance from his daughter but due to her going into rehabilitation herself, patient has become more depressed. Patient seen and examined today. His only complaints is that he is in the psychiatric unit. He verifies a history of MS that was diagnosed in 1988. He does not know why he is not on any medications for his MS at this time. He denies any medical complaints at this time including headache, numbness/tingling, chest pain, SOB or abdominal pain. Patient states he walks at home but uses a walker and a cane for community ambulation. Review of Systems Except as stated in HPI: all other systems reviewed are Neg (10 point review of systems completed and all pertinents as stated in HPI) Past Family Social History Allergies: Coded Allergies: No Known Allergies (Unverified , 10/11/16) Past Medical History MS diagnosed in 1988, not on any medications BPH Depression Chronic back pain H/O DVT on Eliquis Diminished hearing Past Surgical History Previous back surgery Reported Medications Gabapentin (Neurontin)300 Mg Can272 Mg PO BID 30 Days Prov:Sanchez Montes MD 08/18/16 Methocarbamol 500 Mg Njz166 Mg PO Q8HR #15 TAB Prov:Yenifer Hernandez MD 08/10/16 Trazodone 50 Mg Tab50 Mg PO HS #30 TAB Ref 0 Prov:Yenifer Hernandez MD 08/10/16 Tamsulosin (Flomax)0.4 Mg Cap0.4 Mg PO DAILY #30 CAP Ref 0 Prov:Moe Ahn MD 07/27/16 Sertraline (Zoloft)100 Mg Dum629 Mg PO DAILY #30 TAB Ref 0 Prov:Moe Ahn MD 07/27/16 Aripiprazole 10 Mg Tab10 Mg PO DAILY #30 TAB Ref 0 Prov:Moe Ahn MD 07/27/16 Apixaban (Eliquis)5 Mg Tab5 Mg PO BID #60 TAB Ref 0 10/11/16 Hydrocodone-Acetaminophen 10-325 mg Tab1 Tab PO Q6H PRN (PAIN) #30 TAB Ref 0 10/11/16 Loperamide 2 Mg Cap2 Mg PO QID PRN (DIARRHEA) Ref 0 One capsule after each loose stool. Not to exceed 8 capsules per day. 10/11/16 Active Ordered Medications Current Medications Medications (Trade) Dose Ordered Sig/Tia Route Start Time Stop Time Status Last Admin (Benadryl) 50 mg HS PRN PO 11/05/16 09:30 (Tylenol) 650 mg Q4H PRN PO 11/05/16 09:30 (Milk Of Magnesia Liq) 30 ml DAILY PRN PO 11/05/16 09:30 (Mag-Al Plus Susp Liq) 30 ml Q6H PRN PO 11/05/16 09:30 (Habitrol 14 Mg Patch.24 Hr) 1 patch DAILY T-DERMAL 11/06/16 09:00 (Atarax) 50 mg Q6H PRN PO 11/05/16 09:30 Miscellaneous Information 1 HS T-DERMAL 11/06/16 21:00 (Eliquis) 5 mg BID PO 11/05/16 21:00 (Abilify) 10 mg DAILY PO 11/06/16 09:00 (Neurontin) 300 mg BID PO 11/05/16 21:00 (Imodium) 2 mg QID PRN PO 11/05/16 09:45 (Robaxin) 500 mg Q8HR PO 11/05/16 14:00 11/05/16 15:11 (Zoloft) 100 mg DAILY PO 11/06/16 09:00 (Flomax) 0.4 mg DAILY PO 11/06/16 09:00 (Desyrel) 50 mg HS PO 11/05/16 21:00 Family History Diabetes mellitus Social History Patient denies any ETOH consumption or illicit drug use. Patient admits to smoking 1 1/2 packs per day. Physical Exam Vital Signs Vital Signs Date Time Temp Pulse Resp B/P Pulse Ox O2 Delivery O2 Flow Rate FiO2 11/05/16 12:25 97.7 78 16 133/64 94 11/05/16 07:35 87 20 131/70 94 Room Air Physical Exam GENERAL: This is a well-nourished, well-developed patient, in no apparent distress. Sitting in recliner in the community room. SKIN: No rashes, ecchymoses or lesions. Cool and dry. HEAD: Atraumatic. Normocephalic. No temporal or scalp tenderness. EYES: Pupils equal round and reactive. Extraocular motions intact. No scleral icterus. No injection or drainage. ENT: Nose without bleeding, purulent drainage or septal hematoma. Throat without erythema, tonsillar hypertrophy or exudate. Uvula midline. Airway patent. NECK: Trachea midline. No JVD or lymphadenopathy. Supple, nontender, no meningeal signs. CARDIOVASCULAR: Distant heart sounds. RESPIRATORY: Clear to auscultation but diminished breath sounds with poor effort. No wheezes, rales, or rhonchi. GASTROINTESTINAL: Abdomen soft, non-tender, nondistended. No hepato-splenomegaly , or palpable masses. No guarding. MUSCULOSKELETAL: Extremities without clubbing, cyanosis, or edema. No joint tenderness, effusion, or edema noted. No calf tenderness. NEUROLOGICAL: Awake and alert. Able to move all 4 extremities. No focal neurologic deficit appreciated. Result Diagram: 11/04/16 1552 11/04/16 1552 Assessment and Plan Assessment and Plan 71-year-old male with past medical history significant for depression, MS, chronic pain, DVT and BPH admitted under Carter Act for major depressive episode and suicidal ideation with a plan. We have been consulted to assist with medical management of patients MS, h/o DVT and BPH. Depression with suicidal ideation - Management per psychiatric team MS - untreated, patient does not know why he isn't on any medication - Recommend follow-up as outpatient. H/O DVT - several years ago - resume home dose of Eliquis BPH - resume home Flomax Chronic back pain - Tylenol prn DVT prophylaxis - on Eliquis Discussed with patient and nursing staff Written by Sussy Norman PA-C acting as scribe for Dr. Mac on 11/05/16 at 13:06. All or portions of this note were transcribed by scribe Sussy Norman PA-C. I, Dr. Kanu Mac personally performed the history, physical exam, and medical decision making; and confirmed the accuracy of the information in the transcribed note. Authenticated by Dr. Kanu Mac on 11/08/16 at 13:54. Sussy Norman Nov 05, 2016 17:11 Kanu Mac MD Nov 08, 2016 13:55
[2016-11-05] MEDS: traZODone HCL 50 MG TAB PO SCH (21:00)
[2016-11-05] MEDS: GABAPENTIN 300 MG CAP PO SCH (21:00)
[2016-11-05] MEDS: APIXABAN 5 MG TABLET PO SCH (21:00)
[2016-11-06] MEDS: METHOCARBAMOL 500 MG TAB PO SCH ×3 (05:56→22:55)
[2016-11-06 06:03] VITALS: BP 106/61; PULSE 97; RESP 18; TEMP 98; O2SAT 95
[2016-11-06] MEDS: NICOTINE 14 MG/24 HR PATCH T-DERMAL SCH (09:00)
[2016-11-06 09:33] LABS: FREE T4 0.93 NG/DL (0.76-1.46)
[2016-11-06] MEDS: GABAPENTIN 300 MG CAP PO SCH ×2 (10:07→22:55)
[2016-11-06] MEDS: ARIPiprazole 10 MG TAB PO SCH (10:07)
[2016-11-06] MEDS: SERTRALINE HCL 100 MG TAB PO SCH (10:07)
[2016-11-06] MEDS: TAMSULOSIN HCL 0.4 MG CAP PO SCH (10:07)
[2016-11-06] MEDS: APIXABAN 5 MG TABLET PO SCH ×2 (10:07→22:55)
--- NOTE | 2016-11-06 12:04 | HHI.PYPN ---
Subjective Remarks Patient was seen and case discussed with nursing. Patient is difficult to engage given he is perseverative on discharge. Answers most questions that he wants to go home. Minimizing his admission. Mood is irritable and blunted. Denies history of suicide attempt but admits to a long history of suicidal ideation. His compliant with medications. Largely seclusive to self Objective Alert: Yes [place]: Person, Place, Date Mood: Depressed, Oppositional Affect: Blunted Memory Intact: Comment (grossly intact) Hallucinations: Other (denies) Delusions: No Delusion Type: Other (denies) Suicidal: Ideation (denies) Homicidal: Ideation (denies) Insight/Judgment Poor Labs Test 11/06/16 08:31 Free Thyroxine 0.93 NG/DL Thyroid Stimulating Hormone 1.670 uIU/ML 3rd Gen Vitals/IOs Vital Signs Date Time Temp Pulse Resp B/P Pulse Ox O2 Delivery O2 Flow Rate FiO2 11/06/16 06:03 98.0 97 18 106/61 95 11/05/16 07:35 Room Air Intake and Output 11/05/16 11/05/16 11/06/16 08:00 16:00 00:00 Intake Total 300 ml Balance 300 ml Assessment & Plan Problem List: (1) Major depressive disorder, recurrent severe without psychotic features ICD Code: F33.2 (2) MS (multiple sclerosis) ICD Code: G35 Assessment & Plan Continue current treatment plan Justification for Cont. Inpt. Patient will decompensate in a less restrictive setting Request HC Surrog/Guard Advoc?: No Feliberto Hernandez DO Nov 06, 2016 12:04
[2016-11-06 18:00] VITALS: BP 135/82; PULSE 96; TEMP 97.4; O2SAT 99
[2016-11-06] MEDS: REMOVE OLD NICODERM (NICOTINE) PATCH T-DERMAL SCH (21:00)
[2016-11-06] MEDS: traZODone HCL 50 MG TAB PO SCH (22:55)
[2016-11-07] MEDS: METHOCARBAMOL 500 MG TAB PO SCH ×3 (05:41→21:48)
[2016-11-07 06:17] VITALS: BP_SYST 100; BP_SYST 195; BP_DIAS 56; BP_DIAS 98; PULSE 69; PULSE 80; RESP 16; TEMP 98; O2SAT 94
[2016-11-07] MEDS: NICOTINE 14 MG/24 HR PATCH T-DERMAL SCH (09:00)
[2016-11-07] MEDS: SERTRALINE HCL 100 MG TAB PO SCH (09:51)
[2016-11-07] MEDS: GABAPENTIN 300 MG CAP PO SCH ×2 (09:51→21:48)
[2016-11-07] MEDS: TAMSULOSIN HCL 0.4 MG CAP PO SCH (09:51)
[2016-11-07] MEDS: ARIPiprazole 10 MG TAB PO SCH (09:51)
[2016-11-07] MEDS: APIXABAN 5 MG TABLET PO SCH ×2 (09:52→21:48)
--- NOTE | 2016-11-07 11:39 | HHI.PR ---
Subjective Remarks In the chair. Says he feels good and he wants to go home. Denies any chest pain, sob, n/v/d/c. Denies fever or chills. Says he is eating well. Objective Vitals Vital Signs Date Time Temp Pulse Resp B/P Pulse Ox O2 Delivery O2 Flow Rate FiO2 11/07/16 06:17 98.0 80 16 100/56 94 11/06/16 18:00 97.4 96 135/82 99 I/O 11/06/16 11/06/16 11/06/16 11/07/16 11/07/16 11/07/16 07:00 15:00 23:00 07:00 15:00 23:00 Intake Total 840 ml 480 ml 0 ml Balance 840 ml 480 ml 0 ml Intake Oral 840 ml 480 ml 0 ml # Voids 2 1 1 # Bowel Movements 1 Result Diagram: 11/04/16 1552 11/04/16 1552 Objective Remarks GENERAL: This is a well-nourished, well-developed patient, in no apparent distress. Sitting in recliner in the community room. SKIN: No rashes, ecchymoses or lesions. Cool and dry. HEAD: Atraumatic. Normocephalic. No temporal or scalp tenderness. EYES: Pupils equal round and reactive. Extraocular motions intact. No scleral icterus. No injection or drainage. ENT: Nose without bleeding, purulent drainage or septal hematoma. Throat without erythema, tonsillar hypertrophy or exudate. Uvula midline. Airway patent. NECK: Trachea midline. No JVD or lymphadenopathy. Supple, nontender, no meningeal signs. CARDIOVASCULAR: Distant heart sounds. RESPIRATORY: Clear to auscultation but diminished breath sounds with poor effort. No wheezes, rales, or rhonchi. GASTROINTESTINAL: Abdomen soft, non-tender, nondistended. No hepato-splenomegaly , or palpable masses. No guarding. MUSCULOSKELETAL: Extremities without clubbing, cyanosis, or edema. No joint tenderness, effusion, or edema noted. No calf tenderness. NEUROLOGICAL: Awake and alert. Able to move all 4 extremities. No focal neurologic deficit appreciated. A/P Assessment and Plan 71-year-old male with past medical history significant for depression, MS, chronic pain, DVT and BPH admitted under Carter Act for major depressive episode and suicidal ideation with a plan. We have been consulted to assist with medical management of patients MS, h/o DVT and BPH. Depression with suicidal ideation - Management per psychiatric team MS - untreated, patient does not know why he isn't on any medication - Recommend follow-up as outpatient. H/O DVT - several years ago - resume home dose of Eliquis BPH - resume home Flomax Chronic back pain - Tylenol prn DVT prophylaxis - on Eliquis Stable medically. Hospitalist will sign off. Reconsult as need. Cielo Rico MD Nov 07, 2016 11:39
--- NOTE | 2016-11-07 14:04 | HHI.PYPN ---
Subjective Remarks Patient was seen and case discussed with nursing. Patient remains perseverant on discharge. He is up and out of bed. He is guarded and hard of hearing. He denies depressed mood. Denies suicidal ideation intent or plan. Sleep is variable. Compliant with medications Objective Alert: Yes [place]: Person, Place, Date Mood: Calm, Oppositional Affect: Flat Memory Intact: Comment (not tested today) Hallucinations: Other (denies) Delusions: No Delusion Type: Other (denies) Suicidal: Ideation (denies) Homicidal: Ideation (denies) Insight/Judgment Poor Vitals/IOs Vital Signs Date Time Temp Pulse Resp B/P Pulse Ox O2 Delivery O2 Flow Rate FiO2 11/07/16 06:17 98.0 80 16 100/56 94 11/05/16 07:35 Room Air Intake and Output 11/06/16 11/06/16 11/07/16 08:00 16:00 00:00 Intake Total 840 ml 480 ml Balance 840 ml 480 ml Assessment & Plan Problem List: (1) Major depressive disorder, recurrent severe without psychotic features ICD Code: F33.2 (2) MS (multiple sclerosis) ICD Code: G35 Assessment & Plan Continue current treatment plan Justification for Cont. Inpt. Patient will decompensate in a less restrictive setting Request HC Surrog/Guard Advoc?: No Feliberto Hernandez DO Nov 07, 2016 14:04
[2016-11-07 20:29] VITALS: BP 108/56; PULSE 70; RESP 16; TEMP 97.1; O2SAT 96
[2016-11-07] MEDS: REMOVE OLD NICODERM (NICOTINE) PATCH T-DERMAL SCH (21:00)
[2016-11-07] MEDS: traZODone HCL 50 MG TAB PO SCH (21:48)
[2016-11-08 06:27] VITALS: BP 102/55; PULSE 72; RESP 16; TEMP 98
[2016-11-08] MEDS: METHOCARBAMOL 500 MG TAB PO SCH ×3 (06:29→21:12)
[2016-11-08] MEDS: NICOTINE 14 MG/24 HR PATCH T-DERMAL SCH (09:00)
[2016-11-08] MEDS: SERTRALINE HCL 100 MG TAB PO SCH (09:33)
[2016-11-08] MEDS: GABAPENTIN 300 MG CAP PO SCH ×2 (09:33→21:12)
[2016-11-08] MEDS: TAMSULOSIN HCL 0.4 MG CAP PO SCH (09:33)
[2016-11-08] MEDS: APIXABAN 5 MG TABLET PO SCH ×2 (09:33→21:12)
[2016-11-08] MEDS: ARIPiprazole 10 MG TAB PO SCH (09:33)
--- NOTE | 2016-11-08 13:36 | HHI.PYPN ---
Subjective Remarks Patient discussed with treatment team, chart review, patient seen on unit in his bed. Patient focuses on when he can go home, he still somewhat irritable, though he denies suicidality at this time. States would be going home with his daughter. We need to have counselor contact daughter to make arrangements for this. Patient compliant medication Review of Systems Except as stated in HPI: all other systems reviewed are Neg Objective Alert: Yes [place]: Person, Place, Date Mood: Calm, Oppositional Affect: Flat Memory Intact: Comment (not tested today) Hallucinations: Other (denies) Delusions: No Delusion Type: Other (denies) Suicidal: Ideation (denies) Homicidal: Ideation (denies) Insight/Judgment Poor Vitals/IOs Vital Signs Date Time Temp Pulse Resp B/P Pulse Ox O2 Delivery O2 Flow Rate FiO2 11/08/16 06:27 98.0 72 16 102/55 11/07/16 20:29 96 11/05/16 07:35 Room Air Intake and Output 11/07/16 11/07/16 11/08/16 08:00 16:00 00:00 Intake Total 0 ml 720 ml 720 ml Balance 0 ml 720 ml 720 ml Assessment & Plan Problem List: (1) Major depressive disorder, recurrent severe without psychotic features ICD Code: F33.2 (2) MS (multiple sclerosis) ICD Code: G35 Assessment & Plan Estimated LOS: days patient depression slightly softening, now denying suicidality. Still irritable somewhat labile Justification for Cont. Inpt. This time patient will decompensate if placed in a lower level of care Discharge Planning To be determined Request HC Surrog/Guard Advoc?: No Moe Ahn MD Nov 08, 2016 13:36
[2016-11-08 19:00] VITALS: BP 113/66; PULSE 68; RESP 18; TEMP 97.2
[2016-11-08] MEDS: REMOVE OLD NICODERM (NICOTINE) PATCH T-DERMAL SCH (21:00)
[2016-11-08] MEDS: traZODone HCL 50 MG TAB PO SCH (21:12)
[2016-11-09 05:58] VITALS: BP 122/60; PULSE 76; RESP 18; TEMP 97.4; O2SAT 97
[2016-11-09] MEDS: METHOCARBAMOL 500 MG TAB PO SCH ×3 (06:30→21:43)
[2016-11-09] MEDS: NICOTINE 14 MG/24 HR PATCH T-DERMAL SCH (09:00)
[2016-11-09] MEDS: APIXABAN 5 MG TABLET PO SCH ×2 (09:14→21:43)
[2016-11-09] MEDS: TAMSULOSIN HCL 0.4 MG CAP PO SCH (09:14)
[2016-11-09] MEDS: GABAPENTIN 300 MG CAP PO SCH ×2 (09:14→21:43)
[2016-11-09] MEDS: ARIPiprazole 10 MG TAB PO SCH (09:14)
[2016-11-09] MEDS: SERTRALINE HCL 100 MG TAB PO SCH (09:14)
[2016-11-09] MEDS: REMOVE OLD NICODERM (NICOTINE) PATCH T-DERMAL SCH (09:19)
--- NOTE | 2016-11-09 14:08 | HHI.PYPN ---
Subjective Remarks Patient seen in his room with nurse Tod, patient continues to question about discharge. Remains somewhat irritable and isolating. Compliant medications. For now continue treatment Review of Systems Except as stated in HPI: all other systems reviewed are Neg Objective Alert: Yes [place]: Person, Place, Date Mood: Calm, Oppositional Affect: Flat Memory Intact: Comment (not tested today) Hallucinations: Other (denies) Delusions: No Delusion Type: Other (denies) Suicidal: Ideation (denies) Homicidal: Ideation (denies) Insight/Judgment Very poor Vitals/IOs Vital Signs Date Time Temp Pulse Resp B/P Pulse Ox O2 Delivery O2 Flow Rate FiO2 11/09/16 05:58 97.4 76 18 122/60 97 11/05/16 07:35 Room Air Intake and Output 11/08/16 11/08/16 11/09/16 08:00 16:00 00:00 Intake Total 720 ml Balance 720 ml Assessment & Plan Problem List: (1) Major depressive disorder, recurrent severe without psychotic features ICD Code: F33.2 (2) MS (multiple sclerosis) ICD Code: G35 Assessment & Plan Estimated LOS: days patient continues somewhat depressed and irritable, compliant medications, for now continue treatment Justification for Cont. Inpt. At this time patient decompensate placed in the lower level of care Discharge Planning To be determined Request HC Surrog/Guard Advoc?: No Moe Ahn MD Nov 09, 2016 14:08
[2016-11-09 19:00] VITALS: BP 118/60; PULSE 82; RESP 18; TEMP 98
[2016-11-09] MEDS: traZODone HCL 50 MG TAB PO SCH (21:43)
[2016-11-10 05:22] VITALS: BP 128/64; PULSE 84; RESP 20; TEMP 98.1
[2016-11-10] MEDS: METHOCARBAMOL 500 MG TAB PO SCH ×2 (06:00→13:24)
[2016-11-10] MEDS: NICOTINE 14 MG/24 HR PATCH T-DERMAL SCH (09:00)
[2016-11-10] MEDS: SERTRALINE HCL 100 MG TAB PO SCH (10:26)
[2016-11-10] MEDS: GABAPENTIN 300 MG CAP PO SCH (10:26)
[2016-11-10] MEDS: TAMSULOSIN HCL 0.4 MG CAP PO SCH (10:26)
[2016-11-10] MEDS: APIXABAN 5 MG TABLET PO SCH (10:26)
[2016-11-10] MEDS: ARIPiprazole 10 MG TAB PO SCH (10:27)
[2016-11-10] MEDS ORDERED: ZOLO100T PO (13:01)
[2016-11-10] MEDS ORDERED: NEUR300C PO (13:01)
[2016-11-10] MEDS ORDERED: METH500T3 PO (13:01)
[2016-11-10] MEDS ORDERED: TAMS5CAP PO (13:01)
[2016-11-10] MEDS ORDERED: APIX5TAB PO (13:01)
[2016-11-10] MEDS ORDERED: ARIP1TAB12 PO (13:01)
[2016-11-10] MEDS ORDERED: TRAZ50TA12 PO (13:01)
--- NOTE | 2016-11-10 13:09 | HHI.DS ---
Psychiatry Discharge Summary Inpatient Psychiatric care?: Yes Advance Directive: No Reason Not Provided: none Mental Health AdvanceDirective: No Health Care Proxy: No Admission Admission Date Nov 05, 2016 at 10:04 Admission Diagnosis: (1) Major depressive disorder, recurrent severe without psychotic features ICD Code: F33.2 Brief History Patient is a 8-year-old white male who comes to the emergency department under Carter act by the [facility] of public safety dated 11/04/16 at 3:45 PM Carter act reviewed essentially stating that patient was sitting outside his apartment crying saying that he was depressed and wanted to hurt himself however he did not elaborate on that with the police judge to stating he wanted to hurt himself. It appears patient's daughter was present and she said that her father had been depressed and third harm herself or period of time. They did also run out of his medications for depression was taken and under the Carter act. Patient's daughter is Radha Lama at [phone]. Patient seen screened in the ED, no urine toxicology was done. At the present time patient laying quietly on his gurney in C pod nurse Abigail present throughout session. Patient is alert fairly well oriented thin slender somewhat irritable angry loud intrusive white male. Stating he has lived with his daughter for a number of years she is a dredge boat engineer of him helping with hygiene cooking and activities of daily living. He also states that she is going to a "rehabilitation" facility for some reason. These uncertain what will happen to him. He states he has been depressed though he denies suicidality at this time. He denies alcohol or drugs at this time, though does acknowledge a past history of alcohol misuse. He states he is a [place] is attempt to get services [facility] [place] [facility]. He denies any prior psychiatric contact or psychotropic medications. Of interest I did care for this patient 07/21/16 through 07/27/16 under visit [id number] at that time diagnosed major depressive disorder. The history at that time is very similar to what is being described at this time I did talk to the patient's daughter Radha Lama. She states that patient has been noncompliant with his medication becoming more and more irritable and depressed. She did verify that she has had issues with drugs in the past that she is going to the [facility] for an assessment related to her substance abuse issues and effort to gain custody of her 11-year-old child. This may or may not be done as an inpatient outpatient she does not know at this time. In any event she has made arrangements for another to come and stay and help with her father once he is better. Considering the information given by the patient's daughter at this time I feel patient does meet criteria for involuntary psychiatric hospitalization under the Carter act. Thus I'll do first opinion requests a second opinion. We'll have hospice consult with a Jason is various medical issues. We'll continue his medications per the med reconciliation form. Hopeless to be fairly short stay the daughter states she will notify us of her own disposition the possibility of dredge boat engineer being in his home. Patient seen and chart reviewed. He remains markedly depressed with suicidal ideation. Tobacco Use In Past 30 Days: 5 or More Cigarettes/Day Alcohol Use: Never Hospital Course Patient seen in the hospital was significant for his isolation remaining in his room, though his depression did resolve somewhat his suicidality slowly did resolve remain compliant with his medication and no significant behavioral problems. Was also conversation with patient's daughter, the fact that she was going into some type of rehabilitation program, and her realization that her father needed help him a house. This assistance in his house has been set up and is now available. Patient continues to denies suicidality homicidality voices or visions. Is been compliant with his medications. Thus I feel his recent maximum benefit of this hospitalization. Patient to be discharged today Rx 1 month follow-up [place] [facility] outpatient Results Blood Pressure 128 / 64 Vital Signs Date Time Temp Pulse Resp B/P Pulse Ox O2 Delivery O2 Flow Rate FiO2 11/10/16 05:22 98.1 84 20 128/64 11/09/16 05:58 97 See EMR for full lab results Summary of Procedures None done Pending results at discharge: No Medications # of Antipsychotic meds at D/C: 1 Approp Antipsych med options 1 - Minimum of three failed multiple trials of monotherapy. 2 - Documented plan to taper to monotherapy due to previous use of multiple meds OR cross-taper in progress at D/C. 3 - Documentation of augmentation of Clozapine. 4 - Justification other than those listed in allowable values 1-3, document here : Discharge Discharge Date: Nov 10, 2016 Discharge Diagnosis: (1) Major depressive disorder, recurrent severe without psychotic features Diagnosis: Principal ICD Code: F33.2 Mental Status Exam at Disch Alert somewhat irritable anxious thin slender white male, he is normoactive, is somewhat agitated, speech rate and rhythm somewhat increased mildly tangential, mood is euthymic to mildly irritable, affect shows slight increased range intensity. There are no auditory or visual hallucinations no delusions noted insight and judgment is poor to fair cognition appears grossly intact Pt Condition on Discharge: Stable Discharge Disposition: Discharge Home Discharge Instructions Diet Instructions: As Tolerated, No Restrictions Activities you can perform: Regular-No Restrictions Scheduled Appointment: [facility] > 30 minutes Discharge/Advance Care Plan Health Problems: (1) Major depressive disorder, recurrent severe without psychotic features (2) MS (multiple sclerosis) Goals to promote your health * To prevent worsening of your condition and complications * To maintain your health at the optimal level Directions to meet your goals Take your medications as prescribed Follow your dietary instruction Follow activity as directed Keep your appointments as scheduled Take your immunizations and boosters as scheduled If your symptoms worsen call your PCP, if no PCP go to Urgent Care Center or Emergency Room For 21/02 questions related to your inpatient stay or results of tests pending at discharge, please contact Dr. Moe Ahn at Smoking is Dangerous to Your Health. Avoid second hand smoking Moe Ahn MD Nov 10, 2016 13:08
== END 2016-11-10 18:30 | disposition home or self-care (01) | DRG 885 ==
LOC: NEDAMB 15:47 → NEDA 11-05 10:04 → H250 11-05 11:30
PROVIDERS: ADMIT Psychiatry & Neurology Psychiatry; ATTEND Psychiatry & Neurology Psychiatry
DX: F33.2 Major depressive disorder, recurrent severe without psychotic features (principal); G35 Multiple sclerosis; R45.851 Suicidal ideations; H91.93 Unspecified hearing loss, bilateral; N40.1 Benign prostatic hyperplasia with lower urinary tract symptoms; N39.498 Other specified urinary incontinence; G89.29 Other chronic pain; M54.9 Dorsalgia, unspecified; F17.210 Nicotine dependence, cigarettes, uncomplicated; Z79.01 Long term (current) use of anticoagulants; Z86.718 Personal history of other venous thrombosis and embolism; Z91.14 Patient's other noncompliance with medication regimen
CPT/HCPCS: 80053; 84439; 84443; 85025; 99284; Q0163

== ENCOUNTER 2017-01-21 10:33 | Emergency (ER) | payer MEDICARE, OTHER ==
[~2017-01-21 10:33] MED LIST changes: -METR-1 PO
[2017-01-21 10:41] VITALS: BP 133/69; PULSE 68; RESP 16; TEMP 98; O2SAT 95
--- NOTE | 2017-01-21 11:28 | PD ---
HPI Chief Complaint: General Weakness Time Seen by Provider: 11:08 (Ladarius Rivera MD) Travel History International Travel<30 days: No Contact w/Intl Traveler<30days: No Traveled to known affect area: No (Ladarius Rivera MD) History of Present Illness HPI 71-year-old male complains of low extremity weakness and numbness. Patient states that he was sitting on a wheelchair and try get up and started having numbness and weakness of the lower extremity. Patient states that he was unable to get out of his wheelchair this morning. Patient states that he has history of MS and was seen by neurologist [facility]. Patient denies any problem with weakness and numbness of the lower extremity until this morning. Patient denies any headache. Patient denied any neck pain. Patient denies any chest pain or shortness of breath. Patient denies abdominal pain. Patient denies any back pain. 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 Patient denies any fever chills. Patient denies any IV drug abuse. (Ladarius Rivera MD) PFSH Past Medical History Blood Disorders: No Anxiety: Yes Depression: Yes Cancer: No (per pt) Cardiovascular Problems: No (per pt) Diabetes: No (per pt) Diminished Hearing: Yes (bilateral hearing aids, NONE IN PLACE) Deep Vein Thrombosis: Yes Endocrine: No Genitourinary: Yes (BPH, CHRONIC INCONTINENCE UNABLE TO CONTROL BLADDER MUSCLES ) Headaches: No (per pt) Immune Disorder: No Musculoskeletal: Yes (BACK) Neurologic: Yes (Multiple Sclerosis) Psychiatric: No (per pt) Reproductive: No Respiratory: No Immunizations Current: Yes Seizures: No (per pt) (Ladarius Rivera MD) Past Surgical History Other Surgery: Yes (hx of back surgery) (Ladarius Rivera MD) Social History Alcohol Use: No Tobacco Use: Yes (1.5 PPD) Substance Use: No (Ladarius Rivera MD) Allergies-Medications (Allergen,Severity, Reaction): Coded Allergies: No Known Allergies (Unverified , 10/11/16) Reported Meds & Prescriptions Reported Meds & Active Scripts Active Trazodone (Trazodone HCl) 50 Mg Tab 50 Mg PO HS Flomax (Tamsulosin HCl) 0.4 Mg Cap 0.4 Mg PO DAILY Zoloft (Sertraline HCl) 100 Mg Tab 100 Mg PO DAILY Methocarbamol 500 Mg Tab 500 Mg PO Q8HR Neurontin (Gabapentin) 300 Mg Cap 300 Mg PO BID Aripiprazole 10 Mg Tab 10 Mg PO DAILY Eliquis (Apixaban) 5 Mg Tab 5 Mg PO BID Reported Calcium 500 +D (Calcium Carbonate-Cholecalciferol) 500-400 Mg-Unit Tab 1 Tab PO BID (Aurea York) Review of Systems General / Constitutional: No: Fever Eyes: No: Visual changes HENT: No: Headaches Cardiovascular: No: Chest Pain or Discomfort Respiratory: No: Shortness of Breath Gastrointestinal: No: Abdominal Pain Genitourinary: No: Dysuria Musculoskeletal: No: Pain Skin: No Rash Neurologic: Positive: Weakness, Paresthesia Psychiatric: No: Depression Endocrine: No: Polydipsia Hematologic/Lymphatic: No: Easy Bruising (Ladarius Rivera MD) Physical Exam Narrative GENERAL: Well-nourished, well-developed patient. SKIN: Focused skin assessment warm/dry. HEAD: Normocephalic. EYES: No scleral icterus. No injection or drainage. NECK: Supple, trachea midline. No JVD or lymphadenopathy. CARDIOVASCULAR: Regular rate and rhythm without murmurs, gallops, or rubs. RESPIRATORY: Breath sounds equal bilaterally. No accessory muscle use. GASTROINTESTINAL: Abdomen soft, non-tender, nondistended. MUSCULOSKELETAL: No cyanosis, or edema. BACK: Nontender without obvious deformity. No CVA tenderness. Neurologic exam: Pupils 3 mm equal reactive. No obvious facial weakness. Upper extremity motor sensory function intact. Patient has weakness bilateral lower extremity left worse than right. Patient's able to lift the right leg off the bed however unable to lift much of the left leg off the bed. Decrease in light touch sensation on bilateral lower extremity. Mild redness swelling left foot area. Patient states that he has history of chronic swelling on the left foot. Good DP pulses. (Ladarius Rivera MD) Data Data Last Documented VS Vital Signs Date Time Temp Pulse Resp B/P Pulse Ox O2 Delivery O2 Flow Rate FiO2 01/21/17 14:30 65 18 112/59 95 01/21/17 11:36 Room Air 01/21/17 10:41 98.0 (Aurea York) Orders Complete Blood Count With Diff (01/21/17 11:16) Comprehensive Metabolic Panel (01/21/17 11:16) Prothrombin Time / Inr (Pt) (01/21/17 11:16) Act Partial Throm Time (Ptt) (01/21/17 11:16) Urinalysis - C+S If Indicated (01/21/17 11:16) Thyroid Stimulating Hormone (01/21/17 11:16) Chest, Single Ap (01/21/17 11:16) Iv Access Insert/Monitor (01/21/17 11:16) Ecg Monitoring (01/21/17 11:16) Oximetry (01/21/17 11:16) Mri L Spine W&W/O Contrast (01/21/17 11:21) Mri C Spine W&W/O Contrast (01/21/17 ) Mri T Spine W & W/O Contrast (01/21/17 ) Mri Brain W&W/O Contrast (01/21/17 11:21) Gadodiamide Pf Inj (Omniscan Pf Inj) (01/21/17 14:02) (Aurea York) Labs Laboratory Tests Test 01/21/17 11:20 White Blood Count 8.0 TH/MM3 Red Blood Count 4.37 MIL/MM3 Hemoglobin 14.6 GM/DL Hematocrit 42.1 % Mean Corpuscular Volume 96.4 FL Mean Corpuscular Hemoglobin 33.3 PG Mean Corpuscular Hemoglobin 34.6 % Concent Red Cell Distribution Width 14.5 % Platelet Count 307 TH/MM3 Mean Platelet Volume 8.3 FL Neutrophils (%) (Auto) 64.7 % Lymphocytes (%) (Auto) 24.4 % Monocytes (%) (Auto) 7.3 % Eosinophils (%) (Auto) 3.2 % Basophils (%) (Auto) 0.4 % Neutrophils # (Auto) 5.2 TH/MM3 Lymphocytes # (Auto) 2.0 TH/MM3 Monocytes # (Auto) 0.6 TH/MM3 Eosinophils # (Auto) 0.3 TH/MM3 Basophils # (Auto) 0.0 TH/MM3 CBC Comment DIFF FINAL Differential Comment Prothrombin Time 11.1 SEC Prothromb Time International 1.0 RATIO Ratio Activated Partial 24.7 SEC Thromboplast Time Sodium Level 136 MEQ/L Potassium Level 4.0 MEQ/L Chloride Level 102 MEQ/L Carbon Dioxide Level 29.0 MEQ/L Anion Gap 5 MEQ/L Blood Urea Nitrogen 20 MG/DL Creatinine 0.80 MG/DL Estimat Glomerular Filtration 96 ML/MIN Rate Random Glucose 98 MG/DL Calcium Level 8.9 MG/DL Total Bilirubin 0.4 MG/DL Aspartate Amino Transf 11 U/L (AST/SGOT) Alanine Aminotransferase 15 U/L (ALT/SGPT) Alkaline Phosphatase 105 U/L Total Protein 7.6 GM/DL Albumin 3.5 GM/DL Thyroid Stimulating Hormone 0.919 uIU/ML 3rd Gen (Aurea York) [facility] Medical Decision Making Medical Screen Exam Complete: Yes Emergency Medical Condition: Yes Interpretation(s) Last Impressions Lumbar Spine MRI 01/21/17 112 Signed Impressions: Service Date/Time: Saturday, January 21, 2017 12:50 - CONCLUSION: 1. Osteoporotic changes throughout the spine. 2. Mild compression fractures at T12 and L1. There is a small amount of edema and enhancement within these they were present on the patient's CT scan dated 09/05/16. 3. The thecal sac is obscured in the mid and lower lumbar spine from the hardware. In the areas where the thecal sac is visible I see no severe spinal stenosis. 4. There is abnormal marrow signal within the sacrum probably related to severe osteoporosis. Dedicated imaging with either CT or MRI through the sacrum to exclude sacral fracture would be warranted. Avery Horvath MD Brain MRI 01/21/17 1121 Signed Impressions: Service Date/Time: Saturday, January 21, 2017 12:50 - CONCLUSION: 1. Moderate chronic white matter ischemic changes in the brain with some cortical volume loss. No mass, hemorrhage or shift. No recent infarct identified. Gonzalo Juan MD Chest X-Ray 01/21/17 1116 Signed Impressions: Service Date/Time: Saturday, January 21, 2017 11:20 - CONCLUSION: 1. Minimal basilar atelectasis. Mild cardiomegaly. Atherosclerotic aorta. No plain film findings for congestive heart failure. Mild scoliosis. Gonzalo Juan MD Thoracic Spine MRI 01/21/17 0000 Signed Impressions: Service Date/Time: Saturday, January 21, 2017 12:50 - CONCLUSION: 1. Remote compression fractures of T8, T12 and L1. No definite acute fracture. No spondylolisthesis. 2. No cord signal abnormality or cord impingement. No canal stenosis. Gonzalo Juan MD Cervical Spine MRI 01/21/17 0000 Signed Impressions: Service Date/Time: Saturday, January 21, 2017 12:50 - CONCLUSION: 1. Moderate degenerative disc disease with focal mild stenosis at C5-6. Effacement of anterior thecal sac at C4-5 and C6-7. 2. No fracture or spondylolisthesis. No significant cord signal abnormality identified. No abnormal enhancement within the spinal canal post contrast. Gonzalo Juan MD 1656 PM. CBC within normal limit. CMP within normal limit. Differential Diagnosis Differential diagnosis including acute exacerbation of her MS, TIA, CVA, spinal cord lesion. Narrative Course 71-year-old male with numbness and weakness bilateral lower extremity. Patient states that he has History of MS. Spoke with Dr. Razo before and after MRI. Reexamining of the patient reveals no tenderness on palpation of thoracic lumbar sacrum area. Advised patient to follow up with his physician or local neurologist. Return if worse. (Ladarius Rivera MD) Diagnosis Primary Impression: Transient weakness of left lower extremity Additional Impression: Transient weakness of right lower extremity Patient Instructions: General Instructions Additional Instructions: Advised patient to follow up with local physician and neurologist. Return if worse. Disposition: 01 DISCHARGE HOME Condition: Stable Ladarius Rivera MD Jan 21, 2017 11:27 Aurea York Jan 21, 2017 16:05 Medical Screen Exam Complete: Yes Emergency Medical Condition: Yes Interpretation(s) Last Impressions Lumbar Spine MRI 01/21/17 1121 Signed Impressions: Service Date/Time: Saturday, January 21, 2017 12:50 - CONCLUSION: 1. Osteoporotic changes throughout the spine. 2. Mild compression fractures at T12 and L1. There is a small amount of edema and enhancement within these they were present on the patient's CT scan dated 09/05/16. 3. The thecal sac is obscured in the mid and lower lumbar spine from the hardware. In the areas where the thecal sac is visible I see no severe spinal stenosis. 4. There is abnormal marrow signal within the sacrum probably related to severe osteoporosis. Dedicated imaging with either CT or MRI through the sacrum to exclude sacral fracture would be warranted. Avery Horvath MD Brain MRI 01/21/17 1121 Signed Impressions: Service Date/Time: Saturday, January 21, 2017 12:50 - CONCLUSION: 1. Moderate chronic white matter ischemic changes in the brain with some cortical volume loss. No mass, hemorrhage or shift. No recent infarct identified. Gonzalo Juan MD Chest X-Ray 01/21/17 1116 Signed Impressions: Service Date/Time: Saturday, January 21, 2017 11:20 - CONCLUSION: 1. Minimal basilar atelectasis. Mild cardiomegaly. Atherosclerotic aorta. No plain film findings for congestive heart failure. Mild scoliosis. Gonzalo Juan MD Thoracic Spine MRI 01/21/17 0000 Signed Impressions: Service Date/Time: Saturday, January 21, 2017 12:50 - CONCLUSION: 1. Remote compression fractures of T8, T12 and L1. No definite acute fracture. No spondylolisthesis. 2. No cord signal abnormality or cord impingement. No canal stenosis. Gonzalo Juan MD Cervical Spine MRI 01/21/17 0000 Signed Impressions: Service Date/Time: Saturday, January 21, 2017 12:50 - CONCLUSION: 1. Moderate degenerative disc disease with focal mild stenosis at C5-6. Effacement of anterior thecal sac at C4-5 and C6-7. 2. No fracture or spondylolisthesis. No significant cord signal abnormality identified. No abnormal enhancement within the spinal canal post contrast. Gonzalo Juan MD 1656 PM. CBC within normal limit. CMP within normal limit. Differential Diagnosis Differential diagnosis including acute exacerbation of her MS, TIA, CVA, spinal cord lesion. Narrative Course 71-year-old male with numbness and weakness bilateral lower extremity. History of MS. (Ladarius Rivera MD) Diagnosis Primary Impression: Transient weakness of left lower extremity Additional Impression: Transient weakness of right lower extremity Patient Instructions: General Instructions Additional Instructions: Advised patient to follow up with local physician and neurologist. Return if worse. Disposition: 01 DISCHARGE HOME Condition: Stable Ladarius Rivera MD Jan 21, 2017 11:27 Aurea York Jan 21, 2017 16:05
[2017-01-21 11:41] LABS: AUTOMATED NEUTROPHIL # 5.2 TH/MM3 (1.8-7.7); BASOPHIL % 0.4 % (0.0-2.0); EOSINOPHIL # 0.3 TH/MM3 (0-0.4); EOSINOPHIL % 3.2 % (0.0-4.0); HEMATOCRIT 42.1 % (39.0-51.0); HEMO FLAGS DIFF FINAL; LYMPH % 24.4 % (9.0-44.0); MEAN CELL VOLUME 96.4 FL (80.0-100.0); MEAN CORPUSCULAR HEMOGLOBIN 33.3 PG (27.0-34.0); MEAN CORPUSCULAR HGB CONC 34.6 % (32.0-36.0); MONO % 7.3 % (0.0-8.0); NEUT % 64.7 % (16.0-70.0); PLATELET COUNT 307 TH/MM3 (150-450); RED BLOOD COUNT 4.37 MIL/MM3 (4.50-5.90); RED CELL DISTRIBUTION WIDTH 14.5 % (11.6-17.2)
[2017-01-21 11:51] LABS: APTT (PATIENT) 24.7 SEC (24.3-30.1); PROTHROMBIN TIME - PATIENT 11.1 SEC (9.8-11.6)
--- NOTE | 2017-01-21 11:54 | RADRPT ---
EXAM DATE/TIME: 01/21/2017 11:20 [facility] COMPARISON: No previous studies available for comparison. INDICATIONS : Patient woke up with shortness of breath and swollen feet. MEDICAL HISTORY : Multiple sclerosis. SURGICAL HISTORY : Lumbar fusion. ENCOUNTER: Initial ACUITY: 1 day PAIN SCORE: 0/10 LOCATION: Bilateral chest FINDINGS: Mild cardiomegaly. Minimal basilar densities most characteristic of atelectasis. No plain film eviden ce for congestive heart failure. No significant effusion. No pneumothorax. CONCLUSION: 1. Minimal basilar atelectasis. Mild cardiomegaly. Atherosclerotic aorta. No plain film findings for congestive heart failure. Mild scoliosis. Gonzalo Juan MD on January 21, 2017 at 11:50 Board Certified Radiologist. This report was verified electronically.
[2017-01-21 12:09] LABS: ALT (GPT) 15 U/L (12-78); ANION GAP 5 MEQ/L (5-15); AST (GOT) 11 U/L (15-37); BLOOD UREA NITROGEN 20 MG/DL (7-18); CHLORIDE 102 MEQ/L (98-107); GLOMERULAR FILTRATION RATE 96 ML/MIN (>89); SODIUM (NA) 136 MEQ/L (136-145)
[2017-01-21 12:18] LABS: ALKALINE PHOSPHATASE 105 U/L (45-117); TOTAL BILIRUBIN ADULT 0.4 MG/DL (0.2-1.0)
[2017-01-21] MEDS ORDERED: CALC1TAB12 PO (12:38)
[2017-01-21] MEDS ORDERED: GADODIAMIDE PF 287 MG/ML 5 ML VIAL (for RAD MRI) IV ONE (14:02)
[2017-01-21 14:30] VITALS: BP 112/59; PULSE 65; RESP 18; O2SAT 95
--- NOTE | 2017-01-21 14:39 | RADRPT ---
EXAM DATE/TIME: 01/21/2017 12:50 [facility] COMPARISON: No previous studies available for comparison. INDICATIONS : Mulitple sclerosis. CONTRAST: 15 cc Omniscan (gadodiamide) IV MEDICAL HISTORY : Multiple sclerosis. Deep venous thrombosis. SURGICAL HISTORY : Fusion, lumbar. Pins in legs. ENCOUNTER: Initial ACUITY: 2 day PAIN SCORE: 0/10 LOCATION: neck TECHNIQUE: Multiplanar, multisequence MRI examination of the cervical spine was performed. FINDINGS: VERTEBRAE: Normal vertebral body height. Homogeneous marrow signal. ALIGNMENT: No evidence of subluxation. CORD: Normal configuration and signal. POST FOSSA: The cerebellar tonsils are normal in position. POST-CONTRAST: No abnormal areas of enhancement are seen. C2-C3: The thecal sac has a normal configuration. There is no evidence of disc herniation or spinal canal stenosis. The neural foramina are patent bilaterally. C3-C4: The thecal sac has a normal configuration. There is no evidence of disc herniation or spinal canal s tenosis. The neural foramina are patent bilaterally. C4-C5: Posterior osteophytic ridging with effacement of ventral thecal sac. Mild foraminal stenosis on the l eft. C5-C6: Posterior osteophytic ridging with mild AP canal stenosis and effacement of the thecal sac. Mild bila teral foraminal stenosis. C6-C7: Mild osteophytic ridging without significant stenosis. C7-T1: The thecal sac has a normal configuration. There is no evidence of disc herniation or spinal canal s tenosis. The neural foramina are patent bilaterally. CONCLUSION: 1. Moderate degenerative disc disease with focal mild stenosis at C5-6. Effacement of anterior thecal sac at C4-5 and C6-7. 2. No fracture or spondylolisthesis. No significant cord signal abnormality identified. No abnormal e nhancement within the spinal canal post contrast. Gonzalo Juan MD on January 21, 2017 at 14:29 Board Certified Radiologist. This report was verified electronically.
--- NOTE | 2017-01-21 14:56 | RADRPT ---
EXAM DATE/TIME: 01/21/2017 12:50 [facility] COMPARISON: No previous studies available for comparison. INDICATIONS : Mulitple sclerosis. CONTRAST: 15 cc Omniscan (gadodiamide) IV MEDICAL HISTORY : Multiple sclerosis. Deep venous thrombosis. SURGICAL HISTORY : Fusion, lumbar. Pins in legs. ENCOUNTER: Initial ACUITY: 2 day PAIN SCORE: 0/10 LOCATION: t-spine TECHNIQUE: Multiplanar multisequence MRI of the thoracic spine was performed. FINDINGS: There are mild compression deformities of T12 and L1 which are similar to prior lumbar spine CT from September 2016. There is a mild compression deformity of T8 without retropulsion. This appears old. There is no thora cic canal stenosis. No cord impingement or cord edema. No cord signal abnormalities. No abnormal enha ncing lesions within the spinal canal post contrast. Minimal enhancement around the prior fractures o f T12 and L1. CONCLUSION: 1. Remote compression fractures of T8, T12 and L1. No definite acute fracture. No spondylolisthesis. 2. No cord signal abnormality or cord impingement. No canal stenosis. Gonzalo Juan MD on January 21, 2017 at 14:49 Board Certified Radiologist. This report was verified electronically.
--- NOTE | 2017-01-21 14:58 | RADRPT ---
EXAM DATE/TIME: 01/21/2017 12:50 [facility] COMPARISON: CT LUMBAR SPINE W/O CONTRAST, September 05, 2016, 17:57. MRI LUMBAR SPINE W & W/O CONTRAST, August [id number], 11:51. INDICATIONS : Mulitple sclerosis. Sudden onset lower extremity weakness. CONTRAST: 15 cc Omniscan (gadodiamide) IV MEDICAL HISTORY : Multiple sclerosis. Deep venous thrombosis. SURGICAL HISTORY : Fusion, lumbar. Pins in legs. ENCOUNTER: Initial ACUITY: 2 day PAIN SCORE: 0/10 LOCATION: l-spine TECHNIQUE: Multiplanar multisequence MRI of the lumbar spine was performed with and without contrast. FINDINGS: The most caudal appearing lumbar vertebra is numbered as L5. Sagittal T1 and T2-weighted images demonstrate the patient be fused from L2 down to S1. The alignment of the spine is adequate. There are mild compression fractures at T12 and L1. There is minimal edema in the endplates with mild contrast enhancement. T12-L1: The thecal space and foramina are adequate. The facet joints demonstrate mild degenerative changes. L1-L2: The thecal space and foramina are adequate. The facet joints are intact. L2-L3: There is broad-based disc bulge. There is facet hypertrophy. There is at least a mild degree of spina l stenosis. This level is fused. L3-L4: The thecal sac is obscured by paramagnetic artifact from the patient's hardware. L4-L5: The thecal sac is obscured by the ferromagnetic artifact from the patient's hardware. L5-S1: The thecal space and foramina appear adequate. This level is fused. CONCLUSION: 1. Osteoporotic changes throughout the spine. 2. Mild compression fractures at T12 and L1. There is a small amount of edema and enhancement within these they were present on the patient's CT scan dated 09/05/16. 3. The thecal sac is obscured in the mid and lower lumbar spine from the hardware. In the areas where the thecal sac is visible I see no severe spinal stenosis. 4. There is abnormal marrow signal within the sacrum probably related to severe osteoporosis. Dedicat ed imaging with either CT or MRI through the sacrum to exclude sacral fracture would be warranted. Avery Horvath MD on January 21, 2017 at 14:45 Board Certified Radiologist. This report was verified electronically.
--- NOTE | 2017-01-21 15:02 | RADRPT ---
EXAM DATE/TIME: 01/21/2017 12:50 [facility] COMPARISON: No previous studies available for comparison. INDICATIONS : Sudden onset bilateral lower extremity weakness. CONTRAST: 15 cc Omniscan (gadodiamide) IV MEDICAL HISTORY : Multiple sclerosis. Deep venous thrombosis. SURGICAL HISTORY : Fusion, lumbar. Pins in legs. ENCOUNTER: Initial ACUITY: 2 day PAIN SCORE: 0/10 LOCATION: head TECHNIQUE: Multiplanar, multisequence MRI of the brain was performed both prior to and following the administrat ion of paramagnetic contrast. FINDINGS: CEREBRUM: The ventricles are normal for age. No evidence of midline shift, mass lesion, hemorrhage or acute in farction. No extraaxial fluid collections are seen. The pituitary gland and suprasellar cistern are normal in configuration. WHITE MATTER: Moderate signal abnormalities are seen in the white matter. POSTERIOR FOSSA: The cerebellum and brainstem are intact. The 4th ventricle is midline. The cerebellopontine angle is unremarkable. The cerebellar tonsils are normal in position. DIFFUSION IMAGING: No focal areas of restricted diffusion are seen. No evidence of acute infarction. EXTRACRANIAL: The visualized portions of the orbits and paranasal sinuses are unremarkable. POST-CONTRAST: No abnormal areas of parenchymal or dural enhancement. No evidence of blood-brain barrier breakdown. CONCLUSION: 1. Moderate chronic white matter ischemic changes in the brain with some cortical volume loss. No mas s, hemorrhage or shift. No recent infarct identified. Gonzalo Juan MD on January 21, 2017 at 14:54 Board Certified Radiologist. This report was verified electronically.
== END 2017-01-21 18:28 | disposition home or self-care (01) ==
LOC: NEPE 10:33 → NEDA 16:06 → UNDOADMOB 16:06 → NEPE 18:28
DX: R29.898 Other symptoms and signs involving the musculoskeletal system (principal); G35 Multiple sclerosis; F17.200 Nicotine dependence, unspecified, uncomplicated; Z79.01 Long term (current) use of anticoagulants; Z86.718 Personal history of other venous thrombosis and embolism; Z86.59 Personal history of other mental and behavioral disorders; Z87.448 Personal history of other diseases of urinary system; Z87.39 Personal history of other diseases of the musculoskeletal system and connective tissue
CPT/HCPCS: 70553; 71010; 72156; 72157; 72158; 80053; 84443; 85025; 85610; 85730; 99285; A9579

== ENCOUNTER 2017-03-16 15:12 | Inpatient (IN) | payer OTHER, MEDICARE ==
[~2017-03-16] VITALS: Ht 190.5 cm; Wt 74.1 kg
[~2017-03-16 15:12] MED LIST changes: +CALC1TAB12 PO; -HYDR-3583 PO; -LOPE2CAP PO
[2017-03-16 15:14] VITALS: BP 116/64; PULSE 77; RESP 18; TEMP 97.7; O2SAT 96
--- NOTE | 2017-03-16 15:27 | PD ---
Physical Exam Date Seen by Provider: Mar 16, 2017 Time Seen by Provider: 15:24 Narrative 71 YOWM C/O INABLITY TO CARE FOR HIMSELF AT HOME . MORE CONFUSED. [employer] WANTS TO BACKER ACTED. AGGRESSIVE AT HOME. VS REVIEWED WAITING FOR BED PLACEMENT Data Data Last Documented VS Vital Signs Date Time Temp Pulse Resp B/P Pulse Ox O2 Delivery O2 Flow Rate FiO2 03/16/17 15:14 97.7 77 18 116/64 96 Room Air MDM Supervised Visit with ARNOLDO: Gonzalo Brasher Mar 16, 2017 15:27
--- NOTE | 2017-03-16 15:43 | PD ---
HPI Chief Complaint: Psychiatric Symptoms Time Seen by Provider: 15:42 Travel History International Travel<30 days: No Contact w/Intl Traveler<30days: No Traveled to known affect area: No History of Present Illness HPI 71-year-old male with history of MS, seizure disorder, CAD, depression, anxiety , diabetes, tobacco dependency, presents to the emergency department voluntarily for psychiatric evaluation. He is accompanied by his daughter who states she is his POA. She states that the patient has not been taking his medication and has become increasingly depressed, aggressive," operative. He is carelessly smoking cigarettes around the house, dropping ashes on himself and furniture. He states that he yells and states he no longer wants to live. She feels as though his mentation is decreasing and she is concerned. Patient states that he does not want to kill himself but he "does not want to wake up." He tells me that he is "mentally sick." Is requesting to be admission to " get away from her." He has no acute medical needs to report at this time. PFSH Past Medical History Blood Disorders: No Anxiety: Yes Depression: Yes Cancer: No (per pt) Cardiovascular Problems: No (per pt) Diabetes: No (per pt) Diminished Hearing: Yes (bilateral hearing aids, NONE IN PLACE) Deep Vein Thrombosis: Yes Endocrine: No Genitourinary: Yes (BPH, CHRONIC INCONTINENCE UNABLE TO CONTROL BLADDER MUSCLES ) Headaches: No (per pt) Immune Disorder: No Musculoskeletal: Yes (BACK) Neurologic: Yes (Multiple Sclerosis) Psychiatric: No (per pt) Reproductive: No Respiratory: No Immunizations Current: Yes Seizures: No (per pt) Past Surgical History Other Surgery: Yes (hx of back surgery) Social History Alcohol Use: No Tobacco Use: Yes (1.5 PPD) Substance Use: No Allergies-Medications (Allergen,Severity, Reaction): Coded Allergies: No Known Allergies (Unverified , 03/16/17) Reported Meds & Prescriptions Reported Meds & Active Scripts Active Trazodone (Trazodone HCl) 50 Mg Tab 50 Mg PO HS Flomax (Tamsulosin HCl) 0.4 Mg Cap 0.4 Mg PO DAILY Zoloft (Sertraline HCl) 100 Mg Tab 100 Mg PO DAILY Methocarbamol 500 Mg Tab 500 Mg PO Q8HR Neurontin (Gabapentin) 300 Mg Cap 300 Mg PO BID Aripiprazole 10 Mg Tab 10 Mg PO DAILY Eliquis (Apixaban) 5 Mg Tab 5 Mg PO BID Reported Calcium 500 +D (Calcium Carbonate-Cholecalciferol) 500-400 Mg-Unit Tab 1 Tab PO BID Review of Systems Except as stated in HPI: all other systems reviewed are Neg Physical Exam Narrative GENERAL: Thin elderly male patient, ambulatory with walker assistance, in no acute distress. He is extremely hard of hearing with bilateral hearing aids in place. SKIN: Focused skin assessment warm/dry. HEAD: Atraumatic. Normocephalic. EYES: Pupils equal and round. No scleral icterus. No injection or drainage. ENT: No nasal bleeding or discharge. Mucous membranes pink and moist. NECK: Trachea midline. No JVD. CARDIOVASCULAR: Regular rate and rhythm. No murmur appreciated. RESPIRATORY: No accessory muscle use. Diminished, faint wheeze to auscultation. Breath sounds equal bilaterally. GASTROINTESTINAL: Abdomen soft, non-tender, nondistended. Hepatic and splenic margins not palpable. MUSCULOSKELETAL: No obvious deformities. No clubbing. No cyanosis. No edema. NEUROLOGICAL: Awake and alert. No obvious cranial nerve deficits. Motor grossly within normal limits. Normal speech. Data Data Last Documented VS Vital Signs Date Time Temp Pulse Resp B/P Pulse Ox O2 Delivery O2 Flow Rate FiO2 03/16/17 15:58 17 03/16/17 15:14 97.7 77 116/64 96 Room Air Orders Complete Blood Count With Diff (03/16/17 15:43) Comprehensive Metabolic Panel (03/16/17 15:43) Urinalysis - C+S If Indicated (03/16/17 15:43) Iv Access Insert/Monitor (03/16/17 15:43) Psych Screen (03/16/17 15:43) Drug Screen, Random Urine (03/16/17 15:43) Alcohol (Ethanol) (03/16/17 15:43) Diet Regular Basic (03/16/17 Dinner) Labs Laboratory Tests Test 03/16/17 16:10 White Blood Count 10.3 TH/MM3 Red Blood Count 4.60 MIL/MM3 Hemoglobin 15.7 GM/DL Hematocrit 46.0 % Mean Corpuscular Volume 100.1 FL Mean Corpuscular Hemoglobin 34.1 PG Mean Corpuscular Hemoglobin 34.1 % Concent Red Cell Distribution Width 14.5 % Platelet Count 254 TH/MM3 Mean Platelet Volume 8.4 FL Neutrophils (%) (Auto) 72.2 % Lymphocytes (%) (Auto) 16.7 % Monocytes (%) (Auto) 7.9 % Eosinophils (%) (Auto) 2.5 % Basophils (%) (Auto) 0.7 % Neutrophils # (Auto) 7.4 TH/MM3 Lymphocytes # (Auto) 1.7 TH/MM3 Monocytes # (Auto) 0.8 TH/MM3 Eosinophils # (Auto) 0.3 TH/MM3 Basophils # (Auto) 0.1 TH/MM3 CBC Comment DIFF FINAL Differential Comment Sodium Level 138 MEQ/L Potassium Level 4.3 MEQ/L Chloride Level 104 MEQ/L Carbon Dioxide Level 30.2 MEQ/L Anion Gap 4 MEQ/L Blood Urea Nitrogen 16 MG/DL Creatinine 0.94 MG/DL Estimat Glomerular Filtration 79 ML/MIN Rate Random Glucose 93 MG/DL Calcium Level 8.5 MG/DL Total Bilirubin 0.3 MG/DL Aspartate Amino Transf 15 U/L (AST/SGOT) Alanine Aminotransferase 19 U/L (ALT/SGPT) Alkaline Phosphatase 97 U/L Total Protein 7.7 GM/DL Albumin 3.7 GM/DL Ethyl Alcohol Level LESS THAN 3 MG/DL MDM Medical Decision Making Medical Screen Exam Complete: Yes Emergency Medical Condition: Yes Medical Record Reviewed: Yes Differential Diagnosis Mood disorder versus personality disorder versus adjustment reaction disorder Narrative Course 71-year-old male presents to the emergency department all entirely for psychiatric evaluation. Patient appears without distress. He does report "not wanting to wake up." Denies any suicidal or homicidal plan. Acute concern. Patient is medically cleared to undergo psychiatric screening for further evaluation and disposition. Mental health screening discussed with the patient. Psychiatric screen ordered. Diagnosis Primary Impression: Major depressive disorder, recurrent severe without psychotic features Condition: Stable CourtneyFrankSantagio ADAMS Mar 16, 2017 15:42
[2017-03-16 16:27] LABS: AUTOMATED NEUTROPHIL # 7.4 TH/MM3 (1.8-7.7); BASOPHIL # 0.1 TH/MM3 (0-0.2); BASOPHIL % 0.7 % (0.0-2.0); EOSINOPHIL # 0.3 TH/MM3 (0-0.4); EOSINOPHIL % 2.5 % (0.0-4.0); HEMO FLAGS DIFF FINAL; LYMPH % 16.7 % (9.0-44.0); LYMPHOCYTE # 1.7 TH/MM3 (1.0-4.8); MEAN CELL VOLUME 100.1 FL (80.0-100.0); MEAN CORPUSCULAR HEMOGLOBIN 34.1 PG (27.0-34.0); MEAN CORPUSCULAR HGB CONC 34.1 % (32.0-36.0); MONO % 7.9 % (0.0-8.0); NEUT % 72.2 % (16.0-70.0); PLATELET COUNT 254 TH/MM3 (150-450); RED CELL DISTRIBUTION WIDTH 14.5 % (11.6-17.2); WHITE BLOOD COUNT 10.3 TH/MM3 (4.0-11.0)
[2017-03-16 16:46] LABS: ALT (GPT) 19 U/L (12-78); ANION GAP 4 MEQ/L (5-15); AST (GOT) 15 U/L (15-37); BICARBONATE 30.2 MEQ/L (21.0-32.0); BLOOD UREA NITROGEN 16 MG/DL (7-18); CHLORIDE 104 MEQ/L (98-107); GLOMERULAR FILTRATION RATE 79 ML/MIN (>89); POTASSIUM 4.3 MEQ/L (3.5-5.1); SODIUM (NA) 138 MEQ/L (136-145)
[2017-03-16 16:49] LABS: ALCOHOL LESS THAN 3 MG/DL (0-5); ALKALINE PHOSPHATASE 97 U/L (45-117); TOTAL BILIRUBIN ADULT 0.3 MG/DL (0.2-1.0)
[2017-03-16 19:38] VITALS: BP 142/74; PULSE 68; RESP 17; O2SAT 97
[2017-03-16] MEDS ORDERED: LORazepam 0.5 MG TAB PO PRN (20:00)
[2017-03-16] MEDS: ARIPiprazole 10 MG TAB PO SCH (20:00)
[2017-03-16] MEDS ORDERED: ACETAMINOPHEN 325 MG TAB PO PRN (20:00)
[2017-03-16] MEDS: NICOTINE 21 MG/24 HR PATCH T-DERMAL SCH (20:00)
[2017-03-16] MEDS ORDERED: LORazepam 1 MG TAB PO PRN (20:00)
[2017-03-16] MEDS: TAMSULOSIN HCL 0.4 MG CAP PO SCH (20:00)
[2017-03-16] MEDS ORDERED: LORazepam 2 MG/ML VIAL IM PRN ×2 (20:00)
[2017-03-16] MEDS: SERTRALINE HCL 100 MG TAB PO SCH (20:00)
[2017-03-16] MEDS ORDERED: traZODone HCL 50 MG TAB PO SCH (21:00)
[2017-03-16] MEDS: APIXABAN 5 MG TABLET PO SCH (21:00)
[2017-03-16 21:10] VITALS: BP 145/67; PULSE 72; RESP 18; TEMP 98.5; O2SAT 96
[2017-03-16] MEDS: METHOCARBAMOL 500 MG TAB PO SCH (22:46)
[2017-03-16] MEDS: GABAPENTIN 300 MG CAP PO SCH (22:47)
[2017-03-17 00:01] LABS: BLOOD, URINE NEG (NEG); GLUCOSE,URINE NEG (NEG); KETONE, URINE NEG (NEG); NITRITE,URINE NEG (NEG); SQUAMOUS EPITHELIAL CELL URINE <1 /hpf (0-5); URINE COLOR YELLOW (YELLW/STRAW)
[2017-03-17 00:03] LABS: COMMENT (UR) CULT NOT INDICATED; CULTURE IF INDICATED CULT NOT INDICATED
[2017-03-17] MEDS: METHOCARBAMOL 500 MG TAB PO SCH ×3 (05:37→22:13)
[2017-03-17 06:00] VITALS: BP 103/51; PULSE 67; RESP 16; TEMP 98.5
[2017-03-17] MEDS: GABAPENTIN 300 MG CAP PO SCH ×2 (09:00→22:13)
[2017-03-17] MEDS: NICOTINE 21 MG/24 HR PATCH T-DERMAL SCH (09:00)
[2017-03-17] MEDS: TAMSULOSIN HCL 0.4 MG CAP PO SCH (09:00)
[2017-03-17] MEDS: SERTRALINE HCL 100 MG TAB PO SCH (09:00)
[2017-03-17] MEDS: APIXABAN 5 MG TABLET PO SCH ×2 (09:00→22:13)
[2017-03-17] MEDS: ARIPiprazole 10 MG TAB PO SCH (09:00)
[2017-03-17] MEDS ORDERED: ACETAMINOPHEN 325 MG TAB PO PRN (10:30)
--- NOTE | 2017-03-17 10:57 | HHI.HP ---
Provisional Diagnosis Admission Date Mar 16, 2017 at 19:50 [place] I. Major depressive disorder recurrent severe without psychosis f 33.2 Certification of Person's Competence To Provide Express and Informed Consent I have personally examined Moe Price , a person being served at [facility] on, Mar 17, 2017 10:45. Express and informed consent means consent voluntarily given in writing, by a competent person, after sufficient explanation and disclosure of the subject matter involved to enable the person to make a knowing and willful decision without any element of force, fraud, deceit, duress, or other form of constraint or coercion. This person is 18 years of age or older, is not now known to be incompetent to consent to treatment with a guardian advocate, and does not have a health care surrogate or proxy currently making medical treatment decisions. I have found this person to be one of the following: [xxx] Competent to provide express and informed consent, as defined above, for voluntary admission to this facility and is competent to provide express and informed consent for treatment. He/she has the consistent capacity to make well reasoned, willful, and knowing decisions concerning his or her medical or mental health treatment. The person fully and consistently understands the purpose of the admission for examination/placement and is fully capable of personally exercising all rights assured [place] Incompetent to provide express and informed consent to voluntary admission, and this is incompetent to provide express and informed consent to treatment. The person must be transferred to involuntary status and a petition for a guardian advocate filed with the Circuit Court. [] Refusing to provide express and informed consent to voluntary admission but is competent to provide express and informed consent for treatment. The person must be discharged or transferred to involuntary status. Form shall be completed within 24 hours of a person's arrival at the receiving facility and filed in the clinical record of each person: 1. Admitted on a voluntary basis 2. Permitted to provide express and informed consent to his/her own treatment 3. Allowed to transfer from involuntary to voluntary status 4. Prior to permitting a person to consent to his or her own treatment after having been previously found incompetent to consent to treatment. History of Present Illness Capacity: Has Capacity HPI Patient is a 8-year-old white male comes to emergency department on a voluntary basis brought in by his daughter given the history of noncompliance medication increased depression irritability decrease in self-care and hygiene. Also 20 more angry irritable and hostile towards his daughter. Of interest patient was admitted to my service for 717 through 11/10/16 under visit [phone]. At that time he was living with his daughter, giving a history of his daughter having substance abuse issues and was going into an inpatient rehabilitation and the [facility]. Patient did respond well with medications others return home with in-home services. At this time patient states that he has had to move various times with his daughter. He is now on a small apartment with her where she is in the bedroom and he has a hospital bed in the eaton. He acknowledges noncompliance of the medication. He acknowledges increased depression irritability anger short temperedness and sadness when off his medications. He also states she has had increased urinary incontinence and fecal incontinence He denies that his daughter is returned to drinking. That appear staff states the daughter did call nursing last night and stated she does go to bars and brings him with her. Need to verify this. Patient does deny voices or visions. He does denies suicidality at the present time at the present time patient does meet criteria for inpatient psychiatric hospitalization, assessment and observation. We'll continue his medications per the med reconciliation. Will attempt to maintain talk with the patient's daughter the next few days. Need to consider possible placement issues for this gentleman patient also does have a history of MS. He states he is not getting any treatment for that at the present time. We'll have hospitalists assess that. We'll also have PT assess patient patient walks with a walker though the somewhat forward leaning stance that may have an increased fall risk Review of Systems Constitutional: DENIES: Diaphoretic episodes, Fatigue, Fever, Weight gain, Weight loss, Chills, Dizziness, Change in appetite, Night Sweats Endocrine: DENIES: Heat/cold intolerance, Polydipsia, Polyuria, Polyphagia Eyes: DENIES: Blurred vision, Diplopia, Eye inflammation, Eye pain, Vision loss , Photosensitivity, Double Vision Ears, nose, mouth, throat: COMPLAINS OF: Hearing loss, DENIES: Tinnitus, Vertigo, Nasal discharge, Oral lesions, Throat pain, Hoarseness, Ear Pain, Running Nose, Epistaxis, Sinus Pain, Toothache, Odynophagia Respiratory: DENIES: Apneas, Cough, Snoring, Wheezing, Hemoptysis, Sputum production, Shortness of breath Cardiovascular: DENIES: Chest pain, Palpitations, Syncope, Dyspnea on Exertion , PND, Lower Extremity Edema, Orthopnea, Claudication Gastrointestinal: DENIES: Abdominal pain, Black stools, Bloody stools, Constipation, Diarrhea, Nausea, Vomiting, Difficulty Swallowing, Anorexia Genitourinary: COMPLAINS OF: Urinary incontinence Musculoskeletal: DENIES: Joint pain, Muscle aches, Stiffness, Joint Swelling, Back pain, Neck pain Integumentary: DENIES: Abnormal pigmentation, Nail changes, Pruritus, Rash Hematologic/lymphatic: DENIES: Bruising, Lymphadenopathy Immunologic/allergic: DENIES: Eczema, Urticaria Neurologic: COMPLAINS OF: Abnormal gait, Poor Balance Psychiatric: COMPLAINS OF: Anxiety, Depression, DENIES: Confusion, Mood changes, Hallucinations, Agitation, Suicidal Ideation, Homicidal Ideation, Delusions Past Psych History Psychological trauma history Patient denies at this time Violence risk - others (6 mos) Patient somewhat irritable with his daughter Violence risk - self (6 mos) Patient denies suicidality Substance Abuse History Drugs/Alcohol past 12 months Denies Past Family Social History Coded Allergies: No Known Allergies (Unverified , 03/16/17) Active Scripts Trazodone 50 Mg Tab50 Mg PO HS #30 TAB Ref 0 Prov:Moe Ahn MD 11/10/16 Tamsulosin (Flomax)0.4 Mg Cap0.4 Mg PO DAILY #30 CAP Ref 0 Prov:Moe Ahn MD 11/10/16 Sertraline (Zoloft)100 Mg [id number] Mg PO DAILY #30 TAB Ref 0 Prov:Moe Ahn MD 11/10/16 Methocarbamol 500 Mg [id number] Mg PO Q8HR #90 TAB Ref 0 Prov:Moe Ahn MD 11/10/16 Gabapentin (Neurontin)300 Mg [id number] Mg PO BID #60 CAP Ref 0 Prov:Moe Ahn MD 11/10/16 Aripiprazole 10 Mg Tab10 Mg PO DAILY #30 TAB Ref 0 Prov:Moe Ahn MD 11/10/16 Apixaban (Eliquis)5 Mg Tab5 Mg PO BID #60 TAB Ref 0 Prov:Moe Ahn MD 11/10/16 Reported Medications Calcium Carbonate-Cholecalciferol (Calcium 500 +D)500-400 Mg-Unit Tab1 Tab PO BID Ref 0 01/21/17 Current Medications Medications (Trade) Dose Ordered Sig/Tia Route Start Time Stop Time Status Last Admin (Eliquis) 5 mg BID PO 03/16/17 21:00 03/17/17 09:00 (Abilify) 10 mg DAILY PO 03/16/17 20:00 03/17/17 09:00 (Neurontin) 300 mg BID PO 03/16/17 21:00 03/17/17 09:00 (Robaxin) 500 mg Q8HR PO 03/16/17 22:00 03/17/17 05:37 (Zoloft) 100 mg DAILY PO 03/16/17 20:00 03/17/17 09:00 (Flomax) 0.4 mg DAILY PO 03/16/17 20:00 03/17/17 09:00 (Desyrel) 50 mg HS PO 03/16/17 21:00 03/16/17 22:46 (Ativan) 0.5 mg Q12H PRN PO 03/16/17 20:00 (Ativan Inj) 0.5 mg Q12H PRN IM 03/16/17 20:00 (Tylenol) 650 mg Q4H PRN PO 03/16/17 20:00 (Habitrol 21 Mg Patch.24 Hr) 1 patch DAILY T-DERMAL 03/16/17 20:00 Family History Unknown at this time Social History Patient lives with daughter is a history of substance abuse and alcohol abuse Patient's Strengths (min. 2) Patient verbal irritable [facility] Physical Exam Patient seen screened in ED exam reviewed and agreed with. Patient seen manager intelligence bed in no acute distress. Neck supple. Patient no respiratory distress. No complaints of abdominal pain. Patient showing overall weakness and unsteady gait with a walker Vital Signs Vital Signs Date Time Temp Pulse Resp B/P Pulse Ox O2 Delivery O2 Flow Rate FiO2 03/17/17 06:00 98.5 67 16 103/51 03/16/17 21:10 96 03/16/17 19:38 Room Air I/O 03/16/17 03/16/17 03/16/17 07:59 15:59 23:59 Intake Total 150 ml 350 ml Balance 150 ml 350 ml Mental Status Examination Alert oriented thin slender white male appears stated age, fair eye contact, somewhat guarded but cooperative Appearance Somewhat disheveled Speech: Fast (somewhat), Tangential (mildly) Orientation: x3 Memory: Unremarkable (poor) Thought Process: Linear Thought Content: Unremarkable Language Poor to fair Fund of Knowledge Poor to fair Hallucination Type: None (denies) Attention and Concentration: Other (they are) Suicidal Ideation: No (denies at this time) Previous Suicide Attempts: No Homicidal Ideation: No Previous Homicide Attempts: No Insight: Poor Judgment: Poor Affect: Other (slight increase range intensity) Mood: Euthymic (to mildly dysphoric) Motor Activity: Abnormal gait-specify (uses walker will get PT assessment) Assessment & Plan Problem List: (1) Major depressive disorder, recurrent severe without psychotic features ICD Code: F33.2 (2) MS (multiple sclerosis) ICD Code: G35 Assessment & Plan Estimated LOS: 3-5 days patient calm cooperative though remained depressed. Needs stabilization and medication management. We need to talk to patient's daughter related to possible placement issues Discharge Planning Be determined Request HC Surrog/Guard Advoc?: No Moe Ahn MD Mar 17, 2017 10:57
[2017-03-17 12:51] LABS: ANION GAP 5 MEQ/L (5-15); BICARBONATE 28.5 MEQ/L (21.0-32.0); BLOOD UREA NITROGEN 19 MG/DL (7-18); CHLORIDE 105 MEQ/L (98-107); GLOMERULAR FILTRATION RATE 115 ML/MIN (>89); POTASSIUM 4.2 MEQ/L (3.5-5.1); SODIUM (NA) 138 MEQ/L (136-145)
[2017-03-17 12:54] LABS: HDL CHOLESTEROL 42.3 MG/DL (40.0-60.0); LDL CHOLESTEROL 85 MG/DL (0-99)
--- NOTE | 2017-03-17 16:52 | PD.CONS ---
HPI Service [facility] Hospitalists Consult Requested By Dr. Caruso Reason for Consult Underlying medical conditions Primary Care Physician [facility] Diagnoses: History of Present Illness Written by Viviane German, acting as scribe for Dr. Slaughter on 03/17/17 at 16:47. This is a 71-year-old male with past medical history significant for depression , MS, chronic pain, DVT and BPH admitted to psychiatric inpatient facility. We have been consulted to assist with underlying medical conditions. He verifies a history of MS that was diagnosed in 1988. He does not know why he is not on any medications for his MS at this time. He denies any medical complaints at this time including headache, numbness/tingling, chest pain, SOB, fevers, chills , N/V/D/C or abdominal pain. Review of Systems ROS Limitations: Poor Historian Except as stated in HPI: all other systems reviewed are Neg Past Family Social History Allergies: Coded Allergies: No Known Allergies (Unverified , 03/16/17) Past Medical History MS diagnosed in 1988, not on any medications BPH Depression Chronic back pain H/O DVT on Eliquis Diminished hearing Past Surgical History Previous back surgery Reported Medications Trazodone (Trazodone HCl) 50 Mg Tab 50 Mg PO HS Flomax (Tamsulosin HCl) 0.4 Mg Cap 0.4 Mg PO DAILY Zoloft (Sertraline HCl) 100 Mg Tab 100 Mg PO DAILY Methocarbamol 500 Mg Tab 500 Mg PO Q8HR Neurontin (Gabapentin) 300 Mg Cap 300 Mg PO BID Aripiprazole 10 Mg Tab 10 Mg PO DAILY Eliquis (Apixaban) 5 Mg Tab 5 Mg PO BID Calcium 500 +D (Calcium Carbonate-Cholecalciferol) 500-400 Mg-Unit Tab 1 Tab PO BID Active Ordered Medications Current Medications Medications (Trade) Dose Ordered Sig/Tia Route Start Time Stop Time Status Last Admin (Eliquis) 5 mg BID PO 03/16/17 21:00 03/17/17 09:00 (Abilify) 10 mg DAILY PO 03/16/17 20:00 03/17/17 09:00 (Neurontin) 300 mg BID PO 03/16/17 21:00 03/17/17 09:00 (Robaxin) 500 mg Q8HR PO 03/16/17 22:00 03/17/17 14:00 (Zoloft) 100 mg DAILY PO 03/16/17 20:00 03/17/17 09:00 (Flomax) 0.4 mg DAILY PO 03/16/17 20:00 03/17/17 09:00 (Tylenol) 650 mg Q4H PRN PO 03/16/17 20:00 (Habitrol 21 Mg Patch.24 Hr) 1 patch DAILY T-DERMAL 03/16/17 20:00 (Oscal-D 250-125) 500 mg BID PO 03/17/17 21:00 Family History Mother had Diabetes mellitus Father had cancer unknown type Denies family medical history of multiple sclerosis Social History Patient denies any ETOH consumption or illicit drug use. Patient admits to smoking 1 packs per day. Physical Exam Vital Signs Vital Signs Date Time Temp Pulse Resp B/P Pulse Ox O2 Delivery O2 Flow Rate FiO2 03/17/17 06:00 98.5 67 16 103/51 03/16/17 21:10 98.5 72 18 145/67 96 03/16/17 19:38 68 17 142/74 97 Room Air Physical Exam GENERAL: This is a well-nourished, well-developed patient, in no apparent distress. SKIN: No rashes, ecchymoses or lesions. Cool and dry. HEAD: Atraumatic. Normocephalic. No temporal or scalp tenderness. EYES: Extraocular motions intact. No scleral icterus. No injection or drainage. ENT: Nose without bleeding, purulent drainage or septal hematoma. Throat without erythema, tonsillar hypertrophy or exudate. Uvula midline. Airway patent. NECK: Trachea midline. No JVD or lymphadenopathy. Supple, nontender, no meningeal signs. CARDIOVASCULAR: Normal S1-S2 no murmurs gallops or rubs RESPIRATORY: Diminished throughout GASTROINTESTINAL: Abdomen soft, non-tender, nondistended. No guarding. MUSCULOSKELETAL: Extremities without clubbing, cyanosis, or edema. No joint tenderness, effusion, or edema noted. No calf tenderness. NEUROLOGICAL: Awake and alert. Able to move all 4 extremities. No focal neurologic deficit appreciated. Laboratory Laboratory Tests Test 03/16/17 03/17/17 22:50 12:02 Urine Color YELLOW Urine Turbidity CLEAR Urine pH 6.0 Urine Specific [place] 1.025 Urine Protein NEG Urine Glucose (UA) NEG Urine Ketones NEG Urine Occult Blood NEG Urine Nitrite NEG Urine Bilirubin NEG Urine Urobilinogen LESS THAN 2.0 Urine Leukocyte Esterase NEG Urine RBC LESS THAN 1 Urine WBC 4 Urine Squamous Epithelial <1 Cells Microscopic Urinalysis Comment CULT NOT INDICATED Urine Opiates Screen NEG Urine Barbiturates Screen NEG Urine Amphetamines Screen NEG Urine Benzodiazepines Screen NEG Urine Cocaine Screen NEG Urine Cannabinoids Screen NEG Sodium Level 138 Potassium Level 4.2 Chloride Level 105 Carbon Dioxide Level 28.5 Anion Gap 5 Blood Urea Nitrogen 19 Creatinine 0.68 Estimat Glomerular Filtration 115 Rate Random Glucose 63 Calcium Level 8.4 Triglycerides Level 109 Cholesterol Level 149 LDL Cholesterol 85 HDL Cholesterol 42.3 Cholesterol/HDL Ratio 3.52 Result Diagram: 03/16/17 1610 03/17/17 1202 Assessment and Plan Assessment and Plan 71-year-old male with past medical history significant for depression, MS, chronic pain, DVT and BPH admitted under [place] [facility] for major depressive episode and suicidal ideation with a plan. We have been consulted to assist with medical management of patients MS, h/o DVT and BPH. Depression with suicidal ideation - Management per psychiatric team MS - untreated, patient does not know why he isn't on any medication - Recommend follow-up as outpatient. - Seems to be stable H/O DVT - several years ago - resume home dose of Eliquis BPH - resume home Flomax Chronic back pain - Tylenol prn DVT prophylaxis - on Eliquis Discussed with patient and nursing staff Patient appears medically stable at this point, will sign off. Patient's condition changes or further assistance is needed please reconsult. Recommend patient follow-up with PCP after discharge This note was transcribed by samuel German. I, Dr. Girish Tony personally performed the history, physical exam, and medical decision making; and confirmed the accuracy of the information in the transcribed note on 03/17/17 at 16:53. . Authenticated by Dr. Girish Tony on 03/17/17 at 16:57. Viviane German Mar 17, 2017 16:52 Girish Teran MD Mar 17, 2017 22:39
[2017-03-17 16:54] VITALS: BP 103/51; PULSE 64; RESP 16; TEMP 98.5; O2SAT 98
[2017-03-17 17:17] LABS: HEMOGLOBIN A1a 1.1 %; HEMOGLOBIN A1b 1.7 %; HEMOGLOBIN Ao 84.8 %; HEMOGLOBIN LA1C 1.9 %
[2017-03-17] MEDS: CALCIUM/VITAMIN D 250 MG/125 U TAB PO SCH (22:13)
[2017-03-18 06:02] VITALS: BP 123/56; PULSE 73; RESP 17; TEMP 97.9; O2SAT 94
[2017-03-18] MEDS: METHOCARBAMOL 500 MG TAB PO SCH ×3 (06:18→21:00)
[2017-03-18] MEDS: ARIPiprazole 10 MG TAB PO SCH (09:00)
[2017-03-18] MEDS: NICOTINE 21 MG/24 HR PATCH T-DERMAL SCH (09:00)
[2017-03-18] MEDS: SERTRALINE HCL 100 MG TAB PO SCH (09:00)
[2017-03-18] MEDS: APIXABAN 5 MG TABLET PO SCH ×2 (10:02→20:55)
[2017-03-18] MEDS: GABAPENTIN 300 MG CAP PO SCH ×2 (10:02→20:55)
[2017-03-18] MEDS: TAMSULOSIN HCL 0.4 MG CAP PO SCH (10:02)
[2017-03-18] MEDS: CALCIUM/VITAMIN D 250 MG/125 U TAB PO SCH ×2 (10:03→20:55)
--- NOTE | 2017-03-18 11:44 | HHI.PYPN ---
Subjective Remarks Patient seen in his room with nurse Alla, chart review, patient compliant medications. Patient continues somewhat loud though this may be a reflection of his difficulty hearing. We discussed placement issues. Patient may benefit from a rehabilitation facility for a period of time. Though he states he and his daughter live off of his entitlements. Staff states patient's daughter has called the somewhat irritating ingratiating manner. Family that we just want to place him in an institution, she wants him on medication so that she can take him home. Though I question her motivation for this considering her past history of substance use Review of Systems Except as stated in HPI: all other systems reviewed are Neg Objective Alert: Yes [place]: Person, Place, Date Mood: Anxious (mildly), Calm, Other (mildly dysphoric) Affect: Other (slight increase range and intensity) Memory Intact: Comment (poor to fair) Hallucinations: Other (denies) Delusions: No Delusion Type: Other (perhaps somewhat vigilant) Suicidal: Ideation (denies) Homicidal: Ideation (denies) Insight/Judgment Poor Labs Test 03/17/17 12:02 Sodium Level 138 MEQ/L Potassium Level 4.2 MEQ/L Chloride Level 105 MEQ/L Carbon Dioxide Level 28.5 MEQ/L Anion Gap 5 MEQ/L Blood Urea Nitrogen 19 MG/DL Creatinine 0.68 MG/DL Estimat Glomerular Filtration 115 ML/MIN Rate Random Glucose 63 MG/DL Hemoglobin A1c 5.7 % Calcium Level 8.4 MG/DL Triglycerides Level 109 MG/DL Cholesterol Level 149 MG/DL LDL Cholesterol 85 MG/DL HDL Cholesterol 42.3 MG/DL Cholesterol/HDL Ratio 3.52 RATIO Vitals/IOs Vital Signs Date Time Temp Pulse Resp B/P Pulse Ox O2 Delivery O2 Flow Rate FiO2 03/18/17 06:02 97.9 73 17 123/56 94 03/16/17 19:38 Room Air Intake and Output 03/17/17 03/17/17 03/18/17 08:00 16:00 00:00 Intake Total 240 ml 630 ml Balance 240 ml 630 ml Assessment & Plan Problem List: (1) Major depressive disorder, recurrent severe without psychotic features ICD Code: F33.2 (2) MS (multiple sclerosis) ICD Code: G35 Assessment & Plan Estimated LOS: days patient remains somewhat depressed irritable and vigilant. Compliant medication. Placement may become somewhat problematic Justification for Cont. Inpt. This time patient may decompensate if not placed in an appropriate level of care Discharge Planning To be determined Request HC Surrog/Guard Advoc?: No Moe Ahn MD Mar 18, 2017 11:44
[2017-03-18 17:28] VITALS: BP 101/55; PULSE 74; RESP 16; TEMP 97.6; O2SAT 94
[2017-03-19 05:26] VITALS: BP 105/59; PULSE 64; RESP 15; TEMP 98.7; O2SAT 95
[2017-03-19] MEDS: METHOCARBAMOL 500 MG TAB PO SCH ×3 (06:18→20:52)
[2017-03-19] MEDS: NICOTINE 21 MG/24 HR PATCH T-DERMAL SCH (09:00)
[2017-03-19 10:07] VITALS: BP 97/50; PULSE 81
[2017-03-19] MEDS: CALCIUM/VITAMIN D 250 MG/125 U TAB PO SCH ×2 (10:08→20:51)
[2017-03-19] MEDS: ARIPiprazole 10 MG TAB PO SCH (10:09)
[2017-03-19] MEDS: SERTRALINE HCL 100 MG TAB PO SCH (10:09)
[2017-03-19] MEDS: GABAPENTIN 300 MG CAP PO SCH ×2 (10:09→20:51)
[2017-03-19] MEDS: APIXABAN 5 MG TABLET PO SCH ×2 (10:09→20:51)
[2017-03-19] MEDS: TAMSULOSIN HCL 0.4 MG CAP PO SCH (10:10)
--- NOTE | 2017-03-19 13:03 | HHI.PYPN ---
Subjective Remarks Patient was seen and case discussed with nursing. Patient is hard of hearing limiting the interview. Patient is perseverant on wanting to live on his own. Relates the constant arguing with his daughter. He denies she had suicidal ideation before admission. Though he does admit to poor compliance. Denies suicidal ideation intent or plan today. Is compliant here in the unit. Objective Alert: Yes [place]: Person, Place, Date Mood: Anxious (mildly), Other (mildly dysphoric) Affect: Other (slight increase range and intensity) Memory Intact: Comment (poor to fair) Hallucinations: Other (denies) Delusions: No Delusion Type: Other (perhaps somewhat vigilant) Suicidal: Ideation (denies) Homicidal: Ideation (denies) Insight/Judgment Poor Vitals/IOs Vital Signs Date Time Temp Pulse Resp B/P Pulse Ox O2 Delivery O2 Flow Rate FiO2 03/19/17 10:07 81 97/50 03/19/17 05:26 98.7 15 95 03/16/17 19:38 Room Air Intake and Output 03/18/17 03/18/17 03/19/17 08:00 16:00 00:00 Intake Total 0 ml 240 ml Balance 0 ml 240 ml Assessment & Plan Problem List: (1) Major depressive disorder, recurrent severe without psychotic features ICD Code: F33.2 (2) MS (multiple sclerosis) ICD Code: G35 Assessment & Plan Continue current treatment plan Justification for Cont. Inpt. Patient will decompensate in a less restrictive setting Request HC Surrog/Guard Advoc?: No Feliberto Hernandez DO Mar 19, 2017 13:03
[2017-03-19 20:00] VITALS: BP 132/60; PULSE 69; RESP 16; TEMP 97.2; O2SAT 96
[2017-03-20 06:01] VITALS: BP 127/67; PULSE 68; RESP 18; TEMP 97.7; O2SAT 97
[2017-03-20] MEDS: METHOCARBAMOL 500 MG TAB PO SCH ×3 (06:21→21:05)
[2017-03-20] MEDS: SERTRALINE HCL 100 MG TAB PO SCH (09:00)
[2017-03-20] MEDS: TAMSULOSIN HCL 0.4 MG CAP PO SCH (09:00)
[2017-03-20] MEDS: GABAPENTIN 300 MG CAP PO SCH ×2 (09:00→21:05)
[2017-03-20] MEDS: ARIPiprazole 10 MG TAB PO SCH (09:00)
[2017-03-20] MEDS: APIXABAN 5 MG TABLET PO SCH ×2 (09:00→21:05)
[2017-03-20] MEDS: CALCIUM/VITAMIN D 250 MG/125 U TAB PO SCH ×2 (09:00→21:05)
[2017-03-20] MEDS: NICOTINE 21 MG/24 HR PATCH T-DERMAL SCH (09:00)
--- NOTE | 2017-03-20 14:16 | HHI.PYPN ---
Subjective Remarks Patient was seen and case discussed with nursing. Patient is seclusive to room. Comes out for meals. Says he is willing to come out more if he gets a wheelchair. Patient is hard of hearing limiting the interview. Has not had any visitors or phone calls. Compliant with medications. Continues to state he was not suicidal before admission. Objective Alert: Yes [place]: Person, Place, Date Mood: Anxious (mildly), Other (mildly dysphoric) Affect: Restricted Memory Intact: Comment (poor to fair) Hallucinations: Other (denies) Delusions: No Delusion Type: Other (none elicited) Suicidal: Ideation (denies) Homicidal: Ideation (denies) Insight/Judgment Poor Vitals/IOs Vital Signs Date Time Temp Pulse Resp B/P (MAP) Pulse Ox O2 Delivery O2 Flow Rate FiO2 03/20/17 06:01 97.7 68 18 127/67 (87) 97 03/16/17 19:38 Room Air Intake and Output 03/20/17 03/20/17 03/20/17 07:59 15:59 23:59 Intake Total 480 ml 480 ml Output Total 1100 ml Balance -620 ml 480 ml Assessment & Plan Problem List: (1) Major depressive disorder, recurrent severe without psychotic features ICD Codes: F33.2 - Major depressive disorder, recurrent severe without psychotic features Status: Acute (2) MS (multiple sclerosis) ICD Codes: G35 - Multiple sclerosis Status: Acute Assessment & Plan Continue current treatment plan Justification for Cont. Inpt. Patient would decompensate in a less restrictive setting Request HC Surrog/Guard Advoc?: No Feliberto Hernandez DO Mar 20, 2017 14:16
[2017-03-20 17:50] VITALS: BP 130/71; PULSE 64; RESP 17; TEMP 97.3; O2SAT 97
[2017-03-21 05:36] VITALS: BP 147/77; PULSE 77; RESP 17; TEMP 96; O2SAT 94
[2017-03-21] MEDS: METHOCARBAMOL 500 MG TAB PO SCH ×3 (06:00→21:11)
[2017-03-21] MEDS: NICOTINE 21 MG/24 HR PATCH T-DERMAL SCH (09:00)
--- NOTE | 2017-03-21 09:05 | HHI.PYPN ---
Subjective Remarks Patient seen in his room with nurse Abigail, chart review, patient compliant medications. Patient said his weekend was okay. It appears she is getting pressure from his daughter to return to their one-bedroom apartment. He states he has a hospital bed in the hallway working sleeps. He acknowledges his daughter is continuing drinking heavily both male and female friends over to [employer] party. It appears there living off of his disability check. It also appears that he would like to try an CARE HOME type situation but then his daughter would be homeless. At this time he does deny suicidality homicidality voices or visions. There is an underlying anger and depression related to all of the above for this gentleman. At the present time we will continue medication no change need to consider various alternatives that would be acceptable to this patient and also help him to the best we can Review of Systems Except as stated in HPI: all other systems reviewed are Neg Objective Alert: Yes [place]: Person, Place, Date Mood: Anxious (mildly), Other (mildly dysphoric) Affect: Restricted Memory Intact: Comment (poor to fair) Hallucinations: Other (denies) Delusions: No Delusion Type: Other (none elicited) Suicidal: Ideation (denies) Homicidal: Ideation (denies) Insight/Judgment Poor Vitals/IOs Vital Signs Date Time Temp Pulse Resp B/P (MAP) Pulse Ox O2 Delivery O2 Flow Rate FiO2 03/21/17 05:36 96.0 77 17 147/77 (100) 94 Assessment & Plan Problem List: (1) Major depressive disorder, recurrent severe without psychotic features ICD Codes: F33.2 - Major depressive disorder, recurrent severe without psychotic features Status: Acute (2) MS (multiple sclerosis) ICD Codes: G35 - Multiple sclerosis Status: Acute Assessment & Plan Estimated LOS: days patient continues depressed and somewhat irritable, compliant medications. For now continue treatment Justification for Cont. Inpt. At this time patient will decompensate if not placed in an appropriate level of care Discharge Planning To be determined Request HC Surrog/Guard Advoc?: No Moe Ahn MD Mar 21, 2017 09:05
[2017-03-21] MEDS: GABAPENTIN 300 MG CAP PO SCH ×2 (09:34→21:11)
[2017-03-21] MEDS: TAMSULOSIN HCL 0.4 MG CAP PO SCH (09:34)
[2017-03-21] MEDS: CALCIUM/VITAMIN D 250 MG/125 U TAB PO SCH ×2 (09:35→21:11)
[2017-03-21] MEDS: ARIPiprazole 10 MG TAB PO SCH (09:35)
[2017-03-21] MEDS: SERTRALINE HCL 100 MG TAB PO SCH (09:35)
[2017-03-21] MEDS: APIXABAN 5 MG TABLET PO SCH ×2 (09:35→21:11)
[2017-03-21 18:05] VITALS: BP 118/62; PULSE 79; RESP 18; TEMP 97.1; O2SAT 93
[2017-03-22] MEDS: METHOCARBAMOL 500 MG TAB PO SCH ×2 (06:04→14:20)
[2017-03-22 06:14] VITALS: BP 145/67; PULSE 64; RESP 20; TEMP 97.5; O2SAT 98
[2017-03-22] MEDS: NICOTINE 21 MG/24 HR PATCH T-DERMAL SCH (09:00)
[2017-03-22] MEDS: GABAPENTIN 300 MG CAP PO SCH (09:13)
[2017-03-22] MEDS: TAMSULOSIN HCL 0.4 MG CAP PO SCH (09:13)
[2017-03-22] MEDS: ARIPiprazole 10 MG TAB PO SCH (09:13)
[2017-03-22] MEDS: CALCIUM/VITAMIN D 250 MG/125 U TAB PO SCH (09:13)
[2017-03-22] MEDS: SERTRALINE HCL 100 MG TAB PO SCH (09:13)
[2017-03-22] MEDS: APIXABAN 5 MG TABLET PO SCH (09:23)
[2017-03-22] MEDS ORDERED: APIX5TAB PO (11:23)
[2017-03-22] MEDS ORDERED: NEUR300C PO (11:23)
[2017-03-22] MEDS ORDERED: METH500T3 PO (11:23)
[2017-03-22] MEDS ORDERED: ARIP1TAB12 PO (11:23)
[2017-03-22] MEDS ORDERED: TAMS5CAP PO (11:23)
[2017-03-22] MEDS ORDERED: CALC250 PO (11:23)
[2017-03-22] MEDS ORDERED: ZOLO100T PO (11:23)
--- NOTE | 2017-03-22 11:38 | HHI.DS ---
Psychiatry Discharge Summary Inpatient Psychiatric care?: Yes Advance Directive: No Reason Not Provided: patient declined Mental Health AdvanceDirective: No (patient declined) Name and Number: patient declined Health Care Proxy: No (patient declined) Name and Phone Number: patient declined Admission Admission Date Mar 16, 2017 at 19:50 Admission Diagnosis: (1) Major depressive disorder, recurrent severe without psychotic features ICD Code: F33.2 - Major depressive disorder, recurrent severe without psychotic features (2) MS (multiple sclerosis) ICD Code: G35 - Multiple sclerosis Brief History Patient is a 8-year-old white male comes to emergency department on a voluntary basis brought in by his daughter given the history of noncompliance medication increased depression irritability decrease in self-care and hygiene. Also becoming more angry irritable and hostile towards his daughter. Of interest patient was admitted to my service 11/05/16 through 11/10/16 under visit [phone]. At that time he was living with his daughter, giving a history of his daughter having substance abuse issues and was going into an inpatient rehabilitation and the [facility]. Patient did respond well with medications and did return home with in-home services. At this time patient states that he has had to move various times with his daughter. He is now on a small apartment with her where she is in the bedroom and he has a hospital bed in the eaton. He acknowledges noncompliance of the medication. He acknowledges increased depression irritability anger short temperedness and sadness when off his medications. He also states she has had increased urinary incontinence and fecal incontinence He denies that his daughter has returned to drinking. staff states the daughter did call nursing last night and stated she does go to bars and brings him with her. Need to verify this. Patient does deny voices or visions. He does denies suicidality at the present time. At the present time patient does meet criteria for inpatient psychiatric hospitalization, assessment and observation. We'll continue his medications per the med reconciliation. Will attempt to talk with the patient's daughter over the next few days. Need to consider possible placement issues for this gentleman patient . He also does have a history of MS. He states he is not getting any treatment for that at the present time. We'll have hospitalists assess that. We'll also have PT assess patient patient walking with a walker though he has a somewhat forward leaning stance that may have an increased fall risk Tobacco Use In Past 30 Days: 5 or More Cigarettes/Day Alcohol Use: Never Hospital Course Patient's hospital course was uneventful, patient show compliance with medication from admission. Initially showed significant isolation only coming out of room for meals and hygiene. Patient initially irritable somewhat paranoid though that slowly resolved. At this time patient denies suicidality homicidality voices or visions. He has been compliant with his medications. He will ambulate well with his walker. There have been conversations with patient's daughter she wishes him home. He wishes to return home with her. Thus it appears patient has reached his maximum benefit of this hospitalization. He'll be discharged today to home with Rx 1 month to follow- up ID outpatient clinic. Concerning his physical limitations will have home health care referral also for physical therapy and for RN to assess patient's behavior and monitor medications Results Blood Pressure 145 / 67 Vital Signs Date Time Temp Pulse Resp B/P (MAP) Pulse Ox O2 Delivery O2 Flow Rate FiO2 03/22/17 06:14 97.5 64 20 145/67 (93) 98 Laboratory Results Test 03/17/17 12:02 Cholesterol Level 149 MG/DL (120-200) HDL Cholesterol 42.3 MG/DL (40.0-60.0) Hemoglobin A1c 5.7 % (4.3-6.0) LDL Cholesterol 85 MG/DL (0-99) Triglycerides Level 109 MG/DL (42-150) Summary of Procedures None done Pending results at discharge: No Medications # of Antipsychotic meds at D/C: 1 Approp Antipsych med options 1 - Minimum of three failed multiple trials of monotherapy. 2 - Documented plan to taper to monotherapy due to previous use of multiple meds OR cross-taper in progress at D/C. 3 - Documentation of augmentation of Clozapine. 4 - Justification other than those listed in allowable values 1-3, document here : Discharge Discharge Date: Mar 22, 2017 Discharge Diagnosis: (1) Major depressive disorder, recurrent severe without psychotic features Diagnosis: Principal ICD Code: F33.2 - Major depressive disorder, recurrent severe without psychotic features Status: Acute (2) MS (multiple sclerosis) Diagnosis: Secondary ICD Code: G35 - Multiple sclerosis Status: Chronic Mental Status Exam at Disch Alert oriented thin frail-appearing white male using walker. He showing some difficulty with ambulation secondary to his MS. Otherwise he has normal active. He is euthymic. The slight increase range intensity of his affect. Speech rate and rhythm are slightly increased it is goal oriented. There are no formal thought disorders. No auditory or visual hallucinations. No delusions. Insight and judgment is poor to fair. Cognition grossly intact Pt Condition on Discharge: Stable Discharge Disposition: Discharge Home Discharge Instructions Diet Instructions: As Tolerated, No Restrictions Activities you can perform: Regular-No Restrictions Scheduled Appointment: ID Clinic Appointment Date: Mar 23, 2017 Appointment Time: 11:00am Discharge Time > 30 minutes Discharge/Advance Care Plan Health Problems: (1) Major depressive disorder, recurrent severe without psychotic features (2) MS (multiple sclerosis) Goals to promote your health * To prevent worsening of your condition and complications * To maintain your health at the optimal level Directions to meet your goals Take your medications as prescribed Follow your dietary instruction Follow activity as directed Keep your appointments as scheduled Take your immunizations and boosters as scheduled If your symptoms worsen call your PCP, if no PCP go to Urgent Care Center or Emergency Room For 21/02 questions related to your inpatient stay or results of tests pending at discharge, please contact Dr. Moe Ahn at Smoking is Dangerous to Your Health. Avoid second hand smoking Moe Ahn MD Mar 22, 2017 11:38
== END 2017-03-22 15:20 | disposition home or self-care (01) | DRG 885 ==
LOC: NEPD 15:12 → NEDA 19:50 → H250 21:05
PROVIDERS: ADMIT Psychiatry & Neurology Psychiatry; ATTEND Psychiatry & Neurology Psychiatry
DX: F33.2 Major depressive disorder, recurrent severe without psychotic features (principal); G35 Multiple sclerosis; R45.851 Suicidal ideations; N40.0 Benign prostatic hyperplasia without lower urinary tract symptoms; F17.210 Nicotine dependence, cigarettes, uncomplicated; G89.29 Other chronic pain; M54.9 Dorsalgia, unspecified; H91.90 Unspecified hearing loss, unspecified ear; Z91.14 Patient's other noncompliance with medication regimen
CPT/HCPCS: 80048; 80053; 80061; 80307; 81001; 83036; 85025; 99285

== ENCOUNTER 2017-03-28 18:55 | Emergency (ER) | payer MEDICARE, OTHER ==
[~2017-03-28] VITALS: Ht 193 cm; Wt 76.0 kg
[~2017-03-28 18:55] MED LIST changes: -CALC1TAB12 PO; +CALC250 PO
--- NOTE | 2017-03-28 19:11 | PD ---
HPI Chief Complaint: Psychiatric Symptoms Time Seen by Provider: 19:06 Travel History International Travel<30 days: No Contact w/Intl Traveler<30days: No Traveled to known affect area: No History of Present Illness HPI 71 year old male with history of COPD, depression, anxiety, tobacco dependency, presents to the ED for evaluation under a carter act for psychiatric evaluation. Patient states that he is having a difficult time staying with his daughter. He states that she is constantly yelling at him. He reports not taking his medication for a week because his daughter allegedly has control over them and will not refill them.He does state that he will kill himself if he has to go back to her. He denies any acute medical time. He has no other symptoms to report. PFSH Past Medical History Arthritis: No Autoimmune Disease: No Blood Disorders: No Anxiety: No Depression: Yes (patient states he feels lonely) Cancer: No Cardiovascular Problems: No Diabetes: No Diminished Hearing: Yes (bilateral hearing aids, NONE IN PLACE) Deep Vein Thrombosis: Yes Endocrine: No Genitourinary: No Headaches: No Immune Disorder: No Musculoskeletal: Yes (right back pain, BLE weakness due to MS) Neurologic: No Psychiatric: Yes (Seen for Depression recently) Reproductive: No (penile implant 1992, taken out in 2002) Respiratory: Yes (emphysema) Immunizations Current: Yes Seizures: No Thyroid Disease: No Past Surgical History Abdominal Surgery: No AICD: No Arteriovenous Shunt: No Body Medical Devices: pins in right leg, accident at work in 1988 Cardiac Surgery: No Ear Surgery: No Endocrine Surgery: No Eye Surgery: No Genitourinary Surgery: No Gynecologic Surgery: No Insulin Pump: No Joint Replacement: No Oral Surgery: No Pacemaker: No Thoracic Surgery: No Other Surgery: Yes (hx of back surgery) Social History Alcohol Use: Yes (OCASSIONALLY) Tobacco Use: Yes (1 PPD) Substance Use: No Allergies-Medications (Allergen,Severity, Reaction): Coded Allergies: No Known Allergies (Unverified , 03/16/17) Reported Meds & Prescriptions Reported Meds & Active Scripts Active Zoloft (Sertraline HCl) 100 Mg Tab 100 Mg PO DAILY Methocarbamol 500 Mg Tab 500 Mg PO Q8HR Neurontin (Gabapentin) 300 Mg Cap 300 Mg PO BID Oyster Shell 250 mg + Vit D Tb (Calcium/Vitamin D) 250 Mg Calcium (625 Mg)-125 Unit Tablet 500 Mg PO BID Aripiprazole 10 Mg Tab 10 Mg PO DAILY Flomax (Tamsulosin HCl) 0.4 Mg Cap 0.4 Mg PO DAILY Eliquis (Apixaban) 5 Mg Tab 5 Mg PO BID Trazodone (Trazodone HCl) 50 Mg Tab 50 Mg PO HS Zoloft (Sertraline HCl) 100 Mg Tab 100 Mg PO DAILY Methocarbamol 500 Mg Tab 500 Mg PO Q8HR Neurontin (Gabapentin) 300 Mg Cap 300 Mg PO BID Aripiprazole 10 Mg Tab 10 Mg PO DAILY Review of Systems Except as stated in HPI: all other systems reviewed are Neg Physical Exam Narrative GENERAL: Thin elderly male patient, hard of hearing, but in no acute distress. SKIN: Focused skin assessment warm/dry. HEAD: Atraumatic. Normocephalic. EYES: Pupils equal and round. No scleral icterus. No injection or drainage. ENT: No nasal bleeding or discharge. Mucous membranes pink and moist. NECK: Trachea midline. No JVD. CARDIOVASCULAR: Regular rate and rhythm. No murmur appreciated. RESPIRATORY: No accessory muscle use. Diminished to auscultation. Breath sounds equal bilaterally. GASTROINTESTINAL: Abdomen soft, non-tender, nondistended. Hepatic and splenic margins not palpable. MUSCULOSKELETAL: No obvious deformities. No clubbing. No cyanosis. No edema. NEUROLOGICAL: Awake and alert. No obvious cranial nerve deficits. Motor grossly within normal limits. Normal speech. Data Data Last Documented VS Vital Signs Date Time Temp Pulse Resp B/P (MAP) Pulse Ox O2 Delivery O2 Flow Rate FiO2 03/29/17 06:11 65 17 157/66 (96) 96 Room Air 03/28/17 19:16 98.2 Orders Orders Complete Blood Count With Diff (03/28/17 19:10) Basic Metabolic Panel (Bmp) (03/28/17 19:10) Psych Screen (03/28/17 19:10) Drug Screen, Random Urine (03/28/17 19:10) Alcohol (Ethanol) (03/28/17 19:10) Trazodone (Desyrel) (03/29/17 00:00) Diet Regular Basic (03/29/17 Breakfast) Diet Regular Basic (03/29/17 Lunch) Diet Regular Basic (03/29/17 Dinner) Labs Laboratory Tests Test 03/28/17 19:30 03/28/17 20:00 03/28/17 20:58 Blood Urea Nitrogen 17 MG/DL Creatinine 0.72 MG/DL Random Glucose 87 MG/DL Calcium Level 8.6 MG/DL Sodium Level 136 MEQ/L Potassium Level 3.9 MEQ/L Chloride Level 104 MEQ/L Carbon Dioxide Level 25.2 MEQ/L Anion Gap 7 MEQ/L Estimat Glomerular Filtration Rate 108 ML/MIN Ethyl Alcohol Level LESS THAN 3 MG/DL Urine Opiates Screen NEG Urine Barbiturates Screen NEG Urine Amphetamines Screen NEG Urine Benzodiazepines Screen NEG Urine Cocaine Screen NEG Urine Cannabinoids Screen NEG White Blood Count 13.5 TH/MM3 Red Blood Count 4.47 MIL/MM3 Hemoglobin 14.7 GM/DL Hematocrit 44.0 % Mean Corpuscular Volume 98.4 FL Mean Corpuscular Hemoglobin 32.8 PG Mean Corpuscular Hemoglobin Concent 33.3 % Red Cell Distribution Width 14.3 % Platelet Count 268 TH/MM3 Mean Platelet Volume 8.6 FL Neutrophils (%) (Auto) 72.2 % Lymphocytes (%) (Auto) 19.8 % Monocytes (%) (Auto) 6.7 % Eosinophils (%) (Auto) 1.0 % Basophils (%) (Auto) 0.3 % Neutrophils # (Auto) 9.7 TH/MM3 Lymphocytes # (Auto) 2.7 TH/MM3 Monocytes # (Auto) 0.9 TH/MM3 Eosinophils # (Auto) 0.1 TH/MM3 Basophils # (Auto) 0.0 TH/MM3 CBC Comment DIFF FINAL Differential Comment MDM Medical Decision Making Medical Screen Exam Complete: Yes Emergency Medical Condition: Yes Medical Record Reviewed: Yes Differential Diagnosis Mood disorder versus adjustment reaction disorder versus personality disorder Narrative Course 71-year-old male presents to the emergency department under Carter act for psychiatric evaluation. Patient appears without distress. He verbalizes frustration with living with his daughter. He attributes his suicidal thoughts to these frustrations. Lab work is without acute concern. Patient does have a mild proptosis of 13.5. Patient is medically cleared to undergo psychiatric screening for further evaluation and disposition. Mental health screening discussed with the patient. Psychiatric screen ordered. 03/29/2017 @1707 patient has been seen and evaluated by a bed spring maker Gladys. She has discussed the patient with his daughter. She has lifted the Carter act. Patient will be discharged at this time. Diagnosis Primary Impression: Adjustment disorder Qualified Codes: F43.25 - Adjustment disorder with mixed disturbance of emotions and conduct Referrals: Primary Care Physician Patient Instructions: General Instructions, Mood Disorders (ED) Additional Instructions: Follow-up with your primary care provider Return immediately with any acute worsening of symptoms Med/Other Pt SpecificInfo: No Change to Meds Disposition: 01 DISCHARGE HOME Condition: Stable [place] Mar 28, 2017 19:11
[2017-03-28 19:16] VITALS: BP 132/62; PULSE 62; RESP 18; TEMP 98.2; O2SAT 98
[2017-03-28 20:48] LABS: ANION GAP 7 MEQ/L (5-15); BICARBONATE 25.2 MEQ/L (21.0-32.0); BLOOD UREA NITROGEN 17 MG/DL (7-18); CHLORIDE 104 MEQ/L (98-107); GLOMERULAR FILTRATION RATE 108 ML/MIN (>89); POTASSIUM 3.9 MEQ/L (3.5-5.1); SODIUM (NA) 136 MEQ/L (136-145)
[2017-03-28 20:52] LABS: ALCOHOL LESS THAN 3 MG/DL (0-5)
[2017-03-28 21:33] LABS: AUTOMATED NEUTROPHIL # 9.7 TH/MM3 (1.8-7.7); BASOPHIL % 0.3 % (0.0-2.0); EOSINOPHIL # 0.1 TH/MM3 (0-0.4); HEMO FLAGS DIFF FINAL; LYMPH % 19.8 % (9.0-44.0); LYMPHOCYTE # 2.7 TH/MM3 (1.0-4.8); MEAN CELL VOLUME 98.4 FL (80.0-100.0); MEAN CORPUSCULAR HEMOGLOBIN 32.8 PG (27.0-34.0); MEAN CORPUSCULAR HGB CONC 33.3 % (32.0-36.0); MONO % 6.7 % (0.0-8.0); NEUT % 72.2 % (16.0-70.0); PLATELET COUNT 268 TH/MM3 (150-450); RED BLOOD COUNT 4.47 MIL/MM3 (4.50-5.90); RED CELL DISTRIBUTION WIDTH 14.3 % (11.6-17.2); WHITE BLOOD COUNT 13.5 TH/MM3 (4.0-11.0)
[2017-03-28 21:48] VITALS: BP 175/81; PULSE 70; RESP 18; O2SAT 97
[2017-03-29] MEDS ORDERED: traZODone HCL 50 MG TAB PO ONE
[2017-03-29 02:12] VITALS: BP 92/52; PULSE 72; RESP 18; O2SAT 97
[2017-03-29 06:11] VITALS: BP 157/66; PULSE 65; RESP 17; O2SAT 96
--- NOTE | 2017-03-29 16:53 | PD ---
History of Present Illness Chief Complaint: Psychiatric Symptoms Time Seen by Provider: 16:45 Travel History International Travel<30 Days: No Contact w/Intl Traveler<30days: No Known affected area: No Legal Status Legal Status: Carter Act Carter Act Signed By: Herbert Alfaro Carter Act Comment: 2016 @ 1821 History of Present Illness: History of Present Illness HPI 71 year old male with history of major depressive disorder , recurrent who presents to the ED for evaluation under a carter act initiated by immigration law specialist. The Carter act alleges that the patient stated that he wants to and will attempt suicide, that he has not taken his medications in one week and that he has not eaten in 3 days and is neglecting himself. The patient was monitored in J pod and he did not present nay behavioral concerns and no suicidality. He ate while he was here. EMR reviewed. He was released on March 22, 2017 after a brief hospitalization on inpatient psychiatry. The Patient is seen . he is alert and oriented x 4. He is dressed in hospital [facility] with poor hygiene. he is engaging, cooperative. His speech is clear and logical. he does not appear to be internally stimulated. There is no aleah. He denies suicidal ideation and states " I am ready to go home. That was a mistake saying that I would hurt myself". He reports that he has been forgetting to take his medications at home. he reports that he is sleeping well and eating well. It appears that there is tension between him and his daughter whom he lives with. He states " she yells at me because I can't do things". Telephone call to his daughter, Radha at [phone]. She states " He is playing a game with you by saying that he is suicidal. He is upset because I made him take a shower" She reports that he does not participate in his own care and that he is capable of doing more for himself. There is home health services starting soon.. Daughter reports that he has no transportation and requests that he be sent home in a taxi. She is also requesting that we get his medication from the pharmacy. Staes that he has a house [place] and that she will be home to receive him if he is discharged. PFSH Past Medical History Arthritis: No Autoimmune Disease: No Blood Disorders: No Anxiety: Yes Depression: Yes (patient states he feels lonely) Cancer: No Cardiovascular Problems: No Diabetes: No Diminished Hearing: Yes (bilateral hearing aids, NONE IN PLACE) Deep Vein Thrombosis: Yes Endocrine: No Genitourinary: No Headaches: No Immune Disorder: No Implanted Vascular Access Dvce: Yes Musculoskeletal: Yes (right back pain, BLE weakness due to MS) Neurologic: No Psychiatric: Yes (Seen for Depression recently) Respiratory: Yes (emphysema) Immunizations Current: Yes Seizures: No Thyroid Disease: No Tetanus Vaccination: Unknown Past Surgical History Abdominal Surgery: No AICD: No Arteriovenous Shunt: No Body Medical Devices: pins in right leg, accident at work in 1988 Cardiac Surgery: No Ear Surgery: No Endocrine Surgery: No Eye Surgery: No Genitourinary Surgery: No Gynecologic Surgery: No Insulin Pump: No Joint Replacement: No Neurologic Surgery: No Oral Surgery: No Pacemaker: No Thoracic Surgery: No Other Surgery: Yes (hx of back surgery) Psychiatric History Psychiatric History Hx Psychiatric Treatment: [facility] psych admission was March of 2017. History of Inpatient Treatment: Yes Guns or firearms in home: No Social History Single , retired male. Lives with daughter. Hx Alcohol Use: No (QUIT 1989) Hx Tobacco Use: Yes (1 PPD) Hx Substance Use: No Substance Use Type: Alcohol, Nicotine/Cigarettes Other Substances Used: LIFE TIME ALCOHOLIC Hx of Substance Use Treatment: Yes Family Psychiatric History Negative Allergies-Medications (Allergen,Severity, Reaction): Coded Allergies: No Known Allergies (Unverified , 03/16/17) Reported Meds & Prescriptions Reported Meds & Active Scripts Active Zoloft (Sertraline HCl) 100 Mg Tab 100 Mg PO DAILY Methocarbamol 500 Mg Tab 500 Mg PO Q8HR Neurontin (Gabapentin) 300 Mg Cap 300 Mg PO BID Oyster Shell 250 mg + Vit D Tb (Calcium/Vitamin D) 250 Mg Calcium (625 Mg)-125 Unit Tablet 500 Mg PO BID Aripiprazole 10 Mg Tab 10 Mg PO DAILY Flomax (Tamsulosin HCl) 0.4 Mg Cap 0.4 Mg PO DAILY Eliquis (Apixaban) 5 Mg Tab 5 Mg PO BID Trazodone (Trazodone HCl) 50 Mg Tab 50 Mg PO HS Zoloft (Sertraline HCl) 100 Mg Tab 100 Mg PO DAILY Methocarbamol 500 Mg Tab 500 Mg PO Q8HR Neurontin (Gabapentin) 300 Mg Cap 300 Mg PO BID Aripiprazole 10 Mg Tab 10 Mg PO DAILY Review of Systems Constitutional: DENIES: Diaphoretic episodes, Fatigue, Fever, Weight gain, Weight loss, Chills, Dizziness, Change in appetite, Night Sweats Endocrine: DENIES: Heat/cold intolerance, Polydipsia, Polyuria, Polyphagia Eyes: COMPLAINS OF: Vision loss Ears, nose, mouth, throat: COMPLAINS OF: Hearing loss Respiratory: DENIES: Apneas, Cough, Snoring, Wheezing, Hemoptysis, Sputum production, Shortness of breath Cardiovascular: DENIES: Chest pain, Palpitations, Syncope, Dyspnea on Exertion , PND, Lower Extremity Edema, Orthopnea, Claudication Gastrointestinal: DENIES: Abdominal pain, Black stools, Bloody stools, Constipation, Diarrhea, Nausea, Vomiting, Difficulty Swallowing, Anorexia Genitourinary: COMPLAINS OF: Urinary incontinence Musculoskeletal: DENIES: Joint pain, Muscle aches, Stiffness, Joint Swelling, Back pain, Neck pain Integumentary: DENIES: Abnormal pigmentation, Nail changes, Pruritus, Rash Hematologic/lymphatic: DENIES: Bruising, Lymphadenopathy Immunologic/allergic: DENIES: Eczema, Urticaria Neurologic: COMPLAINS OF: Poor Balance Psychiatric: COMPLAINS OF: Depression Exam Alert: Yes [place]: Person (ox4) Mood: Calm Affect: Appropriate Speech: Clear, Logical Eye Contact: Normal Memory Intact: Comment (not formally tetsed) Hallucinations: Other (Negative) Delusions: No Suicidal: Ideation (deneis any) Homicidal: Ideation (deneis any) Insight/Judgement Poor. Poor MDM Medical Decision Making Medical Record Reviewed: Yes Assessment/Plan 71 year old male with history of depression, anxiety, tobacco dependency, recently discharged from psychiatry presents to the ED for evaluation under a carter act for psychiatric evaluation. Patient states that he is having a difficult time staying with his daughter and reported to police that he was suicidal. He did not make any attempts at harming himself. Once in J pod he denies any suicdal or homicidal ideation, intent or plan and wants to go home. Daughter agrees to have him return home. At this time he does not meet carter act criteria. It will be lifted. Discharge to home. Orders Orders Complete Blood Count With Diff (03/28/17 19:10) Basic Metabolic Panel (Bmp) (03/28/17 19:10) Psych Screen (03/28/17 19:10) Drug Screen, Random Urine (03/28/17 19:10) Alcohol (Ethanol) (03/28/17 19:10) Trazodone (Desyrel) (03/29/17 00:00) Diet Regular Basic (03/29/17 Breakfast) Diet Regular Basic (03/29/17 Lunch) Results Vital Signs Date Time Temp Pulse Resp B/P (MAP) Pulse Ox O2 Delivery O2 Flow Rate FiO2 03/29/17 06:11 65 17 157/66 (96) 96 Room Air 03/29/17 02:12 72 18 92/52 (65) 97 Room Air 03/28/17 21:48 70 18 175/81 (112) 97 Room Air 03/28/17 19:16 98.2 62 18 132/62 (85) 98 Laboratory Tests Test 03/28/17 19:30 03/28/17 20:00 03/28/17 20:58 Blood Urea Nitrogen 17 Creatinine 0.72 Random Glucose 87 Calcium Level 8.6 Sodium Level 136 Potassium Level 3.9 Chloride Level 104 Carbon Dioxide Level 25.2 Anion Gap 7 Estimat Glomerular Filtration Rate 108 Ethyl Alcohol Level LESS THAN 3 Urine Opiates Screen NEG Urine Barbiturates Screen NEG Urine Amphetamines Screen NEG Urine Benzodiazepines Screen NEG Urine Cocaine Screen NEG Urine Cannabinoids Screen NEG White Blood Count 13.5 Red Blood Count 4.47 Hemoglobin 14.7 Hematocrit 44.0 Mean Corpuscular Volume 98.4 Mean Corpuscular Hemoglobin 32.8 Mean Corpuscular Hemoglobin Concent 33.3 Red Cell Distribution Width 14.3 Platelet Count 268 Mean Platelet Volume 8.6 Neutrophils (%) (Auto) 72.2 Lymphocytes (%) (Auto) 19.8 Monocytes (%) (Auto) 6.7 Eosinophils (%) (Auto) 1.0 Basophils (%) (Auto) 0.3 Neutrophils # (Auto) 9.7 Lymphocytes # (Auto) 2.7 Monocytes # (Auto) 0.9 Eosinophils # (Auto) 0.1 Basophils # (Auto) 0.0 CBC Comment DIFF FINAL Differential Comment Diagnosis Primary Impression: Depression Psychiatrically Cleared: Yes Med/ Other Pt Specific Info: No Change to Meds Disposition: 01 DISCHARGE HOME Condition: Stable Problem Qualifiers Primary Impression: Depression Qualified Codes: F33.41 - Major depressive disorder, recurrent, in partial remission Katlyn Marques Mar 29, 2017 16:53
== END 2017-03-29 17:45 | disposition home or self-care (01) ==
LOC: NEDAMB 18:55 → NEPJ 03-29 17:45
DX: F43.25 Adjustment disorder with mixed disturbance of emotions and conduct (principal); F33.41 Major depressive disorder, recurrent, in partial remission; F17.200 Nicotine dependence, unspecified, uncomplicated; Z79.899 Other long term (current) drug therapy
CPT/HCPCS: 80048; 80307; 85025; 99284

== ENCOUNTER 2017-03-30 21:17 | Emergency (ER) | payer MEDICARE, OTHER ==
[2017-03-30 21:44] VITALS: BP 134/73; PULSE 97; RESP 20; TEMP 98.3; O2SAT 87
--- NOTE | 2017-03-30 21:54 | PD ---
HPI Chief Complaint: Psychiatric Symptoms Time Seen by Provider: 21:54 Travel History International Travel<30 days: No Contact w/Intl Traveler<30days: No Traveled to known affect area: No History of Present Illness HPI 71-year-old male returns to the emergency department again under Carter act for psychiatric evaluation. Patient was discharged yesterday after psychiatric evaluation. He continues to reside with his daughter and this is a hostile environment for the 2 of them. He states that he wants to kill himself when she is around because she yells at him all the time. He feels that nobody is listening to his concerns about living with his daughter. He states that he does not want to kill himself but when he is around her and she is yelling at him he thinks of wanting to hurt himself. He has no acute medical needs at this time. PFSH Past Medical History Arthritis: No Autoimmune Disease: No Blood Disorders: No Anxiety: Yes Depression: Yes (patient states he feels lonely) Cancer: No Cardiovascular Problems: No Diabetes: No Diminished Hearing: Yes (bilateral hearing aids, NONE IN PLACE) Deep Vein Thrombosis: Yes Endocrine: No Genitourinary: No Headaches: No Immune Disorder: No Implanted Vascular Access Dvce: Yes Musculoskeletal: Yes (right back pain, BLE weakness due to MS) Neurologic: No Psychiatric: Yes (Seen for Depression recently) Respiratory: Yes (emphysema) Immunizations Current: Yes Seizures: No Thyroid Disease: No Past Surgical History Abdominal Surgery: No AICD: No Arteriovenous Shunt: No Body Medical Devices: pins in right leg, accident at work in 1988 Cardiac Surgery: No Ear Surgery: No Endocrine Surgery: No Eye Surgery: No Genitourinary Surgery: No Gynecologic Surgery: No Insulin Pump: No Joint Replacement: No Neurologic Surgery: No Oral Surgery: No Pacemaker: No Thoracic Surgery: No Other Surgery: Yes (hx of back surgery) Social History Alcohol Use: No (QUIT 1989) Tobacco Use: Yes (1 PPD) Substance Use: No Allergies-Medications (Allergen,Severity, Reaction): Coded Allergies: No Known Allergies (Unverified , 03/30/17) Reported Meds & Prescriptions Reported Meds & Active Scripts Active Zoloft (Sertraline HCl) 100 Mg Tab 100 Mg PO DAILY Methocarbamol 500 Mg Tab 500 Mg PO Q8HR Neurontin (Gabapentin) 300 Mg Cap 300 Mg PO BID Oyster Shell 250 mg + Vit D Tb (Calcium/Vitamin D) 250 Mg Calcium (625 Mg)-125 Unit Tablet 500 Mg PO BID Aripiprazole 10 Mg Tab 10 Mg PO DAILY Flomax (Tamsulosin HCl) 0.4 Mg Cap 0.4 Mg PO DAILY Eliquis (Apixaban) 5 Mg Tab 5 Mg PO BID Trazodone (Trazodone HCl) 50 Mg Tab 50 Mg PO HS Zoloft (Sertraline HCl) 100 Mg Tab 100 Mg PO DAILY Methocarbamol 500 Mg Tab 500 Mg PO Q8HR Neurontin (Gabapentin) 300 Mg Cap 300 Mg PO BID Aripiprazole 10 Mg Tab 10 Mg PO DAILY Review of Systems Except as stated in HPI: all other systems reviewed are Neg Physical Exam Narrative GENERAL: Well-nourished elderly male patient, hard of hearing, but in no acute distress SKIN: Focused skin assessment warm/dry. HEAD: Atraumatic. Normocephalic. EYES: Pupils equal and round. No scleral icterus. No injection or drainage. ENT: No nasal bleeding or discharge. Mucous membranes pink and moist. NECK: Trachea midline. No JVD. CARDIOVASCULAR: Regular rate and rhythm. No murmur appreciated. RESPIRATORY: No accessory muscle use. Clear to auscultation. Breath sounds equal bilaterally. GASTROINTESTINAL: Abdomen soft, non-tender, nondistended. Hepatic and splenic margins not palpable. MUSCULOSKELETAL: No obvious deformities. No clubbing. No cyanosis. No edema. NEUROLOGICAL: Awake and alert. No obvious cranial nerve deficits. Motor grossly within normal limits. Normal speech. Data Data Last Documented VS Vital Signs Date Time Temp Pulse Resp B/P (MAP) Pulse Ox O2 Delivery O2 Flow Rate FiO2 03/30/17 21:44 98.3 97 20 134/73 (93) 87 Orders Orders Psych Screen (03/30/17 21:47) Diet Regular Basic (03/31/17 Breakfast) MDM Medical Decision Making Medical Screen Exam Complete: Yes Emergency Medical Condition: Yes Medical Record Reviewed: Yes Differential Diagnosis Mood disorder versus personality disorder versus adjustment reaction Narrative Course 71-year-old male presents to the emergency department for evaluation under Carter. Patient appears without distress. Lab work was completed 2 days ago and will not be repeated today. Patient is without any acute medical needs at this time. He is medically cleared to undergo psychiatric screening for further evaluation and disposition. Mental health screening discussed with the patient. Psychiatric screen ordered. Diagnosis Primary Impression: Adjustment disorder Qualified Codes: F43.25 - Adjustment disorder with mixed disturbance of emotions and conduct Condition: Stable [place] Mar 30, 2017 21:54
[2017-03-31 02:50] VITALS: BP 185/75; PULSE 72; RESP 18; O2SAT 98
[2017-03-31 06:00] VITALS: BP 122/59; PULSE 85; RESP 16; O2SAT 97
--- NOTE | 2017-03-31 13:04 | PD ---
Physical Exam Date Seen by Provider: Mar 31, 2017 Time Seen by Provider: 13:03 Narrative 1300 hrs. patient is psychiatrically cleared by psychiatric staff. Patient is medically stable for discharge. Data Data Last Documented VS Vital Signs Date Time Temp Pulse Resp B/P (MAP) Pulse Ox O2 Delivery O2 Flow Rate FiO2 03/31/17 06:00 85 16 122/59 (80) 97 Room Air 03/30/17 21:44 98.3 Orders Orders Psych Screen (03/30/17 21:47) Diet Regular Basic (03/31/17 Breakfast) MDM Medical Record Reviewed: Yes Supervised Visit with ARNOLDO: Yes Narrative Course 1300 hrs. patient is psychiatrically cleared by psychiatric staff. Patient is medically stable for discharge. Diagnosis Primary Impression: Adjustment disorder Qualified Codes: F43.25 - Adjustment disorder with mixed disturbance of emotions and conduct Patient Instructions: General Instructions Additional Instruction: Patient is psychiatrically cleared by psychiatric staff. Patient is medically stable for discharge. Disposition: DISCHARGE HOME Condition: Stable Lamont Rangel Mar 31, 2017 13:04
--- NOTE | 2017-03-31 13:09 | PD ---
History of Present Illness Chief Complaint: Psychiatric Symptoms Time Seen by Provider: 13:00 Travel History International Travel<30 Days: No Contact w/Intl Traveler<30days: No Known affected area: No Legal Status Legal Status: Carter Act Carter Act Signed By: Herbert Alfaro History of Present Illness: History of Present Illness HPI 71-year-old male with history of major depressive disorder, adjustment disorder who arrives to ED under Carter act initiated by JER for psychiatric evaluation. The Carter act alleges that the police were called by the patient's daughter to report that the patient had been making suicidal statements and that he was not taking his medications. The patient was seen in ED on March 28, 2017 for similar complaints. He was admitted to inpatient psychiatry and discharged on March 22, 2017. The patient has been monitored in J pod and he has not presented any suicidality and no behavioral concerns. His toxicology is negative. Patient is seen . He is alert and oriented. [place] but has hearing aides. His speech is clear and logical. There is no psychosis and no aleah. He states : My daughter and I argue and I don't want to hurt myself or anyone else. My daughter and I only get along on the third of the month when the money comes in and then it's steadily worse because we run out of money". He is requesting to be discharged. DCF worker was here and met with the patient. According to the DCF worker there is an open case with them and he has had several referrals on this family. [facility] Past Medical History Arthritis: No Autoimmune Disease: No Blood Disorders: No Anxiety: Yes Depression: Yes (patient states he feels lonely) Cancer: No Cardiovascular Problems: No Diabetes: No Diminished Hearing: Yes (bilateral hearing aids, NONE IN PLACE) Deep Vein Thrombosis: Yes Endocrine: No Genitourinary: No Headaches: No Immune Disorder: No Implanted Vascular Access Dvce: Yes Musculoskeletal: Yes (right back pain, BLE weakness due to MS) Neurologic: No Psychiatric: Yes (Seen for Depression recently) Respiratory: Yes (emphysema) Immunizations Current: Yes Seizures: No Thyroid Disease: No Past Surgical History Abdominal Surgery: No AICD: No Arteriovenous Shunt: No Body Medical Devices: pins in right leg, accident at work in 1988 Cardiac Surgery: No Ear Surgery: No Endocrine Surgery: No Eye Surgery: No Genitourinary Surgery: No Gynecologic Surgery: No Insulin Pump: No Joint Replacement: No Neurologic Surgery: No Oral Surgery: No Pacemaker: No Thoracic Surgery: No Other Surgery: Yes (hx of back surgery) Psychiatric History Psychiatric History Hx Psychiatric Treatment: Last psych admission was March of 2017. Has been seen in ED on 2016 History of Inpatient Treatment: Yes Guns or firearms in home: No Social History Lives with his daughter. Retired. Hx Alcohol Use: No (QUIT 1989) Hx Tobacco Use: Yes (1 PPD) Hx Substance Use: No Substance Use Type: Alcohol (current BAl is undetectable.), Nicotine/Cigarettes Other Substances Used: LIFE TIME ALCOHOLIC Hx of Substance Use Treatment: Yes Family Psychiatric History Negative Allergies-Medications (Allergen,Severity, Reaction): Coded Allergies: No Known Allergies (Unverified , 03/30/17) Reported Meds & Prescriptions Reported Meds & Active Scripts Active Zoloft (Sertraline HCl) 100 Mg Tab 100 Mg PO DAILY Methocarbamol 500 Mg Tab 500 Mg PO Q8HR Neurontin (Gabapentin) 300 Mg Cap 300 Mg PO BID Oyster Shell 250 mg + Vit D Tb (Calcium/Vitamin D) 250 Mg Calcium (625 Mg)-125 Unit Tablet 500 Mg PO BID Aripiprazole 10 Mg Tab 10 Mg PO DAILY Flomax (Tamsulosin HCl) 0.4 Mg Cap 0.4 Mg PO DAILY Eliquis (Apixaban) 5 Mg Tab 5 Mg PO BID Trazodone (Trazodone HCl) 50 Mg Tab 50 Mg PO HS Zoloft (Sertraline HCl) 100 Mg Tab 100 Mg PO DAILY Methocarbamol 500 Mg Tab 500 Mg PO Q8HR Neurontin (Gabapentin) 300 Mg Cap 300 Mg PO BID Aripiprazole 10 Mg Tab 10 Mg PO DAILY Review of Systems Except as stated in HPI: all other systems reviewed are Neg Exam Alert: Yes [place]: Person (ox4) Mood: Calm Affect: Appropriate Speech: Clear, Logical Eye Contact: Normal Memory Intact: Comment (Not impaired) Hallucinations: Other (Negative) Delusions: No Suicidal: Ideation (deneis any) Homicidal: Ideation (deneis any) Insight/Judgement Fair. Not impaired. MDM Medical Decision Making Medical Record Reviewed: Yes Assessment/Plan 71-year-old male with history of major depressive disorder, adjustment disorder who arrives to ED under Carter act initiated by JER for psychiatric evaluation. The Carter act alleges that the police were called by the patient's daughter to report that the patient had been making suicidal statements and that he was not taking his medications. Patient has ongoing difficulty with the family and DCF is involved. Patient is denying suicidal ideation, intent or plan. He is cognitively intact. He does not meet BA criteria and is requesting discharge.Weighing the relevant factors and based on available evidence he does not present imminent risk to self or others. Psychiatrically clear to for discharge from ED. Lift BA. Orders Orders Psych Screen (03/30/17 21:47) Diet Regular Basic (03/31/17 Breakfast) Results Vital Signs Date Time Temp Pulse Resp B/P (MAP) Pulse Ox O2 Delivery O2 Flow Rate FiO2 03/31/17 06:00 85 16 122/59 (80) 97 Room Air 03/31/17 02:50 72 18 185/75 (111) 98 Room Air 03/30/17 21:44 98.3 97 20 134/73 (93) 87 Diagnosis Primary Impression: Adjustment disorder Psychiatrically Cleared: Yes Patient Instructions: General Instructions Additional Instructions: Patient is psychiatrically cleared by psychiatric staff. Patient is medically stable for discharge. Med/ Other Pt Specific Info: No Change to Meds Disposition: 01 DISCHARGE HOME Condition: Stable Problem Qualifiers Primary Impression: Adjustment disorder Qualified Codes: F43.25 - Adjustment disorder with mixed disturbance of emotions and conduct Katlyn Marques Mar 31, 2017 13:09
== END 2017-03-31 13:46 | disposition home or self-care (01) ==
LOC: NEPD 21:17 → NEPJ 03-31 13:46
DX: F43.25 Adjustment disorder with mixed disturbance of emotions and conduct (principal); F41.9 Anxiety disorder, unspecified; F17.200 Nicotine dependence, unspecified, uncomplicated; Z86.718 Personal history of other venous thrombosis and embolism; Z79.899 Other long term (current) drug therapy
CPT/HCPCS: 99284

== ENCOUNTER 2017-04-02 22:12 | Inpatient (IN) | payer OTHER, MEDICARE ==
[~2017-04-02] VITALS: Ht 177.8 cm; Wt 73.4 kg
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
[2017-04-02 22:28] VITALS: BP 146/75; PULSE 78; RESP 20; TEMP 98; O2SAT 99
[2017-04-02 22:58] LABS: BLOOD, URINE NEG (NEG); COMMENT (UR) CULT NOT INDICATED; CULTURE IF INDICATED CULT NOT INDICATED; GLUCOSE,URINE NEG (NEG); KETONE, URINE NEG (NEG); MUCUS URINE FEW /lpf (OCC); NITRITE,URINE NEG (NEG); URINE COLOR YELLOW (YELLW/STRAW)
[2017-04-02 23:00] LABS: AUTOMATED NEUTROPHIL # 5.9 TH/MM3 (1.8-7.7); BASOPHIL # 0.1 TH/MM3 (0-0.2); BASOPHIL % 0.6 % (0.0-2.0); EOSINOPHIL # 0.3 TH/MM3 (0-0.4); EOSINOPHIL % 3.5 % (0.0-4.0); HEMATOCRIT 45.5 % (39.0-51.0); HEMO FLAGS DIFF FINAL; LYMPHOCYTE # 2.4 TH/MM3 (1.0-4.8); MEAN CELL VOLUME 97.6 FL (80.0-100.0); MEAN CORPUSCULAR HEMOGLOBIN 32.9 PG (27.0-34.0); MEAN CORPUSCULAR HGB CONC 33.7 % (32.0-36.0); NEUT % 61.9 % (16.0-70.0); PLATELET COUNT 276 TH/MM3 (150-450); RED BLOOD COUNT 4.66 MIL/MM3 (4.50-5.90); RED CELL DISTRIBUTION WIDTH 13.9 % (11.6-17.2); WHITE BLOOD COUNT 9.6 TH/MM3 (4.0-11.0)
[2017-04-02 23:13] LABS: ANION GAP 8 MEQ/L (5-15); AST (GOT) 12 U/L (15-37); BICARBONATE 29.5 MEQ/L (21.0-32.0); BLOOD UREA NITROGEN 21 MG/DL (7-18); CHLORIDE 105 MEQ/L (98-107); GLOMERULAR FILTRATION RATE 73 ML/MIN (>89); POTASSIUM 4.2 MEQ/L (3.5-5.1); SODIUM (NA) 142 MEQ/L (136-145)
[2017-04-02 23:20] LABS: ALKALINE PHOSPHATASE 101 U/L (45-117); ALT (GPT) 20 U/L (12-78); TOTAL BILIRUBIN ADULT 0.2 MG/DL (0.2-1.0)
[2017-04-02 23:22] LABS: ALCOHOL LESS THAN 3 MG/DL (0-5)
[2017-04-03 02:10] VITALS: BP 159/72; PULSE 71; RESP 18
--- NOTE | 2017-04-03 09:48 | HHI.HP ---
Provisional Diagnosis Admission Date 04/03/2017 [place] I. 1. Adjustment disorder with mixed disturbance of emotions and conduct [place] II. Deferred Certification of Person's Competence To Provide Express and Informed Consent I have personally examined Moe Price , a person being served at [facility] on, Apr 03, 2017 09:48. Express and informed consent means consent voluntarily given in writing, by a competent person, after sufficient explanation and disclosure of the subject matter involved to enable the person to make a knowing and willful decision without any element of force, fraud, deceit, duress, or other form of constraint or coercion. This person is 18 years of age or older, is not now known to be incompetent to consent to treatment with a guardian advocate, and does not have a health care surrogate or proxy currently making medical treatment decisions. I have found this person to be one of the following: [x] Competent to provide express and informed consent, as defined above, for voluntary admission to this facility and is competent to provide express and informed consent for treatment. He/she has the consistent capacity to make well reasoned, willful, and knowing decisions concerning his or her medical or mental health treatment. The person fully and consistently understands the purpose of the admission for examination/placement and is fully capable of personally exercising all rights assured [place] Incompetent to provide express and informed consent to voluntary admission, and this is incompetent to provide express and informed consent to treatment. The person must be transferred to involuntary status and a petition for a guardian advocate filed with the Circuit Court. [] Refusing to provide express and informed consent to voluntary admission but is competent to provide express and informed consent for treatment. The person must be discharged or transferred to involuntary status. Form shall be completed within 24 hours of a person's arrival at the receiving facility and filed in the clinical record of each person: 1. Admitted on a voluntary basis 2. Permitted to provide express and informed consent to his/her own treatment 3. Allowed to transfer from involuntary to voluntary status 4. Prior to permitting a person to consent to his or her own treatment after having been previously found incompetent to consent to treatment. History of Present Illness Capacity: Has Capacity HPI Mr. Price is a 71-year-old male with a chart history of major depression who presents under a Carter act from [employer] [place] [employer] alleging that the patient got into an argument with his daughter and threatened to kill himself. Reviewing the EMR, I note the patient was admitted in March under Dr. Ahn. Patient seen and examined. Chart reviewed. Case discussed with nurse in the J- pod. On my examination today, the patient presents as fairly dysphoric. He is hard of hearing but examined with his hearing aides. He tells me "I need to get on my own. Everybody says I can't do it by myself because I'm stupid and disabled." When I ask about the suicidal threats he says that he issued them" to get away from my daughter." However, when I ask if he is experiencing ongoing suicidal ideation, he refuses to deny that this is the case and likewise does not contract for safety. Denies homicidal ideation. Mood is described as "half way." Denies audiovisual hallucinations. No delusions. No hypomanic or manic symptoms. Sleep and appetite fair. Remainder of the psychiatric ROS is negative. Past psychiatric history: Patient has a history of major depression. He was recently psychiatrically admitted here as I said. Family history: The patient denies a family history of mental illness. Chemical dependency history: The patient endorses a history of heavy drinking. Social history: Patient reports that he has a ninth grade education. He worked in a variety of jobs but is presently disabled he tells me. He has 4 children. He is . Review of Systems ROS Limitations: Poor Historian Except as stated in HPI: all other systems reviewed are Neg Past Psych History Psychological trauma history No reported trauma history to me Violence risk - others (6 mos) Indeterminate but suspect lower risk Violence risk - self (6 mos) Concern for elevated risk Substance Abuse History Drugs/Alcohol past 12 months See above Past Family Social History Coded Allergies: No Known Allergies (Unverified , 03/30/17) Past Medical History See electronic medical record Active Scripts Calcium/Vitamin D (Oyster Shell 250 mg + Vit D Tb) 250 Mg Calcium (625 Mg)-125 Unit Tablet, 500 MG PO BID for health, #60 TAB 0 Refills Prov:Moe Ahn MD 03/22/17 Tamsulosin (Flomax) 0.4 Mg Cap, 0.4 MG PO DAILY for health, #30 CAP 0 Refills Prov:Moe Ahn MD 03/22/17 Apixaban (Eliquis) 5 Mg Tab, 5 MG PO BID for health, #60 TAB 0 Refills Prov:Moe Ahn MD 03/22/17 Trazodone (Trazodone) 50 Mg Tab, 50 MG PO HS for health, #30 TAB 0 Refills Prov:Moe Ahn MD 11/10/16 Methocarbamol (Methocarbamol) 500 Mg Tab, 500 MG PO Q8HR for health, #90 TAB 0 Refills Prov:Moe Ahn MD 11/10/16 Gabapentin (Neurontin) 300 Mg Cap, 300 MG PO BID for health, #60 CAP 0 Refills Prov:Moe Ahn MD 11/10/16 Aripiprazole (Aripiprazole) 10 Mg Tab, 10 MG PO DAILY for health, #30 TAB 0 Refills Prov:Moe Ahn MD 11/10/16 Discontinued Scripts Sertraline (Zoloft) 100 Mg Tab, 100 MG PO DAILY for health, #30 TAB 0 Refills Prov:Moe Ahn MD 03/22/17 Methocarbamol (Methocarbamol) 500 Mg Tab, 500 MG PO Q8HR for health, #90 TAB 0 Refills Prov:Moe Ahn MD 03/22/17 Gabapentin (Neurontin) 300 Mg Cap, 300 MG PO BID for health, #60 CAP 0 Refills Prov:Moe Ahn MD 03/22/17 Aripiprazole (Aripiprazole) 10 Mg Tab, 10 MG PO DAILY for health, #30 TAB 0 Refills Prov:Moe Ahn MD 03/22/17 Sertraline (Zoloft) 100 Mg Tab, 100 MG PO DAILY for health, #30 TAB 0 Refills Prov:Moe Ahn MD 11/10/16 Patient's Strengths (min. 2) In a monitored setting. Verbally fluent. Physical Exam Physical exam completed by ED provider. On my examination today, patient appears to be in no acute physical distress. No motor abnormalities noted. Labs and vitals reviewed: Vital Signs Vital Signs Date Time Temp Pulse Resp B/P (MAP) Pulse Ox O2 Delivery O2 Flow Rate FiO2 04/03/17 02:10 71 18 159/72 (101) 04/02/17 22:28 98.0 99 Lab Results Test 04/02/17 22:35 White Blood Count 9.6 TH/MM3 Red Blood Count 4.66 MIL/MM3 Hemoglobin 15.3 GM/DL Hematocrit 45.5 % Mean Corpuscular Volume 97.6 FL Mean Corpuscular Hemoglobin 32.9 PG Mean Corpuscular Hemoglobin Concent 33.7 % Red Cell Distribution Width 13.9 % Platelet Count 276 TH/MM3 Mean Platelet Volume 8.4 FL Neutrophils (%) (Auto) 61.9 % Lymphocytes (%) (Auto) 25.0 % Monocytes (%) (Auto) 9.0 % Eosinophils (%) (Auto) 3.5 % Basophils (%) (Auto) 0.6 % Neutrophils # (Auto) 5.9 TH/MM3 Lymphocytes # (Auto) 2.4 TH/MM3 Monocytes # (Auto) 0.9 TH/MM3 Eosinophils # (Auto) 0.3 TH/MM3 Basophils # (Auto) 0.1 TH/MM3 CBC Comment DIFF FINAL Differential Comment Urine Color YELLOW Urine Turbidity CLEAR Urine pH 6.0 Urine Specific [place] 1.018 Urine Protein NEG mg/dL Urine Glucose (UA) NEG mg/dL Urine Ketones NEG mg/dL Urine Occult Blood NEG Urine Nitrite NEG Urine Bilirubin NEG Urine Urobilinogen LESS THAN 2.0 MG/DL Urine Leukocyte Esterase NEG Urine RBC 1 /hpf Urine WBC 1 /hpf Urine Mucus FEW /lpf Microscopic Urinalysis Comment CULT NOT INDICATED Blood Urea Nitrogen 21 MG/DL Creatinine 1.01 MG/DL Random Glucose 99 MG/DL Total Protein 8.0 GM/DL Albumin 3.7 GM/DL Calcium Level 8.9 MG/DL Alkaline Phosphatase 101 U/L Aspartate Amino Transf (AST/SGOT) 12 U/L Alanine Aminotransferase (ALT/SGPT) 20 U/L Total Bilirubin 0.2 MG/DL Sodium Level 142 MEQ/L Potassium Level 4.2 MEQ/L Chloride Level 105 MEQ/L Carbon Dioxide Level 29.5 MEQ/L Anion Gap 8 MEQ/L Estimat Glomerular Filtration Rate 73 ML/MIN Urine Opiates Screen NEG Urine Barbiturates Screen NEG Urine Amphetamines Screen NEG Urine Benzodiazepines Screen NEG Urine Cocaine Screen NEG Urine Cannabinoids Screen NEG Ethyl Alcohol Level LESS THAN 3 MG/DL Decreased GFR noted; this does not appear to be his baseline. Mental Status Examination No motor abnormalities noted. Able to spell world forward but not backward. Names 2 items and repeats the phrase without issue. Unable to name the president. Appearance Disheveled Speech: Unremarkable Orientation: x3 Memory: Unremarkable (registration 3 out of 3 and recall 3 out of 3 at 3 minutes.) Language Unremarkable Fund of Knowledge Average Hallucination Type: None Attention and Concentration: Good Suicidal Ideation: Yes (does not denies suicidal ideation and does not contract for safety) Previous Suicide Attempts: No Homicidal Ideation: No Previous Homicide Attempts: No Insight: Poor Judgment: Poor Affect: Other (restricted, dysphoric) Mood: Other ("half way") Assessment & Plan Problem List: (1) Adjustment disorder ICD Codes: F43.20 - Adjustment disorder, unspecified Status: Acute Assessment & Plan 71-year-old male with psychiatric history as detailed above who presents under a Carter act. I suspect the patient is experiencing an adjustment reaction with disturbance of emotions and conduct related to his displeasure at having to continue to cohabitate with his daughter. He tells me that he would like to be placed in a facility such as a nursing facility. He does not deny suicidal ideation nor does he contracts for safety. I will admit the patient to the inpatient psychiatric unit for safety, observation and stabilization. Admit inpatient. Voluntary status. Check BMP in the morning. Hemoglobin A1c and lipid panel were checked last month. Titrate Zoloft to 150 mg daily for mood. Continue Abilify 10 mg/day and trazodone 50 mg at bedtime. Continue medical medications including Robaxin and Neurontin. Ativan as needed for anxiety, Benadryl as needed for EPS or insomnia. Consult of the physical therapist. Falls precautions. Vitals every shift. Counselor to see. Disposition planning. Estimated length of stay: 5-7 days. Discharge Planning Pending stabilization Request HC Surrog/Guard Advoc?: No Problem Qualifiers (1) Adjustment disorder: Qualified Codes: F43.25 - Adjustment disorder with mixed disturbance of emotions and conduct Korey Rodriguez MD Apr 03, 2017 09:48
[2017-04-03] MEDS ORDERED: MAGNESIUM HYDROXIDE SUSP 30 ML CUP PO PRN (10:00)
[2017-04-03] MEDS ORDERED: LORazepam 0.5 MG TAB PO PRN (10:00)
[2017-04-03] MEDS ORDERED: LORazepam 2 MG/ML VIAL IM PRN (10:00)
[2017-04-03] MEDS ORDERED: diphenhydrAMINE HCL 50 MG CAP PO PRN (10:00)
[2017-04-03] MEDS ORDERED: ALUMINUM/MAGNESIUM/SIMETH 30 ML CUP PO PRN (10:00)
[2017-04-03] MEDS ORDERED: diphenhydrAMINE HCL 50 MG/ML VIAL IM PRN (10:00)
[2017-04-03] MEDS ORDERED: ACETAMINOPHEN 325 MG TAB PO PRN (10:00)
[2017-04-03 12:09] VITALS: BP 125/62; PULSE 62; RESP 12; TEMP 97.8
[2017-04-03] MEDS: METHOCARBAMOL 500 MG TAB PO SCH ×2 (13:43→20:47)
[2017-04-03] MEDS: CALCIUM/VITAMIN D 250 MG/125 U TAB PO SCH (20:45)
[2017-04-03] MEDS: GABAPENTIN 300 MG CAP PO SCH (20:45)
[2017-04-03] MEDS: traZODone HCL 50 MG TAB PO SCH (20:45)
[2017-04-03] MEDS: APIXABAN 5 MG TABLET PO SCH (21:00)
[2017-04-04 05:17] VITALS: BP 118/63; PULSE 56; RESP 17; TEMP 97.3
[2017-04-04] MEDS: METHOCARBAMOL 500 MG TAB PO SCH ×3 (06:00→21:19)
[2017-04-04] MEDS: NICOTINE 21 MG/24 HR PATCH T-DERMAL SCH (09:00)
[2017-04-04] MEDS: REMOVE OLD PATCH T-DERMAL SCH (09:00)
[2017-04-04] MEDS: APIXABAN 5 MG TABLET PO SCH ×2 (10:04→21:20)
[2017-04-04] MEDS: CALCIUM/VITAMIN D 250 MG/125 U TAB PO SCH ×2 (10:04→21:20)
[2017-04-04] MEDS: GABAPENTIN 300 MG CAP PO SCH ×2 (10:05→21:19)
[2017-04-04] MEDS: SERTRALINE HCL 100 MG TAB PO SCH (10:05)
[2017-04-04] MEDS: ARIPiprazole 10 MG TAB PO SCH (10:05)
[2017-04-04] MEDS: TAMSULOSIN HCL 0.4 MG CAP PO SCH (10:06)
[2017-04-04 11:05] LABS: BICARBONATE 26.4 MEQ/L (21.0-32.0); POTASSIUM 4.4 MEQ/L (3.5-5.1)
--- NOTE | 2017-04-04 12:32 | HHI.PYPN ---
Subjective Remarks Patient initially seen on admission by Dr. Korey Rodriguez that document reviewed and agreed with. Psychiatric admission template filled by me IPatient seen in room with nurse Xiang and counselor Citlalli, chart reviewed. It appears that continues to be conflictual relationship to the patient and his daughter after his last discharge we did have home health care referral. It appears there is some contentiousness between the home health care nurses in the patient 's daughter leading to them. Stopping Their visits there. We can discuss the possibility of him moving into an [facility]. Though this would require him becoming his own payee. We also discussed the possibility of him recontacting his other children to see about a possible placement and that arena. Will have counselor work with that also for now continue medication no change. Patient does remain vaguely suicidal Review of Systems Except as stated in HPI: all other systems reviewed are Neg Objective Alert: Yes [place]: Person, Place, Date, Situation Mood: Anxious, Calm, Depressed Affect: Labile Memory Intact: Comment (fair) Hallucinations: Other (denies) Delusions: No Delusion Type: Other (somewhat vigilant focused on his daughter) Suicidal: Ideation (continues very ideation) Homicidal: Ideation (denies) Insight/Judgment Poor Labs Test 04/04/17 08:35 Blood Urea Nitrogen 18 MG/DL Creatinine 0.68 MG/DL Random Glucose 123 MG/DL Calcium Level 8.9 MG/DL Sodium Level 135 MEQ/L Potassium Level 4.4 MEQ/L Chloride Level 101 MEQ/L Carbon Dioxide Level 26.4 MEQ/L Anion Gap 8 MEQ/L Estimat Glomerular Filtration Rate 115 ML/MIN Vitals/IOs Vital Signs Date Time Temp Pulse Resp B/P (MAP) Pulse Ox O2 Delivery O2 Flow Rate FiO2 04/04/17 05:17 97.3 56 17 118/63 (81) 04/02/17 22:28 99 Assessment & Plan Problem List: (1) Adjustment disorder ICD Codes: F43.20 - Adjustment disorder, unspecified Status: Acute Assessment & Plan Estimated LOS: days patient remains depressed with vague suicidality continues markedly situational related to his relationship with his daughter. This needs further investigation and perhaps more encouragement for appropriate placement Justification for Cont. Inpt. At this time patient will decompensate and placed on lower level of care Discharge Planning To be determined Request HC Surrog/Guard Advoc?: No Problem Qualifiers (1) Adjustment disorder: Qualified Codes: F43.25 - Adjustment disorder with mixed disturbance of emotions and conduct Moe Ahn MD Apr 04, 2017 12:32
[2017-04-04] MEDS ORDERED: ALUMINUM/MAGNESIUM/SIMETH 30 ML CUP PO PRN (12:45)
[2017-04-04] MEDS ORDERED: MAGNESIUM HYDROXIDE SUSP 30 ML CUP PO PRN (12:45)
[2017-04-04] MEDS ORDERED: ACETAMINOPHEN 325 MG TAB PO PRN (12:45)
[2017-04-04 20:59] VITALS: BP 120/57; PULSE 81; RESP 16; TEMP 97.7; O2SAT 95
[2017-04-04] MEDS: traZODone HCL 50 MG TAB PO SCH (21:19)
[2017-04-05 05:40] VITALS: BP 120/58; PULSE 66; RESP 16; TEMP 98; O2SAT 96
[2017-04-05] MEDS: METHOCARBAMOL 500 MG TAB PO SCH ×3 (05:57→21:39)
[2017-04-05] MEDS: APIXABAN 5 MG TABLET PO SCH ×2 (09:17→21:39)
[2017-04-05] MEDS: GABAPENTIN 300 MG CAP PO SCH ×2 (09:17→21:39)
[2017-04-05] MEDS: NICOTINE 21 MG/24 HR PATCH T-DERMAL SCH (09:18)
[2017-04-05] MEDS: ARIPiprazole 10 MG TAB PO SCH (09:18)
[2017-04-05] MEDS: TAMSULOSIN HCL 0.4 MG CAP PO SCH (09:18)
[2017-04-05] MEDS: REMOVE OLD PATCH T-DERMAL SCH (09:18)
[2017-04-05] MEDS: CALCIUM/VITAMIN D 250 MG/125 U TAB PO SCH ×2 (09:18→21:39)
[2017-04-05] MEDS: SERTRALINE HCL 100 MG TAB PO SCH (09:21)
--- NOTE | 2017-04-05 09:23 | HHI.PYPN ---
Subjective Remarks Patient seen in the hallway with counselor Citlalli. Patient alert calm focused with me however this still remains significant anxiety distress and confusion when discussing possible placement issues. Also related to his ability to set appropriate boundaries with his daughter. He would like to be his own payee. This may help him to gain some independence from his daughter. He said he would also like to get his own small apartment. That might be something to consider also. However he also realizes that she is his daughter and I feel he believes she has some responsibility for her also. Need to give this man sufficient time in October might be the best decision for himself. For now continue treatment no change Review of Systems Except as stated in HPI: all other systems reviewed are Neg Objective Alert: Yes [place]: Person, Place, Date, Situation Mood: Anxious, Calm, Depressed Affect: Labile Memory Intact: Comment (fair) Hallucinations: Other (denies) Delusions: No Delusion Type: Other (somewhat vigilant focused on his daughter) Suicidal: Ideation (continues very ideation) Homicidal: Ideation (denies) Insight/Judgment Poor to fair Vitals/IOs Vital Signs Date Time Temp Pulse Resp B/P (MAP) Pulse Ox O2 Delivery O2 Flow Rate FiO2 04/05/17 05:40 98.0 66 16 120/58 (78) 96 Intake and Output 04/05/17 04/05/17 04/06/17 08:00 16:00 00:00 Intake Total 720 ml Balance 720 ml Assessment & Plan Problem List: (1) Adjustment disorder ICD Codes: F43.20 - Adjustment disorder, unspecified Status: Acute Assessment & Plan Estimated LOS: days patient continue somewhat depressed and confused about his relationship with his daughter. For now continue treatment Justification for Cont. Inpt. At this time patient will decompensate the placed in a lower level of care Discharge Planning To be determined Request HC Surrog/Guard Advoc?: No Problem Qualifiers (1) Adjustment disorder: Qualified Codes: F43.25 - Adjustment disorder with mixed disturbance of emotions and conduct Moe Ahn MD Apr 05, 2017 09:23
[2017-04-05 16:51] VITALS: BP 137/74; PULSE 60; RESP 18; TEMP 97.6; O2SAT 96
[2017-04-05] MEDS: traZODone HCL 50 MG TAB PO SCH (21:39)
[2017-04-06 06:32] VITALS: BP 130/66; PULSE 72; RESP 18; TEMP 97.5; O2SAT 97
[2017-04-06] MEDS: METHOCARBAMOL 500 MG TAB PO SCH ×2 (06:36→14:00)
[2017-04-06] MEDS: CALCIUM/VITAMIN D 250 MG/125 U TAB PO SCH (08:58)
[2017-04-06] MEDS: SERTRALINE HCL 100 MG TAB PO SCH (08:58)
[2017-04-06] MEDS: ARIPiprazole 10 MG TAB PO SCH (08:58)
[2017-04-06] MEDS: NICOTINE 21 MG/24 HR PATCH T-DERMAL SCH (08:59)
[2017-04-06] MEDS: TAMSULOSIN HCL 0.4 MG CAP PO SCH (08:59)
[2017-04-06] MEDS: APIXABAN 5 MG TABLET PO SCH (08:59)
[2017-04-06] MEDS: REMOVE OLD PATCH T-DERMAL SCH (08:59)
[2017-04-06] MEDS: GABAPENTIN 300 MG CAP PO SCH (08:59)
[2017-04-06] MEDS ORDERED: NEUR300C PO (13:27)
[2017-04-06] MEDS ORDERED: CALC250 PO (13:27)
[2017-04-06] MEDS ORDERED: METH500T3 PO (13:27)
[2017-04-06] MEDS ORDERED: TAMS5CAP PO (13:27)
[2017-04-06] MEDS ORDERED: ZOLO100T PO (13:27)
[2017-04-06] MEDS ORDERED: ARIP1TAB12 PO (13:27)
[2017-04-06] MEDS ORDERED: APIX5TAB PO (13:27)
[2017-04-06] MEDS ORDERED: TRAZ50TA12 PO (13:27)
--- NOTE | 2017-04-06 13:32 | HHI.DS ---
Psychiatry Discharge Summary Inpatient Psychiatric care?: Yes Advance Directive: Yes Mental Health AdvanceDirective: No (patient declined) Health Care Proxy: No Admission Admission Date Apr 03, 2017 at 09:49 Admission Diagnosis: (1) Adjustment disorder ICD Code: F43.20 - Adjustment disorder, unspecified Brief History Mr. Price is a 71-year-old male with a chart history of major depression who presents under a Carter act from [employer] alleging that the patient got into an argument with his daughter and threatened to kill himself. Reviewing the EMR, I note the patient was admitted in March under Dr. Ahn. Patient seen and examined. Chart reviewed. Case discussed with nurse in the J- pod. On my examination today, the patient presents as fairly dysphoric. He is hard of hearing but examined with his hearing aides. He tells me "I need to get on my own. Everybody says I can't do it by myself because I'm stupid and disabled." When I ask about the suicidal threats he says that he issued them" to get away from my daughter." However, when I ask if he is experiencing ongoing suicidal ideation, he refuses to deny that this is the case and likewise does not contract for safety. Denies homicidal ideation. Mood is described as "half way." Denies audiovisual hallucinations. No delusions. No hypomanic or manic symptoms. Sleep and appetite fair. Remainder of the psychiatric ROS is negative. Past psychiatric history: Patient has a history of major depression. He was recently psychiatrically admitted here as I said. Family history: The patient denies a family history of mental illness. Chemical dependency history: The patient endorses a history of heavy drinking. Social history: Patient reports that he has a ninth grade education. He worked in a variety of jobs but is presently disabled he tells me. He has 4 children. He is . Tobacco Use In Past 30 Days: 5 or More Cigarettes/Day Alcohol Use: 4 or More Times Per Week Hospital Course Patient showed no acute behavioral problems during this admission, show compliance with medication, cooperation with the program. However patient continues to focus on his daughter. Focusing on his need to support his daughter, not wanting her to go homeless. He is aware of how she is taking advantage of him and his income. However he he is not willing to become his own payee at this time, not willing to consider a alf or other living situation. Since that would appear to precipitate his daughters homelessness patient denies suicidality homicidality voices or visions states he wants to go home today. At this time patient will be meets criteria for acute inpatient psychiatric hospitalization thus I will allow him to be discharged today. Rx 1 month. Of follow-up [place] outpatient [place] Results Blood Pressure 130 / 66 Vital Signs Date Time Temp Pulse Resp B/P (MAP) Pulse Ox O2 Delivery O2 Flow Rate FiO2 04/06/17 06:32 97.5 72 18 130/66 (87) 97 Laboratory Tests Test 04/04/17 08:35 Random Glucose 123 MG/DL (74-106) Sodium Level 135 MEQ/L (136-145) Summary of Procedures None done Pending results at discharge: No Medications # of Antipsychotic meds at D/C: 1 Approp Antipsych med options 1 - Minimum of three failed multiple trials of monotherapy. 2 - Documented plan to taper to monotherapy due to previous use of multiple meds OR cross-taper in progress at D/C. 3 - Documentation of augmentation of Clozapine. 4 - Justification other than those listed in allowable values 1-3, document here : Discharge Discharge Date: Apr 06, 2017 Discharge Diagnosis: (1) Adjustment disorder Diagnosis: Principal ICD Code: F43.20 - Adjustment disorder, unspecified Status: Acute Mental Status Exam at Disch Alert oriented white male is calm to somewhat anxious but cooperative with me. He is normal active. Is euthymic to mildly irritable with good range intensity of his affect. Speech rate and rhythm are within normal limits though no formal thought disorders. No auditory or visual hallucinations. No delusions. Insight and judgment is poor to fair. Cognition grossly intact Pt Condition on Discharge: Stable Discharge Disposition: Discharge Home Discharge Instructions Diet Instructions: As Tolerated, No Restrictions Activities you can perform: Regular-No Restrictions Scheduled Appointment: [place] outpatient [place] Discharge Time > 30 minutes Discharge/Advance Care Plan Health Problems: (1) Adjustment disorder Goals to promote your health * To prevent worsening of your condition and complications * To maintain your health at the optimal level Directions to meet your goals Take your medications as prescribed Follow your dietary instruction Follow activity as directed Keep your appointments as scheduled Take your immunizations and boosters as scheduled If your symptoms worsen call your PCP, if no PCP go to Urgent Care Center or Emergency Room For 21/02 questions related to your inpatient stay or results of tests pending at discharge, please contact Dr. Moe Ahn at Smoking is Dangerous to Your Health. Avoid second hand smoking Problem Qualifiers (1) Adjustment disorder: Qualified Codes: F43.25 - Adjustment disorder with mixed disturbance of emotions and conduct Moe Ahn MD Apr 06, 2017 13:32
== END 2017-04-06 15:15 | disposition home or self-care (01) | DRG 882 ==
LOC: NEPD 22:12 → NEDA 04-03 09:49 → H250 04-03 11:35
PROVIDERS: ADMIT Psychiatry & Neurology Psychiatry; ATTEND Psychiatry & Neurology Psychiatry
DX: F43.25 Adjustment disorder with mixed disturbance of emotions and conduct (principal); R45.851 Suicidal ideations; J43.9 Emphysema, unspecified; G35 Multiple sclerosis; H91.90 Unspecified hearing loss, unspecified ear; F41.9 Anxiety disorder, unspecified; F32.9 Major depressive disorder, single episode, unspecified; Z72.0 Tobacco use
CPT/HCPCS: 80048; 80053; 80307; 81001; 85025

== ENCOUNTER 2017-06-14 15:00 | Observation (INO) | payer MEDICARE, OTHER ==
[~2017-06-14] VITALS: Ht 193 cm; Wt 81.0 kg
[2017-06-14 15:09] VITALS: BP 164/79; PULSE 63; RESP 16; TEMP 98; O2SAT 100
[2017-06-14 15:35] VITALS: RESP 18; O2SAT 99
[2017-06-14] MEDS ORDERED: SODIUM CHLORIDE 0.9% FLUSH 10 ML FLUSH IVF PRN (15:45)
--- NOTE | 2017-06-14 15:54 | PD ---
HPI Chief Complaint: Psychiatric Symptoms Time Seen by Provider: 15:16 Travel History International Travel<30 days: No Contact w/Intl Traveler<30days: No Traveled to known affect area: No History of Present Illness HPI Patient is a 71-year-old male presenting to the emergency Department under Carter act for psychiatric evaluation. Patient states that he ingested 20 Eliquis pills at noon today. He reports this was an attempt to kill himself. He states that his daughter calls them names like "scum bag", "dirt bag". He states that she drives him crazy. And he is bothered by her legal drug use and allegedly prostitution habits. Patient denied taking other medications, he states he couldn't find anything else to take in his house. He states he has felt depressed for some time, denies previous suicide attempt. He further denies any homicidal ideations, visual auditory hallucinations. He denies any pain or bleeding at this time. PFSH Past Medical History Hx Anticoagulant Therapy: Yes (ELIQUIS) Arthritis: No Autoimmune Disease: No Blood Disorders: No Anxiety: Yes Depression: Yes Cancer: No Cardiovascular Problems: Yes COPD: Yes Diabetes: No Diminished Hearing: Yes (bilateral hearing aids, NONE IN PLACE) Deep Vein Thrombosis: Yes Endocrine: No Gastrointestinal Disorders: No Genitourinary: No Headaches: No Immune Disorder: No Implanted Vascular Access Dvce: Yes Musculoskeletal: Yes (right back pain, BLE weakness due to MS) Neurologic: No Immunizations Current: Yes Seizures: No Thyroid Disease: No Tetanus Vaccination: > 5 Years Influenza Vaccination: Yes Past Surgical History Abdominal Surgery: No AICD: No Arteriovenous Shunt: No Body Medical Devices: pins in right leg, accident at work in 1988 Cardiac Surgery: No Ear Surgery: No Endocrine Surgery: No Eye Surgery: No Genitourinary Surgery: No Gynecologic Surgery: No Insulin Pump: No Joint Replacement: No Neurologic Surgery: No Oral Surgery: No Pacemaker: No Thoracic Surgery: No Other Surgery: Yes (hx of back surgery) Social History Alcohol Use: No (QUIT 1989) Tobacco Use: Yes (1 PPD) Substance Use: No (PT DENIES) Allergies-Medications (Allergen,Severity, Reaction): Coded Allergies: No Known Allergies (Verified Adverse Reaction, Unknown, 06/14/17) Reported Meds & Prescriptions Reported Meds & Active Scripts Active Trazodone (Trazodone HCl) 50 Mg Tab 50 Mg PO HS Flomax (Tamsulosin HCl) 0.4 Mg Cap 0.4 Mg PO DAILY Zoloft (Sertraline HCl) 100 Mg Tab 150 Mg PO 1 1/2 DAILY Methocarbamol 500 Mg Tab 500 Mg PO Q8HR Neurontin (Gabapentin) 300 Mg Cap 300 Mg PO BID Oyster Shell 250 mg + Vit D Tb (Calcium/Vitamin D) 250 Mg Calcium (625 Mg)-125 Unit Tablet 500 Mg PO BID Aripiprazole 10 Mg Tab 10 Mg PO DAILY Eliquis (Apixaban) 5 Mg Tab 5 Mg PO BID Oyster Shell 250 mg + Vit D Tb (Calcium/Vitamin D) 250 Mg Calcium (625 Mg)-125 Unit Tablet 500 Mg PO BID Flomax (Tamsulosin HCl) 0.4 Mg Cap 0.4 Mg PO DAILY Eliquis (Apixaban) 5 Mg Tab 5 Mg PO BID Trazodone (Trazodone HCl) 50 Mg Tab 50 Mg PO HS Methocarbamol 500 Mg Tab 500 Mg PO Q8HR Neurontin (Gabapentin) 300 Mg Cap 300 Mg PO BID Aripiprazole 10 Mg Tab 10 Mg PO DAILY Review of Systems Except as stated in HPI: all other systems reviewed are Neg Psychiatric: Positive: Depression, Suicidal Ideations Physical Exam Narrative GENERAL: Thin, well-developed, alert elderly male. Resting comfortably in no acute distress. Patient is hard of hearing. SKIN: Warm and dry. HEAD: Atraumatic. Normocephalic. EYES: Pupils equal and round. No scleral icterus. No injection or drainage. ENT: No nasal bleeding or discharge. Mucous membranes pink and moist. NECK: Trachea midline. No JVD. CARDIOVASCULAR: Regular rate and rhythm. RESPIRATORY: No accessory muscle use. Clear to auscultation. Breath sounds equal bilaterally. GASTROINTESTINAL: Abdomen soft, non-tender, nondistended. Hepatic and splenic margins not palpable. MUSCULOSKELETAL: Extremities without clubbing, cyanosis, or edema. No obvious deformities. NEUROLOGICAL: Awake and alert. No obvious cranial nerve deficits. Motor grossly within normal limits. Five out of 5 muscle strength in the arms and legs. Normal speech. PSYCHIATRIC: Depressed mood and affect; insight and judgment normal. Data Data Last Documented VS Vital Signs Date Time Temp Pulse Resp B/P (MAP) Pulse Ox O2 Delivery O2 Flow Rate FiO2 06/14/17 16:45 97.8 66 17 137/68 (91) 98 Room Air Orders Orders Complete Blood Count With Diff (06/14/17 15:33) Comprehensive Metabolic Panel (06/14/17 15:33) Urinalysis - C+S If Indicated (06/14/17 15:33) Oximetry (06/14/17 15:33) Iv Access Insert/Monitor (06/14/17 15:33) Ecg Monitoring (06/14/17 15:33) Psych Screen (06/14/17 15:33) Sodium Chloride 0.9% Flush (Ns Flush) (06/14/17 15:45) Drug Screen, Random Urine (06/14/17 15:33) Alcohol (Ethanol) (06/14/17 15:33) Salicylates (Aspirin) (06/14/17 15:33) Tylenol (Acetaminophen) (06/14/17 15:33) Act Partial Throm Time (Ptt) (06/14/17 15:33) Prothrombin Time / Inr (Pt) (06/14/17 15:33) Type And Screen (06/14/17 15:33) Admit Order (Ed Use Only) (06/14/17 18:49) Labs Laboratory Tests Test 06/14/17 15:20 06/14/17 15:35 06/14/17 16:20 06/14/17 16:30 Blood Urea Nitrogen 17 MG/DL Creatinine 0.57 MG/DL Random Glucose 87 MG/DL Total Protein 7.2 GM/DL Albumin 3.4 GM/DL Calcium Level 8.5 MG/DL Alkaline Phosphatase 84 U/L Aspartate Amino Transf (AST/SGOT) 11 U/L Alanine Aminotransferase (ALT/SGPT) 16 U/L Total Bilirubin 0.3 MG/DL Sodium Level 136 MEQ/L Potassium Level 3.8 MEQ/L Chloride Level 104 MEQ/L Carbon Dioxide Level 23.8 MEQ/L Anion Gap 8 MEQ/L Estimat Glomerular Filtration Rate 141 ML/MIN Acetaminophen Level LESS THAN 2.0 MCG/ML Ethyl Alcohol Level 3 MG/DL White Blood Count 9.8 TH/MM3 Red Blood Count 4.77 MIL/MM3 Hemoglobin 16.2 GM/DL Hematocrit 48.0 % Mean Corpuscular Volume 100.6 FL Mean Corpuscular Hemoglobin 34.0 PG Mean Corpuscular Hemoglobin Concent 33.8 % Red Cell Distribution Width 13.8 % Platelet Count 252 TH/MM3 Mean Platelet Volume 8.8 FL Neutrophils (%) (Auto) 67.0 % Lymphocytes (%) (Auto) 21.6 % Monocytes (%) (Auto) 8.9 % Eosinophils (%) (Auto) 2.1 % Basophils (%) (Auto) 0.4 % Neutrophils # (Auto) 6.6 TH/MM3 Lymphocytes # (Auto) 2.1 TH/MM3 Monocytes # (Auto) 0.9 TH/MM3 Eosinophils # (Auto) 0.2 TH/MM3 Basophils # (Auto) 0.0 TH/MM3 CBC Comment DIFF FINAL Differential Comment Prothrombin Time 14.1 SEC Prothromb Time International Ratio 1.3 RATIO Activated Partial Thromboplast Time 32.4 SEC Salicylates Level 4.9 MG/DL Urine Color YELLOW Urine Turbidity HAZY Urine pH 7.0 Urine Specific [place] 1.015 Urine Protein NEG mg/dL Urine Glucose (UA) NEG mg/dL Urine Ketones NEG mg/dL Urine Occult Blood SMALL Urine Nitrite NEG Urine Bilirubin NEG Urine Urobilinogen LESS THAN 2.0 MG/DL Urine Leukocyte Esterase NEG Urine RBC 9 /hpf Urine WBC 2 /hpf Urine Squamous Epithelial Cells <1 /hpf Urine Amorphous Sediment RARE Microscopic Urinalysis Comment CULT NOT INDICATED Urine Opiates Screen NEG Urine Barbiturates Screen NEG Urine Amphetamines Screen NEG Urine Benzodiazepines Screen NEG Urine Cocaine Screen NEG Urine Cannabinoids Screen NEG [facility] Medical Decision Making Medical Screen Exam Complete: Yes Emergency Medical Condition: Yes Interpretation(s) Laboratory Tests Test 06/14/17 15:20 06/14/17 15:35 06/14/17 16:20 06/14/17 16:30 Blood Urea Nitrogen 17 MG/DL Creatinine 0.57 MG/DL Random Glucose 87 MG/DL Total Protein 7.2 GM/DL Albumin 3.4 GM/DL Calcium Level 8.5 MG/DL Alkaline Phosphatase 84 U/L Aspartate Amino Transf (AST/SGOT) 11 U/L Alanine Aminotransferase (ALT/SGPT) 16 U/L Total Bilirubin 0.3 MG/DL Sodium Level 136 MEQ/L Potassium Level 3.8 MEQ/L Chloride Level 104 MEQ/L Carbon Dioxide Level 23.8 MEQ/L Anion Gap 8 MEQ/L Estimat Glomerular Filtration Rate 141 ML/MIN Acetaminophen Level LESS THAN 2.0 MCG/ML Ethyl Alcohol Level 3 MG/DL White Blood Count 9.8 TH/MM3 Red Blood Count 4.77 MIL/MM3 Hemoglobin 16.2 GM/DL Hematocrit 48.0 % Mean Corpuscular Volume 100.6 FL Mean Corpuscular Hemoglobin 34.0 PG Mean Corpuscular Hemoglobin Concent 33.8 % Red Cell Distribution Width 13.8 % Platelet Count 252 TH/MM3 Mean Platelet Volume 8.8 FL Neutrophils (%) (Auto) 67.0 % Lymphocytes (%) (Auto) 21.6 % Monocytes (%) (Auto) 8.9 % Eosinophils (%) (Auto) 2.1 % Basophils (%) (Auto) 0.4 % Neutrophils # (Auto) 6.6 TH/MM3 Lymphocytes # (Auto) 2.1 TH/MM3 Monocytes # (Auto) 0.9 TH/MM3 Eosinophils # (Auto) 0.2 TH/MM3 Basophils # (Auto) 0.0 TH/MM3 CBC Comment DIFF FINAL Differential Comment Prothrombin Time 14.1 SEC Prothromb Time International Ratio 1.3 RATIO Activated Partial Thromboplast Time 32.4 SEC Salicylates Level 4.9 MG/DL Urine Color YELLOW Urine Turbidity HAZY Urine pH 7.0 Urine Specific [place] 1.015 Urine Protein NEG mg/dL Urine Glucose (UA) NEG mg/dL Urine Ketones NEG mg/dL Urine Occult Blood SMALL Urine Nitrite NEG Urine Bilirubin NEG Urine Urobilinogen LESS THAN 2.0 MG/DL Urine Leukocyte Esterase NEG Urine RBC 9 /hpf Urine WBC 2 /hpf Urine Squamous Epithelial Cells <1 /hpf Urine Amorphous Sediment RARE Microscopic Urinalysis Comment CULT NOT INDICATED Urine Opiates Screen NEG Urine Barbiturates Screen NEG Urine Amphetamines Screen NEG Urine Benzodiazepines Screen NEG Urine Cocaine Screen NEG Urine Cannabinoids Screen NEG Vital Signs Date Time Temp Pulse Resp B/P (MAP) Pulse Ox O2 Delivery O2 Flow Rate FiO2 06/14/17 15:35 18 99 Room Air 06/14/17 15:24 69 17 06/14/17 15:09 98.0 63 16 164/79 (107) 100 Differential Diagnosis Intentional overdose versus metabolic abnormality versus coagulopathy versus depression versus suicidal ideations versus other Narrative Course Patient presented under Carter act due to suicidal ideations by intentional overdose of Eliquis. Patient's vital signs are stable, I contacted poison control who stated to monitor for signs and symptoms of bleeding, monitor serial H/H's, liver enzymes and for evidence of bleeding. Mental health screening discussed with the patient. Psychiatric screen ordered. Additionally we'll type and screen patient for possible FFP her platelets if needed. CBC reviewed, no acute abnormalities, chemistry reviewed, no acute findings. Urine drug screen, salicylate level, acetaminophen level and alcohol level reviewed, no acute findings. Urinalysis with 9 red blood cells and small occult blood. Elevated PT and APTT. Patient has had no signs of bleeding. His vital signs remained stable. Discussed with Dr. Romero who accepted admission. Advised her on what poison control recommended regarding monitoring serial H/H is and for bleeding. Admit orders placed. Diagnosis Primary Impression: Suicide attempt by substance overdose Qualified Codes: T65.92XA - Toxic effect of unspecified substance, intentional self-harm, initial encounter Additional Impressions: At risk for bleeding associated with anticoagulants Feeling suicidal Depression Qualified Codes: F32.9 - Major depressive disorder, single episode, unspecified Admitting Information Admitting Physician Requests: Observation Condition: Stable Jennifer Amezquita [facility] Jun 14, 2017 15:54
[2017-06-14 16:17] LABS: AUTOMATED NEUTROPHIL # 6.6 TH/MM3 (1.8-7.7); BASOPHIL % 0.4 % (0.0-2.0); EOSINOPHIL # 0.2 TH/MM3 (0-0.4); EOSINOPHIL % 2.1 % (0.0-4.0); HEMO FLAGS DIFF FINAL; LYMPH % 21.6 % (9.0-44.0); LYMPHOCYTE # 2.1 TH/MM3 (1.0-4.8); MEAN CELL VOLUME 100.6 FL (80.0-100.0); MEAN CORPUSCULAR HGB CONC 33.8 % (32.0-36.0); MONO % 8.9 % (0.0-8.0); PLATELET COUNT 252 TH/MM3 (150-450); RED BLOOD COUNT 4.77 MIL/MM3 (4.50-5.90); RED CELL DISTRIBUTION WIDTH 13.8 % (11.6-17.2); WHITE BLOOD COUNT 9.8 TH/MM3 (4.0-11.0)
[2017-06-14 16:26] LABS: INTERNATIONAL NORMALIZED RATIO 1.3 RATIO; PROTHROMBIN TIME - PATIENT 14.1 SEC (9.8-11.6)
[2017-06-14 16:43] LABS: APTT (PATIENT) 32.4 SEC (24.3-30.1)
[2017-06-14 16:45] VITALS: BP 137/68; PULSE 66; RESP 17; TEMP 97.8; O2SAT 98
[2017-06-14 17:24] LABS: ANION GAP 8 MEQ/L (5-15); BICARBONATE 23.8 MEQ/L (21.0-32.0); BLOOD UREA NITROGEN 17 MG/DL (7-18); CHLORIDE 104 MEQ/L (98-107); GLOMERULAR FILTRATION RATE 141 ML/MIN (>89); POTASSIUM 3.8 MEQ/L (3.5-5.1); SODIUM (NA) 136 MEQ/L (136-145)
[2017-06-14 17:25] LABS: BLOOD, URINE SMALL (NEG); COMMENT (UR) CULT NOT INDICATED; CULTURE IF INDICATED CULT NOT INDICATED; GLUCOSE,URINE NEG (NEG); KETONE, URINE NEG (NEG); NITRITE,URINE NEG (NEG); SQUAMOUS EPITHELIAL CELL URINE <1 /hpf (0-5); URINE COLOR YELLOW (YELLW/STRAW)
[2017-06-14 17:25] LABS: ALT (GPT) 16 U/L (12-78); AST (GOT) 11 U/L (15-37)
[2017-06-14 17:27] LABS: ALKALINE PHOSPHATASE 84 U/L (45-117); TOTAL BILIRUBIN ADULT 0.3 MG/DL (0.2-1.0)
[2017-06-14 17:29] LABS: ALCOHOL 3 MG/DL (0-5)
[2017-06-14 17:30] LABS: ACETAMINOPHEN LESS THAN 2.0 MCG/ML (10.0-30.0)
[2017-06-14] MEDS ORDERED: NALOXONE HCL 0.4 MG/ML AMP IV PUSH PRN (19:00)
[2017-06-14] MEDS ORDERED: SODIUM CHLORIDE 0.9% FLUSH 10 ML FLUSH IV FLUSH PRN (19:00)
--- NOTE | 2017-06-14 19:36 | HHI.HP ---
HPI Service [facility] Primary Care Physician [facility] Admission Diagnosis OVERDOSE, SUICIDAL IDEATIONS Diagnoses: Travel History International Travel<30 Days: No Contact w/Intl Traveler <30 Da: No Traveled to Known Affected Are: No History of Present Illness 71-year-old male with a past medical history significant for adjustment disorder requiring inpatient psychiatric care on multiple occasions presents to the emergency department after overdosing intentionally on Elliquis. The patient states he was frustrated with his daughter who was calling him names like a "scum bag" and decided that he did not want to live anymore. He took between 10-20 Eliquis in the hope of "ending it all." He states he cannot live with his daughter and that if he goes back there he will try to kill himself again. The patient states that he is still thinking about dying although is not having active suicidal ideation at this time. The patient reports a history of DVT several months ago and states that is why he has the [facility] Patient's lab values including anticoagulation studies were significant for a mildly elevated PT/ APTT at 14.1/32.4. H&H 16.2/48.0. Patient shows no signs of acute bleeding. Urine with small occult blood. Poison control was contacted by the emergency department who advised to monitor for signs and symptoms of bleeding, monitor serial H&H and liver enzymes. Patient is currently under Carter act. Review of Systems Denies fever or chills Denies blurry vision, otorrhea, rhinorrhea Denies sore throat and cough No chest pain, palpitations, shortness of breath No abdominal pain Denies constipation/diarrhea/nausea/vomiting Denies muscle pain/weakness No rashes Past Family Social History Past Medical History Multiple sclerosis History of DVT a few months ago Past Surgical History Unspecified back surgery Left inguinal hernia repair Penile implant insertion and subsequent removal Reported Medications Reported Meds & Active Scripts Active Trazodone (Trazodone HCl) 50 Mg Tab 50 Mg PO HS Flomax (Tamsulosin HCl) 0.4 Mg Cap 0.4 Mg PO DAILY Zoloft (Sertraline HCl) 100 Mg Tab 150 Mg PO 1 1/2 DAILY Methocarbamol 500 Mg Tab 500 Mg PO Q8HR Neurontin (Gabapentin) 300 Mg Cap 300 Mg PO BID Oyster Shell 250 mg + Vit D Tb (Calcium/Vitamin D) 250 Mg Calcium (625 Mg)-125 Unit Tablet 500 Mg PO BID Aripiprazole 10 Mg Tab 10 Mg PO DAILY Eliquis (Apixaban) 5 Mg Tab 5 Mg PO BID Oyster Shell 250 mg + Vit D Tb (Calcium/Vitamin D) 250 Mg Calcium (625 Mg)-125 Unit Tablet 500 Mg PO BID Flomax (Tamsulosin HCl) 0.4 Mg Cap 0.4 Mg PO DAILY Eliquis (Apixaban) 5 Mg Tab 5 Mg PO BID Trazodone (Trazodone HCl) 50 Mg Tab 50 Mg PO HS Methocarbamol 500 Mg Tab 500 Mg PO Q8HR Neurontin (Gabapentin) 300 Mg Cap 300 Mg PO BID Aripiprazole 10 Mg Tab 10 Mg PO DAILY Allergies: Coded Allergies: No Known Allergies (Verified Adverse Reaction, Unknown, 06/14/17) Family History Mother with diabetes. Father from unspecified type of cancer. Social History Smokes one pack per day 60 years. Quit alcohol 20 years ago. Denies marijuana or illicit drugs. Physical Exam Vital Signs Vital Signs Date Time Temp Pulse Resp B/P (MAP) Pulse Ox O2 Delivery O2 Flow Rate FiO2 06/14/17 16:45 97.8 66 17 137/68 (91) 98 Room Air 06/14/17 15:35 18 99 Room Air 06/14/17 15:24 69 17 06/14/17 15:09 98.0 63 16 164/79 (107) 100 Physical Exam GENERAL: Thin male sitting up in bed SKIN: No rashes, ecchymoses or lesions. Cool and dry. HEAD: Atraumatic. Normocephalic. No temporal or scalp tenderness. EYES: Pupils equal round and reactive. Extraocular motions intact. No scleral icterus. No injection or drainage. ENT: Nose without bleeding, purulent drainage or septal hematoma. Throat without erythema, tonsillar hypertrophy or exudate. Uvula midline. Airway patent. NECK: Trachea midline. No JVD or lymphadenopathy. Supple, nontender, no meningeal signs. CARDIOVASCULAR: Regular rate and rhythm without murmurs, gallops, or rubs. RESPIRATORY: Clear to auscultation. Breath sounds equal bilaterally. No wheezes , rales, or rhonchi. GASTROINTESTINAL: Abdomen soft, non-tender, nondistended. No hepato-splenomegaly , or palpable masses. No guarding. MUSCULOSKELETAL: Extremities without clubbing, cyanosis, or edema. No joint tenderness, effusion, or edema noted. No calf tenderness. Negative Homans sign bilaterally. NEUROLOGICAL: Awake and alert. Cranial nerves II through XII intact. Motor and sensory grossly within normal limits. Normal speech. Laboratory Laboratory Tests Test 06/14/17 15:20 06/14/17 15:35 06/14/17 16:20 06/14/17 16:30 Blood Urea Nitrogen 17 Creatinine 0.57 Random Glucose 87 Total Protein 7.2 Albumin 3.4 Calcium Level 8.5 Alkaline Phosphatase 84 Aspartate Amino Transf (AST/SGOT) 11 Alanine Aminotransferase (ALT/SGPT) 16 Total Bilirubin 0.3 Sodium Level 136 Potassium Level 3.8 Chloride Level 104 Carbon Dioxide Level 23.8 Anion Gap 8 Estimat Glomerular Filtration Rate 141 Acetaminophen Level LESS THAN 2.0 Ethyl Alcohol Level 3 White Blood Count 9.8 Red Blood Count 4.77 Hemoglobin 16.2 Hematocrit 48.0 Mean Corpuscular Volume 100.6 Mean Corpuscular Hemoglobin 34.0 Mean Corpuscular Hemoglobin Concent 33.8 Red Cell Distribution Width 13.8 Platelet Count 252 Mean Platelet Volume 8.8 Neutrophils (%) (Auto) 67.0 Lymphocytes (%) (Auto) 21.6 Monocytes (%) (Auto) 8.9 Eosinophils (%) (Auto) 2.1 Basophils (%) (Auto) 0.4 Neutrophils # (Auto) 6.6 Lymphocytes # (Auto) 2.1 Monocytes # (Auto) 0.9 Eosinophils # (Auto) 0.2 Basophils # (Auto) 0.0 CBC Comment DIFF FINAL Differential Comment Prothrombin Time 14.1 Prothromb Time International Ratio 1.3 Activated Partial Thromboplast Time 32.4 Salicylates Level 4.9 Urine Color YELLOW Urine Turbidity HAZY Urine pH 7.0 Urine Specific [place] 1.015 Urine Protein NEG Urine Glucose (UA) NEG Urine Ketones NEG Urine Occult Blood SMALL Urine Nitrite NEG Urine Bilirubin NEG Urine Urobilinogen LESS THAN 2.0 Urine Leukocyte Esterase NEG Urine RBC 9 Urine WBC 2 Urine Squamous Epithelial Cells <1 Urine Amorphous Sediment RARE Microscopic Urinalysis Comment CULT NOT INDICATED Urine Opiates Screen NEG Urine Barbiturates Screen NEG Urine Amphetamines Screen NEG Urine Benzodiazepines Screen NEG Urine Cocaine Screen NEG Urine Cannabinoids Screen NEG Result Diagram: 06/14/17 1535 06/14/17 1520 Caprin VTE Risk Assessment Caprin VTE Risk Assessment: Mod/High Risk (score >= 2) Caprini Risk Assessment Model Point Value = 1 Point Value = 2 Point Value = 3 Point Value = 5 Age 41-60 Minor surgery BMI > 25 kg/m2 Swollen legs Varicose veins or History of unexplained or recurrent spontaneous Oral contraceptives or hormone replacement Sepsis (< 1 month) Serious lung disease, including pneumonia (< 1 month) Abnormal pulmonary function Acute myocardial infarction Congestive heart failure (< 1 month) History of inflammatory bowel disease Medical patient at bed rest Age 61-74 Arthroscopic surgery Major open surgery (> 45 min) Laparoscopic surgery (> 45 min) Malignancy Confined to bed (> 72 hours) Immobilizing plaster cast Central venous access Age >= 75 History of VTE Family history of VTE Factor V Leiden Prothrombin [id number] Lupus anticoagulant Anticardiolipin antibodies Elevated serum homocysteine Heparin-induced thrombocytopenia Other congenital or acquired thrombophilia Stroke (< 1 month) Elective arthroplasty Hip, pelvis, or leg fracture Acute spinal cord injury (< 1 month) Prophylaxis Regimen Total Risk Factor Score Risk Level Prophylaxis Regimen 0-1 Low Early ambulation 2 Moderate Order ONE of the following: *Sequential Compression Device (SCD) *Heparin 5000 units SQ BID 3-4 Higher Order ONE of the following medications: *Heparin 5000 units SQ TID *Enoxaparin/Lovenox 40 mg SQ daily (WT < 150 kg, CrCl > 30 mL/min) *Enoxaparin/Lovenox 30 mg SQ daily (WT < 150 kg, CrCl > 10-29 mL/min) *Enoxaparin/Lovenox 30 mg SQ BID (WT < 150 kg, CrCl > 30 mL/min) AND/OR *Sequential Compression Device (SCD) 5 or more Highest Order ONE of the following medications: *Heparin 5000 units SQ TID (Preferred with Epidurals) *Enoxaparin/Lovenox 40 mg SQ daily (WT < 150 kg, CrCl > 30 mL/min) *Enoxaparin/Lovenox 30 mg SQ daily (WT < 150 kg, CrCl > 10-29 mL/min) *Enoxaparin/Lovenox 30 mg SQ BID (WT < 150 kg, CrCl > 30 mL/min) AND *Sequential Compression Device (SCD) Assessment and Plan Assessment and Plan 71-year-old male with a past medical history significant for adjustment disorder requiring several inpatient psychiatric treatments presents under [employer] for Eliquis was overdose. 1. Eliquis overdose/Suicide attempt Patient under [employer] Psychiatry consult pending Poison control contacted, recommend monitoring serial H&H and LFTs Coagulation studies, H&H, LFTs at midnight Monitor for signs/symptoms of bleeding Type and screen Transfuse FFP/platelets if signs of acute bleed 2. Adjustment disorder Psychiatry consulted Continue patient's home Zoloft, Abilify, trazodone 3. History of DVT Holding anticoagulation for Eliquis overdose No left lower extremity swelling or signs of blood clot FEN Heart healthy diet Electrolytes: monitor and replete prn Holding anticoagulation for Eliquis overdose Apurva Candelaria MD Jun 14, 2017 19:36
[2017-06-14 20:45] VITALS: BP 135/74; PULSE 69; RESP 19; TEMP 97.9; O2SAT 97
[2017-06-14 20:59] VITALS: PULSE 69
[2017-06-14] MEDS ORDERED: traZODone HCL 50 MG TAB PO SCH (21:00)
--- NOTE | 2017-06-14 21:33 | EKG ---
Date Performed: 06/14/2017 Time Performed: 15:46:01 PTAGE: 71 years EKG: Sinus rhythm WITH OCCASIONAL SUPRAVENTRICULAR PREMATURE COMPLEXES MARKED LEFT AXIS DEVIATION SEPTAL MYOCARDIAL IN FARCTION ABNORMAL ECG PREVIOUS TRACING : 07/30/2016 03.33 Compared to prior tracing no significant change DOCTOR: Yeison Longo Interpretating Date/Time 06/14/2017 21:31:36
[2017-06-14 23:49] VITALS: BP 113/65; PULSE 78; RESP 18; TEMP 95.8; O2SAT 96
[2017-06-14] MEDS: GABAPENTIN 300 MG CAP PO SCH (23:53)
[2017-06-14] MEDS: SODIUM CHLORIDE 0.9% FLUSH 10 ML FLUSH IV FLUSH SCH (23:54)
[2017-06-14] MEDS: METHOCARBAMOL 500 MG TAB PO SCH (23:54)
[2017-06-15] VITALS (7 sets, daily range): BP systolic 95–117; BP diastolic 54–65; PULSE 59–79; RESP 16–20; TEMP 95.7–97.7; O2SAT 95–97
[2017-06-15 00:37] LABS: REVIEW FLAG FINAL
[2017-06-15 00:42] LABS: APTT (PATIENT) 29.4 SEC (24.3-30.1); INTERNATIONAL NORMALIZED RATIO 1.2 RATIO; PROTHROMBIN TIME - PATIENT 13.2 SEC (9.8-11.6)
[2017-06-15 00:52] LABS: INDIRECT BILIRUBIN 0.1 MG/DL (0.0-0.8); TOTAL BILIRUBIN ADULT 0.2 MG/DL (0.2-1.0)
[2017-06-15] MEDS: METHOCARBAMOL 500 MG TAB PO SCH ×2 (05:35→13:16)
[2017-06-15] MEDS: SODIUM CHLORIDE 0.9% FLUSH 10 ML FLUSH IV FLUSH SCH (08:16)
[2017-06-15] MEDS: GABAPENTIN 300 MG CAP PO SCH (08:22)
[2017-06-15] MEDS ORDERED: SERTRALINE HCL 50 MG TAB PO SCH (09:00)
[2017-06-15] MEDS ORDERED: TAMSULOSIN HCL 0.4 MG CAP PO SCH (09:00)
[2017-06-15] MEDS ORDERED: ARIPiprazole 10 MG TAB PO SCH (09:00)
[2017-06-15 09:21] LABS: AUTOMATED NEUTROPHIL # 6.4 TH/MM3 (1.8-7.7); BASOPHIL % 0.4 % (0.0-2.0); EOSINOPHIL # 0.3 TH/MM3 (0-0.4); EOSINOPHIL % 3.1 % (0.0-4.0); HEMATOCRIT 42.2 % (39.0-51.0); HEMO FLAGS DIFF FINAL; LYMPH % 19.8 % (9.0-44.0); LYMPHOCYTE # 1.8 TH/MM3 (1.0-4.8); MEAN CELL VOLUME 100.1 FL (80.0-100.0); MONO % 7.2 % (0.0-8.0); NEUT % 69.5 % (16.0-70.0); PLATELET COUNT 254 TH/MM3 (150-450); RED BLOOD COUNT 4.22 MIL/MM3 (4.50-5.90); RED CELL DISTRIBUTION WIDTH 13.7 % (11.6-17.2); WHITE BLOOD COUNT 9.2 TH/MM3 (4.0-11.0)
[2017-06-15 09:31] LABS: INTERNATIONAL NORMALIZED RATIO 1.1 RATIO; PROTHROMBIN TIME - PATIENT 12.3 SEC (9.8-11.6)
[2017-06-15] MEDS ORDERED: BISACODYL 10 MG SUPP RECTAL PRN (09:45)
[2017-06-15] MEDS ORDERED: SENNOSIDES 8.6 MG TAB PO PRN (09:45)
[2017-06-15] MEDS ORDERED: LACTULOSE SYRUP 20 GM/30 ML CUP PO PRN (09:45)
[2017-06-15] MEDS ORDERED: MAGNESIUM HYDROXIDE SUSP 30 ML CUP PO PRN (09:45)
[2017-06-15] MEDS ORDERED: ACETAMINOPHEN 325 MG TAB PO PRN ×2 (09:45)
[2017-06-15] MEDS ORDERED: NALOXONE HCL 0.4 MG/ML AMP IV PUSH PRN (09:45)
[2017-06-15] MEDS ORDERED: ONDANSETRON HCL 4 MG/2 ML VIAL IVP PRN (09:45)
[2017-06-15 09:50] LABS: BICARBONATE 26.2 MEQ/L (21.0-32.0)
--- NOTE | 2017-06-15 13:09 | PD.PSY.CON ---
Provisional Diagnosis Admission Date Jun 14, 2017 at 18:50 History of Present Illness Service Psychiatry Consult Requested By ER team Reason for Consult Suicidal attempt Primary Care Physician [facility] HPI The patient is a 71-year-old man, domiciled with his daughter in [place], retired, with psychiatric history of depression, adjustment disorder with depression, audible psychiatric hospitalizations, last hospitalization was here in [place] in April 2017, documentation reviewed, previous suicidal attempts, he is on Zoloft 150 mg, Abilify 10 mg, past medical history of MS, who presents to the emergency department after overdosing intentionally on Elliquis. The patient reports a history of DVT several months ago and states that is why he has the Eliquis which is prescribed for him by the OR. Patient's lab values including anticoagulation studies were significant for a mildly elevated PT/APTT at 14.1/32.4. H&H 16.2/48.0. He is on the Carter act. Consulted to psychiatry to assess suicide attempt. Chart was reviewed, case discussed with nurse in charge. On psychiatric evaluation patient is oppositional, irritable, stating that he doesn't want to talk and he wants to . The patient states he is frustrated with his daughter is continuously disrespectful with him and she was calling him names like a "scum bag" and decided that he did not want to live anymore. He took between 10-20 Eliquis in the hope of "ending it all." He states he cannot live with his daughter and that if he goes back there he will try to kill himself again. The patient states that he is still thinking about dying although is not having active suicidal ideation at this time. He denies homicidal ideation, he denies visual and auditory hallucinations. Patient is fully oriented 3, no attention deficit, no fluctuation of consciousness present at this moment. She denies the use of alcohol and illicit drugs. Review of Systems Except as stated in HPI: all other systems reviewed are Neg Past Family Social History Coded Allergies: No Known Allergies (Verified Allergy, Unknown, 06/14/17) Active Scripts Trazodone (Trazodone) 50 Mg Tab, 50 MG PO HS for health, #30 TAB 0 Refills Prov:Moe Ahn MD 04/06/17 Tamsulosin (Flomax) 0.4 Mg Cap, 0.4 MG PO DAILY for health, #30 CAP 0 Refills Prov:Moe Ahn MD 04/06/17 Sertraline (Zoloft) 100 Mg Tab, 150 MG PO 1 1/2 daily for health, #45 TAB 0 Refills Prov:oMe Ahn MD 04/06/17 Methocarbamol (Methocarbamol) 500 Mg Tab, 500 MG PO Q8HR for health, #90 TAB 0 Refills Prov:Moe Ahn MD 04/06/17 Gabapentin (Neurontin) 300 Mg Cap, 300 MG PO BID for health, #60 CAP 0 Refills Prov:Moe Ahn MD 04/06/17 Calcium/Vitamin D (Oyster Shell 250 mg + Vit D Tb) 250 Mg Calcium (625 Mg)-125 Unit Tablet, 500 MG PO BID for health, #60 TAB 0 Refills Prov:Moe Ahn MD 04/06/17 Aripiprazole (Aripiprazole) 10 Mg Tab, 10 MG PO DAILY for health, #30 TAB 0 Refills Prov:Moe Ahn MD 04/06/17 Apixaban (Eliquis) 5 Mg Tab, 5 MG PO BID for health, #60 TAB 0 Refills Prov:Moe Ahn MD 04/06/17 Calcium/Vitamin D (Oyster Shell 250 mg + Vit D Tb) 250 Mg Calcium (625 Mg)-125 Unit Tablet, 500 MG PO BID for health, #60 TAB 0 Refills Prov:Moe Ahn MD 03/22/17 Tamsulosin (Flomax) 0.4 Mg Cap, 0.4 MG PO DAILY for health, #30 CAP 0 Refills Prov:Moe Ahn MD 03/22/17 Apixaban (Eliquis) 5 Mg Tab, 5 MG PO BID for health, #60 TAB 0 Refills Prov:Moe Ahn MD 03/22/17 Trazodone (Trazodone) 50 Mg Tab, 50 MG PO HS for health, #30 TAB 0 Refills Prov:Moe Ahn MD 11/10/16 Methocarbamol (Methocarbamol) 500 Mg Tab, 500 MG PO Q8HR for health, #90 TAB 0 Refills Prov:Moe Ahn MD 11/10/16 Gabapentin (Neurontin) 300 Mg Cap, 300 MG PO BID for health, #60 CAP 0 Refills Prov:Moe Ahn MD 11/10/16 Aripiprazole (Aripiprazole) 10 Mg Tab, 10 MG PO DAILY for health, #30 TAB 0 Refills Prov:Moe Ahn MD 11/10/16 Current Medications Medications (Trade) Dose Ordered Sig/Tia Route Start Time Stop Time Status Last Admin (NS Flush) 2 ml UNSCH PRN IV FLUSH 06/14/17 19:00 (NS Flush) 2 ml BID IV FLUSH 06/14/17 21:00 06/15/17 08:16 (Narcan Inj) 0.4 mg UNSCH PRN IV PUSH 06/14/17 19:00 (Abilify) 10 mg DAILY PO 06/15/17 09:00 06/15/17 08:22 (Neurontin) 300 mg BID PO 06/14/17 21:00 06/15/17 08:22 (Robaxin) 500 mg Q8HR PO 06/14/17 22:00 06/15/17 05:35 (Zoloft) 150 mg DAILY PO 06/15/17 09:00 06/15/17 08:22 (Flomax) 0.4 mg DAILY PO 06/15/17 09:00 06/15/17 08:22 (Desyrel) 50 mg HS PO 06/14/17 21:00 06/14/17 23:54 (Tylenol) 650 mg Q4H PRN PO 06/15/17 09:45 (Zofran Inj) 4 mg Q6H PRN IVP 06/15/17 09:45 (Tylenol) 650 mg Q6H PRN PO 06/15/17 09:45 (Arlene-Colace) 1 tab BID PO 06/15/17 21:00 (Milk Of Magnesia Liq) 30 ml Q12H PRN PO 06/15/17 09:45 (Senokot) 17.2 mg Q12H PRN PO 06/15/17 09:45 (Dulcolax Supp) 10 mg DAILY PRN RECTAL 06/15/17 09:45 (Lactulose Liq) 30 ml DAILY PRN PO 06/15/17 09:45 Family Psych History Patient denies family psychiatric history Social History Patient was born and raised in [place], he lives in [place] with his daughter, he is unemployed, single, supported by Social Security, his highest level of education is ninth grade Patient's Strengths (min. 2) Verbal communication Physical Exam No tremors, no EPS, no gait disturbance, no withdrawal, no stiffness Vital Signs Vital Signs Date Time Temp Pulse Resp B/P (MAP) Pulse Ox O2 Delivery O2 Flow Rate FiO2 06/15/17 12:37 97.4 69 18 108/55 (72) 97 06/14/17 16:45 Room Air Lab Results Test 06/14/17 15:20 06/14/17 15:35 06/14/17 16:20 06/14/17 16:30 Blood Urea Nitrogen 17 MG/DL Creatinine 0.57 MG/DL Random Glucose 87 MG/DL Total Protein 7.2 GM/DL Albumin 3.4 GM/DL Calcium Level 8.5 MG/DL Alkaline Phosphatase 84 U/L Aspartate Amino Transf (AST/SGOT) 11 U/L Alanine Aminotransferase (ALT/SGPT) 16 U/L Total Bilirubin 0.3 MG/DL Sodium Level 136 MEQ/L Potassium Level 3.8 MEQ/L Chloride Level 104 MEQ/L Carbon Dioxide Level 23.8 MEQ/L Anion Gap 8 MEQ/L Estimat Glomerular Filtration Rate 141 ML/MIN Acetaminophen Level LESS THAN 2.0 MCG/ML Ethyl Alcohol Level 3 MG/DL White Blood Count 9.8 TH/MM3 Red Blood Count 4.77 MIL/MM3 Hemoglobin 16.2 GM/DL Hematocrit 48.0 % Mean Corpuscular Volume 100.6 FL Mean Corpuscular Hemoglobin 34.0 PG Mean Corpuscular Hemoglobin Concent 33.8 % Red Cell Distribution Width 13.8 % Platelet Count 252 TH/MM3 Mean Platelet Volume 8.8 FL Neutrophils (%) (Auto) 67.0 % Lymphocytes (%) (Auto) 21.6 % Monocytes (%) (Auto) 8.9 % Eosinophils (%) (Auto) 2.1 % Basophils (%) (Auto) 0.4 % Neutrophils # (Auto) 6.6 TH/MM3 Lymphocytes # (Auto) 2.1 TH/MM3 Monocytes # (Auto) 0.9 TH/MM3 Eosinophils # (Auto) 0.2 TH/MM3 Basophils # (Auto) 0.0 TH/MM3 CBC Comment DIFF FINAL Differential Comment Prothrombin Time 14.1 SEC Prothromb Time International Ratio 1.3 RATIO Activated Partial Thromboplast Time 32.4 SEC Salicylates Level 4.9 MG/DL Urine Color YELLOW Urine Turbidity HAZY Urine pH 7.0 Urine Specific [place] 1.015 Urine Protein NEG mg/dL Urine Glucose (UA) NEG mg/dL Urine Ketones NEG mg/dL Urine Occult Blood SMALL Urine Nitrite NEG Urine Bilirubin NEG Urine Urobilinogen LESS THAN 2.0 MG/DL Urine Leukocyte Esterase NEG Urine RBC 9 /hpf Urine WBC 2 /hpf Urine Squamous Epithelial Cells <1 /hpf Urine Amorphous Sediment RARE Microscopic Urinalysis Comment CULT NOT INDICATED Urine Opiates Screen NEG Urine Barbiturates Screen NEG Urine Amphetamines Screen NEG Urine Benzodiazepines Screen NEG Urine Cocaine Screen NEG Urine Cannabinoids Screen NEG Test 06/15/17 00:18 06/15/17 08:13 Hemoglobin 14.5 GM/DL 14.4 GM/DL Hematocrit 42.0 % 42.2 % Prothrombin Time 13.2 SEC 12.3 SEC Prothromb Time International Ratio 1.2 RATIO 1.1 RATIO Activated Partial Thromboplast Time 29.4 SEC Total Bilirubin 0.2 MG/DL Direct Bilirubin 0.1 MG/DL Indirect Bilirubin 0.1 MG/DL Aspartate Amino Transf (AST/SGOT) 12 U/L Alanine Aminotransferase (ALT/SGPT) 15 U/L Alkaline Phosphatase 84 U/L Total Protein 6.6 GM/DL Albumin 3.1 GM/DL White Blood Count 9.2 TH/MM3 Red Blood Count 4.22 MIL/MM3 Mean Corpuscular Volume 100.1 FL Mean Corpuscular Hemoglobin 34.0 PG Mean Corpuscular Hemoglobin Concent 34.0 % Red Cell Distribution Width 13.7 % Platelet Count 254 TH/MM3 Mean Platelet Volume 8.7 FL Neutrophils (%) (Auto) 69.5 % Lymphocytes (%) (Auto) 19.8 % Monocytes (%) (Auto) 7.2 % Eosinophils (%) (Auto) 3.1 % Basophils (%) (Auto) 0.4 % Neutrophils # (Auto) 6.4 TH/MM3 Lymphocytes # (Auto) 1.8 TH/MM3 Monocytes # (Auto) 0.7 TH/MM3 Eosinophils # (Auto) 0.3 TH/MM3 Basophils # (Auto) 0.0 TH/MM3 CBC Comment DIFF FINAL Differential Comment Blood Urea Nitrogen 15 MG/DL Creatinine 0.72 MG/DL Random Glucose 80 MG/DL Calcium Level 8.5 MG/DL Sodium Level 138 MEQ/L Potassium Level 4.0 MEQ/L Chloride Level 105 MEQ/L Carbon Dioxide Level 26.2 MEQ/L Anion Gap 7 MEQ/L Estimat Glomerular Filtration Rate 108 ML/MIN Mental Status Examination Appearance: Appropriate Consciousness: Alert Orientation: x4 Motor Activity: Normal gait Speech: Unremarkable Language: Adequate Fund of Knowledge: Adequate Attention and Concentration: Adequate Memory: Unremarkable Mood: Angry, Sad Affect: Irritable, Sad Thought Process & Associations: Intact Thought Content: Appropriate Hallucination Type: None Delusion Type: None Suicidal Ideation: Yes Suicidal Plan: Yes Suicidal Intention: No Homicidal Ideation: No Homicidal Plan: No Homicidal Intention: No Insight: Poor Judgment: Poor Assessment & Plan Problem List: (1) Depression ICD Codes: F32.9 - Major depressive disorder, single episode, unspecified Status: Acute Assessment & Plan: On psychiatric evaluation today patient is irritable, kind of oppositional, visibly angry, stating that he wants to "because I want to continue living with my daughter ". Patient has tried to commit suicide by overdose with multiple pills. He has tried to commit suicide in the past with a very similar presentation that today. Collateral information from the daughter was attempted, but not obtained. Brief supportive psychotherapy provided. Patient needs psychiatric admission for stabilization and safety. Continue Zoloft 150 mg daily, Abilify 10 mg daily. Transfer to psychiatry once medically stable. Assessment & Plan Estimated LOS: days Problem Qualifiers (1) Depression: Qualified Codes: F32.9 - Major depressive disorder, single episode, unspecified Jorge Caruso MD Jun 15, 2017 13:09
[2017-06-15] MEDS ORDERED: APIX5TAB PO (17:27)
--- NOTE | 2017-06-15 17:28 | HHI.DCPOC ---
Discharge Care Plan Diagnosis: (1) Suicide attempt by substance overdose Goals to Promote Your Health * To prevent worsening of your condition and complications * To maintain your health at the optimal level Directions to Meet Your Goals Take your medications as prescribed Follow your dietary instruction Follow activity as directed Keep your appointments as scheduled Take your immunizations and boosters as scheduled If your symptoms worsen call your PCP, if no PCP go to Urgent Care Center or Emergency Room Smoking is Dangerous to Your Health. Avoid second hand smoke Call the 24-hour hour crisis hotline for domestic abuse at Baljit Delvalle Jun 15, 2017 17:28
--- NOTE | 2017-06-15 17:30 | HHI.PR ---
Subjective Remarks F/u drug OD. No complaints but still depressed. Denies dizziness or bleeding dw RN Objective Vitals Vital Signs Date Time Temp Pulse Resp B/P (MAP) Pulse Ox O2 Delivery O2 Flow Rate FiO2 06/15/17 15:43 97.6 74 19 117/65 (82) 96 06/15/17 15:05 76 06/15/17 12:37 97.4 69 18 108/55 (72) 97 06/15/17 07:45 97.7 76 20 95/54 (68) 96 06/15/17 04:06 95.7 68 16 116/54 (74) 95 06/15/17 03:39 59 06/15/17 00:09 79 06/14/17 23:49 95.8 78 18 113/65 (81) 96 06/14/17 20:59 69 06/14/17 20:45 97.9 69 19 135/74 (94) 97 I/O 06/14/17 06/14/17 06/14/17 06/15/17 06/15/17 06/15/17 07:00 15:00 23:00 07:00 15:00 23:00 # Bowel Movements 1 Result Diagram: 06/15/17 0813 06/15/17 0813 Objective Remarks GENERAL: Thin male sitting up in bed SKIN: No rashes, ecchymoses or lesions. Cool and dry. CARDIOVASCULAR: Regular rate and rhythm without murmurs, gallops, or rubs. RESPIRATORY: Clear to auscultation. Breath sounds equal bilaterally. No wheezes , rales, or rhonchi. GASTROINTESTINAL: Abdomen soft, non-tender, nondistended. No guarding. MUSCULOSKELETAL: Extremities without clubbing, cyanosis, or edema. No joint tenderness, effusion, or edema noted. No calf tenderness. Negative Homans sign bilaterally. NEUROLOGICAL: Awake and alert. Cranial nerves II through XII intact. Motor and sensory grossly within normal limits. Normal speech. Procedures none A/P Problem List: (1) Suicide attempt by substance overdose ICD Code: T65.92XA - Toxic effect of unspecified substance, intentional self- harm, initial encounter Status: Acute (2) Depression ICD Code: F32.9 - Major depressive disorder, single episode, unspecified Status: Acute (3) At risk for bleeding associated with anticoagulants ICD Code: Z91.89 - Other specified personal risk factors, not elsewhere classified Status: Acute Assessment and Plan 71-year-old male with a past medical history significant for adjustment disorder requiring several inpatient psychiatric treatments presents under [employer] for Eliquis was overdose. 1. Eliquis overdose/Suicide attempt Patient under [employer] act Psychiatry recommended transfer to psychiatry floor when medically cleared and stable Poison control contacted, recommend monitoring serial H&H and LFTs which have been stable Monitor for signs/symptoms of bleeding Type and screen Transfuse FFP/platelets if signs of acute bleed 2. Adjustment disorder Psychiatry consulted Continue patient's home Zoloft, Abilify, trazodone 3. History of DVT Holding anticoagulation for Eliquis overdose, may restart tomorrow 48 hours after overdose if he remains hemodynamically stable No left lower extremity swelling or signs of blood clot FEN Heart healthy diet Electrolytes: monitor and replete prn Holding anticoagulation for Eliquis overdose Discharge Planning Discharge patient to psychiatry floor Condition on discharge: Improved Regular Diet as tolerated Ad Tamara activity Rx written: None. Repeat CBC, CMP and call walks in the morning before restarting Eliquis Follow-up with primary care physician Problem Qualifiers (1) Suicide attempt by substance overdose: Qualified Codes: T65.92XA - Toxic effect of unspecified substance, intentional self-harm, initial encounter (2) Depression: Qualified Codes: F32.9 - Major depressive disorder, single episode, unspecified Kanu Mac MD Jun 15, 2017 17:30
[2017-06-15] MEDS ORDERED: DOCUSATE SODIUM 50 MG/SENNA 8.6 MG TAB PO SCH (21:00)
== END 2017-06-15 19:54 ==
LOC: NEPE 15:00 → NEDA 18:50 → NEPHCDU 19:46
PROVIDERS: ADMIT Internal Medicine; ATTEND Internal Medicine
DX: T45.522A Poisoning by antithrombotic drugs, intentional self-harm, initial encounter (principal); R79.1 Abnormal coagulation profile; F43.20 Adjustment disorder, unspecified; G35 Multiple sclerosis; F17.210 Nicotine dependence, cigarettes, uncomplicated; Y92.019 Unspecified place in single-family (private) house as the place of occurrence of the external cause; Z86.718 Personal history of other venous thrombosis and embolism; R94.31 Abnormal electrocardiogram [ECG] [EKG]
CPT/HCPCS: 80048; 80053; 80076; 80307; 81001; 85014; 85018; 85025; 85610; 85730; 86850; 86900; 86901; 93005; 99285; G0378

== ENCOUNTER 2017-06-15 20:01 | Inpatient (IN) | payer OTHER, MEDICARE ==
[~2017-06-15] VITALS: Ht 193 cm; Wt 71.8 kg
[2017-06-15 19:50] VITALS: BP 131/61; PULSE 71; RESP 16; TEMP 97.7; O2SAT 96
[2017-06-15] MEDS ORDERED: ACETAMINOPHEN 325 MG TAB PO PRN (20:45)
[2017-06-15] MEDS ORDERED: MAGNESIUM HYDROXIDE SUSP 30 ML CUP PO PRN (20:45)
[2017-06-15] MEDS ORDERED: ALUMINUM/MAGNESIUM/SIMETH 30 ML CUP PO PRN (20:45)
[2017-06-15] MEDS: GABAPENTIN 300 MG CAP PO SCH (21:00)
[2017-06-15] MEDS: REMOVE OLD NICOTINE PATCH T-DERMAL SCH (21:00)
[2017-06-16 05:47] VITALS: BP 143/76; PULSE 78; RESP 16; TEMP 97.3; O2SAT 97
[2017-06-16] MEDS: NICOTINE 21 MG/24 HR PATCH T-DERMAL SCH (09:00)
[2017-06-16] MEDS: GABAPENTIN 300 MG CAP PO SCH ×2 (10:20→20:39)
[2017-06-16] MEDS: SERTRALINE HCL 50 MG TAB PO SCH (10:20)
[2017-06-16] MEDS: TAMSULOSIN HCL 0.4 MG CAP PO SCH (10:20)
[2017-06-16 10:52] LABS: ANION GAP 8 MEQ/L (5-15); BLOOD UREA NITROGEN 18 MG/DL (7-18); CHLORIDE 104 MEQ/L (98-107); GLOMERULAR FILTRATION RATE 97 ML/MIN (>89); POTASSIUM 3.9 MEQ/L (3.5-5.1); SODIUM (NA) 140 MEQ/L (136-145)
[2017-06-16 10:56] LABS: HDL CHOLESTEROL 42.7 MG/DL (40.0-60.0); LDL CHOLESTEROL 112 MG/DL (0-99)
[2017-06-16 12:10] LABS: AUTOMATED NEUTROPHIL # 5.1 TH/MM3 (1.8-7.7); BASOPHIL % 0.5 % (0.0-2.0); EOSINOPHIL # 0.2 TH/MM3 (0-0.4); EOSINOPHIL % 2.3 % (0.0-4.0); HEMATOCRIT 41.8 % (39.0-51.0); HEMO FLAGS DIFF FINAL; LYMPH % 25.1 % (9.0-44.0); MEAN CELL VOLUME 99.3 FL (80.0-100.0); MEAN CORPUSCULAR HEMOGLOBIN 33.7 PG (27.0-34.0); MONO % 8.1 % (0.0-8.0); PLATELET COUNT 268 TH/MM3 (150-450); RED BLOOD COUNT 4.21 MIL/MM3 (4.50-5.90); RED CELL DISTRIBUTION WIDTH 13.8 % (11.6-17.2)
[2017-06-16 12:14] LABS: PROTHROMBIN TIME - PATIENT 11.4 SEC (9.8-11.6)
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
--- NOTE | 2017-06-16 12:44 | HHI.HP ---
HPI Service [facility] Primary Care Physician Unknown Admission Diagnosis SUICIDE ATTEMPT, OVERDOSE ELIQUIS Diagnoses: (1) Overdose of anticoagulant Diagnosis: Principal (2) MDD (major depressive disorder) Diagnosis: Principal (3) DVT (deep venous thrombosis) Diagnosis: Secondary History of Present Illness Written by Baljit Delvalle, acting as scribe for Dr. Rico on 06/16/17 at 12:32. 71 year old male who presented to the ED on 06/14 after intentionally overdose with Eliquis. Patient reportedly took 10-20 tabs in the hopes to "end it all" per ED documentation. Patient had been frustrated with daughter and this made him upset and verbalized thoughts of dying. His past medical history is significant for DVT's, MS, inguinal hernia repair, back surgery, CAD, depression and anxiety. He was admitted to observation poison control was contacted and monitored for bleeding. He was discharged to inpatient medical psych on 06/15, medical team has been consulted to manage overdose and rule out abnormal bleeding. He is awake and alert in no acute distress. He is able to follow simple commands and moves all extremities spontaneously. He denies any blood in stool or urine, denies nose bleed or bleeding of gums. He denies chest pain, SOB, headache, fever or chills. Review of Systems Eyes: DENIES: Blurred vision Cardiovascular: DENIES: Chest pain Gastrointestinal: DENIES: Abdominal pain, Black stools, Bloody stools, Nausea, Vomiting Genitourinary: DENIES: Hematuria Hematologic/lymphatic: DENIES: Bruising Neurologic: DENIES: Headache Except as stated in HPI: all other systems reviewed are Neg Past Family Social History Past Medical History DVT's anticoagulated on Eliquis Multiple sclerosis suicidal attempts in past Depression Anxiety Past Surgical History ORIF L4 fracture with L2 to S1 posterolateral fusion Left inguinal hernia repair Reported Medications Reported Meds & Active Scripts Active Eliquis (Apixaban) 5 Mg Tab 5 Mg PO BID Restart tomorrow at noon if labs okay. Trazodone (Trazodone HCl) 50 Mg Tab 50 Mg PO HS Flomax (Tamsulosin HCl) 0.4 Mg Cap 0.4 Mg PO DAILY Zoloft (Sertraline HCl) 100 Mg Tab 150 Mg PO 1 1/2 DAILY Methocarbamol 500 Mg Tab 500 Mg PO Q8HR Neurontin (Gabapentin) 300 Mg Cap 300 Mg PO BID Oyster Shell 250 mg + Vit D Tb (Calcium/Vitamin D) 250 Mg Calcium (625 Mg)-125 Unit Tablet 500 Mg PO BID Aripiprazole 10 Mg Tab 10 Mg PO DAILY Oyster Shell 250 mg + Vit D Tb (Calcium/Vitamin D) 250 Mg Calcium (625 Mg)-125 Unit Tablet 500 Mg PO BID Flomax (Tamsulosin HCl) 0.4 Mg Cap 0.4 Mg PO DAILY Eliquis (Apixaban) 5 Mg Tab 5 Mg PO BID Trazodone (Trazodone HCl) 50 Mg Tab 50 Mg PO HS Methocarbamol 500 Mg Tab 500 Mg PO Q8HR Neurontin (Gabapentin) 300 Mg Cap 300 Mg PO BID Aripiprazole 10 Mg Tab 10 Mg PO DAILY Allergies: Coded Allergies: No Known Allergies (Verified Allergy, Unknown, 06/14/17) Active Ordered Medications Active Medications Acetaminophen (Tylenol) 650 mg Q4H PRN PO; Start 06/15/17 at 20:45 Al Hydrox/Mg Hydrox/Simethicone (Mag-Al Plus Susp Liq) 30 ml Q6H PRN PO; Start 06/15/17 at 20:45 Gabapentin (Neurontin) 300 mg BID PO Last administered on 06/16/17 10:20; Start 06/15/17 at 21:00 Magnesium Hydroxide (Milk Of Magnesia Liq) 30 ml DAILY PRN PO; Start 06/15/17 at 20:45 Miscellaneous Information 1 HS T-DERMAL; Start 06/15/17 at 21:00 Nicotine (Habitrol 21 Mg Patch.24 Hr) 1 patch DAILY T-DERMAL; Start 06/16/17 at 09:00 Sertraline HCl (Zoloft) 150 mg DAILY PO Last administered on 06/16/17 10:20; Start 06/16/17 at 09:00 Tamsulosin HCl (Flomax) 0.4 mg DAILY PO Last administered on 06/16/17 10:20; Start 06/16/17 at 09:00 Family History Mother: DM Father: Bone cancer Social History Tobacco: 1PPD X 50-60 years Alcohol: denies Illicit drug use: denies Physical Exam Vital Signs Vital Signs Date Time Temp Pulse Resp B/P (MAP) Pulse Ox O2 Delivery O2 Flow Rate FiO2 06/16/17 05:47 97.3 78 16 143/76 (98) 97 06/15/17 19:50 97.7 71 16 131/61 (84) 96 Physical Exam GENERAL: This is a well-nourished, well-developed patient, in no apparent distress. SKIN: No rashes, ecchymoses or lesions. Cool and dry. HEAD: Atraumatic. Normocephalic. No temporal or scalp tenderness. No bleeding gums noted. EYES: Pupils equal round and reactive. Extraocular motions intact. No scleral icterus. No injection or drainage. ENT: Nose without bleeding, purulent drainage or septal hematoma. Throat without erythema, tonsillar hypertrophy or exudate. Uvula midline. Airway patent. NECK: Trachea midline. Supple, nontender. CARDIOVASCULAR: Regular rate and rhythm without murmurs, gallops, or rubs. RESPIRATORY: Clear to auscultation. Breath sounds equal bilaterally. No wheezes , rales, or rhonchi. GASTROINTESTINAL: Abdomen soft, non-tender, nondistended. No hepato-splenomegaly , or palpable masses. No guarding. MUSCULOSKELETAL: Extremities without clubbing, cyanosis, or edema. No joint tenderness, effusion, or edema noted. No calf tenderness. Negative Homans sign bilaterally. NEUROLOGICAL: Awake and alert. Cranial nerves II through XII intact. Motor and sensory grossly within normal limits. Five out of 5 muscle strength in all muscle groups. Normal speech. Laboratory Laboratory Tests Test 06/16/17 09:35 06/16/17 11:35 Blood Urea Nitrogen 18 Creatinine 0.79 Random Glucose 128 Calcium Level 8.5 Sodium Level 140 Potassium Level 3.9 Chloride Level 104 Carbon Dioxide Level 28.0 Anion Gap 8 Estimat Glomerular Filtration Rate 97 Triglycerides Level 103 Cholesterol Level 175 LDL Cholesterol 112 HDL Cholesterol 42.7 Cholesterol/HDL Ratio 4.09 White Blood Count 8.0 Red Blood Count 4.21 Hemoglobin 14.2 Hematocrit 41.8 Mean Corpuscular Volume 99.3 Mean Corpuscular Hemoglobin 33.7 Mean Corpuscular Hemoglobin Concent 34.0 Red Cell Distribution Width 13.8 Platelet Count 268 Mean Platelet Volume 8.5 Neutrophils (%) (Auto) 64.0 Lymphocytes (%) (Auto) 25.1 Monocytes (%) (Auto) 8.1 Eosinophils (%) (Auto) 2.3 Basophils (%) (Auto) 0.5 Neutrophils # (Auto) 5.1 Lymphocytes # (Auto) 2.0 Monocytes # (Auto) 0.6 Eosinophils # (Auto) 0.2 Basophils # (Auto) 0.0 CBC Comment DIFF FINAL Differential Comment Prothrombin Time 11.4 Prothromb Time International Ratio 1.0 Result Diagram: 06/16/17 1135 06/16/17 0935 Caprini VTE Risk Assessment Caprini VTE Risk Assessment: Mod/High Risk (score >= 2) Caprini Risk Assessment Model Point Value = 1 Point Value = 2 Point Value = 3 Point Value = 5 Age 41-60 Minor surgery BMI > 25 kg/m2 Swollen legs Varicose veins or History of unexplained or recurrent spontaneous Oral contraceptives or hormone replacement Sepsis (< 1 month) Serious lung disease, including pneumonia (< 1 month) Abnormal pulmonary function Acute myocardial infarction Congestive heart failure (< 1 month) History of inflammatory bowel disease Medical patient at bed rest Age 61-74 Arthroscopic surgery Major open surgery (> 45 min) Laparoscopic surgery (> 45 min) Malignancy Confined to bed (> 72 hours) Immobilizing plaster cast Central venous access Age >= 75 History of VTE Family history of VTE Factor V Leiden Prothrombin [id number] Lupus anticoagulant Anticardiolipin antibodies Elevated serum homocysteine Heparin-induced thrombocytopenia Other congenital or acquired thrombophilia Stroke (< 1 month) Elective arthroplasty Hip, pelvis, or leg fracture Acute spinal cord injury (< 1 month) Prophylaxis Regimen Total Risk Factor Score Risk Level Prophylaxis Regimen 0-1 Low Early ambulation 2 Moderate Order ONE of the following: *Sequential Compression Device (SCD) *Heparin 5000 units SQ BID 3-4 Higher Order ONE of the following medications: *Heparin 5000 units SQ TID *Enoxaparin/Lovenox 40 mg SQ daily (WT < 150 kg, CrCl > 30 mL/min) *Enoxaparin/Lovenox 30 mg SQ daily (WT < 150 kg, CrCl > 10-29 mL/min) *Enoxaparin/Lovenox 30 mg SQ BID (WT < 150 kg, CrCl > 30 mL/min) AND/OR *Sequential Compression Device (SCD) 5 or more Highest Order ONE of the following medications: *Heparin 5000 units SQ TID (Preferred with Epidurals) *Enoxaparin/Lovenox 40 mg SQ daily (WT < 150 kg, CrCl > 30 mL/min) *Enoxaparin/Lovenox 30 mg SQ daily (WT < 150 kg, CrCl > 10-29 mL/min) *Enoxaparin/Lovenox 30 mg SQ BID (WT < 150 kg, CrCl > 30 mL/min) AND *Sequential Compression Device (SCD) Assessment and Plan Problem List: (1) DVT (deep venous thrombosis) ICD Code: I82.409 - Acute embolism and thrombosis of unspecified deep veins of unspecified lower extremity Status: Acute (2) Overdose of anticoagulant ICD Code: T45.511A - Poisoning by anticoagulants, accidental (unintentional), initial encounter Status: Acute (3) MDD (major depressive disorder) ICD Code: F32.9 - Major depressive disorder, single episode, unspecified Status: Chronic Assessment and Plan 71 year old male who presented to the ED on 06/14 after intentionally overdose with Eliquis. Patient reportedly took 10-20 tabs. Discharged from observation unit on 06/15 to medical psych. Medical team has been consulted to manage overdose of Eliquis and to rule out abnormal bleeding. Intentional overdose on Eliquis - Patient remains under Carter act and being seen by psych. - Eliquis on hold since he presented to ED - Labs including CBC, PLT's, PT and INR within normal range, CMP still pending - Hemodynamically stable. - Patient with no repots of bleeding, no sings of bleeding noted on exam. - Will await CMP to result prior to resuming Eliquis. Depression/adjustment disorder - Patient being followed by psych Physician Certification Order for Inpatient Services The services are ordered in accordance with Medicare regulations or non- Medicare payer requirements, as applicable. In the case of services not specified as inpatient-only, they are appropriately provided as inpatient services in accordance with the 2-midnight benchmark. days is the estimated time the patient will need to remain in the hospital, assuming treatment plan goals are met and no additional complications. Problem Qualifiers (1) Overdose of anticoagulant: (2) MDD (major depressive disorder): (3) DVT (deep venous thrombosis): Baljit Delvalle Jun 16, 2017 12:44
[2017-06-16 12:49] LABS: ANION GAP 7 MEQ/L (5-15); AST (GOT) 10 U/L (15-37); BICARBONATE 27.7 MEQ/L (21.0-32.0); BLOOD UREA NITROGEN 18 MG/DL (7-18); CHLORIDE 104 MEQ/L (98-107); GLOMERULAR FILTRATION RATE 115 ML/MIN (>89); SODIUM (NA) 139 MEQ/L (136-145)
[2017-06-16 12:58] LABS: ALKALINE PHOSPHATASE 79 U/L (45-117); ALT (GPT) 13 U/L (12-78); TOTAL BILIRUBIN ADULT 0.2 MG/DL (0.2-1.0)
[2017-06-16] MEDS ORDERED: PILL SPLITTER OTHER PRN (13:00)
--- NOTE | 2017-06-16 13:21 | PD.CONS ---
[facility] Request[facility] By Dr.Eric James Negrete Reason for Consult Assist in management of medical condition OVERDOSE ELIQUIS PTT/APTT ELEVATED R/ O ABNORMAL BLEEDING Primary Care Physician Unknown Diagnoses: (1) Overdose of anticoagulant (2) DVT (deep venous thrombosis) (3) MDD (major depressive disorder) History of Present Illness Written by Baljit Delvalle, acting as scribe for Dr. Rico on 06/16/17 at 12:32. 71 year old male who presented to the ED on 06/14 after intentionally overdose with Eliquis. Patient reportedly took 10-20 tabs in the hopes to "end it all" per ED documentation. Patient had been frustrated with daughter and this made him upset and verbalized thoughts of dying. His past medical history is significant for DVT's, MS, inguinal hernia repair, back surgery, CAD, depression and anxiety. He was admitted to observation poison control was contacted and monitored for bleeding. He was discharged to inpatient medical psych on 06/15, medical team has been consulted to manage overdose and rule out abnormal bleeding. He is awake and alert in no acute distress. He is able to follow simple commands and moves all extremities spontaneously. He denies any blood in stool or urine, denies nose bleed or bleeding of gums. He denies chest pain, SOB, headache, fever or chills. Review of Systems Eyes: DENIES: Blurred vision Ears, nose, mouth, throat: DENIES: Epistaxis Cardiovascular: DENIES: Chest pain, Lower Extremity Edema Gastrointestinal: DENIES: Abdominal pain, Black stools, Bloody stools, Nausea, Vomiting Genitourinary: DENIES: Hematuria Hematologic/lymphatic: DENIES: Bruising Except as stated in HPI: all other systems reviewed are Neg Past Family Social History Allergies: Coded Allergies: No Known Allergies (Verified Allergy, Unknown, 06/14/17) Past Medical History DVT's anticoagulated on Eliquis Multiple sclerosis suicidal attempts in past Depression Anxiety Past Surgical History ORIF L4 fracture with L2 to S1 posterolateral fusion Left inguinal hernia repair Reported Medications Reported Meds & Active Scripts Active Eliquis (Apixaban) 5 Mg Tab 5 Mg PO BID Restart tomorrow at noon if labs okay. Trazodone (Trazodone HCl) 50 Mg Tab 50 Mg PO HS Flomax (Tamsulosin HCl) 0.4 Mg Cap 0.4 Mg PO DAILY Zoloft (Sertraline HCl) 100 Mg Tab 150 Mg PO 1 1/2 DAILY Methocarbamol 500 Mg Tab 500 Mg PO Q8HR Neurontin (Gabapentin) 300 Mg Cap 300 Mg PO BID Oyster Shell 250 mg + Vit D Tb (Calcium/Vitamin D) 250 Mg Calcium (625 Mg)-125 Unit Tablet 500 Mg PO BID Aripiprazole 10 Mg Tab 10 Mg PO DAILY Oyster Shell 250 mg + Vit D Tb (Calcium/Vitamin D) 250 Mg Calcium (625 Mg)-125 Unit Tablet 500 Mg PO BID Flomax (Tamsulosin HCl) 0.4 Mg Cap 0.4 Mg PO DAILY Eliquis (Apixaban) 5 Mg Tab 5 Mg PO BID Trazodone (Trazodone HCl) 50 Mg Tab 50 Mg PO HS Methocarbamol 500 Mg Tab 500 Mg PO Q8HR Neurontin (Gabapentin) 300 Mg Cap 300 Mg PO BID Aripiprazole 10 Mg Tab 10 Mg PO DAILY Active Ordered Medications Active Medications Acetaminophen (Tylenol) 650 mg Q4H PRN PO; Start 06/15/17 at 20:45 Al Hydrox/Mg Hydrox/Simethicone (Mag-Al Plus Susp Liq) 30 ml Q6H PRN PO; Start 06/15/17 at 20:45 Gabapentin (Neurontin) 300 mg BID PO Last administered on 06/16/17 10:20; Admin Dose 300 MG; Start 06/15/17 at 21:00 Magnesium Hydroxide (Milk Of Magnesia Liq) 30 ml DAILY PRN PO; Start 06/15/17 at 20:45 Mirtazapine (Remeron) 7.5 mg HS PO; Start 06/16/17 at 21:00 Miscellaneous (Pill Splitter) 1 ea UNSCH PRN OTHER; Start 06/16/17 at 13:00 Miscellaneous Information 1 HS T-DERMAL; Start 06/15/17 at 21:00 Nicotine (Habitrol 21 Mg Patch.24 Hr) 1 patch DAILY T-DERMAL; Start 06/16/17 at 09:00 Sertraline HCl (Zoloft) 150 mg DAILY PO Last administered on 06/16/17 10:20; Admin Dose 150 MG; Start 06/16/17 at 09:00 Tamsulosin HCl (Flomax) 0.4 mg DAILY PO Last administered on 11/16/17at 10:20; Admin Dose 0.4 MG; Start 06/16/17 at 09:00 Family History Mother: DM Father: Bone cancer Social History Tobacco: 1PPD X 50-60 years Alcohol: denies Illicit drug use: denies Physical Exam Vital Signs Vital Signs Date Time Temp Pulse Resp B/P (MAP) Pulse Ox O2 Delivery O2 Flow Rate FiO2 06/16/17 05:47 97.3 78 16 143/76 (98) 97 06/15/17 19:50 97.7 71 16 131/61 (84) 96 Physical Exam GENERAL: This is a well-nourished, well-developed patient, in no apparent distress. SKIN: No rashes, ecchymoses or lesions. Cool and dry. HEAD: Atraumatic. Normocephalic. No temporal or scalp tenderness. No bleeding gums noted. EYES: Pupils equal round and reactive. Extraocular motions intact. No scleral icterus. No injection or drainage. ENT: Nose without bleeding, purulent drainage or septal hematoma. Throat without erythema, tonsillar hypertrophy or exudate. Uvula midline. Airway patent. NECK: Trachea midline. Supple, nontender. CARDIOVASCULAR: Regular rate and rhythm without murmurs, gallops, or rubs. RESPIRATORY: Clear to auscultation. Breath sounds equal bilaterally. No wheezes , rales, or rhonchi. GASTROINTESTINAL: Abdomen soft, non-tender, nondistended. No hepato-splenomegaly , or palpable masses. No guarding. MUSCULOSKELETAL: Extremities without clubbing, cyanosis, or edema. No joint tenderness, effusion, or edema noted. No calf tenderness. Negative Homans sign bilaterally. NEUROLOGICAL: Awake and alert. Cranial nerves II through XII intact. Motor and sensory grossly within normal limits. Five out of 5 muscle strength in all muscle groups. Normal speech. Laboratory Laboratory Tests Test 06/16/17 09:35 06/16/17 11:35 Blood Urea Nitrogen 18 18 Creatinine 0.79 0.68 Random Glucose 128 70 Calcium Level 8.5 8.4 Sodium Level 140 139 Potassium Level 3.9 4.0 Chloride Level 104 104 Carbon Dioxide Level 28.0 27.7 Anion Gap 8 7 Estimat Glomerular Filtration Rate 97 115 Triglycerides Level 103 Cholesterol Level 175 LDL Cholesterol 112 HDL Cholesterol 42.7 Cholesterol/HDL Ratio 4.09 White Blood Count 8.0 Red Blood Count 4.21 Hemoglobin 14.2 Hematocrit 41.8 Mean Corpuscular Volume 99.3 Mean Corpuscular Hemoglobin 33.7 Mean Corpuscular Hemoglobin Concent 34.0 Red Cell Distribution Width 13.8 Platelet Count 268 Mean Platelet Volume 8.5 Neutrophils (%) (Auto) 64.0 Lymphocytes (%) (Auto) 25.1 Monocytes (%) (Auto) 8.1 Eosinophils (%) (Auto) 2.3 Basophils (%) (Auto) 0.5 Neutrophils # (Auto) 5.1 Lymphocytes # (Auto) 2.0 Monocytes # (Auto) 0.6 Eosinophils # (Auto) 0.2 Basophils # (Auto) 0.0 CBC Comment DIFF FINAL Differential Comment Prothrombin Time 11.4 Prothromb Time International Ratio 1.0 Total Protein 7.0 Albumin 3.2 Alkaline Phosphatase 79 Aspartate Amino Transf (AST/SGOT) 10 Alanine Aminotransferase (ALT/SGPT) 13 Total Bilirubin 0.2 Result Diagram: 06/16/17 1135 06/16/17 1135 Assessment and Plan Problem List: (1) DVT (deep venous thrombosis) ICD Code: I82.409 - Acute embolism and thrombosis of unspecified deep veins of unspecified lower extremity Status: Acute (2) Overdose of anticoagulant ICD Code: T45.511A - Poisoning by anticoagulants, accidental (unintentional), initial encounter Status: Acute (3) MDD (major depressive disorder) ICD Code: F32.9 - Major depressive disorder, single episode, unspecified Status: Chronic Assessment and Plan 71 year old male who presented to the ED on 06/14 after intentionally overdose with Eliquis. Patient reportedly took 10-20 tabs. Discharged from observation unit on 06/15 to medical psych. Medical team has been consulted to manage overdose of Eliquis and to rule out abnormal bleeding. Intentional overdose on Eliquis Risk for bleeding - Patient remains under Carter act and being seen by psych. - Eliquis on hold since he presented to ED - Labs including CBC, PLT's, LFT's, PT and INR within normal range. - Hemodynamically stable. - Patient with no repots of bleeding, no sings of bleeding noted on exam. - Will resuming Eliquis given his history of multiple DVT's. Depression/adjustment disorder - Patient being followed by psych DVT ppx ambulation This note was transcribed by ANGIE Potter. I, Dr. Cielo Rico personally performed the history, physical exam, and medical decision making; and confirmed the accuracy of the information in the transcribed note. Authenticated by Dr. Cielo Rico on 06/16/17 at 12:32. Problem Qualifiers (1) Overdose of anticoagulant: (2) DVT (deep venous thrombosis): (3) MDD (major depressive disorder): Baljit Delvalle Jun 16, 2017 13:20 Cielo Rico MD Jun 16, 2017 15:21
[2017-06-16 16:04] LABS: HEMOGLOBIN A1a 1.1 %; HEMOGLOBIN A1b 1.6 %; HEMOGLOBIN Ao 84.5 %; HEMOGLOBIN LA1C 2.4 %; HEMOGLOBIN P3 4.1 %
[2017-06-16 18:09] VITALS: BP 126/61; PULSE 74; RESP 18; TEMP 97.8; O2SAT 95
[2017-06-16] MEDS: APIXABAN 5 MG TABLET PO SCH (20:39)
[2017-06-16] MEDS: REMOVE OLD NICOTINE PATCH T-DERMAL SCH (20:42)
[2017-06-16] MEDS ORDERED: MIRTAZAPINE 15 MG TAB PO SCH (21:00)
[2017-06-17 05:36] VITALS: BP 149/70; PULSE 69; RESP 16; TEMP 97.9; O2SAT 94
--- NOTE | 2017-06-17 07:54 | HHI.PR ---
Subjective Remarks In bed appears in nad. He is hard of hearing has hearing aids. Denies any chest pain or sob. Restart eliquis no overt bleeding. No hematuria, had normal color stool. No bleeding from mucous membranes. No fever or chills. No n/v/d/c. Objective Vitals Vital Signs Date Time Temp Pulse Resp B/P (MAP) Pulse Ox O2 Delivery O2 Flow Rate FiO2 06/17/17 05:36 97.9 69 16 149/70 (96) 94 06/16/17 18:09 97.8 74 18 126/61 (82) 95 I/O 06/16/17 06/16/17 06/16/17 06/17/17 06/17/17 06/17/17 07:00 15:00 23:00 07:00 15:00 23:00 Intake Total 480 ml 960 ml 480 ml Output Total 275 ml Balance 480 ml 960 ml 480 ml -275 ml Intake Oral 480 ml 960 ml 480 ml Output Urine Total 275 ml # Voids 2 1 Result Diagram: 06/16/17 1135 06/16/17 1135 Objective Remarks GENERAL: This is a well-nourished, well-developed patient, in no apparent distress. SKIN: No rashes, ecchymoses or lesions. Cool and dry. CARDIOVASCULAR: Regular rate and rhythm without murmurs, gallops, or rubs. RESPIRATORY: Clear to auscultation. Breath sounds equal bilaterally. No wheezes , rales, or rhonchi. GASTROINTESTINAL: Abdomen soft, non-tender, nondistended. No hepato-splenomegaly , or palpable masses. No guarding. MUSCULOSKELETAL: Extremities without clubbing, cyanosis, or edema. No joint tenderness, effusion, or edema noted. No calf tenderness. Negative Homans sign bilaterally. NEUROLOGICAL: Awake and alert. Cranial nerves II through XII intact. Motor and sensory grossly within normal limits. Five out of 5 muscle strength in all muscle groups. Normal speech. A/P Problem List: (1) DVT (deep venous thrombosis) ICD Code: I82.409 - Acute embolism and thrombosis of unspecified deep veins of unspecified lower extremity Status: Acute (2) Overdose of anticoagulant ICD Code: T45.511A - Poisoning by anticoagulants, accidental (unintentional), initial encounter Status: Acute (3) MDD (major depressive disorder) ICD Code: F32.9 - Major depressive disorder, single episode, unspecified Status: Chronic Assessment and Plan 71 year old male who presented to the ED on 06/14 after intentionally overdose with Eliquis. Patient reportedly took 10-20 tabs. Discharged from observation unit on 06/15 to medical psych. Medical team has been consulted to manage overdose of Eliquis and to rule out abnormal bleeding. Intentional overdose on Eliquis Risk for bleeding - Patient remains under Carter act and being seen by psych. - Eliquis on hold since he presented to ED - Labs including CBC, PLT's, LFT's, PT and INR within normal range. - Hemodynamically stable. - Patient with no repots of bleeding, no sings of bleeding noted on exam. - Resume Eliquis given his history of multiple DVT's. Depression/adjustment disorder - Patient being followed by psych DVT ppx ambulation, start Eliquis Discussed with the patient, nurse. Awaiting for placement Problem Qualifiers (1) DVT (deep venous thrombosis): (2) Overdose of anticoagulant: (3) MDD (major depressive disorder): Cielo Rico MD Jun 17, 2017 07:54
[2017-06-17] MEDS: TAMSULOSIN HCL 0.4 MG CAP PO SCH (08:46)
[2017-06-17] MEDS: APIXABAN 5 MG TABLET PO SCH ×2 (08:46→23:05)
[2017-06-17] MEDS: NICOTINE 21 MG/24 HR PATCH T-DERMAL SCH (08:46)
[2017-06-17] MEDS: SERTRALINE HCL 50 MG TAB PO SCH (08:46)
[2017-06-17] MEDS: GABAPENTIN 300 MG CAP PO SCH ×2 (08:46→23:05)
--- NOTE | 2017-06-17 16:27 | HHI.PYPN ---
Subjective Remarks Patient seen for follow-up, chart review. Patient found lying in hospital bed, cooperative. Patient states that he continues to feel depressed, as well as continue to having suicidal ideations. Patient states that he received spoke with his daughter which did not go well and he was told that she was planning to rent out his room. Patient noted to be upset due to his current relationship discord with his daughter, reports sleeping well, denies any difficulty with appetite but is noted to be in that most of the day and requires encouragement for ADLs. Patient encouraged to participate in groups and activities which she states she will try. Review of Systems Except as stated in HPI: all other systems reviewed are Neg Mental Status Examination Appearance: Appropriate Consciousness: Alert Orientation: Person, Place Motor Activity: Normal gait Speech: Unremarkable Language: Adequate Fund of Knowledge: Adequate Attention and Concentration: Adequate Memory: Unremarkable Mood: Sad Affect: Sad Thought Process & Associations: Intact, Linear Thought Content: Appropriate Hallucination Type: None Delusion Type: None Suicidal Ideation: Yes Suicidal Plan: No Suicidal Intention: No Homicidal Ideation: No Homicidal Plan: No Homicidal Intention: No Insight: Fair Judgment: Impulsive Results Vitals/IOs Vital Signs Date Time Temp Pulse Resp B/P (MAP) Pulse Ox O2 Delivery O2 Flow Rate FiO2 06/17/17 05:36 97.9 69 16 149/70 (96) 94 Intake and Output 06/17/17 06/17/17 06/18/17 08:00 16:00 00:00 Output Total 275 ml Balance -275 ml Assessment & Plan Problem List: (1) Major depressive disorder, recurrent severe without psychotic features ICD Codes: F33.2 - Major depressive disorder, recurrent severe without psychotic features Status: Acute Assessment & Plan Patient this time continues today with significant depressive mood, continues to have suicide ideations. We'll increase mirtazapine to 15 mg by mouth at bedtime with upper titration as needed for depression. Continue to monitor weight behavior. Continue to encourage patient to maintain personal hygiene as well as participate in groups and activities while on the unit. Discharge planning in progress Justification for Cont. Inpt. At risk for further decompensation if at lower level of care Discharge Planning Patient agrees for assistance for an assisted living facility as patient did not want to return back to his daughter's residence. Carlin Negrete MD Jun 17, 2017 16:27
[2017-06-17 18:26] VITALS: BP 123/58; PULSE 65; RESP 17; TEMP 98.2; O2SAT 96
[2017-06-17] MEDS: REMOVE OLD NICOTINE PATCH T-DERMAL SCH (21:00)
[2017-06-17] MEDS: MIRTAZAPINE 15 MG TAB PO SCH (23:05)
[2017-06-18 05:47] VITALS: BP 124/68; PULSE 78; RESP 18; TEMP 97.8; O2SAT 96
--- NOTE | 2017-06-18 07:56 | HHI.PR ---
Subjective Remarks He is in bed appears in not acute distress at this time. No overt bleeding. No hematuria. Bowel movements are normal color. No bruises. Objective Vitals Vital Signs Date Time Temp Pulse Resp B/P (MAP) Pulse Ox O2 Delivery O2 Flow Rate FiO2 06/18/17 05:47 97.8 78 18 124/68 (86) 96 06/17/17 18:26 98.2 65 17 123/58 (79) 96 I/O 06/17/17 06/17/17 06/17/17 06/18/17 06/18/17 06/18/17 07:00 15:00 23:00 07:00 15:00 23:00 Intake Total 1080 ml Output Total 275 ml Balance -275 ml 1080 ml Intake Oral 1080 ml Output Urine Total 275 ml Result Diagram: 06/16/17 1135 06/16/17 1135 Objective Remarks GENERAL: This is a well-nourished, well-developed patient, in no apparent distress. SKIN: No rashes, ecchymoses or lesions. Cool and dry. CARDIOVASCULAR: Regular rate and rhythm without murmurs, gallops, or rubs. RESPIRATORY: Clear to auscultation. Breath sounds equal bilaterally. No wheezes , rales, or rhonchi. GASTROINTESTINAL: Abdomen soft, non-tender, nondistended. No hepato-splenomegaly , or palpable masses. No guarding. MUSCULOSKELETAL: Extremities without clubbing, cyanosis, or edema. No joint tenderness, effusion, or edema noted. No calf tenderness. Negative Homans sign bilaterally. NEUROLOGICAL: Awake and alert. Cranial nerves II through XII intact. Motor and sensory grossly within normal limits. Five out of 5 muscle strength in all muscle groups. Normal speech. A/P Problem List: (1) DVT (deep venous thrombosis) ICD Code: I82.409 - Acute embolism and thrombosis of unspecified deep veins of unspecified lower extremity Status: Acute (2) Overdose of anticoagulant ICD Code: T45.511A - Poisoning by anticoagulants, accidental (unintentional), initial encounter Status: Acute (3) MDD (major depressive disorder) ICD Code: F32.9 - Major depressive disorder, single episode, unspecified Status: Chronic Assessment and Plan 71 year old male who presented to the ED on 06/14 after intentionally overdose with Eliquis. Patient reportedly took 10-20 tabs. Discharged from observation unit on 06/15 to medical psych. Medical team has been consulted to manage overdose of Eliquis and to rule out abnormal bleeding. Intentional overdose on Eliquis Risk for bleeding - Patient remains under Carter act and being seen by psych. - Eliquis on hold since he presented to ED - Labs including CBC, PLT's, LFT's, PT and INR within normal range. - Hemodynamically stable. - Patient with no repots of bleeding, no sings of bleeding noted on exam. - Resume Eliquis given his history of multiple DVT's. Monitor signs of bleeding. Depression/adjustment disorder - Patient being followed by psych DVT ppx ambulation, start Eliquis Discussed with the patient, nurse. Awaiting for placement Problem Qualifiers (1) DVT (deep venous thrombosis): (2) Overdose of anticoagulant: (3) MDD (major depressive disorder): Cielo Rico MD Jun 18, 2017 07:56
[2017-06-18] MEDS: APIXABAN 5 MG TABLET PO SCH ×2 (08:28→21:06)
[2017-06-18] MEDS: GABAPENTIN 300 MG CAP PO SCH ×2 (08:29→21:06)
[2017-06-18] MEDS: SERTRALINE HCL 50 MG TAB PO SCH (08:29)
[2017-06-18] MEDS: NICOTINE 21 MG/24 HR PATCH T-DERMAL SCH (08:29)
[2017-06-18] MEDS: TAMSULOSIN HCL 0.4 MG CAP PO SCH (08:29)
[2017-06-18 17:29] VITALS: BP 120/61; PULSE 62; RESP 18; TEMP 98.7; O2SAT 96
--- NOTE | 2017-06-18 19:18 | HHI.PYPN ---
Subjective Remarks PT seen and discussed with staff. He is compliant with medications and care. He denies side effects. He remains depressed and withdrawn. No agitation or aggression. Mental Status Examination Appearance: Appropriate Consciousness: Alert Orientation: Person, Place Motor Activity: Normal gait Speech: Unremarkable Language: Adequate Fund of Knowledge: Adequate Attention and Concentration: Adequate Memory: Unremarkable Mood: Sad Affect: Sad Thought Process & Associations: Intact, Linear Thought Content: Appropriate Hallucination Type: None Delusion Type: None Suicidal Ideation: No (denies today) Suicidal Plan: No Suicidal Intention: No Homicidal Ideation: No Homicidal Plan: No Homicidal Intention: No Insight: Fair Judgment: Impulsive Results Vitals/IOs Vital Signs Date Time Temp Pulse Resp B/P (MAP) Pulse Ox O2 Delivery O2 Flow Rate FiO2 06/18/17 17:29 98.7 62 18 120/61 (80) 96 Intake and Output 06/18/17 06/18/17 06/19/17 08:00 16:00 00:00 Intake Total 240 ml 240 ml 880 ml Balance 240 ml 240 ml 880 ml Assessment & Plan Problem List: (1) Major depressive disorder, recurrent severe without psychotic features ICD Codes: F33.2 - Major depressive disorder, recurrent severe without psychotic features Status: Acute Assessment & Plan Continue current tx plan. Estimated LOS: days Justification for Cont. Inpt. risk of decompensation Chrissie Bermudez MD Jun 18, 2017 19:18
[2017-06-18] MEDS: REMOVE OLD NICOTINE PATCH T-DERMAL SCH (21:00)
[2017-06-18] MEDS: MIRTAZAPINE 15 MG TAB PO SCH (21:06)
[2017-06-19 01:00] VITALS: BP 133/68; PULSE 55; RESP 16; O2SAT 96
[2017-06-19 02:00] VITALS: BP 123/60; PULSE 54; RESP 16; O2SAT 95
[2017-06-19 06:36] VITALS: BP 145/63; PULSE 66; RESP 16; TEMP 97.7; O2SAT 96
[2017-06-19] MEDS: SERTRALINE HCL 50 MG TAB PO SCH (08:46)
[2017-06-19] MEDS: APIXABAN 5 MG TABLET PO SCH ×2 (08:46→21:59)
[2017-06-19] MEDS: GABAPENTIN 300 MG CAP PO SCH ×2 (08:46→21:59)
[2017-06-19] MEDS: TAMSULOSIN HCL 0.4 MG CAP PO SCH (08:47)
[2017-06-19] MEDS: NICOTINE 21 MG/24 HR PATCH T-DERMAL SCH (08:48)
--- NOTE | 2017-06-19 09:32 | HHI.PR ---
Subjective Remarks In bed sleepy. No overt bleeding. No fever or chills. No LE edema. Eating fairly well. NO n/v/d/c. Objective Vitals Vital Signs Date Time Temp Pulse Resp B/P (MAP) Pulse Ox O2 Delivery O2 Flow Rate FiO2 06/19/17 06:36 97.7 66 16 145/63 (90) 96 06/19/17 02:00 54 16 123/60 (81) 95 06/19/17 01:00 55 16 133/68 (89) 96 06/18/17 17:29 98.7 62 18 120/61 (80) 96 I/O 06/18/17 06/18/17 06/18/17 06/19/17 06/19/17 06/19/17 07:00 15:00 23:00 07:00 15:00 23:00 Intake Total 480 ml 1560 ml 120 ml Balance 480 ml 1560 ml 120 ml Intake Oral 480 ml 1560 ml 120 ml # Voids 1 2 Result Diagram: 06/16/17 1135 06/16/17 1135 Objective Remarks GENERAL: This is a well-nourished, well-developed patient, in no apparent distress. SKIN: No rashes, ecchymoses or lesions. Cool and dry. CARDIOVASCULAR: Regular rate and rhythm without murmurs, gallops, or rubs. RESPIRATORY: Clear to auscultation. Breath sounds equal bilaterally. No wheezes , rales, or rhonchi. GASTROINTESTINAL: Abdomen soft, non-tender, nondistended. No hepato-splenomegaly , or palpable masses. No guarding. MUSCULOSKELETAL: Extremities without clubbing, cyanosis, or edema. No joint tenderness, effusion, or edema noted. No calf tenderness. Negative Homans sign bilaterally. NEUROLOGICAL: Awake and alert. Cranial nerves II through XII intact. Motor and sensory grossly within normal limits. Five out of 5 muscle strength in all muscle groups. Normal speech. A/P Problem List: (1) DVT (deep venous thrombosis) ICD Code: I82.409 - Acute embolism and thrombosis of unspecified deep veins of unspecified lower extremity Status: Acute (2) Overdose of anticoagulant ICD Code: T45.511A - Poisoning by anticoagulants, accidental (unintentional), initial encounter Status: Acute (3) MDD (major depressive disorder) ICD Code: F32.9 - Major depressive disorder, single episode, unspecified Status: Chronic Assessment and Plan 71 year old male who presented to the ED on 06/14 after intentionally overdose with Eliquis. Patient reportedly took 10-20 tabs. Discharged from observation unit on 06/15 to medical psych. Medical team has been consulted to manage overdose of Eliquis and to rule out abnormal bleeding. Intentional overdose on Eliquis Risk for bleeding. Monitor. - Patient remains under Carter act and being seen by psych. - Eliquis on hold since he presented to ED - Labs including CBC, PLT's, LFT's, PT and INR within normal range. - Hemodynamically stable. - Patient with no repots of bleeding, no sings of bleeding noted on exam. - Eliquis resumed given his history of multiple DVT's. Monitor signs of bleeding. Depression/adjustment disorder - Patient being followed by psych DVT ppx ambulation, start Eliquis Discussed with the patient, nurse. Awaiting for placement Problem Qualifiers (1) DVT (deep venous thrombosis): (2) Overdose of anticoagulant: (3) MDD (major depressive disorder): Cielo Rico MD Jun 19, 2017 09:32
--- NOTE | 2017-06-19 16:29 | HHI.PYPN ---
Subjective Remarks Pt seen and discussed with staff. He has been cooperative with care. No agitation or aggression. No SI/HI. He has been anxious and ruminating on discharge. He reports depression persists but is improving. Mental Status Examination Appearance: Appropriate Consciousness: Alert Orientation: Person, Place Motor Activity: Normal gait Speech: Unremarkable Language: Adequate Fund of Knowledge: Adequate Attention and Concentration: Adequate Memory: Unremarkable Mood: Sad Affect: Sad Thought Process & Associations: Intact, Linear Thought Content: Appropriate Hallucination Type: None Delusion Type: None Suicidal Ideation: No (denies today) Suicidal Plan: No Suicidal Intention: No Homicidal Ideation: No Homicidal Plan: No Homicidal Intention: No Insight: Fair Judgment: Impulsive Results Vitals/IOs Vital Signs Date Time Temp Pulse Resp B/P (MAP) Pulse Ox O2 Delivery O2 Flow Rate FiO2 06/19/17 06:36 97.7 66 16 145/63 (90) 96 Intake and Output 06/19/17 06/19/17 06/20/17 08:00 16:00 00:00 Intake Total 120 ml 120 ml Balance 120 ml 120 ml Assessment & Plan Problem List: (1) Major depressive disorder, recurrent severe without psychotic features ICD Codes: F33.2 - Major depressive disorder, recurrent severe without psychotic features Status: Acute Assessment & Plan Continue current tx plan. Estimated LOS: days Justification for Cont. Inpt. monitoring for safety Chrissie Bermudez MD Jun 19, 2017 16:29
[2017-06-19 18:09] VITALS: BP 125/58; PULSE 58; RESP 16; TEMP 98; O2SAT 95
[2017-06-19] MEDS: REMOVE OLD NICOTINE PATCH T-DERMAL SCH (20:21)
[2017-06-19] MEDS: MIRTAZAPINE 15 MG TAB PO SCH (21:59)
[2017-06-20 06:11] VITALS: BP 164/73; PULSE 77; RESP 16; TEMP 97.3; O2SAT 96
--- NOTE | 2017-06-20 08:48 | HHI.PR ---
Subjective Remarks Sleepy. Says she did fall last night and thinks he hurt his left shoulder.There is no bruising on the left shoulder. He has normal active range of motion without pain. No overt bleeding. Advice fall precautions. Objective Vitals Vital Signs Date Time Temp Pulse Resp B/P (MAP) Pulse Ox O2 Delivery O2 Flow Rate FiO2 06/20/17 06:11 97.3 77 16 164/73 (103) 96 06/19/17 18:09 98.0 58 16 125/58 (80) 95 I/O 06/19/17 06/19/17 06/19/17 06/20/17 06/20/17 06/20/17 07:00 15:00 23:00 07:00 15:00 23:00 Intake Total 240 ml 360 ml Balance 240 ml 360 ml Intake Oral 240 ml 360 ml # Voids 2 1 1 Result Diagram: 06/16/17 1135 06/16/17 1135 Objective Remarks GENERAL: This is a well-nourished, well-developed patient, in no apparent distress. SKIN: No rashes, ecchymoses or lesions. Cool and dry. CARDIOVASCULAR: Regular rate and rhythm without murmurs, gallops, or rubs. RESPIRATORY: Clear to auscultation. Breath sounds equal bilaterally. No wheezes , rales, or rhonchi. GASTROINTESTINAL: Abdomen soft, non-tender, nondistended. No hepato-splenomegaly , or palpable masses. No guarding. MUSCULOSKELETAL: Extremities without clubbing, cyanosis, or edema. No joint tenderness, effusion, or edema noted. No calf tenderness. Negative Homans sign bilaterally. NEUROLOGICAL: Awake and alert. Cranial nerves II through XII intact. Motor and sensory grossly within normal limits. Five out of 5 muscle strength in all muscle groups. Normal speech. A/P Problem List: (1) DVT (deep venous thrombosis) ICD Code: I82.409 - Acute embolism and thrombosis of unspecified deep veins of unspecified lower extremity Status: Acute (2) Overdose of anticoagulant ICD Code: T45.511A - Poisoning by anticoagulants, accidental (unintentional), initial encounter Status: Acute (3) MDD (major depressive disorder) ICD Code: F32.9 - Major depressive disorder, single episode, unspecified Status: Chronic Assessment and Plan 71 year old male who presented to the ED on 06/14 after intentionally overdose with Eliquis. Patient reportedly took 10-20 tabs. Discharged from observation unit on 06/15 to medical psych. Medical team has been consulted to manage overdose of Eliquis and to rule out abnormal bleeding. Intentional overdose on Eliquis Risk for bleeding. Monitor. - Patient remains under Carter act and being seen by psych. - Eliquis on hold since he presented to ED - Labs including CBC, PLT's, LFT's, PT and INR within normal range. - Hemodynamically stable. - Patient with no repots of bleeding, no sings of bleeding noted on exam. - Eliquis resumed given his history of multiple DVT's. Monitor signs of bleeding. Fall 06/19 per patient hurt his left shoulder. There is no bruising and he has full active ROM, has no pain . Will hold on imaging. No overt bleeding. Fall precautions. Depression/adjustment disorder - Patient being followed by psych DVT ppx ambulation, start Eliquis Discussed with the patient, nurse. Awaiting for placement Problem Qualifiers (1) DVT (deep venous thrombosis): (2) Overdose of anticoagulant: (3) MDD (major depressive disorder): Cielo Rico MD Jun 20, 2017 08:48
[2017-06-20] MEDS: TAMSULOSIN HCL 0.4 MG CAP PO SCH (08:57)
[2017-06-20] MEDS: GABAPENTIN 300 MG CAP PO SCH (08:57)
[2017-06-20] MEDS: SERTRALINE HCL 50 MG TAB PO SCH (08:57)
[2017-06-20] MEDS: APIXABAN 5 MG TABLET PO SCH (08:58)
[2017-06-20] MEDS: NICOTINE 21 MG/24 HR PATCH T-DERMAL SCH (08:58)
[2017-06-20] MEDS ORDERED: MIRTA15 PO (10:21)
[2017-06-20] MEDS ORDERED: TAMS5CAP PO (10:21)
[2017-06-20] MEDS ORDERED: ZOLO50TA PO (10:21)
[2017-06-20] MEDS ORDERED: APIX5TAB PO (10:21)
[2017-06-20] MEDS ORDERED: NEUR300C PO (10:21)
--- NOTE | 2017-06-20 10:35 | HHI.DS ---
Psychiatry Discharge Summary Inpatient Psychiatric care?: Yes Advance Directive: No Reason Not Provided: has none Mental Health AdvanceDirective: No (patient declined) Health Care Proxy: No Admission Admission Date Jun 15, 2017 at 20:01 Admission Diagnosis: (1) Major depressive disorder, recurrent severe without psychotic features ICD Code: F33.2 - Major depressive disorder, recurrent severe without psychotic features Brief History Patient is a 71-year-old man, single, domiciled with daughter, retired , supported on social security benefits, with a past psychiatric history of depression, previous psychiatric hospitalizations (last time at [facility] in April 2017), [facility] although patient denies, who was brought in under Carter act due to suicide attempt via overdose with Eliquis which patient was transferred to the inpatient psychiatry unit for further evaluation and management. As per psychiatry consult note by Dr. Caruso: patient is oppositional, irritable, stating that he doesn't want to talk and he wants to . The patient states he is frustrated with his daughter is continuously disrespectful with him and she was calling him names like a "scum bag" and decided that he did not want to live anymore. He took between 10-20 Eliquis in the hope of "ending it all." He states he cannot live with his daughter and that if he goes back there he will try to kill himself again. The patient states that he is still thinking about dying although is not having active suicidal ideation at this time. He denies homicidal ideation, he denies visual and auditory hallucinations. Patient is fully oriented 3, no attention deficit, no fluctuation of consciousness present at this moment. She denies the use of alcohol and illicit drugs. Patient was found lying in hospital bed, calm and cooperative interview and seen by quality analyst/technical writer, nurse and therapist. Patient noted guarded initially but was able to engage more interview throughout. Patient states that he took a bottle of blood clot medicines which she said took 10-20 tablets an attempt to end his life. Patient states that he was having suicidal ideations after he recently had an argument with his daughter surrounding his social security income. Patient states that the daughter has been very controlling about his income check and constantly is being verbally abused by her. Patient states that he has not had suicidality ideations prior to the argument but has been feeling depressed for quite some time and which she has been had decreased energy, isolative, feeling helpless and hopeless, decreased pleasure in activities, but no change in sleep or appetite. Patient states that he has multiple argues with his daughter over the same financial issues. He states that he has been feeling sad and depressed recently because he feels lonely and having constant argument with her daughter as stated above. Patient states that he is disappointed that he did not succeed continues to have suicidal ideations at this time. Patient states feeling safe here in the hospital and contracts for safety at this time. Currently patient states Im alright, continues to endorse suicidal ideations, but denies HI, AVH or delusions. Psychiatric family history: states that her father tried to commit suicide. Past psychiatric history: previous psychiatric diagnosis of depression, previous psychiatric hospitalizations (last here at [facility] in April 2017), as per chart one previous suicide attempt the patient denies. Patient denies history of self-injurious behavior. Previous psychiatric medications: Zoloft, Abilify. Substance use disorder: Currently tobacco(+), denies ETOH or drugs. Past medical history: MS, emphysema Allergies: NKDA Social history: single, has four adult daughters but domiciled with oldest daughter, Radha Lynn, retired on social security benefits, highest education : 9th grade, no access to firearms; no legal history. Tobacco Use In Past 30 Days: 5 or More Cigarettes/Day Alcohol Use: Never Hospital Course Patient is a 71-year-old man, single, domiciled with daughter, retired , supported on social security benefits, with a past psychiatric history of depression, previous psychiatric hospitalizations (last time at [facility] in April 2017), previous suicide attempt at chart although patient denies, who was brought in under Carter act due to suicide attempt via overdose with Eliquis which patient was transferred to the inpatient psychiatry unit for further evaluation and management. Patient was continued on sertraline 150mg PO daily, started on mirtazapine 7.5 mg by mouth at bedtime and titrated up to 50 mg by mouth at bedtime for depressive symptoms which patient tolerated well with no adverse drug reactions. Patient was noted to have improvement of mood with less depressive symptoms and no longer endorsing suicidal ideations. Patient was calm and cooperative with staff and denied any symptoms of aleah or psychosis. Patient was adherent to medication regimen and recommendations as per primary medical team. Patient initially was considering referral to an assisted living facility but later stated that he wanted to be discharged back home with his daughter. Upon discharge patient stated feeling good, requesting to be discharged home, agreeing to continuing medical recommendations, treatment and attend outpatient follow up appointments for continuity of care. Patient will be discharged back to his residence with his daughter but will be transported upon discharge straight to the [facility] to reestablish care and filled prescriptions. Patient denies SI, HI, AVH or delusions. Supportive psychotherapy provided. Patient advised to call 911 or return back to the ED in case of any emergency. Patient agrees with plan. Results Blood Pressure 164 / 73 Vital Signs Date Time Temp Pulse Resp B/P (MAP) Pulse Ox O2 Delivery O2 Flow Rate FiO2 06/20/17 06:11 97.3 77 16 164/73 (103) 96 Laboratory Results Test 06/16/17 09:35 Cholesterol Level 175 MG/DL (120-200) HDL Cholesterol 42.7 MG/DL (40.0-60.0) Hemoglobin A1c 5.8 % (4.3-6.0) LDL Cholesterol 112 MG/DL (0-99) Triglycerides Level 103 MG/DL (42-150) Summary of Procedures None Pending results at discharge: No Medications # of Antipsychotic meds at D/C: 0 Approp Antipsych med options 1 - Minimum of three failed multiple trials of monotherapy. 2 - Documented plan to taper to monotherapy due to previous use of multiple meds OR cross-taper in progress at D/C. 3 - Documentation of augmentation of Clozapine. 4 - Justification other than those listed in allowable values 1-3, document here : Discharge Discharge Date: Jun 20, 2017 Discharge Diagnosis: (1) Major depressive disorder, recurrent severe without psychotic features ICD Code: F33.2 - Major depressive disorder, recurrent severe without psychotic features Status: Acute Pt Condition on Discharge: Stable Discharge Disposition: Discharge Home Discharge Instructions Diet Instructions: Heart Healthy Diet Activities you can perform: Regular-No Restrictions Scheduled Appointment: [facility] Appointment Date: Jun 20, 2017 Appointment Time: 01:00pm Discharge Time > 30 minutes Mental Status Examination Appearance: Appropriate Consciousness: Alert Orientation: Person, Place Motor Activity: Normal gait Speech: Unremarkable Language: Adequate Fund of Knowledge: Adequate Attention and Concentration: Adequate Memory: Unremarkable Mood: Appropriate Affect: Appropriate Thought Process & Associations: Intact, Goal directed, Linear Thought Content: Appropriate Hallucination Type: None Delusion Type: None Suicidal Ideation: No Suicidal Plan: No Suicidal Intention: No Homicidal Ideation: No Homicidal Plan: No Homicidal Intention: No Insight: Fair Judgment: Impulsive Discharge/Advance Care Plan Health Problems: (1) Major depressive disorder, recurrent severe without psychotic features Goals to promote your health * To prevent worsening of your condition and complications * To maintain your health at the optimal level Directions to meet your goals Take your medications as prescribed Follow your dietary instruction Follow activity as directed Keep your appointments as scheduled Take your immunizations and boosters as scheduled If your symptoms worsen call your PCP, if no PCP go to Urgent Care Center or Emergency Room For 21/02 questions related to your inpatient stay or results of tests pending at discharge, please contact Dr. Carlin Negrete at Smoking is Dangerous to Your Health. Avoid second hand smoking Carlin Negrete MD Jun 20, 2017 10:35
== END 2017-06-20 11:38 | disposition home or self-care (01) | DRG 885 ==
LOC: H4EA 20:01
PROVIDERS: ADMIT Student in an Organized Health Care Education/Training Program; ATTEND Student in an Organized Health Care Education/Training Program
DX: F33.2 Major depressive disorder, recurrent severe without psychotic features (principal); J43.9 Emphysema, unspecified; F17.210 Nicotine dependence, cigarettes, uncomplicated; H91.90 Unspecified hearing loss, unspecified ear; G35 Multiple sclerosis; I25.10 Atherosclerotic heart disease of native coronary artery without angina pectoris; Z79.899 Other long term (current) drug therapy; Z79.01 Long term (current) use of anticoagulants; Z91.5 Personal history of self-harm; Z86.718 Personal history of other venous thrombosis and embolism; W19.XXXA Unspecified fall, initial encounter; Y92.239 Unspecified place in hospital as the place of occurrence of the external cause; Y92.019 Unspecified place in single-family (private) house as the place of occurrence of the external cause; T45.522A Poisoning by antithrombotic drugs, intentional self-harm, initial encounter; R94.31 Abnormal electrocardiogram [ECG] [EKG]; R79.1 Abnormal coagulation profile
CPT/HCPCS: 80048; 80053; 80061; 83036; 85025; 85610

== ENCOUNTER 2017-08-21 18:10 | Inpatient (IN) | payer OTHER, MEDICARE ==
[~2017-08-21] VITALS: Ht 193 cm; Wt 75.0 kg
[~2017-08-21 18:10] MED LIST changes: +MIRTA15 PO; +ZOLO50TA PO
[2017-08-21 18:29] VITALS: BP 166/77; PULSE 66; RESP 18; TEMP 98.7; O2SAT 98
[2017-08-21] MEDS ORDERED: SERT-129 PO (18:54)
--- NOTE | 2017-08-21 19:15 | PD ---
HPI Chief Complaint: OD/ Ingestion Time Seen by Provider: 19:10 Travel History International Travel<30 days: No Contact w/Intl Traveler<30days: No Traveled to known affect area: No History of Present Illness HPI The patient is a 72 year old male who presents to the [facility] emergency department with a history of being brought in under a Carter act after attempting an overdose due to being tired of living. The patient reports that he is tired of being called a "dirty bastard" by his daughter. He attempted to overdose earlier before lunch at 11:30 a.m. He took a handful of Eliquis and Sertraline. According to each of the bottles, the elbow was is a 5 mg tablets filled on June 22, 2017 and contained 14 tablets. The other bottle is a sertraline bottle that is 100 mg tablets and contained 7 tablets, filled according to the bottle on July 08, 2017. He is unsure exactly how many tablets he took. He reports that he does have a history of depression and has attempted suicide twice in the past. On review of systems, the patient denies having any recent fevers, cough, congestion, neck pain, chest pain, shortness of breath, abdominal pain, vomiting, diarrhea, urinary symptoms, or neurologic symptoms. The patient cannot recall when he last moved his bowels. He reports that he has a history of chronic constipation. [facility] Past Medical History Narrative Medical The patient's past medical history is significant for anxiety, depression, dvt in the left leg, multiple sclerosis, overactive bladder. Hx Anticoagulant Therapy: Yes (eliquis) Arthritis: No Asthma: No Autoimmune Disease: No Blood Disorders: No Anxiety: Yes Depression: Yes Heart Rhythm Problems: No Cancer: No Cardiovascular Problems: Yes (A-FIB ) Chest Pain: No Congestive Heart Failure: No COPD: Yes Cerebrovascular Accident: No Diabetes: No Diminished Hearing: Yes (bilateral hearing aids, NONE IN PLACE) Deep Vein Thrombosis: Yes (L LEG) Endocrine: No Gastrointestinal Disorders: No Genitourinary: No Headaches: No Immune Disorder: No Implanted Vascular Access Dvce: Yes Medical other: Yes (MULTIPLE SCLEROSIS) Musculoskeletal: Yes (right back pain, BLE weakness due to MS) Neurologic: No Psychiatric: Yes (Seen for Depression recently) Respiratory: Yes (emphysema) Immunizations Current: Yes Migraines: No Seizures: No Sleep Apnea: No Thyroid Disease: No Tetanus Vaccination: Unknown Influenza Vaccination: No Past Surgical History Narrative Surgical The patient's past surgical history is significant for hernia, back surgery twice, right leg ORIF. Abdominal Surgery: No AICD: No Arteriovenous Shunt: No Body Medical Devices: pins in right leg, accident at work in 1988 Cardiac Surgery: No Ear Surgery: No Endocrine Surgery: No Eye Surgery: No Genitourinary Surgery: No Gynecologic Surgery: No Insulin Pump: No Joint Replacement: No Neurologic Surgery: No Oral Surgery: No Pacemaker: No Thoracic Surgery: No Other Surgery: Yes (hx of back surgery) Social History Alcohol Use: No (QUIT 1989) Tobacco Use: Yes (1 PPD) Substance Use: No Allergies-Medications (Allergen,Severity, Reaction): Coded Allergies: No Known Allergies (Verified Allergy, Unknown, 08/21/17) Reported Meds & Prescriptions Reported Meds & Active Scripts Active Mirtazapine 15 Mg Tab 15 Mg PO HS 30 Days Oyster Shell 250 mg + Vit D Tb (Calcium/Vitamin D) 250 Mg Calcium (625 Mg)-125 Unit Tablet 500 Mg PO BID Flomax (Tamsulosin HCl) 0.4 Mg Cap 0.4 Mg PO DAILY Eliquis (Apixaban) 5 Mg Tab 5 Mg PO BID Trazodone (Trazodone HCl) 50 Mg Tab 50 Mg PO HS Methocarbamol 500 Mg Tab 500 Mg PO Q8HR Neurontin (Gabapentin) 300 Mg Cap 300 Mg PO BID Aripiprazole 10 Mg Tab 10 Mg PO DAILY Reported Sertraline (Sertraline HCl) 100 Mg Tab 50 Mg PO DAILY Review of Systems Except as stated in HPI: all other systems reviewed are Neg General / Constitutional: No: Fever Eyes: No: Visual changes HENT: No: Headaches Cardiovascular: No: Chest Pain or Discomfort Respiratory: No: Shortness of Breath Gastrointestinal: Positive: Constipation, No: Nausea, Vomiting, Diarrhea, Abdominal Pain, Hematemesis, Hematochezia, Changes in Bowel Habits, Indigestion , Loss of Appetite Genitourinary: Positive: Urgency, Frequency, No: Dysuria Musculoskeletal: No: Pain Skin: No Rash Neurologic: No: Weakness, Focal Abnormalities, Change in Mentation, Slurred Speech, Sensory Disturbance Psychiatric: No: Depression Endocrine: No: Polydipsia Hematologic/Lymphatic: No: Easy Bruising Physical Exam Narrative General: The patient is a well-developed well-nourished male in no acute distress. Head and Neck exam: Head is normocephalic atraumatic. Eyes: EOMI, pupils are equal round and reactive to light. Nose: Midline septum with pink mucous membranes Mouth: Dentition unremarkable. Moist mucus membranes. Posterior oropharynx is not erythematous. No tonsillar hypertrophy. Uvula midline. Airway patent. Neck: No palpable lymphadenopathy. No nuchal rigidity. No thyromegaly. Cardiovascular: Regular rate and rhythm without murmurs, gallops, or rubs. Lungs: Clear to auscultation bilaterally. No wheezes, rhonchi, or rales. Abdomen: Soft, without tenderness to palpation in all 4 quadrants of the abdomen. No guarding, rebound, or rigidity. Normal bowel sounds are audible. No tenderness on palpation of McBurney's point. Extremities: No clubbing, cyanosis, or edema. 2+ pulses in all 4 extremities. No calf tenderness on palpation. Back: No spinous process tenderness to palpation. No costovertebral angle tenderness to palpation. Neurologic Exam: Grossly nonfocal. Skin Exam: No rash noted. Intact skin that is warm and dry. Data Data Last Documented VS Vital Signs Date Time Temp Pulse Resp B/P (MAP) Pulse Ox O2 Delivery O2 Flow Rate FiO2 08/22/17 00:04 73 16 154/71 (98) 98 08/21/17 18:46 Room Air 08/21/17 18:29 98.7 Orders Orders Electrocardiogram (08/21/17 19:17) Complete Blood Count With Diff (08/21/17 19:17) Comprehensive Metabolic Panel (08/21/17 19:17) Prothrombin Time / Inr (Pt) (08/21/17 19:17) Act Partial Throm Time (Ptt) (08/21/17 19:17) Osmolality,Serum (08/21/17 19:17) Osmolality, Urine (08/21/17 19:17) Urinalysis - C+S If Indicated (08/21/17 19:17) Chest, Single Ap (08/21/17 19:17) Blood Glucose (08/21/17 19:17) Iv Access Insert/Monitor (08/21/17 19:17) Ecg Monitoring (08/21/17 19:17) Oximetry (08/21/17 19:17) Sodium Chloride 0.9% Flush (Ns Flush) (08/21/17 19:30) Call Poison Control (08/21/17 19:17) Drug Screen, Random Urine (08/21/17 19:17) Alcohol (Ethanol) (08/21/17 19:17) Salicylates (Aspirin) (08/21/17 19:17) Tylenol (Acetaminophen) (08/21/17 19:17) Act Partial Throm Time (Ptt) (08/22/17 01:00) Prothrombin Time / Inr (Pt) (08/22/17 01:00) Electrocardiogram (08/22/17 01:00) Salicylates (Aspirin) (08/22/17 01:00) Psych Screen (08/21/17 23:28) Labs Laboratory Tests Test 08/21/17 19:30 08/22/17 00:55 08/22/17 01:23 White Blood Count 11.5 TH/MM3 Red Blood Count 4.56 MIL/MM3 Hemoglobin 15.5 GM/DL Hematocrit 46.2 % Mean Corpuscular Volume 101.2 FL Mean Corpuscular Hemoglobin 34.0 PG Mean Corpuscular Hemoglobin Concent 33.6 % Red Cell Distribution Width 13.9 % Platelet Count 289 TH/MM3 Mean Platelet Volume 8.7 FL Neutrophils (%) (Auto) 74.0 % Lymphocytes (%) (Auto) 16.5 % Monocytes (%) (Auto) 8.1 % Eosinophils (%) (Auto) 1.1 % Basophils (%) (Auto) 0.3 % Neutrophils # (Auto) 8.5 TH/MM3 Lymphocytes # (Auto) 1.9 TH/MM3 Monocytes # (Auto) 0.9 TH/MM3 Eosinophils # (Auto) 0.1 TH/MM3 Basophils # (Auto) 0.0 TH/MM3 CBC Comment DIFF FINAL Differential Comment Prothrombin Time 11.2 SEC 11.6 SEC Prothromb Time International Ratio 1.1 RATIO 1.1 RATIO Activated Partial Thromboplast Time 24.0 SEC 24.6 SEC Urine Color YELLOW Urine Turbidity CLEAR Urine pH 7.0 Urine Specific [place] 1.022 Urine Protein TRACE mg/dL Urine Glucose (UA) NEG mg/dL Urine Ketones NEG mg/dL Urine Occult Blood SMALL Urine Nitrite NEG Urine Bilirubin NEG Urine Urobilinogen LESS THAN 2.0 MG/DL Urine Leukocyte Esterase NEG Urine RBC 100 /hpf Urine WBC 4 /hpf Urine Squamous Epithelial Cells <1 /hpf Urine Mucus FEW /lpf Microscopic Urinalysis Comment CULT NOT INDICATED Urine Osmolality 805 MOSM/KG Blood Urea Nitrogen 24 MG/DL Creatinine 1.01 MG/DL Random Glucose 83 MG/DL Total Protein 8.1 GM/DL Albumin 3.7 GM/DL Calcium Level 8.9 MG/DL Alkaline Phosphatase 100 U/L Aspartate Amino Transf (AST/SGOT) 31 U/L Alanine Aminotransferase (ALT/SGPT) 21 U/L Total Bilirubin 0.4 MG/DL Sodium Level 136 MEQ/L Potassium Level 5.5 MEQ/L Chloride Level 103 MEQ/L Carbon Dioxide Level 27.5 MEQ/L Anion Gap 6 MEQ/L Estimat Glomerular Filtration Rate 73 ML/MIN Serum Osmolality 305 MOSM/KG Salicylates Level 3.1 MG/DL 2.8 MG/DL Urine Opiates Screen NEG Acetaminophen Level LESS THAN 2.0 MCG/ML Urine Barbiturates Screen NEG Urine Amphetamines Screen NEG Urine Benzodiazepines Screen NEG Urine Cocaine Screen NEG Urine Cannabinoids Screen NEG Ethyl Alcohol Level LESS THAN 3 MG/DL MDM Medical Decision Making Medical Screen Exam Complete: Yes Emergency Medical Condition: Yes Medical Record Reviewed: Yes Interpretation(s) Last Impressions Chest X-Ray 08/21/[id number] Signed Impressions: Service Date/Time: Monday, August 21, 2017 19:21 - CONCLUSION: 1. No evidence for pneumonia. 2. Small nodule right upper lobe. Outpatient CT chest recommended. Carlin Mcgarry MD Differential Diagnosis Suicidal gesture, versus suicide attempt Narrative Course During the course of the patients emergency department visit, the patients history, examination, and differential diagnosis were reviewed with the patient. The patient was placed on a credit specialist with oximetry and frequent blood pressure monitoring. The patient had IV access obtained and blood work sent for analysis. A call was placed out to poison control regarding this patient's case. The patient's Carter act was reviewed by me. The patient had an ECG done on arrival. The patient's ECG reveals a sinus rhythm heart rate of 60, left axis deviation, QRS duration 94 ms, QTC [address] segment elevation, T waves inverted in V1. The patients laboratory studies were reviewed and remarkable for a white count of 11.5, hemoglobin 15.5, platelets 289 with 74 neutrophils, 8.1 monocytes, CMP is remarkable for potassium of 5.5 with slight hemolysis noted, BUN 24, GFR 73, serum osmolality 305, PT 11.2, INR 1.1, PTT 24, urinary drug screen is negative , acetaminophen less than 2, alcohol level less than 3, salicylate 3.1. Urinalysis shows small occult blood, 100 RBCs, urine osmolality 805, culture not indicated. Radiology studies were reviewed and remarkable for a chest x-ray that shows no evidence for pneumonia, small nodule right upper lobe, radiologist recommended outpatient CT scan of the chest. An outpatient labs will be provided to the patient along with a copy of his chest x-ray results. Poison control recommended that the patient have an ECG repeated four hours after the original results along with a PT PTT. This will be ordered to be completed at 1 AM. An aspirin level also be repeated at that time. Repeat aspirin level is down at 2.8. Repeat coagulation profile reveals a PT of 11.6, PTT 24.6. Repeat ECG revealed a sinus bradycardia rate of 57, QRS duration is 89 ms, QTC [address] segment elevation. The patient has been medically cleared for evaluation by the psychiatric screener and psychiatrist for depression with suicide attempt under a Carter act. Diagnosis Primary Impression: Overdose Qualified Codes: T50.902A - Poisoning by unspecified drugs, medicaments and biological substances, intentional self-harm, initial encounter Additional Impression: Depression Qualified Codes: F32.9 - Major depressive disorder, single episode, unspecified Jackelyn Adair MD Aug 21, 2017 19:14
[2017-08-21] MEDS ORDERED: SODIUM CHLORIDE 0.9% FLUSH 10 ML FLUSH IVF PRN (19:30)
--- NOTE | 2017-08-21 19:31 | RADRPT ---
EXAM DATE/TIME: 08/21/2017 19:21 [place] COMPARISON: No previous studies available for comparison. INDICATIONS : Cough MEDICAL HISTORY : Multiple sclerosis. Deep venous thrombosis SURGICAL HISTORY : Fusion, lumbar. Pins in legs. ENCOUNTER: Initial ACUITY: 1 day PAIN SCORE: 0/10 LOCATION: chest FINDINGS: A single view of the chest demonstrates the lungs to be symmetrically aerated without evidence of mas s, infiltrate or effusion. Small nodule right upper lobe. The cardiomediastinal contours are unremark able. Osseous structures are intact. CONCLUSION: 1. No evidence for pneumonia. 2. Small nodule right upper lobe. Outpatient CT chest recommended. Carlin Mcgarry MD on August 21, 2017 at 19:27 Board Certified Radiologist. This report was verified electronically.
[2017-08-21 19:33] VITALS: BP 150/74; PULSE 65; RESP 16; O2SAT 98
[2017-08-21 19:39] VITALS: RESP 16; O2SAT 98
[2017-08-21 19:53] LABS: BILIRUBIN, URINE NEG (NEG); BLOOD, URINE SMALL (NEG); GLUCOSE,URINE NEG (NEG); KETONE, URINE NEG (NEG); MUCUS URINE FEW /lpf (OCC); NITRITE,URINE NEG (NEG); SQUAMOUS EPITHELIAL CELL URINE <1 /hpf (0-5); URINE COLOR YELLOW (YELLW/STRAW); URINE LEUKOCYTE ESTERASE NEG (NEG)
[2017-08-21 19:59] LABS: AUTOMATED NEUTROPHIL # 8.5 TH/MM3 (1.8-7.7); BASOPHIL % 0.3 % (0.0-2.0); EOSINOPHIL # 0.1 TH/MM3 (0-0.4); EOSINOPHIL % 1.1 % (0.0-4.0); HEMATOCRIT 46.2 % (39.0-51.0); HEMOGLOBIN 15.5 GM/DL (13.0-17.0); LYMPH % 16.5 % (9.0-44.0); LYMPHOCYTE # 1.9 TH/MM3 (1.0-4.8); MEAN CELL VOLUME 101.2 FL (80.0-100.0); MEAN CORPUSCULAR HGB CONC 33.6 % (32.0-36.0); MEAN PLATELET VOLUME 8.7 FL (7.0-11.0); MONO % 8.1 % (0.0-8.0); MONOCYTE # 0.9 TH/MM3 (0-0.9); PLATELET COUNT 289 TH/MM3 (150-450); RED BLOOD COUNT 4.56 MIL/MM3 (4.50-5.90); RED CELL DISTRIBUTION WIDTH 13.9 % (11.6-17.2); WHITE BLOOD COUNT 11.5 TH/MM3 (4.0-11.0)
[2017-08-21 20:05] LABS: INTERNATIONAL NORMALIZED RATIO 1.1 RATIO; PROTHROMBIN TIME - PATIENT 11.2 SEC (9.8-11.6)
[2017-08-21 20:09] LABS: ALT (GPT) 21 U/L (12-78)
[2017-08-21 20:12] LABS: ALBUMIN 3.7 GM/DL (3.4-5.0); ALKALINE PHOSPHATASE 100 U/L (45-117); AST (GOT) 31 U/L (15-37); BICARBONATE 27.5 MEQ/L (21.0-32.0); BLOOD UREA NITROGEN 24 MG/DL (7-18); CALCIUM 8.9 MG/DL (8.5-10.1); CHLORIDE 103 MEQ/L (98-107); CREATININE 1.01 MG/DL (0.60-1.30); GLOMERULAR FILTRATION RATE 73 ML/MIN (>89); GLUCOSE,RANDOM 83 MG/DL (74-106); SODIUM (NA) 136 MEQ/L (136-145); TOTAL BILIRUBIN ADULT 0.4 MG/DL (0.2-1.0); TOTAL PROTEIN 8.1 GM/DL (6.4-8.2)
[2017-08-21 20:13] LABS: ACETAMINOPHEN LESS THAN 2.0 MCG/ML (10.0-30.0)
[2017-08-22 00:04] VITALS: BP 154/71; PULSE 73; RESP 16; O2SAT 98
[2017-08-22 01:19] LABS: INTERNATIONAL NORMALIZED RATIO 1.1 RATIO; PROTHROMBIN TIME - PATIENT 11.6 SEC (9.8-11.6)
[2017-08-22 03:01] VITALS: BP 108/57; PULSE 74; RESP 17; TEMP 97.9; O2SAT 96
[2017-08-22 08:01] VITALS: BP 108/56; PULSE 68; RESP 18; TEMP 97.6; O2SAT 94
[2017-08-22 08:44] VITALS: PULSE 77; O2SAT 97
--- NOTE | 2017-08-22 11:24 | PD.CONS ---
HPI Service [facility] Hospitalists Consult Requested By Primary Care Physician [facility] Diagnoses: History of Present Illness hx from patient, and review of medical records pt was admitted after overdose in a suicidal attempt under psychiatry service pt himself admits that this was the reason he stated he took eliquis and sertaline took around 1100a. to noon yesterday denies symptoms- particularly, denies any black or red stool or blood in urine or nose bleed stated he told his daughter after he took them and thats how he ended up in hospital pt is extremely hard of hearing, asking for his hearing aid but was able to answer questions and follows commands Review of Systems Except as stated in HPI: all other systems reviewed are Neg Past Family Social History Allergies: Coded Allergies: No Known Allergies (Verified Allergy, Unknown, 08/21/17) Past Medical History LLE DVT on eliquis MS overactive bladder Past Surgical History back surgery hernia surgery implant put in and taken out in penile implant? left hip fx Family History none that he knows of Social History smokes a pack a day used to drink heavily years ago, quit no drugs lives with daughter, walks with a walker, no longer driving Physical Exam Vital Signs Vital Signs Date Time Temp Pulse Resp B/P (MAP) Pulse Ox O2 Delivery O2 Flow Rate FiO2 08/22/17 08:52 08/22/17 08:44 77 97 Room Air 08/22/17 08:01 97.6 68 18 108/56 (73) 94 Room Air 08/22/17 03:01 97.9 74 17 108/57 (74) 96 Room Air 08/22/17 00:04 73 16 154/71 (98) 98 08/21/17 19:39 16 98 08/21/17 19:33 65 16 150/74 (99) 98 08/21/17 18:46 98 Room Air 08/21/17 18:29 98.7 66 18 166/77 (106) 98 Physical Exam GENERAL: This is a well-nourished, well-developed patient, in no apparent distress. very pleasant elderly man, hard of hearing SKIN: No rashes, ecchymoses or lesions. Cool and dry. HEAD: Atraumatic. Normocephalic. No temporal or scalp tenderness. EYES: No scleral icterus. No injection or drainage. ENT: Nose without bleeding, purulent drainage or septal hematoma. Airway patent. NECK: Trachea midline. No JVD CARDIOVASCULAR: Regular rate and rhythm without murmurs, gallops, or rubs. RESPIRATORY: Clear to auscultation. Breath sounds equal bilaterally. No wheezes , rales, or rhonchi. GASTROINTESTINAL: Abdomen soft, non-tender, nondistended. . No guarding. MUSCULOSKELETAL: Extremities without clubbing, cyanosis, or edema. No calf tenderness. NEUROLOGICAL: Awake and alert. Motor and sensory grossly within normal limits. Normal speech. Laboratory Laboratory Tests Test 08/21/17 19:30 08/22/17 00:55 08/22/17 01:23 White Blood Count 11.5 Red Blood Count 4.56 Hemoglobin 15.5 Hematocrit 46.2 Mean Corpuscular Volume 101.2 Mean Corpuscular Hemoglobin 34.0 Mean Corpuscular Hemoglobin Concent 33.6 Red Cell Distribution Width 13.9 Platelet Count 289 Mean Platelet Volume 8.7 Neutrophils (%) (Auto) 74.0 Lymphocytes (%) (Auto) 16.5 Monocytes (%) (Auto) 8.1 Eosinophils (%) (Auto) 1.1 Basophils (%) (Auto) 0.3 Neutrophils # (Auto) 8.5 Lymphocytes # (Auto) 1.9 Monocytes # (Auto) 0.9 Eosinophils # (Auto) 0.1 Basophils # (Auto) 0.0 CBC Comment DIFF FINAL Differential Comment Prothrombin Time 11.2 11.6 Prothromb Time International Ratio 1.1 1.1 Activated Partial Thromboplast Time 24.0 24.6 Urine Color YELLOW Urine Turbidity CLEAR Urine pH 7.0 Urine Specific [place] 1.022 Urine Protein TRACE Urine Glucose (UA) NEG Urine Ketones NEG Urine Occult Blood SMALL Urine Nitrite NEG Urine Bilirubin NEG Urine Urobilinogen LESS THAN 2.0 Urine Leukocyte Esterase NEG Urine RBC 100 Urine WBC 4 Urine Squamous Epithelial Cells <1 Urine Mucus FEW Microscopic Urinalysis Comment CULT NOT INDICATED Urine Osmolality 805 Blood Urea Nitrogen 24 Creatinine 1.01 Random Glucose 83 Total Protein 8.1 Albumin 3.7 Calcium Level 8.9 Alkaline Phosphatase 100 Aspartate Amino Transf (AST/SGOT) 31 Alanine Aminotransferase (ALT/SGPT) 21 Total Bilirubin 0.4 Sodium Level 136 Potassium Level 5.5 Chloride Level 103 Carbon Dioxide Level 27.5 Anion Gap 6 Estimat Glomerular Filtration Rate 73 Serum Osmolality 305 Salicylates Level 3.1 2.8 Urine Opiates Screen NEG Acetaminophen Level LESS THAN 2.0 Urine Barbiturates Screen NEG Urine Amphetamines Screen NEG Urine Benzodiazepines Screen NEG Urine Cocaine Screen NEG Urine Cannabinoids Screen NEG Ethyl Alcohol Level LESS THAN 3 Result Diagram: 08/21/17192908/21/171929 Assessment and Plan Assessment and Plan Impression: drug overdose with eliquis and sertaline suicidal attempt depression hx of LLE DVT MS overactive bladder Plan: hold eliquis for now hold sertaline pt cannot tell how many pills he took monitor for evidence of bleeding psychiatry meds per psychiatrist ekg reviewed no tele on med psych- but was medically cleared in ER , also stable clinically, will just monitor clinically for now dvt prophylaxis with ambulation Discussed Condition With patient, nursing staff Rubne Romero MD Aug 22, 2017 11:23
[2017-08-22 18:00] VITALS: BP 119/56; PULSE 60; RESP 18; TEMP 97.7; O2SAT 96
--- NOTE | 2017-08-22 19:33 | EKG ---
Date Performed: 08/22/2017 Time Performed: 00:59:52 PTAGE: 72 years EKG: SINUS BRADYCARDIA MARKED LEFT AXIS DEVIATION MODERATE VOLTAGE CRITERIA FOR LVH, CONSIDER NO RMAL VARIANT POSSIBLE SEPTAL MYOCARDIAL INFARCTION ABNORMAL ECG PREVIOUS TRACING : 08/21/2017 19.32 Since previous tracing, no significant change noted DOCTOR: Chantelle Vivas Interpretating Date/Time 08/22/2017 19:32:58
--- NOTE | 2017-08-22 19:33 | EKG ---
Date Performed: 08/21/2017 Time Performed: 19:32:29 PTAGE: 72 years EKG: Sinus rhythm MARKED LEFT AXIS DEVIATION SEPTAL MYOCARDIAL INFARCTION ABNORMAL ECG PREVIOUS TRACING : 06/14/2017 15.46 Since previous tracing, no significant change noted DOCTOR: Chantelle Vivas Interpretating Date/Time 08/22/2017 19:32:46
[2017-08-23 05:55] VITALS: BP 114/55; PULSE 62; RESP 18; TEMP 97.5; O2SAT 95
--- NOTE | 2017-08-23 07:55 | HHI.HP ---
Provisional Diagnosis Admission Date Aug 22, 2017 at 06:09 [place] I. Major Depressive Disorder Certification of Person's Competence To Provide Express and Informed Consent I have personally examined Moe Price , a person being served at [facility] on, Aug 23, 2017 07:54. Express and informed consent means consent voluntarily given in writing, by a competent person, after sufficient explanation and disclosure of the subject matter involved to enable the person to make a knowing and willful decision without any element of force, fraud, deceit, duress, or other form of constraint or coercion. This person is 18 years of age or older, is not now known to be incompetent to consent to treatment with a guardian advocate, and does not have a health care surrogate or proxy currently making medical treatment decisions. I have found this person to be one of the following: [] Competent to provide express and informed consent, as defined above, for voluntary admission to this facility and is competent to provide express and informed consent for treatment. He/she has the consistent capacity to make well reasoned, willful, and knowing decisions concerning his or her medical or mental health treatment. The person fully and consistently understands the purpose of the admission for examination/placement and is fully capable of personally exercising all rights assured [place] [] Incompetent to provide express and informed consent to voluntary admission, and this is incompetent to provide express and informed consent to treatment. The person must be transferred to involuntary status and a petition for a guardian advocate filed with the Circuit Court. [x] Refusing to provide express and informed consent to voluntary admission but is competent to provide express and informed consent for treatment. The person must be discharged or transferred to involuntary status. Form shall be completed within 24 hours of a person's arrival at the receiving facility and filed in the clinical record of each person: 1. Admitted on a voluntary basis 2. Permitted to provide express and informed consent to his/her own treatment 3. Allowed to transfer from involuntary to voluntary status 4. Prior to permitting a person to consent to his or her own treatment after having been previously found incompetent to consent to treatment. History of Present Illness Capacity: Has Capacity HPI Patient is a 72-year-old man single, domiciled with daughter, retired , supported on social security benefits, with a past psychiatric history of depression, previous psychiatric hospitalizations (last time at [facility] in June 2017), previous suicide attempt (last time via overdose in 2016), who was brought in under [place] act due to suicide attempt via overdose with Eliquis and Sertraline which patient was transferred to the inpatient psychiatry unit for further evaluation and management. As per ED note patient was brought in under [place] act due to suicidal attempt via overdose after " being tired of living". Patient stated that he was being called names by his daughter and to cancel focus and sertraline wasn't sure how many tablets he took. Patient was seen sitting in hospital bed today with nurse noted be, superficially cooperative interview today. Patient states that he took a handful of pills "10, I don't know". Patient states that he was feeling depressed because of his daughter stating that she gets him depressed once in a while and when asked why patient states "the way she talks to me... She calls me a dirty rotten bastard". Patient states that prior to this overdose she states she was arguing with his daughter over money, specifically his income which daughter is a payee. Patient states that he had tried to overdose once before referring to his previous admission here at [facility] in June 2017. Patient denies having difficulty with sleep appetite energy and concentration but did state feeling depressed and having suicide ideations but was unable to clarify when he started having these thoughts. Patient this time states he no longer feels this way and wants to go home. Patient also mentions he has been inconsistent with this treatment. Patient with hearing difficulty which he requires hearing aids which were not at bedside at time of interview. Psychiatric family history: father tried to commit suicide. Past psychiatric history: previous psychiatric diagnosis of depression, previous psychiatric hospitalizations (last here at [facility] in June 2017), as per chart one previous suicide attempt the patient denies. Patient denies history of self-injurious behavior. Previous psychiatric medications: Zoloft, Abilify. Substance use disorder: Currently tobacco(+), denies ETOH or drugs. Past medical history: MS, emphysema Allergies: NKDA Social history: single, has four adult daughters but domiciled with oldest daughter, Radha Lynn, retired on social security benefits, highest education : 9th grade, no access to firearms; no legal history. Review of Systems Except as stated in HPI: all other systems reviewed are Neg Past Psych History Violence risk - others (6 mos) Low Violence risk - self (6 mos) Elevated due to recent suicide attempts Substance Abuse History Drugs/Alcohol past 12 months Currently tobacco(+), denies ETOH or drugs. Past Family Social History Coded Allergies: No Known Allergies (Verified Allergy, Unknown, 08/21/17) Active Scripts Mirtazapine (Mirtazapine) 15 Mg Tab, 15 MG PO HS for health for 30 Days, #30 TAB Prov:Carlin Negrete MD 06/20/17 Calcium/Vitamin D (Oyster Shell 250 mg + Vit D Tb) 250 Mg Calcium (625 Mg)-125 Unit Tablet, 500 MG PO BID for health, #60 TAB 0 Refills Prov:Moe Ahn MD 03/22/17 Tamsulosin (Flomax) 0.4 Mg Cap, 0.4 MG PO DAILY for health, #30 CAP 0 Refills Prov:Moe Ahn MD 03/22/17 Apixaban (Eliquis) 5 Mg Tab, 5 MG PO BID for health, #60 TAB 0 Refills Prov:Moe Ahn MD 03/22/17 Trazodone (Trazodone) 50 Mg Tab, 50 MG PO HS for health, #30 TAB 0 Refills Prov:Moe Ahn MD 11/10/16 Methocarbamol (Methocarbamol) 500 Mg Tab, 500 MG PO Q8HR for health, #90 TAB 0 Refills Prov:Moe Ahn MD 11/10/16 Gabapentin (Neurontin) 300 Mg Cap, 300 MG PO BID for health, #60 CAP 0 Refills Prov:Moe Ahn MD 11/10/16 Aripiprazole (Aripiprazole) 10 Mg Tab, 10 MG PO DAILY for health, #30 TAB 0 Refills Prov:Moe Ahn MD 11/10/16 Reported Medications Sertraline (Sertraline) 100 Mg Tab, 50 MG PO DAILY, #30 TAB 0 Refills 08/21/17 Current Medications Medications (Trade) Dose Ordered Sig/Tia Route Start Time Stop Time Status Last Admin (NS Flush) 2 ml UNSCH PRN IVF 08/21/17 19:30 (Flomax) 0.4 mg DAILY PO 08/23/17 09:00 Family Psych History father tried to commit suicide. Social History single, has four adult daughters but domiciled with oldest daughter, Radha Lynn, retired on social security benefits, highest education: 9th grade, no access to firearms; no legal history. Patient's Strengths (min. 2) Verbal and communicative Physical Exam Patient not noted to be in acute distress, no gross motor abnormalities, no tremors or EPS, no noted psychomotor retardation or agitation. Vital Signs Vital Signs Date Time Temp Pulse Resp B/P (MAP) Pulse Ox O2 Delivery O2 Flow Rate FiO2 08/23/17 05:55 97.5 62 18 114/55 (74) 95 08/22/17 08:44 Room Air I/O 08/23/17 08/23/17 08/24/17 08:00 16:00 00:00 Intake Total 0 ml Balance 0 ml Mental Status Examination Appearance: Appropriate Consciousness: Alert Orientation: Person, Place Motor Activity: Other (ambulates with walker) Speech: Unremarkable Language: Adequate Fund of Knowledge: Inadequate Attention and Concentration: Adequate Memory: Unremarkable Mood: Irritable Affect: Irritable Thought Process & Associations: Linear Thought Content: Appropriate Hallucination Type: None Delusion Type: None Suicidal Ideation: Yes Suicidal Plan: No Suicidal Intention: No Homicidal Ideation: No Homicidal Plan: No Homicidal Intention: No Insight: Poor Judgment: Poor Assessment & Plan Problem List: (1) Major depressive disorder, recurrent severe without psychotic features ICD Codes: F33.2 - Major depressive disorder, recurrent severe without psychotic features Status: Acute Assessment & Plan Estimated LOS: 5-7 days. Patient is 72-year-old man who carries a diagnosis of major depressive disorder, previous psychiatric admissions previous suicide attempt via overdose was admitted to the inpatient psychiatry unit after being put under [place] act due to recent suicide attempt via overdose in the context of relationship discord with daughter. We'll start Effexor 75 mg daily by mouth daily for depression. Continue recommendations. Primary medical team. Continue to monitor mood and behavior. 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 Petition for involuntary hospitalization started. Second opinion requested. Discharge planning in progress Discharge Planning To be determined Request HC Surrog/Guard Advoc?: Carlin Fowler MD Aug 23, 2017 07:55
[2017-08-23] MEDS: TAMSULOSIN HCL 0.4 MG CAP PO SCH (08:21)
[2017-08-23] MEDS ORDERED: diphenhydrAMINE HCL 50 MG CAP PO PRN (08:45)
[2017-08-23] MEDS ORDERED: LORazepam 0.5 MG TAB PO PRN (08:45)
[2017-08-23] MEDS ORDERED: LORazepam 2 MG/ML VIAL IM PRN (08:45)
[2017-08-23] MEDS ORDERED: MAGNESIUM HYDROXIDE SUSP 30 ML CUP PO PRN (08:45)
[2017-08-23] MEDS ORDERED: ALUMINUM/MAGNESIUM/SIMETH 30 ML CUP PO PRN (08:45)
[2017-08-23] MEDS: NICOTINE 21 MG/24 HR PATCH T-DERMAL SCH (09:00)
[2017-08-23] MEDS: REMOVE OLD PATCH T-DERMAL SCH (09:00)
[2017-08-23] MEDS ORDERED: ACETAMINOPHEN 325 MG TAB PO PRN (09:00)
[2017-08-23 09:13] LABS: BICARBONATE 30.7 MEQ/L (21.0-32.0); BLOOD UREA NITROGEN 15 MG/DL (7-18); CALCIUM 8.9 MG/DL (8.5-10.1); CHLORIDE 102 MEQ/L (98-107); CHOLESTEROL 190 MG/DL (120-200); CREATININE 0.83 MG/DL (0.60-1.30); GLOMERULAR FILTRATION RATE 91 ML/MIN (>89); GLUCOSE,RANDOM 165 MG/DL (74-106); SODIUM (NA) 137 MEQ/L (136-145); TRIGLYCERIDES 73 MG/DL (42-150)
[2017-08-23 09:20] LABS: CHOLESTEROL/ HDL RATIO 3.66 RATIO; HDL CHOLESTEROL 51.9 MG/DL (40.0-60.0); LDL CHOLESTEROL 124 MG/DL (0-99)
[2017-08-23] MEDS: VENLAFAXINE HCL 75 MG TAB PO SCH (10:12)
[2017-08-23 11:07] LABS: HEMOGLOBIN A1C 5.6 % (4.3-6.0)
--- NOTE | 2017-08-23 11:22 | HHI.PR ---
Subjective Remarks denies any symptoms on ROS denies blood in stool or urine labs reviewed Objective Vitals Vital Signs Date Time Temp Pulse Resp B/P (MAP) Pulse Ox O2 Delivery O2 Flow Rate FiO2 08/23/17 05:55 97.5 62 18 114/55 (74) 95 08/22/17 18:00 97.7 60 18 119/56 (77) 96 I/O 08/22/17 08/22/17 08/22/17 08/23/17 08/23/17 08/23/17 07:00 15:00 23:00 07:00 15:00 23:00 Intake Total 480 ml 480 ml 240 ml Balance 480 ml 480 ml 240 ml Intake Oral 480 ml 480 ml 240 ml # Voids 3 Result Diagram: 08/21/17192908/23/17 0834 Objective Remarks awake, alert, very pleasant gentleman, hard of hearing skin: no obvious echymosis or bleed heart rate is regular, no murmur appreciated lung exam is clear, no rales, decreased air entry abdomen is soft and non tender, no rebound, no guarding EXtremities- no calf asymmetry or edema, non tender Neuro: awake, alert, oriented, normal speech, no focal deficit A/P Assessment and Plan Impression: drug overdose with eliquis and sertaline suicidal attempt depression hx of DVT MS overactive bladder Plan: hold eliquis will resume in next 24-48hrs no evidence of active bleed hold sertaline psychiatry meds per psychiatrist pt wants to go home and states it might be tomorrow medically stable to be transferred to regular psychiatry floor dvt prophylaxis with ambulation Discharge Planning patient, Ruben Romero MD Aug 23, 2017 11:22
--- NOTE | 2017-08-23 12:04 | PD.PSY.CON ---
Provisional Diagnosis Admission Date Aug 22, 2017 at 06:09 [place] I. Major Depressive Disorder History of Present Illness Service Psychiatry Consult Requested By Dr. Negrete Reason for Consult Second opinion Primary Care Physician [facility] HPI Patient is a 72-year-old man single, domiciled with daughter, retired , supported on social security benefits, with a past psychiatric history of depression, previous psychiatric hospitalizations (last time at [facility] in June 2017), previous suicide attempt (last time via overdose in 2016), who was brought in under [facility] due to suicide attempt via overdose with Eliquis and Sertraline which patient was transferred to the inpatient psychiatry unit for further evaluation and management. As per ED note patient was brought in under [facility] due to suicidal attempt via overdose after " being tired of living". Patient stated that he was being called names by his daughter and to cancel focus and sertraline wasn't sure how many tablets he took. Patient was seen sitting in hospital bed today with nurse noted be, superficially cooperative interview today. Patient states that he took a handful of pills "10, I don't know". Patient states that he was feeling depressed because of his daughter stating that she gets him depressed once in a while and when asked why patient states "the way she talks to me... She calls me a dirty rotten bastard". Patient states that prior to this overdose she states she was arguing with his daughter over money, specifically his income which daughter is a payee. Patient states that he had tried to overdose once before referring to his previous admission here at [facility] in June 2017. Patient denies having difficulty with sleep appetite energy and concentration but did state feeling depressed and having suicide ideations but was unable to clarify when he started having these thoughts. Patient this time states he no longer feels this way and wants to go home. Patient also mentions he has been inconsistent with this treatment. Patient with hearing difficulty which he requires hearing aids which were not at bedside at time of interview. The patient is a 72 years old man, domiciled with his daughter, retired, supported by Social Security benefits, with psychiatric history of depression, previous psychiatric hospitalizations, previous suicidal attempts, history of alcohol use disorder, medical history of MS and emphysema, who was brought to the hospital under [facility] after a suicidal attempt by overdose and with medications. Patient reportedly took an overdose with Sertraline and eliquis. He was consulted to live for second opinion. On psychiatric evaluation the patient is just superficially cooperative, irritable, difficult to establish a conversation with he does is very hard of hearing. However, the patient says that he came to the hospital because he was very depressed and he wanted to commit suicide. He says that he has been having difficulties in the interaction with his daughter. He says that she is disrespectful and mean with him. At this moment the patient reports is ideation, but denies plan. Review of Systems Except as stated in HPI: all other systems reviewed are Neg Past Family Social History Coded Allergies: No Known Allergies (Verified Allergy, Unknown, 08/21/17) Active Scripts Mirtazapine (Mirtazapine) 15 Mg Tab, 15 MG PO HS for health for 30 Days, #30 TAB Prov:Carlin Negrete MD 06/20/17 Calcium/Vitamin D (Oyster Shell 250 mg + Vit D Tb) 250 Mg Calcium (625 Mg)-125 Unit Tablet, 500 MG PO BID for health, #60 TAB 0 Refills Prov:Moe Ahn MD 03/22/17 Tamsulosin (Flomax) 0.4 Mg Cap, 0.4 MG PO DAILY for health, #30 CAP 0 Refills Prov:Moe Ahn MD 03/22/17 Apixaban (Eliquis) 5 Mg Tab, 5 MG PO BID for health, #60 TAB 0 Refills Prov:Moe Ahn MD 03/22/17 Trazodone (Trazodone) 50 Mg Tab, 50 MG PO HS for health, #30 TAB 0 Refills Prov:Moe Ahn MD 11/10/16 Methocarbamol (Methocarbamol) 500 Mg Tab, 500 MG PO Q8HR for health, #90 TAB 0 Refills Prov:Moe Ahn MD 11/10/16 Gabapentin (Neurontin) 300 Mg Cap, 300 MG PO BID for health, #60 CAP 0 Refills Prov:Moe Ahn MD 11/10/16 Aripiprazole (Aripiprazole) 10 Mg Tab, 10 MG PO DAILY for health, #30 TAB 0 Refills Prov:Moe Ahn MD 11/10/16 Reported Medications Sertraline (Sertraline) 100 Mg Tab, 50 MG PO DAILY, #30 TAB 0 Refills 08/21/17 Current Medications Medications (Trade) Dose Ordered Sig/Tia Route Start Time Stop Time Status Last Admin (NS Flush) 2 ml UNSCH PRN IVF 08/21/17 19:30 (Flomax) 0.4 mg DAILY PO 08/23/17 09:00 08/23/17 08:21 (Ativan) 0.5 mg Q12H PRN PO 08/23/17 08:45 (Ativan Inj) 0.5 mg Q12H PRN IM 08/23/17 08:45 (Benadryl) 50 mg HS PRN PO 08/23/17 08:45 (Tylenol) 650 mg Q4H PRN PO 08/23/17 09:00 (Milk Of Magnesia Liq) 30 ml DAILY PRN PO 08/23/17 08:45 (Mag-Al Plus Susp Liq) 30 ml Q6H PRN PO 08/23/17 08:45 (Habitrol 21 Mg Patch.24 Hr) 1 patch DAILY T-DERMAL 08/23/17 09:00 Miscellaneous Information 1 DAILY T-DERMAL 08/23/17 09:00 (Effexor) 75 mg DAILY PO 08/23/17 09:00 08/23/17 10:12 Patient's Strengths (min. 2) Verbal and communicative Physical Exam Vital Signs Vital Signs Date Time Temp Pulse Resp B/P (MAP) Pulse Ox O2 Delivery O2 Flow Rate FiO2 08/23/17 05:55 97.5 62 18 114/55 (74) 95 08/22/17 08:44 Room Air I/O 08/23/17 08/23/17 08/24/17 08:00 16:00 00:00 Intake Total 0 ml 240 ml Balance 0 ml 240 ml Lab Results Test 08/23/17 08:34 Blood Urea Nitrogen 15 MG/DL Creatinine 0.83 MG/DL Random Glucose 165 MG/DL Calcium Level 8.9 MG/DL Sodium Level 137 MEQ/L Potassium Level 4.2 MEQ/L Chloride Level 102 MEQ/L Carbon Dioxide Level 30.7 MEQ/L Anion Gap 4 MEQ/L Estimat Glomerular Filtration Rate 91 ML/MIN Hemoglobin A1c 5.6 % Triglycerides Level 73 MG/DL Cholesterol Level 190 MG/DL LDL Cholesterol 124 MG/DL HDL Cholesterol 51.9 MG/DL Cholesterol/HDL Ratio 3.66 RATIO Mental Status Examination Appearance: Appropriate Consciousness: Alert Orientation: Person, Place Motor Activity: Other (ambulates with walker) Speech: Unremarkable Language: Adequate Fund of Knowledge: Inadequate Attention and Concentration: Adequate Memory: Unremarkable Mood: Irritable Affect: Irritable Thought Process & Associations: Linear Thought Content: Appropriate Hallucination Type: None Delusion Type: None Suicidal Ideation: Yes Suicidal Plan: No Suicidal Intention: No Homicidal Ideation: No Homicidal Plan: No Homicidal Intention: No Insight: Poor Judgment: Poor Assessment & Plan Problem List: (1) Major depressive disorder, recurrent severe without psychotic features ICD Codes: F33.2 - Major depressive disorder, recurrent severe without psychotic features Status: Acute Assessment & Plan: I have seen and examined this patient for a second opinion. Reviewed documentation, discussed the case with Dr. Negrete. I agree and concur with his assessment and plan. Consult appreciated. Assessment & Plan Estimated LOS: days Request HC Surrog/Guard Advoc?: No Jorge Caruso MD Aug 23, 2017 12:04
[2017-08-23 18:15] VITALS: BP_SYST 114; BP_SYST 135; BP_DIAS 55; BP_DIAS 64; PULSE 62; PULSE 63; RESP 16; RESP 18; TEMP 97.5; TEMP 97.7; O2SAT 95; O2SAT 97
[2017-08-24 06:07] VITALS: BP 125/59; PULSE 66; RESP 16; TEMP 98; O2SAT 96
[2017-08-24] MEDS: VENLAFAXINE HCL 75 MG TAB PO SCH (08:41)
[2017-08-24] MEDS: NICOTINE 21 MG/24 HR PATCH T-DERMAL SCH (08:41)
[2017-08-24] MEDS: REMOVE OLD PATCH T-DERMAL SCH (08:41)
[2017-08-24] MEDS: TAMSULOSIN HCL 0.4 MG CAP PO SCH (08:41)
[2017-08-24 11:22] LABS: BICARBONATE 27.3 MEQ/L (21.0-32.0); BLOOD UREA NITROGEN 19 MG/DL (7-18); CALCIUM 8.6 MG/DL (8.5-10.1); CHLORIDE 104 MEQ/L (98-107); CHOLESTEROL 180 MG/DL (120-200); CREATININE 0.65 MG/DL (0.60-1.30); GLOMERULAR FILTRATION RATE 121 ML/MIN (>89); GLUCOSE,RANDOM 113 MG/DL (74-106); SODIUM (NA) 139 MEQ/L (136-145); TRIGLYCERIDES 132 MG/DL (42-150)
[2017-08-24 11:23] LABS: CHOLESTEROL/ HDL RATIO 3.73 RATIO; HDL CHOLESTEROL 48.2 MG/DL (40.0-60.0); LDL CHOLESTEROL 105 MG/DL (0-99)
--- NOTE | 2017-08-24 11:52 | EKG ---
Date Performed: 08/24/2017 Time Performed: 09:22:26 PTAGE: 72 years EKG: Sinus rhythm SEPTAL MYOCARDIAL INFARCTION , OF INDETERMINATE AGE ABNORMAL ECG PREVIOUS TRACING : 08/22/2017 00.59 Since the prior tracing, there has been no significant palmer DOCTOR: Yeison Longo Interpretating Date/Time 08/24/2017 11:51:35
--- NOTE | 2017-08-24 12:11 | HHI.PR ---
Subjective Remarks pt is somewhat annoyed today asking when he would be going home has his hearing aid at bedside denies any overnight issues Objective Vitals Vital Signs Date Time Temp Pulse Resp B/P (MAP) Pulse Ox O2 Delivery O2 Flow Rate FiO2 08/24/17 06:07 98.0 66 16 125/59 (81) 96 08/23/17 18:15 97.7 63 16 135/64 (87) 97 I/O 08/23/17 08/23/17 08/23/17 08/24/17 08/24/17 08/24/17 06:59 14:59 22:59 06:59 14:59 22:59 Intake Total 480 ml 720 ml 720 ml 220 ml 240 ml Balance 480 ml 720 ml 720 ml 220 ml 240 ml Intake Oral 480 ml 720 ml 720 ml 220 ml 240 ml # Voids 3 2 1 1 # Bowel Movements 0 Result Diagram: 08/21/17 1930 08/24/17 1053 Objective Remarks awake, alert, seems angry because he wants to go home skin- no obvious bruising heart rate is regular, no murmur appreciated lung sounds are decreased , poor inspiratory effort, no rales abdomen is soft and non tender, no rebound or guarding extremities without any edema, calf asymmetry or tenderness neuro- awake, alert, normal speech, no focal deficit A/P Assessment and Plan Impression: drug overdose with eliquis and sertaline hx of LLE DVT MS overactive bladder Plan: continue current management resume eliquis by tomorrow if he is discharged today medically stable to be transferred to regular psychiatry floor DVT prophylaxis with ambulation- pt has been ambulatory in unit Discharge Planning per psychiatry Ruben Romero MD Aug 24, 2017 12:11
[2017-08-24 15:35] LABS: HEMOGLOBIN A1C 5.6 % (4.3-6.0)
--- NOTE | 2017-08-24 17:15 | HHI.PYPN ---
Subjective Remarks Patient seen for follow-up, chart reviewed. Discussion she staff reported the patient continues to request discharge has been superficially cooperative. Patient is found lying in hospital bed, calm and guarded with interview. Patient stated that has been sleeping well, his mood has been "alright". Patient reports having spoken to his daughter recently and has been told that they are trying to require a mobile home where he will have his own which she states will improve his circumstances. Patient continues to report that he had attempted to end his life because he gets depressed stating "I do stupid things ". When asked to elaborate on the stressors that have brought him to the suicide attempt he states having to pay high rent but was not able to elaborate on other contributing factors such as his relationship discord with his daughter which has been issue in the past. Patient at this time denies SI, HI, perceptual disturbances or delusions. Review of Systems Except as stated in HPI: all other systems reviewed are Neg Mental Status Examination Appearance: Appropriate Consciousness: Alert Orientation: Person, Place Motor Activity: Other (ambulates with walker) Speech: Unremarkable Language: Adequate Fund of Knowledge: Inadequate Attention and Concentration: Adequate Memory: Unremarkable Mood: Irritable Affect: Irritable, Other (guarded) Thought Process & Associations: Linear Thought Content: Appropriate Hallucination Type: None Delusion Type: None Suicidal Ideation: Yes (denies today) Suicidal Plan: No Suicidal Intention: No Homicidal Ideation: No Homicidal Plan: No Homicidal Intention: No Insight: Poor Judgment: Poor Results Labs Labs reviewed Test 08/24/17 10:53 Blood Urea Nitrogen 19 MG/DL Creatinine 0.65 MG/DL Random Glucose 113 MG/DL Calcium Level 8.6 MG/DL Sodium Level 139 MEQ/L Potassium Level 4.3 MEQ/L Chloride Level 104 MEQ/L Carbon Dioxide Level 27.3 MEQ/L Anion Gap 8 MEQ/L Estimat Glomerular Filtration Rate 121 ML/MIN Triglycerides Level 132 MG/DL Cholesterol Level 180 MG/DL LDL Cholesterol 105 MG/DL HDL Cholesterol 48.2 MG/DL Cholesterol/HDL Ratio 3.73 RATIO Vitals/IOs Vital Signs Date Time Temp Pulse Resp B/P (MAP) Pulse Ox O2 Delivery O2 Flow Rate FiO2 08/24/17 06:07 98.0 66 16 125/59 (81) 96 08/22/17 08:44 Room Air Intake and Output 108/24/17 08/25/17 08:00 16:00 00:00 Intake Total 220 ml 480 ml Balance 220 ml 480 ml Assessment & Plan Problem List: (1) Major depressive disorder, recurrent severe without psychotic features ICD Codes: F33.2 - Major depressive disorder, recurrent severe without psychotic features Status: Acute Assessment & Plan Patient this time continues to be at high risk for self-harm as this is the second suicide attempt within less than 3 months via overdose. Patient continues to minimize recent suicide attempt and continues to be guarded and superficially cooperative interview. Patient continues to require further evaluation and management for recent suicide attempt. We'll increase venlafaxine to 150 mg by mouth daily for depression. Continue to monitor mood and behavior. Patient has had previous Adult Protective Services cases in regards to his home environment. We'll continue to explore possible reinvolvement of APS at this time. Continue recommendations as per primary medical team. Discharge planning in progress Justification for Cont. Inpt. At risk for further decompensation if at lower level of care Discharge Planning To be determined Request HC Surrog/Guard Advoc?: No Carlin Negrete MD Aug 24, 2017 17:15
[2017-08-24 18:23] VITALS: BP 120/63; PULSE 67; RESP 18; TEMP 98; O2SAT 96
[2017-08-25 05:43] VITALS: BP 140/63; PULSE 59; RESP 16; TEMP 96.8; O2SAT 93
[2017-08-25] MEDS: NICOTINE 21 MG/24 HR PATCH T-DERMAL SCH (08:08)
[2017-08-25] MEDS: TAMSULOSIN HCL 0.4 MG CAP PO SCH (08:08)
[2017-08-25] MEDS: REMOVE OLD PATCH T-DERMAL SCH (08:08)
[2017-08-25] MEDS: VENLAFAXINE HCL XR 75 MG CAP PO SCH (08:08)
--- NOTE | 2017-08-25 14:24 | HHI.PYPN ---
Subjective Remarks Patient seen for follow-up, chart reviewed. Discussion with nursing staff reported that the patient has been compliant with treatment. Patient was found lying on hospital bed, calm and cooperative. He states that he is feeling "alright", denies feeling depressed and states no longer having any thoughts of suicide. He continues to state that he was previously feeling depressed due to having to pay rent and is more hopeful that he and his daughter have found a new place (mobile home) that is less expensive. He denies SI, HI, AVH or delusions. Review of Systems Except as stated in HPI: all other systems reviewed are Neg Mental Status Examination Appearance: Appropriate Consciousness: Alert Orientation: Person, Place Motor Activity: Other (ambulates with walker) Speech: Unremarkable Language: Adequate Fund of Knowledge: Inadequate Attention and Concentration: Adequate Memory: Unremarkable Mood: Appropriate Affect: Appropriate, Other (guarded) Thought Process & Associations: Linear Thought Content: Appropriate Hallucination Type: None Delusion Type: None Suicidal Ideation: No Suicidal Plan: No Suicidal Intention: No Homicidal Ideation: No Homicidal Plan: No Homicidal Intention: No Insight: Poor Judgment: Poor Results Vitals/IOs Vital Signs Date Time Temp Pulse Resp B/P (MAP) Pulse Ox O2 Delivery O2 Flow Rate FiO2 08/25/17 05:43 96.8 59 16 140/63 (88) 93 08/22/17 08:44 Room Air Intake and Output 08/25/17 08/25/17 08/26/17 08:00 16:00 00:00 Intake Total 0 ml 720 ml Balance 0 ml 720 ml Assessment & Plan Problem List: (1) Major depressive disorder, recurrent severe without psychotic features ICD Codes: F33.2 - Major depressive disorder, recurrent severe without psychotic features Status: Acute Assessment & Plan Patient reports improvement of mood, denies any SI and feels more hopeful. Continue current treatment. Discharge planning in progress. Justification for Cont. Inpt. At risk at further decompensation at lower level of care. Discharge Planning Back to his residence Request HC Surrog/Guard Advoc?: Carlin Fowler MD Aug 25, 2017 14:24
[2017-08-25 19:00] VITALS: BP 122/59; PULSE 64; RESP 16; TEMP 98.2; O2SAT 97
[2017-08-26 06:01] VITALS: BP 121/56; PULSE 66; RESP 16; TEMP 97.9; O2SAT 97
[2017-08-26] MEDS: VENLAFAXINE HCL XR 75 MG CAP PO SCH (08:29)
[2017-08-26] MEDS: TAMSULOSIN HCL 0.4 MG CAP PO SCH (08:29)
[2017-08-26] MEDS: REMOVE OLD PATCH T-DERMAL SCH (08:31)
[2017-08-26] MEDS: NICOTINE 21 MG/24 HR PATCH T-DERMAL SCH (08:31)
[2017-08-26] MEDS ORDERED: TAMS5CAP PO (12:01)
[2017-08-26] MEDS ORDERED: VENL75XR PO (12:01)
--- NOTE | 2017-08-26 12:12 | HHI.DS ---
Psychiatry Discharge Summary Inpatient Psychiatric care?: Yes Advance Directive: No Reason Not Provided: refused Mental Health AdvanceDirective: No (patient declined) Health Care Proxy: No Admission Admission Date Aug 22, 2017 at 06:09 Admission Diagnosis: (1) Major depressive disorder, recurrent severe without psychotic features ICD Code: F33.2 - Major depressive disorder, recurrent severe without psychotic features Brief History Patient is a 72-year-old man single, domiciled with daughter, retired , supported on social security benefits, with a past psychiatric history of depression, previous psychiatric hospitalizations (last time at [facility] in June 2017), previous suicide attempt (last time via overdose in 2016), who was brought in under [facility] due to suicide attempt via overdose with Eliquis and Sertraline which patient was transferred to the inpatient psychiatry unit for further evaluation and management. As per ED note patient was brought in under [facility] due to suicidal attempt via overdose after " being tired of living". Patient stated that he was being called names by his daughter and to cancel focus and sertraline wasn't sure how many tablets he took. Patient was seen sitting in hospital bed today with nurse noted be, superficially cooperative interview today. Patient states that he took a handful of pills "10, I don't know". Patient states that he was feeling depressed because of his daughter stating that she gets him depressed once in a while and when asked why patient states "the way she talks to me... She calls me a dirty rotten bastard". Patient states that prior to this overdose she states she was arguing with his daughter over money, specifically his income which daughter is a payee. Patient states that he had tried to overdose once before referring to his previous admission here at [facility] in June 2017. Patient denies having difficulty with sleep appetite energy and concentration but did state feeling depressed and having suicide ideations but was unable to clarify when he started having these thoughts. Patient this time states he no longer feels this way and wants to go home. Patient also mentions he has been inconsistent with this treatment. Patient with hearing difficulty which he requires hearing aids which were not at bedside at time of interview. The patient is a 72 years old man, domiciled with his daughter, retired, supported by Social Security benefits, with psychiatric history of depression, previous psychiatric hospitalizations, previous suicidal attempts, history of alcohol use disorder, medical history of MS and emphysema, who was brought to the hospital under [employer] act after a suicidal attempt by overdose and with medications. Patient reportedly took an overdose with Sertraline and eliquis. He was consulted to live for second opinion. On psychiatric evaluation the patient is just superficially cooperative, irritable, difficult to establish a conversation with he does is very hard of hearing. However, the patient says that he came to the hospital because he was very depressed and he wanted to commit suicide. He says that he has been having difficulties in the interaction with his daughter. He says that she is disrespectful and mean with him. At this moment the patient reports is ideation, but denies plan. Tobacco Use In Past 30 Days: Refused To Answer Alcohol Use: Never Hospital Course Patient is a 72-year-old man single, domiciled with daughter, retired , supported on social security benefits, with a past psychiatric history of depression, previous psychiatric hospitalizations (last time at [facility] in June 2017), previous suicide attempt (last time via overdose in 2016), who was brought in under [employer] act due to suicide attempt via overdose with Eliquis and Sertraline which patient was transferred to the inpatient psychiatry unit for further evaluation and management. Patient started on venlafaxine and titrated up to 150mg for depression. Patient was noted to have progressive improvement of mood, maintained self hygiene, fair appetite, and compliant with treatment. Patient was cooperative with staff, had no behavioral dyscontrol, and participated in ADLs. Upon discharge patient stated that she was feeling good, denied any manic or psychotic symptoms, denied any SI, HI or delusions. He states that he is wants to continue to live for his children, enjoy his life and resume his hobbies. Patient agreed to continue medication regimen and outpatient follow up for continuity of care. I have counseled the patient regarding warning signs for need to return to the psychiatric emergency room as part of a general safety plan. Patient advised to call 911 or go nearest ED in case of emergency. Patient agrees with plan. Results Blood Pressure 121 / 56 Vital Signs Date Time Temp Pulse Resp B/P (MAP) Pulse Ox O2 Delivery O2 Flow Rate FiO2 08/26/17 06:01 97.9 66 16 121/56 (77) 97 08/22/17 08:44 Room Air Laboratory Tests Test 08/24/17 10:53 Blood Urea Nitrogen 19 MG/DL (7-18) Random Glucose 113 MG/DL (74-106) LDL Cholesterol 105 MG/DL (0-99) Laboratory Results Test 08/24/17 10:53 Cholesterol Level 180 MG/DL (120-200) HDL Cholesterol 48.2 MG/DL (40.0-60.0) Hemoglobin A1c 5.6 % (4.3-6.0) LDL Cholesterol 105 MG/DL (0-99) Triglycerides Level 132 MG/DL (42-150) Summary of Procedures none Imaging Last Impressions Chest X-Ray 08/21/177 Signed Impressions: Service Date/Time: Monday, August 21, 2017 19:21 - CONCLUSION: 1. No evidence for pneumonia. 2. Small nodule right upper lobe. Outpatient CT chest recommended. Carlin Mcgarry MD Pending results at discharge: No Medications # of Antipsychotic meds at D/C: 0 Approp Antipsych med options 1 - Minimum of three failed multiple trials of monotherapy. 2 - Documented plan to taper to monotherapy due to previous use of multiple meds OR cross-taper in progress at D/C. 3 - Documentation of augmentation of Clozapine. 4 - Justification other than those listed in allowable values 1-3, document here : Discharge Discharge Date: Aug 26, 2017 Discharge Diagnosis: (1) Major depressive disorder, recurrent severe without psychotic features ICD Code: F33.2 - Major depressive disorder, recurrent severe without psychotic features Status: Acute Pt Condition on Discharge: Stable Discharge Disposition: Discharge Home Discharge Instructions Diet Instructions: Heart Healthy Diet Activities you can perform: Regular-No Restrictions Scheduled Appointment: [facility] Appointment Date: Aug 29, 2017 Appointment Time: 10:00 am Discharge Time > 30 minutes Mental Status Examination Appearance: Appropriate Consciousness: Alert Orientation: Person, Place Motor Activity: Other (ambulates with walker) Speech: Unremarkable Language: Adequate Fund of Knowledge: Inadequate Attention and Concentration: Adequate Memory: Unremarkable Mood: Appropriate Affect: Appropriate Thought Process & Associations: Goal directed, Linear Thought Content: Appropriate Hallucination Type: None Delusion Type: None Suicidal Ideation: No Suicidal Plan: No Suicidal Intention: No Homicidal Ideation: No Homicidal Plan: No Homicidal Intention: No Insight: Adequate Judgment: Adequate Discharge/Advance Care Plan Health Problems: (1) Major depressive disorder, recurrent severe without psychotic features Goals to promote your health * To prevent worsening of your condition and complications * To maintain your health at the optimal level Directions to meet your goals Take your medications as prescribed Follow your dietary instruction Follow activity as directed Keep your appointments as scheduled Take your immunizations and boosters as scheduled If your symptoms worsen call your PCP, if no PCP go to Urgent Care Center or Emergency Room For 21/02 questions related to your inpatient stay or results of tests pending at discharge, please contact Dr. Carlin Negrete at Smoking is Dangerous to Your Health. Avoid second hand smoking Carlin Negrete MD Aug 26, 2017 12:12
[2017-08-26] MEDS ORDERED: APIX5TAB PO (17:07)
== END 2017-08-26 17:15 | disposition home or self-care (01) | DRG 885 ==
LOC: NEPC 18:10 → NEDA 08-22 06:09 → H4EA 08-22 08:43 → H250 08-25 02:05
PROVIDERS: ADMIT Student in an Organized Health Care Education/Training Program; ATTEND Student in an Organized Health Care Education/Training Program
DX: F33.2 Major depressive disorder, recurrent severe without psychotic features (principal); R00.1 Bradycardia, unspecified; G35 Multiple sclerosis; J43.9 Emphysema, unspecified; K59.09 Other constipation; T45.522A Poisoning by antithrombotic drugs, intentional self-harm, initial encounter; T43.222A Poisoning by selective serotonin reuptake inhibitors, intentional self-harm, initial encounter; N32.81 Overactive bladder; H91.93 Unspecified hearing loss, bilateral; F17.210 Nicotine dependence, cigarettes, uncomplicated; R91.1 Solitary pulmonary nodule; Z91.5 Personal history of self-harm; Z86.718 Personal history of other venous thrombosis and embolism
CPT/HCPCS: 71045; 80048; 80053; 80061; 80307; 81001; 83036; 83930; 83935; 85025; 85610; 85730; 93005; Q0163

== ENCOUNTER 2017-08-31 15:29 | Emergency (ER) | payer OTHER ==
[~2017-08-31] VITALS: Ht 193 cm; Wt 75.0 kg
[~2017-08-31 15:29] MED LIST changes: -ARIP1TAB12 PO; -METH500T3 PO; -MIRTA15 PO; -NEUR300C PO; -TRAZ50TA12 PO; +VENL75XR PO; -ZOLO100T PO; -ZOLO50TA PO
[2017-08-31 15:39] VITALS: BP 141/65; PULSE 64; RESP 18; TEMP 98.1; O2SAT 100
--- NOTE | 2017-08-31 16:17 | PD ---
HPI Chief Complaint: Psychiatric Symptoms Time Seen by Provider: 15:51 Travel History International Travel<30 days: No Contact w/Intl Traveler<30days: No Traveled to known affect area: No History of Present Illness HPI 72-year-old male presents to the emergency department under [facility] act. According to the Carter act report the patient "recent suicide attempt, unable/ unwilling to commit to safety plan, or high-risk list. Daughter is caregiver with power of insurance attorney. Daughter leaving town over weekend, limited support. Case discussed with Tele[employer] provider." On examination the patient states that he was thinking about suicide this morning. Said he would try to commit suicide by doing anything that would cause pain. He denies suicidal ideation at this time. He denies a plan at this time. Reports feeling depressed "all the time." Denies illicit drug use, alcohol use. Denies auditory or visual hallucinations. Denies emergent medical complaints. Denies chest pain, shortness of breath, abdominal pain, fevers, vomiting. No known aggravating or relieving factors. Unknown onset or duration. Symptoms are moderate to severe in severity. No known allergies. [facility] provider [facility]. History of MS. Has no other medical complaints. No other modifying factors or associated signs and symptoms. PFSH Past Medical History Hx Anticoagulant Therapy: Yes (eliquis) Arthritis: No Asthma: No Autoimmune Disease: No Blood Disorders: No Anxiety: Yes Depression: Yes Heart Rhythm Problems: No Cancer: No Cardiovascular Problems: Yes (A-FIB ) Chest Pain: No Congestive Heart Failure: No COPD: Yes Cerebrovascular Accident: No Diabetes: No Diminished Hearing: Yes (bilateral hearing aids, NONE IN PLACE) Deep Vein Thrombosis: Yes (L LEG) Endocrine: No Gastrointestinal Disorders: No Genitourinary: No Headaches: No Immune Disorder: No Implanted Vascular Access Dvce: Yes Musculoskeletal: Yes (right back pain, BLE weakness due to MS) Neurologic: No Psychiatric: Yes (Hx of treatment for Major Depressive Disorder) Respiratory: Yes (emphysema) Immunizations Current: Yes Migraines: No Seizures: No Sleep Apnea: No Thyroid Disease: No Past Surgical History Abdominal Surgery: No AICD: No Arteriovenous Shunt: No Body Medical Devices: pins in right leg, accident at work in 1988 Cardiac Surgery: No Ear Surgery: No Endocrine Surgery: No Eye Surgery: No Genitourinary Surgery: No Gynecologic Surgery: No Insulin Pump: No Joint Replacement: No Neurologic Surgery: No Oral Surgery: No Pacemaker: No Thoracic Surgery: No Other Surgery: Yes (hx of back surgery) Social History Alcohol Use: No (QUIT 1989, HX : ETOH ABUSE) Tobacco Use: Yes (1 PPD) Substance Use: No Allergies-Medications (Allergen,Severity, Reaction): Coded Allergies: No Known Allergies (Verified Allergy, Unknown, 08/31/17) Reported Meds & Prescriptions Reported Meds & Active Scripts Active Eliquis (Apixaban) 5 Mg Tab 5 Mg PO BID 30 Days Effexor XR 24 HR (Venlafaxine HCl) 75 Mg Cap 150 Mg PO DAILY 30 Days Oyster Shell 250 mg + Vit D Tb (Calcium/Vitamin D) 250 Mg Calcium (625 Mg)-125 Unit Tablet 500 Mg PO BID Review of Systems Except as stated in HPI: all other systems reviewed are Neg Physical Exam Narrative GENERAL: Well-nourished, well-developed elderly, male patient, in no acute distress SKIN: Warm and dry. HEAD: Atraumatic. Normocephalic. EYES: Pupils equal and round. ENT: Mucosa pink and moist. NECK: Supple. Trachea midline. CARDIOVASCULAR: Regular rate and rhythm. No murmur appreciated. RESPIRATORY: No accessory muscle use. Clear to auscultation. Breath sounds equal bilaterally. GASTROINTESTINAL: Abdomen soft, non-tender, nondistended. Hepatic and splenic margins not palpable. Bowel sounds are active 4 quadrants. MUSCULOSKELETAL: No obvious deformities. No clubbing. No cyanosis. No edema. NEUROLOGICAL: Awake and alert. Oriented 3. No obvious cranial nerve deficits. Motor grossly within normal limits. Normal speech. Moves all extremities. 5/5 strength to all extremities. PSYCHIATRIC: No delusional thought processes. No hallucinations. Data Data Last Documented VS Vital Signs Date Time Temp Pulse Resp B/P (MAP) Pulse Ox O2 Delivery O2 Flow Rate FiO2 08/31/17 15:48 62 20 08/31/17 15:39 98.1 141/65 (90) 100 Orders Orders Complete Blood Count With Diff (08/31/17 15:52) Comprehensive Metabolic Panel (08/31/17 15:52) Psych Screen (08/31/17 15:52) Drug Screen, Random Urine (08/31/17 15:52) Alcohol (Ethanol) (08/31/17 15:52) Salicylates (Aspirin) (08/31/17 15:52) Tylenol (Acetaminophen) (08/31/17 15:52) Labs Laboratory Tests Test 08/31/17 15:45 White Blood Count 11.9 TH/MM3 Red Blood Count 4.45 MIL/MM3 Hemoglobin 15.4 GM/DL Hematocrit 44.7 % Mean Corpuscular Volume 100.4 FL Mean Corpuscular Hemoglobin 34.5 PG Mean Corpuscular Hemoglobin Concent 34.4 % Red Cell Distribution Width 13.9 % Platelet Count 264 TH/MM3 Mean Platelet Volume 8.8 FL Neutrophils (%) (Auto) 73.6 % Lymphocytes (%) (Auto) 16.6 % Monocytes (%) (Auto) 7.8 % Eosinophils (%) (Auto) 1.8 % Basophils (%) (Auto) 0.2 % Neutrophils # (Auto) 8.7 TH/MM3 Lymphocytes # (Auto) 2.0 TH/MM3 Monocytes # (Auto) 0.9 TH/MM3 Eosinophils # (Auto) 0.2 TH/MM3 Basophils # (Auto) 0.0 TH/MM3 CBC Comment DIFF FINAL Differential Comment Blood Urea Nitrogen 18 MG/DL Creatinine 0.67 MG/DL Random Glucose 81 MG/DL Total Protein 7.8 GM/DL Albumin 3.7 GM/DL Calcium Level 8.5 MG/DL Alkaline Phosphatase 96 U/L Aspartate Amino Transf (AST/SGOT) 14 U/L Alanine Aminotransferase (ALT/SGPT) 22 U/L Total Bilirubin 0.2 MG/DL Sodium Level 138 MEQ/L Potassium Level 4.0 MEQ/L Chloride Level 105 MEQ/L Carbon Dioxide Level 25.7 MEQ/L Anion Gap 7 MEQ/L Estimat Glomerular Filtration Rate 117 ML/MIN Salicylates Level 4.1 MG/DL Acetaminophen Level LESS THAN 2.0 MCG/ML Ethyl Alcohol Level LESS THAN 3 MG/DL [facility] Medical Decision Making Medical Screen Exam Complete: Yes Emergency Medical Condition: Yes Medical Record Reviewed: Yes Differential Diagnosis Suicidal ideation, medical clearance for psychiatric evaluation, depression Narrative Course Patient presents under a Carter act. Physical examination and vital signs are essentially unremarkable. Patient has no medical complaints to report. Psych screen has been ordered. If the laboratory results are unremarkable, the patient will be medically cleared for psychiatric evaluation and disposition. Diagnosis Primary Impression: Medical clearance for psychiatric admission Condition: Stable Aurea Galvez Aug 31, 2017 16:17
[2017-08-31 16:39] LABS: AUTOMATED NEUTROPHIL # 8.7 TH/MM3 (1.8-7.7); BASOPHIL % 0.2 % (0.0-2.0); EOSINOPHIL # 0.2 TH/MM3 (0-0.4); EOSINOPHIL % 1.8 % (0.0-4.0); HEMATOCRIT 44.7 % (39.0-51.0); HEMOGLOBIN 15.4 GM/DL (13.0-17.0); LYMPH % 16.6 % (9.0-44.0); MEAN CELL VOLUME 100.4 FL (80.0-100.0); MEAN CORPUSCULAR HEMOGLOBIN 34.5 PG (27.0-34.0); MEAN CORPUSCULAR HGB CONC 34.4 % (32.0-36.0); MEAN PLATELET VOLUME 8.8 FL (7.0-11.0); MONO % 7.8 % (0.0-8.0); MONOCYTE # 0.9 TH/MM3 (0-0.9); NEUT % 73.6 % (16.0-70.0); PLATELET COUNT 264 TH/MM3 (150-450); RED BLOOD COUNT 4.45 MIL/MM3 (4.50-5.90); RED CELL DISTRIBUTION WIDTH 13.9 % (11.6-17.2); WHITE BLOOD COUNT 11.9 TH/MM3 (4.0-11.0)
[2017-08-31 16:57] LABS: ALBUMIN 3.7 GM/DL (3.4-5.0); ALT (GPT) 22 U/L (12-78); AST (GOT) 14 U/L (15-37); BICARBONATE 25.7 MEQ/L (21.0-32.0); BLOOD UREA NITROGEN 18 MG/DL (7-18); CALCIUM 8.5 MG/DL (8.5-10.1); CHLORIDE 105 MEQ/L (98-107); CREATININE 0.67 MG/DL (0.60-1.30); GLOMERULAR FILTRATION RATE 117 ML/MIN (>89); GLUCOSE,RANDOM 81 MG/DL (74-106); SODIUM (NA) 138 MEQ/L (136-145)
[2017-08-31 16:58] LABS: ALKALINE PHOSPHATASE 96 U/L (45-117); TOTAL BILIRUBIN ADULT 0.2 MG/DL (0.2-1.0); TOTAL PROTEIN 7.8 GM/DL (6.4-8.2)
[2017-08-31 17:03] LABS: ACETAMINOPHEN LESS THAN 2.0 MCG/ML (10.0-30.0)
[2017-08-31 19:35] VITALS: BP 150/75; PULSE 60; RESP 16; O2SAT 99
[2017-09-01 07:16] VITALS: BP 138/74; PULSE 62; RESP 17; O2SAT 98
== END 2017-09-01 08:59 ==
LOC: NEPD 15:29
DX: R45.851 Suicidal ideations (principal); I48.91 Unspecified atrial fibrillation; J44.9 Chronic obstructive pulmonary disease, unspecified; Z72.0 Tobacco use; Z79.899 Other long term (current) drug therapy; Z79.01 Long term (current) use of anticoagulants
CPT/HCPCS: 80053; 80307; 85025; 99284

== ENCOUNTER 2017-09-29 17:37 | Emergency (ER) | payer OTHER ==
[~2017-09-29 17:37] MED LIST changes: -TAMS5CAP PO
[2017-09-29 18:17] VITALS: BP 140/83; PULSE 79; RESP 17; TEMP 97.9; O2SAT 100
--- NOTE | 2017-09-29 19:50 | PD ---
HPI Chief Complaint: Back/ Neck Pain or Injury Time Seen by Provider: 19:19 Travel History International Travel<30 days: No Contact w/Intl Traveler<30days: No Traveled to known affect area: No History of Present Illness HPI 72-year-old male presents to the emergency room for evaluation of left lateral rib pain after falling 2 days ago. Patient states she was just standing prior to the fall. Does not know what made him lose his balance. He denies syncope or loss of consciousness. States he fell directly backwards on his buttocks. He denies hitting his head. Reports all of his pain is in his rib cage. Worse with deep breathing and twisting. He took medicine that his friend gave him, he believes it was aspirin, without any relief in symptoms. He also applied topical medications without relief. He denies any pain in the head, neck, back , or but. He has been ambulatory since then. He denies difficulty breathing or shortness of breath. PFSH Past Medical History Hx Anticoagulant Therapy: Yes (eliquis) Arthritis: No Asthma: No Autoimmune Disease: No Blood Disorders: No Anxiety: Yes Depression: Yes Heart Rhythm Problems: No Cancer: No Cardiovascular Problems: Yes (A-FIB ) Chest Pain: No Congestive Heart Failure: No COPD: Yes Cerebrovascular Accident: No Diabetes: No Diminished Hearing: Yes (bilateral hearing aids, NONE IN PLACE) Deep Vein Thrombosis: Yes (L LEG) Endocrine: No Gastrointestinal Disorders: No Genitourinary: No Headaches: No Hypertension: No Immune Disorder: No Implanted Vascular Access Dvce: Yes Musculoskeletal: Yes (right back pain, BLE weakness due to MS) Neurologic: No Psychiatric: Yes (Hx of treatment for Major Depressive Disorder) Respiratory: Yes (emphysema) Immunizations Current: Yes Migraines: No Seizures: No Sleep Apnea: No Thyroid Disease: No Past Surgical History Abdominal Surgery: No AICD: No Arteriovenous Shunt: No Body Medical Devices: pins in right leg, accident at work in 1988 Cardiac Surgery: No Ear Surgery: No Endocrine Surgery: No Eye Surgery: No Genitourinary Surgery: No Gynecologic Surgery: No Insulin Pump: No Joint Replacement: No Neurologic Surgery: No Oral Surgery: No Pacemaker: No Thoracic Surgery: No Other Surgery: Yes (hx of back surgery) Social History Alcohol Use: No (QUIT 1989, HX : ETOH ABUSE) Tobacco Use: Yes (1 PPD) Substance Use: No Allergies-Medications (Allergen,Severity, Reaction): Coded Allergies: No Known Allergies (Verified Allergy, Unknown, 09/29/17) Reported Meds & Prescriptions Reported Meds & Active Scripts Active Eliquis (Apixaban) 5 Mg Tab 5 Mg PO BID 30 Days Effexor XR 24 HR (Venlafaxine HCl) 75 Mg Cap 150 Mg PO DAILY 30 Days Oyster Shell 250 mg + Vit D Tb (Calcium/Vitamin D) 250 Mg Calcium (625 Mg)-125 Unit Tablet 500 Mg PO BID Review of Systems Except as stated in HPI: all other systems reviewed are Neg Physical Exam Narrative GENERAL: Well-nourished, thin male in no acute distress. Afebrile. Ambulatory. SKIN: Focused skin assessment warm/dry. HEAD: Normocephalic. EYES: No scleral icterus. No injection or drainage. NECK: Supple, trachea midline. No JVD or lymphadenopathy. CARDIOVASCULAR: Regular rate and rhythm without murmurs, gallops, or rubs. RESPIRATORY: Breath sounds equal bilaterally. No accessory muscle use. CHEST: Mild tenderness to palpation of the left lateral rib cage. No deformity or crepitus. No retractions or use of accessory muscles. BACK: No CVA tenderness. No rash. No point tenderness on palpation of the spine. Data Data Last Documented VS Vital Signs Date Time Temp Pulse Resp B/P (MAP) Pulse Ox O2 Delivery O2 Flow Rate FiO2 09/29/17 18:17 97.9 79 17 140/83 (102) 100 Orders Orders Ribs, Uni (W/Exp Cxr-Min 3vw) (09/29/17 ) Resp Incentive Spirometry (09/29/17 ) Ed Discharge Order (09/29/17 20:17) [facility] Medical Decision Making Medical Screen Exam Complete: Yes Emergency Medical Condition: Yes Medical Record Reviewed: Yes Differential Diagnosis Contusion, fracture, sprain, strain Narrative Course 72-year-old male presents to the emergency room for evaluation of left rib pain after mechanical fall 2 days ago. Patient lost his balance and fell backwards on his buttocks. He adamantly denies pain anywhere in his body except the left lateral ribs. Denies shortness of breath. There is tenderness palpation of the left lateral rib cage. No obvious deformity, crepitus, or edema. Lung sounds clear and equal bilaterally. X-rays are negative. Patient was reassured and told to follow-up with a primary care physician or return for worsening symptoms. He was given an incentive spirometer to prevent pneumonia. He understands and agrees to plan. Diagnosis Primary Impression: Contusion of rib on left side Qualified Codes: S20.212A - Contusion of left front wall of thorax, initial encounter Referrals: Primary Care Physician Additional Instructions: Rest and drink plenty of fluids. Patches as directed, as needed for pain. Take Tylenol as directed, as needed for pain. Apply ice to the affected area for 20 minutes at a time, as needed for pain and swelling. Follow-up with a primary care physician. Return to the emergency room for worsening symptoms. Med/Other Pt SpecificInfo: Prescription(s) given Scripts Lidocaine Patch 12 HR (Lidocaine Patch 12 HR) 5 % Patch 1 PATCH TOPICAL DAILY for Pain Management, #1 BOX 0 Refills Remove patch after 12 hours Prov: Ladarius Rivera MD 09/29/17 Disposition: 01 DISCHARGE HOME Condition: Stable Marina Joya Sep 29, 2017 19:50
--- NOTE | 2017-09-29 20:10 | RADRPT ---
EXAM DATE/TIME: 09/29/2017 19:37 [facility] COMPARISON: No previous studies available for comparison. INDICATIONS : Fall this morning backward and landed on ribs. MEDICAL HISTORY : Multiple sclerosis. Deep venous thrombosis SURGICAL HISTORY : Fusion, lumbar. Pins in legs ENCOUNTER: Initial ACUITY: 1 day PAIN SCORE: 10/10 LOCATION: Left Ribs FINDINGS: No acute fracture or dislocation of the left ribs is noted. Old fractures involving the left seventh, ninth and 10th ribs are noted. Deformity involving the left humeral head is noted consistent with po ssible old trauma and arthritis. CONCLUSION: No acute fracture or dislocation. Old fractures involving the left seventh, ninth and 10th ribs. Shun Balderas MD on September 29, 2017 at 20:05 Board Certified Radiologist. This report was verified electronically.
[2017-09-29] MEDS ORDERED: LIDO1PAD52 TOPICAL (20:18)
== END 2017-09-29 21:07 | disposition home or self-care (01) ==
LOC: NEPK 17:37
DX: S20.212A Contusion of left front wall of thorax, initial encounter (principal); I48.91 Unspecified atrial fibrillation; G35 Multiple sclerosis; J44.9 Chronic obstructive pulmonary disease, unspecified; F32.9 Major depressive disorder, single episode, unspecified; F41.9 Anxiety disorder, unspecified; F17.210 Nicotine dependence, cigarettes, uncomplicated; W18.30XA Fall on same level, unspecified, initial encounter; Z86.718 Personal history of other venous thrombosis and embolism; Z79.01 Long term (current) use of anticoagulants; Z79.899 Other long term (current) drug therapy
CPT/HCPCS: 71101; 99283